=== PATIENT | male | born 1955 | race Caucasian/White ===

== ENCOUNTER → 2018-09-04 | Outpatient (CLI) | payer MEDICARE ==
--- NOTE | 2018-09-04 12:32 | REP ---
PARTIAL LUMBAR SPINE, THREE VIEWS: HISTORY: Osteoarthritis. There is no acute fracture or subluxation. The L3-4 through L5-S1 intervertebral discs are decreased in height consistent with disc degeneration. Osteophytes are present on L3-S1. IMPRESSION: Degenerative change as described above. Electronically Signed by Jaun Ashraf MD 09/04/2018 12:40 P
--- NOTE | 2018-09-04 12:58 | REP ---
LEFT SHOULDER, THREE VIEWS: HISTORY: Osteoarthritis. There is no acute fracture or dislocation. There is marked narrowing of the acromioclavicular joint space with associated osteophyte formation. Calcification is present superior to the acromioclavicular joint space. This represents ligamentous or tendon calcification. IMPRESSION: Degenerative change as described above. Electronically Signed by Jaun Ashraf MD 09/04/2018 01:06 P
--- NOTE | 2018-09-04 13:00 | REP ---
AP STANDING AND BILATERAL KNEES ONE VIEW: HISTORY: Osteoarthritis. There is no acute fracture or dislocation. There is minimal narrowing of the knee joint spaces. IMPRESSION:Degenerative changes as described above. Electronically Signed by Jaun Ashraf MD 09/04/2018 01:06 P
--- NOTE | 2018-09-04 13:01 | REP ---
BILATERAL HAND, EIGHT VIEWS: HISTORY: Osteoarthritis. RIGHT HAND: There is no acute fracture or dislocation. The joint spaces are normal in appearance. Osteophytes are present at the distal interphalangeal joints of the second and third digits. IMPRESSION: Degenerative change as described above. LEFT HAND: There is no acute fracture or dislocation. The joint spaces are normal in appearance. Calcification is present lateral to the distal interphalangeal joint of the second digit. This represents ligamentous or tendon calcification. IMPRESSION: Degenerative change as described above. Electronically Signed by Jaun Ashraf MD 09/04/2018 01:07 P
== END ==
LOC: M SMT 10:52
PROVIDERS: ATTEND Internal Medicine Rheumatology
DX: M54.5 Low back pain (principal); M15.0 Primary generalized (osteo)arthritis

== ENCOUNTER 2020-10-03 13:59 | Inpatient (IN) | payer MEDICARE ==
[~2020-10-03] VITALS: Ht 182.9 cm; Wt 71.5 kg
[2020-10-03] VITALS (11 sets, daily range): BP systolic 105–139; BP diastolic 63–79
[2020-10-03] MEDS ORDERED: COMBIVENT RESPIMAT 100-20MCG INHALER 4GM INH ONE (14:50)
[2020-10-03 15:18] LABS: ABG BASE EXCESS 0.3 (-2.0-2.0); ABG HCO3 26.1 MEQ/L (22.0-26.0); ABG PARTIAL PRESSURE CO2 45.8 mmHg (35.0-45.0); ABG PARTIAL PRESSURE O2 78.3 mmHg (75.0-100.0); ABG STANDARD HCO3 24.7 MEQ/L (22.0-26.0); ABG TOTAL CO2 27.5 MEQ/L (23.0-31.0); ABG pH (ARTERIAL) 7.373 UNITS (7.350-7.450)
--- NOTE | 2020-10-03 15:23 | REP ---
INDICATION: DYSPNEA/COUGH COMPARISON: None. TECHNIQUE: Portable AP view of the chest FINDINGS: Large right pneumothorax. The lung santoro demonstrate diffuse advanced underlying fibrotic and emphysematous changes bilaterally. No focal consolidation. No effusion. Mild cardiomegaly cannot be excluded. IMPRESSION: Large right pneumothorax. ER immediately notified. Underlying emphysematous changes and fibrotic changes noted bilaterally. <Electronically signed by Krishna Hernandez > 10/03/20 [id number]
[2020-10-03] MEDS ORDERED: KCL 20MEQ IN D5/NS 1000ML 1,000 ML IV SCH (15:25)
[2020-10-03] MEDS ORDERED: LEVALBUTEROL 1.25 MG/0.5 ML CONCENTRATE NEB NEB PRN (15:25)
[2020-10-03] MEDS ORDERED: BISACODYL 10 MG SUPP PR PRN (15:25)
[2020-10-03] MEDS ORDERED: ACETAMINOPHEN TAB 650MG DOSE (2X325MG) PO PRN (15:25)
[2020-10-03] MEDS ORDERED: NORCO, ANEXSIA 5/325MG TABLET (HYDROcodone/ACETAMINOPHEN) PO PRN (15:25)
[2020-10-03] MEDS ORDERED: ONDANSETRON 4MG/2ML VIAL IV PRN (15:25)
[2020-10-03] MEDS ORDERED: MIDAZOLAM INJ 2MG/2ML VIAL (J2250 PER 1MG) As Ordered ONE (15:40)
[2020-10-03] MEDS ORDERED: flumazeniL 0.5 MG/5 ML VIAL As Ordered ONE (15:40)
[2020-10-03] MEDS ORDERED: LIDOCAINE 1% MDV 20ML VIAL As Ordered ONE (15:41)
[2020-10-03 15:48] LABS: BASO # 0.2 10^3/uL (0.0-0.2); BASO % 0.9 % (0.0-1.0); EOS % 0.1 % (0.0-3.0); HEMATOCRIT 57.4 % (42.0-52.0); LYMPH # 0.2 10^3/uL (1.5-5.0); LYMPH % 1.2 % (24.0-44.0); MEAN CORPUSCULAR HEMOGLOBIN 28.8 pg (27.0-33.0); MEAN CORPUSCULAR HGB CONC 31.4 g/dl (32.0-36.5); MEAN CORPUSCULAR VOLUME 91.8 fl (80.0-96.0); MONO # 0.5 10^3/uL (0.0-0.8); MONO % 2.9 % (2.0-8.0); NEUTROPHILS # 15.4 10^3/uL (1.5-8.5); NEUTROPHILS % 90.5 % (36.0-66.0); PLATELET COUNT, AUTOMATED 200 10^3/uL (150-450); RED BLOOD COUNT 6.25 10^6/uL (4.30-6.10)
[2020-10-03] MEDS ORDERED: LIDOCAINE 1% MDV 20ML VIAL SC ONE (16:00)
[2020-10-03] MEDS ORDERED: MIDAZOLAM INJ 2MG/2ML VIAL (J2250 PER 1MG) IV ONE (16:00)
[2020-10-03] MEDS ORDERED: ALBU83IN NEB (16:13)
[2020-10-03] MEDS ORDERED: TIOT18INH INH (16:13)
[2020-10-03] MEDS ORDERED: ACTO45TA12 PO (16:13)
[2020-10-03] MEDS ORDERED: PRED20TA PO (16:13)
[2020-10-03] MEDS ORDERED: HYDR200T3 PO (16:13)
[2020-10-03] MEDS ORDERED: ATOV750S PO (16:13)
[2020-10-03] MEDS ORDERED: BREO1INH3 INH (16:13)
[2020-10-03] MEDS ORDERED: GLYX1TAB PO (16:13)
[2020-10-03] MEDS ORDERED: DEXI60CA2 PO (16:13)
[2020-10-03] MEDS ORDERED: GLIM4TAB5 PO (16:13)
[2020-10-03] MEDS ORDERED: CITRTAB16 PO (16:13)
[2020-10-03 16:18] LABS: ALBUMIN 3.9 GM/DL (3.2-5.2); ALT/SGPT 94 U/L (12-78); BILIRUBIN,DIRECT 0.4 MG/DL (0.0-0.2); BILIRUBIN,TOTAL 1.1 MG/DL (0.2-1.0); BLOOD UREA NITROGEN 37 MG/DL (7-18); CALCIUM LEVEL 8.8 MG/DL (8.8-10.2); CARBON DIOXIDE LEVEL 32 MEQ/L (21-32); CHLORIDE LEVEL 104 MEQ/L (98-107); CK-MB VALUE MASS 11.8 NG/ML (<3.6); CPK CREATINE PHOSPHOKINASE 721 U/L (39-308); CREATININE FOR GFR 1.07 MG/DL (0.70-1.30); GLOMERULAR FILTRATION RATE > 60.0 (>49); GLUCOSE, FASTING 361 MG/DL (70-100); MB/CK RELATIVE INDEX 1.64 (< OR =4); NT-PRO BNP 2099 PG/ML (<125); POTASSIUM SERUM 5.2 MEQ/L (3.5-5.1); SODIUM LEVEL 140 MEQ/L (136-145); THYROID STIMULATING HORMONE 0.524 uIU/ML (0.358-3.740); TOTAL PROTEIN 6.6 GM/DL (6.4-8.2)
--- NOTE | 2020-10-03 16:47 | REP ---
INDICATION: after chest tube placement COMPARISON: 10/03/2020 at 3:16 p.m. TECHNIQUE: Portable AP view of the chest FINDINGS: Right-sided chest tube has been placed and there is been significant re-expansion to the right hemithorax with small residual right apical pneumothorax now identified. The bilateral lung santoro demonstrate diffuse chronic fibrosis/interstitial changes. No focal consolidation or effusion. IMPRESSION: Small residual right apical pneumothorax. Underlying diffuse chronic interstitial changes again noted. <Electronically signed by Krishna Hernandez > 10/03/20 [id number]
[2020-10-03] MEDS ORDERED: D5W/0.9% SODIUM CHLORIDE 1,000 ML IV SCH (17:10)
[2020-10-03] MEDS: KETOROLAC 30 MG/ML 1ML VIAL IV SCH (17:30)
[2020-10-03] MEDS ORDERED: DEXTROSE 50% 50 ML SYRINGE IV PRN (17:35)
[2020-10-03] MEDS ORDERED: GLUCAGON INJ 1MG VIAL SC PRN (17:35)
[2020-10-03] MEDS ORDERED: GLUCOSE 4GM CHEW TABLET PO PRN (17:35)
--- NOTE | 2020-10-03 18:07 | RO ---
OPERATIVE NOTE DATE OF OPERATION: 10/03/2020 PREOPERATIVE DIAGNOSIS: Acute right-sided pneumothorax. POSTOPERATIVE DIAGNOSIS: Acute right-sided pneumothorax. PROCEDURE: Insertion of anterior-superior chest tube. SURGEON: Dr. Shawn Reese DESCRIPTION OF PROCEDURE: Under satisfactory moderate sedation achieved with 2 mg of Versed, patient was prepped and draped in the usual sterile fashion. Incision was made over the 2nd rib and tunnel created in the chest without difficulty after infiltrating the skin, subcutaneous tissue, and pleura with Xylocaine. A #20 chest tube was placed and aimed toward the apex. It was secured to the chest wall with #2 Tevdek suture and connected to the Pleur-evac. Patient tolerated the procedure well. A chest x-ray is pending.
--- NOTE | 2020-10-03 18:30 | HPE ---
HISTORY AND PHYSICAL DATE OF ADMISSION: 10/03/2020 HISTORY OF PRESENT ILLNESS: Krishna Licea is a 65-year-old with pulmonary interstitial fibrosis who is followed [facility] by Dr. Cruz and Dr. Coon. He presented with a spontaneous pneumothorax of the right lung. I saw him soon after the chest tube was placed. He was having some pleuritic pain which limited his interest in providing a whole history and physical, with more of that to gather tomorrow. 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 He has chronic low back pain. He used to go to the pain clinic [facility] for [facility]. Type 2 diabetes. He is on chronic steroid therapy. He was diagnosed with rheumatoid arthritis back in the . He saw a medical massage therapist in [place]. He saw [facility] medical massage therapist, Dr. Bermudez when she was in [facility], most recently two years ago. She thought that the patient had osteoarthritis and not rheumatoid arthritis, as all serologic workup for rheumatoid arthritis was unremarkable, including anti-CCP and negative rheumatoid factor and negative inflammatory markers. Uric acid level was normal and radiographic studies just showed degenerative disease. Since then, it looks like he has been placed on some rheumatoid medications. We will investigate that further tomorrow. In particular, he carries the diagnosis of lupus, but I am not sure where the diagnosis was made and who is treating him with these agents. SOCIAL HISTORY: He is a nonsmoker, no alcohol. FAMILY HISTORY: Positive for diabetes. Father had rheumatoid arthritis and lung cancer. His sister has rheumatoid arthritis. ALLERGIES: None to any medications. REVIEW OF SYSTEMS: The review of systems was briefly obtained. No hemoptysis, rectal bleeding, urinary bleeding, fever, chills, shortness of breath, stable until abrupt worsening today. PHYSICAL EXAMINATION: VITAL SIGNS: He was seen in PCU and his chest tube had just been placed and he was having some pleuritic pain. Respiratory rate is around 30. Vital signs per flow sheet. GENERAL APPEARANCE: He looks chronically ill. Temporal wasting noted. Sarcopenia noted. NECK: Supple. No thyromegaly. LUNGS: Decreased breath sounds, fibrotic rales. Good air movement bilaterally. HEART: Regular rhythm, no murmur. ABDOMEN: Soft and nontender with no masses. EXTREMITIES: No clubbing, cyanosis, or edema. Decreased pulses, but deep is still palpable. IMPRESSION: 1. Spontaneous pneumothorax status post right chest tube by Dr. Reese. He and I have discussed the case. He will remain with a chest tube. 2. Diabetes with a sliding scale of insulin based upon monitoring his blood sugars until his oral intake is assured. 3. Mild hyperkalemia. I will change his IV fluids. Currently, he has IV fluids going with supplemental potassium. 4. ? lupus. We will investigate this further tomorrow. It does look like he is on chronic steroids which we will need to continue. He will be at risk of adrenal suppression, as his dose is actually 60 mg daily as it looks on his ER record. 5. Chronic pain of lumbosacral degenerative disk disease and degenerative arthritis. Early ambulation advised. Chronic pain could limit his recovery.
[2020-10-03] MEDS: LEVALBUTEROL 1.25 MG/0.5 ML CONCENTRATE NEB NEB SCH (19:15)
--- NOTE | 2020-10-03 20:13 | ECGEPIP ---
[facility] - ED Test Date: 2020-10-03 Pat Name: KIERA ALARCON Department: Room: - Gender: Male [employer]: YOLANDE : 1955 Requested By: SHAYNE Jerome Order Number: [id number] Reading MD: Manisha Braden Measurements Intervals [place] Rate: 80 P: 80 TN: 182 QRS: 20 QRSD: 100 T: -18 QT: 372 QTc: 429 Interpretive Statements Normal sinus rhythm Inferior infarct , age undetermined NSTTW abnormalities No prior Electronically Signed on 10-03-2020 20:14:11 EST by Manisha Braden
[2020-10-03] MEDS: HYDROXYCHLOROQUINE 200 MG TAB PO SCH (22:09)
[2020-10-03] MEDS: HEPARIN SOD (PORCINE) 5000UNITS/ML 1ML VIAL/SYRINGE SC SCH (22:10)
[2020-10-03] MEDS: DOCUSATE SODIUM 100MG CAPSULE PO SCH ×2 (22:10→22:16)
[2020-10-03] MEDS: HumaLOG INSULIN (NovoLOG) PER UNIT SC SCH (22:11)
[2020-10-04] VITALS: BP 153/68
[2020-10-04] MEDS: KETOROLAC 30 MG/ML 1ML VIAL IV SCH ×5 (00:50→23:51)
[2020-10-04] MEDS: LEVALBUTEROL 1.25 MG/0.5 ML CONCENTRATE NEB NEB SCH ×4 (02:00→21:04)
[2020-10-04 04:00] VITALS: BP 102/64
[2020-10-04 04:15] LABS: BASO # 0.1 10^3/uL (0.0-0.2); BASO % 0.8 % (0.0-1.0); EOS # 0.1 10^3/uL (0.0-0.5); EOS % 0.5 % (0.0-3.0); HEMOGLOBIN 16.5 g/dl (13.5-17.5); LYMPH # 0.7 10^3/uL (1.5-5.0); LYMPH % 3.7 % (24.0-44.0); MEAN CORPUSCULAR HEMOGLOBIN 28.6 pg (27.0-33.0); MEAN CORPUSCULAR VOLUME 95.5 fl (80.0-96.0); MONO # 1.3 10^3/uL (0.0-0.8); NEUTROPHILS # 15.8 10^3/uL (1.5-8.5); NEUTROPHILS % 85.1 % (36.0-66.0); PLATELET COUNT, AUTOMATED 162 10^3/uL (150-450); RED BLOOD COUNT 5.76 10^6/uL (4.30-6.10); WHITE BLOOD COUNT 18.5 10^3/uL (4.0-10.0)
[2020-10-04 04:36] LABS: BLOOD UREA NITROGEN 37 MG/DL (7-18); CALCIUM LEVEL 8.2 MG/DL (8.8-10.2); CARBON DIOXIDE LEVEL 34 MEQ/L (21-32); CHLORIDE LEVEL 109 MEQ/L (98-107); CREATININE FOR GFR 0.87 MG/DL (0.70-1.30); GLOMERULAR FILTRATION RATE > 60.0 (>49); GLUCOSE, FASTING 65 MG/DL (70-100); MAGNESIUM LEVEL 2.8 MG/DL (1.8-2.4); POTASSIUM SERUM 4.6 MEQ/L (3.5-5.1); SODIUM LEVEL 145 MEQ/L (136-145)
[2020-10-04 06:17] LABS: ABG BASE EXCESS 0.8 (-2.0-2.0); ABG HCO3 29.6 MEQ/L (22.0-26.0); ABG O2 SATURATION 99.4 % (95.0-99.0); ABG STANDARD HCO3 25.2 MEQ/L (22.0-26.0); ABG TOTAL CO2 31.5 MEQ/L (23.0-31.0); ABG pH (ARTERIAL) 7.282 UNITS (7.350-7.450)
[2020-10-04 06:23] LABS: ABG PARTIAL PRESSURE CO2 64.1 mmHg (35.0-45.0)
[2020-10-04] MEDS: HumaLOG INSULIN (NovoLOG) PER UNIT SC SCH ×4 (07:30→20:58)
[2020-10-04] MEDS: ATOVAQUONE SUSP 750MG/5ML 210 ML BTL PO SCH (07:36)
[2020-10-04] MEDS: predniSONE 20 MG TAB PO SCH (07:36)
[2020-10-04] MEDS: PANTOPRAZOLE 40MG TAB (PROTONIX) PO SCH (07:37)
[2020-10-04] MEDS: DOCUSATE SODIUM 100MG CAPSULE PO SCH (07:37)
[2020-10-04] MEDS: HYDROXYCHLOROQUINE 200 MG TAB PO SCH ×2 (07:37→20:52)
[2020-10-04] MEDS: MOM 30ML SUSPENSION UDC PO SCH (07:37)
[2020-10-04] MEDS: HEPARIN SOD (PORCINE) 5000UNITS/ML 1ML VIAL/SYRINGE SC SCH ×2 (07:37→20:53)
[2020-10-04 08:00] VITALS: BP 111/57
--- NOTE | 2020-10-04 08:25 | REP ---
INDICATION: after chest tube placement COMPARISON: 10/03/2020 TECHNIQUE: PA and lateral. FINDINGS: Right apical chest tube in stable position with small residual right apical pneumothorax unchanged. Diffuse bilateral chronic fibrosis and interstitial disease remains stable. No new acute consolidation or effusion. Mediastinum and cardiac silhouette within normal limits. IMPRESSION: No significant change from prior examination. Small residual right apical pneumothorax. <Electronically signed by Krishna Hernandez > 10/04/20 0850
--- NOTE | 2020-10-04 08:34 | IPN ---
PROGRESS NOTE DATE: 10/04/2020 SUBJECTIVE: Krishna is feeling fairly well today, less short of breath. No chest pain. No fever. He is hard of hearing, it is difficult to history from him. OBJECTIVE: VITAL SIGNS: Afebrile. Vital signs are stable. LUNGS: Good air movement bilaterally. HEART: Regular rate and rhythm. ABDOMEN: Soft, nontender. EXTREMITIES: No peripheral edema. LABORATORY DATA: Potassium 7.46, creatinine is normal, blood sugar this morning was 65, he was given some juice and it came up. White count 18.5, hemoglobin 16.5, platelets 162,000. IMPRESSION: 1. Spontaneous pneumothorax right lung, status post chest tube by Dr. Reese who is managing this. 2. Diabetes, sliding scale insulin coverage, hypoglycemia this morning, was treated without significant intervention. 3. ? lupus, continue his current regimen including his fairly high dose steroids.
--- NOTE | 2020-10-04 08:38 | REP ---
INDICATION: IPF, pneumothorax COMPARISON: None TECHNIQUE: Axial noncontrast images from the thoracic inlet to the upper abdomen with coronal and sagittal reformations. This CT examination was performed using the following dose reduction techniques: Automated exposure control, adjustment of mA and/or kv according to the patient's size, and use of iterative reconstruction technique. FINDINGS: Right-sided chest tube via anterior approach extends to the apex and a small residual pneumothorax is identified. Diffuse bilateral advanced pulmonary fibrosis with bronchiectasis noted along with 6.3 cm chronic pneumatocele at the medial right base. Linear opacity along the apical aspect of the right major fissure which may represent chronic thickening, trapped fluid or element of atelectasis. Small patchy scattered bilateral opacities noted. No effusion. Mediastinum demonstrates scattered reactive adenopathy. Atherosclerotic changes to the thoracic aorta and coronary arteries noted without aortic aneurysm. Cardiomegaly noted without pericardial effusion. Surrounding musculoskeletal structures are intact. IMPRESSION: 1. Small residual right pneumothorax. 2. Advanced diffuse pulmonary fibrosis and chronic changes. 3. Subtle small scattered opacities may reflect acute areas of infiltrate versus chronic change. <Electronically signed by Krishna Hernandez > 10/04/20 0879
--- NOTE | 2020-10-04 11:22 | IPN ---
PROGRESS NOTE DATE: 10/04/2020 SUBJECTIVE: Mr. Licea is breathing a lot better today. He still has an increased respiratory rate, but he can now speak in full sentences. OBJECTIVE: VITAL SIGNS: Show a T-max of 97.9 with a heart rate that ranges between 66 and 79 in sinus rhythm. Respiratory rate of 18 to 19 without the use of accessory muscles who is 96% to 97% saturated on 4 liters nasal cannula and whose blood pressure is ranging between 153/68 to 102/64. When I examined him this morning, his respiratory rate is more in the mid to high 20s. INTAKE AND OUTPUT: Over the past 24 hours has been recorded as 710 in and 400 out for a positivity of 300 mL. His chest tube output is not recorded. His weight today is 66.1 kg compared to 63.1 kg yesterday. I do not see an air leak in his chest tube. I will speak to the nursing staff regarding the absence of chest tube output recording. RESPIRATORY: He has equal breath sounds on either side. At the very end of inspiration, he has velcro crackles. Scattered among the velcro crackles are coarse rhonchi, which do not clear with coughing. Percussion note is full to the diaphragm. There is no subcutaneous emphysema on the chest wall. CARDIAC: Without murmurs, clicks, gallops, or rubs. I cannot feel his PMI. S1 and S2 are normal. ABDOMEN: Soft and nontender. Bowel sounds are positive. There is no hepatomegaly. No CVA tenderness. EXTREMITIES: Show no pretibial edema. No calf tenderness. No differential swelling of the upper extremities. SKIN: Warm, dry, and perfused without cyanosis or mottling, including that of the nail beds and knees. NECK: Supple. There is no jugular venous distention. No subcutaneous emphysema. Trachea is midline. MOUTH: Shows the mucous membranes to be pink and moist. Lips and commisures are without lesions and no thrush. EYES: Show his pupils equal and reactive. Extraocular motions are intact. Sclerae nonicteric. NEUROLOGIC: Shows II through XII intact. Normal gross motor, gross sensation intact. Gait is not tested. PSYCHIATRIC: Shows him to be awake, alert, and oriented x3 with appropriate mood and affect and conversational. LABORATORY DATA: His white count today is 18.5 slightly up from 17.0 yesterday. Hemoglobin and hematocrit are 16.5 and 55.8 slightly improved from 18 and 57.4. This represents hypoxic polycythemia. Platelet count is 162,000 and stable, and differential shows 85% neutrophils, 3% lymphocytes, and 7% monocytes. There are no immature forms and no toxic granulations. His electrolytes show a marginally high total CO2 of 34 with a BUN and creatinine of 37 and 0.87. Glucose is 65 with a calcium of 8.2. Blood gases this morning show a pH of 7.28, pCO2 of 64 with a pO2 of 214 on 4 liters nasal cannula. Base excess is 0.8. IMAGING DATA: His chest x-ray today shows small apical air space on the right side. Chest tube is in good position at the apex. There looks to be a large bulla on the chest x-ray inferiorly. This is seen inferiorly and medially. He has fibrotic changes with a reticular pattern with thickened septa. I did order a CT of his chest today. The CT of the chest shows advanced pulmonary fibrosis with honeycombing throughout. It has progressed from being peripheral honeycombing to parenchymal honeycombing traction bronchiectasis. There is a small air space anteriorly. There is mediastinal lymphadenopathy, although the chest CT is not contrasted. He has lots of patch infiltrates and small patchy areas of consolidation throughout. The large bulla as seen on the chest x-ray is seen also n the CT scan at the medial costophrenic angle. Numerous cystic changes throughout consistent with the honeycombing. IMPRESSION: 1. Spontaneous pneumothorax right side. 2. Advanced interstitial lung disease. 3. Contributing chronic obstructive pulmonary disease (COPD). 4. Hypoxic polycythemia. 5. Gastroesophageal reflux disease (GERD). 6. Diabetes. PLAN AND DISCUSSION: I will keep his chest tube on suction today as he still has a small pneumothorax and residual air space. His chest CT radiographically confirms his pulmonary fibrosis. I have a sinking feeling that the pneumothorax may very well reoccur from the numerous cystic spaces that are replacing the lung. Right now he does not have an air leak. I will keep his chest tube on suction in order to try and get the lung completely expanded to the chest wall.
[2020-10-04 12:00] VITALS: BP 96/58
[2020-10-04 16:00] VITALS: BP 110/60
[2020-10-04 19:59] VITALS: BP 137/67
[2020-10-05] VITALS: BP 101/57
[2020-10-05] MEDS: LEVALBUTEROL 1.25 MG/0.5 ML CONCENTRATE NEB NEB SCH ×4 (01:24→19:33)
[2020-10-05 04:00] VITALS: BP 106/58
[2020-10-05 05:51] LABS: BASO # 0.1 10^3/uL (0.0-0.2); BASO % 0.9 % (0.0-1.0); EOS # 0.1 10^3/uL (0.0-0.5); EOS % 0.3 % (0.0-3.0); HEMATOCRIT 54.9 % (42.0-52.0); HEMOGLOBIN 16.3 g/dl (13.5-17.5); LYMPH # 0.5 10^3/uL (1.5-5.0); LYMPH % 3.3 % (24.0-44.0); MEAN CORPUSCULAR HEMOGLOBIN 28.7 pg (27.0-33.0); MEAN CORPUSCULAR HGB CONC 29.7 g/dl (32.0-36.5); MEAN CORPUSCULAR VOLUME 96.7 fl (80.0-96.0); MONO # 1.1 10^3/uL (0.0-0.8); MONO % 7.1 % (2.0-8.0); NEUTROPHILS # 13.4 10^3/uL (1.5-8.5); NEUTROPHILS % 84.4 % (36.0-66.0); PLATELET COUNT, AUTOMATED 143 10^3/uL (150-450); RED BLOOD COUNT 5.68 10^6/uL (4.30-6.10); WHITE BLOOD COUNT 15.8 10^3/uL (4.0-10.0)
[2020-10-05 06:18] LABS: BLOOD UREA NITROGEN 42 MG/DL (7-18); CALCIUM LEVEL 8.5 MG/DL (8.8-10.2); CARBON DIOXIDE LEVEL 33 MEQ/L (21-32); CHLORIDE LEVEL 109 MEQ/L (98-107); CREATININE FOR GFR 0.77 MG/DL (0.70-1.30); GLOMERULAR FILTRATION RATE > 60.0 (>49); GLUCOSE, FASTING 104 MG/DL (70-100); MAGNESIUM LEVEL 2.7 MG/DL (1.8-2.4); POTASSIUM SERUM 4.6 MEQ/L (3.5-5.1); SODIUM LEVEL 144 MEQ/L (136-145)
[2020-10-05] MEDS: KETOROLAC 30 MG/ML 1ML VIAL IV SCH ×3 (06:27→17:02)
[2020-10-05] MEDS: HumaLOG INSULIN (NovoLOG) PER UNIT SC SCH ×4 (07:30→20:24)
[2020-10-05 08:00] VITALS: BP 100/56
[2020-10-05] MEDS: HEPARIN SOD (PORCINE) 5000UNITS/ML 1ML VIAL/SYRINGE SC SCH ×2 (08:17→20:19)
[2020-10-05] MEDS: HYDROXYCHLOROQUINE 200 MG TAB PO SCH ×2 (08:18→20:19)
[2020-10-05] MEDS: ATOVAQUONE SUSP 750MG/5ML 210 ML BTL PO SCH (08:18)
[2020-10-05] MEDS: predniSONE 20 MG TAB PO SCH (08:18)
[2020-10-05] MEDS: PANTOPRAZOLE 40MG TAB (PROTONIX) PO SCH (08:18)
--- NOTE | 2020-10-05 08:29 | REP ---
INDICATION: after chest tube placement COMPARISON: 10/04/2020 TECHNIQUE: PA and lateral. FINDINGS: Right apical chest tube is again identified and a very small residual right apical pneumothorax is appreciated. Right-sided subcutaneous emphysema and possible new right basilar opacity cannot be excluded. Diffuse underlying chronic bilateral fibrosis unchanged. IMPRESSION: Very small residual right apical pneumothorax. Cannot exclude subtle forming right basilar opacity. <Electronically signed by Krishna Hernandez > 10/05/20 [id number]
[2020-10-05] MEDS: MOM 30ML SUSPENSION UDC PO SCH (08:41)
[2020-10-05] MEDS: DOCUSATE SODIUM 100MG CAPSULE PO SCH ×2 (08:41→20:28)
--- NOTE | 2020-10-05 11:10 | IPN ---
PROGRESS NOTE DATE: 10/05/2020 SUBJECTIVE: Krishna was seen in the PCU. He has a chest tube in, he feels well as far as his chest tube goes. He has spent some time talking to nursing staff and then with me about planning some end of life care. He has a MOLST form which is a DNR. He apparently was told by Dr. Cruz about a year ago that he had a year to a year and a half to live and says "I have already hit the year." Apparently, he is not able to be strong enough anymore to ascend stairs to get in and out of his apartment, he is looking for placement upon discharge. He is not really appropriate for the [facility]osp[facility] residence yet, but he is not able to live at home either. OBJECTIVE: VITAL SIGNS: Stable. LUNGS: Air movement bilaterally, fibrotic rales bilaterally. HEART: Regular rhythm. ABDOMEN: Soft, nontender. EXTREMITIES: No peripheral edema. LABORATORY DATA: White count 14.8, hemoglobin 16.3, platelets 143,000, sodium 144, potassium 4.6, BUN 42, creatinine 0.7, glucose 104. I have reviewed his MOLST form which is a DNR and DNI. IMPRESSION: 1. Spontaneous pneumothorax right side status post chest tube placement. He has advanced interstitial lung disease that is becoming progressively worse. His life expectancy is limited. I appreciate Dr. Reese's input. Patient has a DNR status which was reaffirmed today. 2. Diabetes, on sliding scale insulin, has not been hypoglycemic in the last 24 hours. 3. Lupus, we confirmed he has lupus, followed by Dr. Johnson, a mortgage servicing specialist in [place]. I told Krishna that I will call his mortgage servicing specialist tomorrow to make him aware of the admission. 4. Disposition: Patient will need discharge to an alternative living arrangement upon discharge. He will not be able to go home.
[2020-10-05 12:00] VITALS: BP 105/56
[2020-10-05 15:52] VITALS: BP 110/62
--- NOTE | 2020-10-05 16:22 | IPN ---
PROGRESS NOTE DATE: 10/05/2020 SUBJECTIVE: Mr. Licea is a little bit more short of breath today. He went down to x-ray and he was very short of breath upon his return. Certainly he is not as short of breath as he was when he had his pneumothorax, but still his shortness of breath is a manifestation of his advanced pulmonary fibrosis as seen on his CT yesterday. OBJECTIVE: VITAL SIGNS: Show a T-max of 97.9 with a heart rate that ranges between 67 and 90 in sinus rhythm. Respiratory rate of 17 to 18 without the use of accessory muscles who is 90% to 100% saturated on 3 liters nasal cannula and whose blood pressure is ranging between 100/56 to 106/58. INTAKE AND OUTPUT: Over the past 24 hours has been recorded as 3330 in and 1518 out for a positivity of 1812 mL. He has put out 37 mL in the chest tube. His weight today is 62.5 kg compared to 66.1 kg yesterday. RESPIRATORY: He has velcro crackles throughout late inspiration. I also hear very coarse rhonchi, particularly on the right side. Percussion notes are full to the diaphragm. CARDIAC: Without murmurs, clicks, gallops, or rubs. I cannot feel his PMI. S1 and S2 are normal. ABDOMEN: Soft and nontender. Bowel sounds are positive. There is no hepatomegaly. No CVA tenderness. EXTREMITIES: Show no pretibial edema. No calf tenderness. No differential swelling of the upper extremities. SKIN: Warm, dry, and perfused without cyanosis or mottling, including that of the nail beds and knees. NECK: Supple. There is no jugular venous distention. No subcutaneous emphysema. Trachea is midline. MOUTH: Shows the mucous membranes to be pink and moist. Lips and commisures are without lesions and no thrush. EYES: Show his pupils equal and reactive. Extraocular movements are intact. Sclerae nonicteric. NEUROLOGIC: Shows II through XII intact. Normal gross motor, gross sensation intact. Gait is not tested. PSYCHIATRIC: Shows him to be awake, alert, and oriented x3 with appropriate mood and affect and conversational. LABORATORY DATA: His white count today is 15.6 with a hemoglobin and hematocrit of 16.3 and 54.9, unchanged from yesterday, with a platelet count of 143,000. Differential shows 84% neutrophils, 3% lymphocytes, and 7% monocytes. There are no immature forms and no toxic granulations. His electrolytes show a marginally elevated total CO2 of 33 with a BUN and creatinine of 42 and 77. Glucose is 104 with a calcium of 8.5 and magnesium of 2.7. IMAGING DATA: His chest x-ray today shows an apical air space in the right upper hemithorax. Chest tube is in good place at the apex of the hemithorax. He has patchy reticular infiltrates throughout consistent with his pulmonary fibrosis, worse on the right than the left. Costophrenic angles are sharp. I do not see overt infiltrates. IMPRESSION: 1. Spontaneous pneumothorax right side. 2. Advanced interstitial lung disease clinically idiopathic pulmonary fibrosis. 3. Contributing underlying chronic obstructive pulmonary disease (COPD). 4. Hypoxic polycythemia. 5. Gastroesophageal reflux disease. 6. Diabetes. PLAN AND DISCUSSION: I will discontinue his suction today. I am concerned that this may be the first of recurrent pneumothoraces because of his advanced pulmonary fibrosis and cystic disease. If his chest x-ray is stable tomorrow and there is no air leak, I will remove his chest tubes. Nursing staff tells me that he has difficulty in his present living situation, as he has his bedroom upstairs and he literally "crawls" up the stairs to get there. He is going to need alternate living arrangements. Dr. Cruz did have a nidhi discussion with him about his prognosis and end-of-life care. She had him sign a MOLST form. If he is not going to consider a lung transplant or antifibrosis therapy, Hospice may be a good arrangement for him, as his life expectancy is rather short.
[2020-10-06] VITALS: BP 105/59
[2020-10-06] MEDS: KETOROLAC 30 MG/ML 1ML VIAL IV SCH ×4 (00:43→17:20)
[2020-10-06] MEDS: LEVALBUTEROL 1.25 MG/0.5 ML CONCENTRATE NEB NEB SCH ×4 (02:03→19:18)
[2020-10-06 04:00] VITALS: BP 96/61
[2020-10-06 05:46] LABS: BASO # 0.1 10^3/uL (0.0-0.2); BASO % 0.6 % (0.0-1.0); EOS # 0.2 10^3/uL (0.0-0.5); EOS % 0.9 % (0.0-3.0); HEMATOCRIT 54.4 % (42.0-52.0); HEMOGLOBIN 16.2 g/dl (13.5-17.5); LYMPH # 0.8 10^3/uL (1.5-5.0); LYMPH % 4.9 % (24.0-44.0); MEAN CORPUSCULAR HGB CONC 29.8 g/dl (32.0-36.5); MEAN CORPUSCULAR VOLUME 97.5 fl (80.0-96.0); MONO % 6.4 % (2.0-8.0); NEUTROPHILS # 13.3 10^3/uL (1.5-8.5); NEUTROPHILS % 84.1 % (36.0-66.0); PLATELET COUNT, AUTOMATED 130 10^3/uL (150-450); RED BLOOD COUNT 5.58 10^6/uL (4.30-6.10); WHITE BLOOD COUNT 15.9 10^3/uL (4.0-10.0)
[2020-10-06 05:56] LABS: BLOOD UREA NITROGEN 38 MG/DL (7-18); CALCIUM LEVEL 8.2 MG/DL (8.8-10.2); CARBON DIOXIDE LEVEL 33 MEQ/L (21-32); CHLORIDE LEVEL 109 MEQ/L (98-107); CREATININE FOR GFR 0.79 MG/DL (0.70-1.30); GLOMERULAR FILTRATION RATE > 60.0 (>49); GLUCOSE, FASTING 112 MG/DL (70-100); MAGNESIUM LEVEL 2.4 MG/DL (1.8-2.4); POTASSIUM SERUM 4.7 MEQ/L (3.5-5.1); SODIUM LEVEL 142 MEQ/L (136-145)
[2020-10-06 08:00] VITALS: BP 100/61
--- NOTE | 2020-10-06 08:34 | REP ---
INDICATION: after chest tube placement COMPARISON: 10/05/2020 TECHNIQUE: PA and lateral. FINDINGS: Right apical chest tube in stable position. Small residual right apical pneumothorax. Underlying chronic bilateral fibrosis and interstitial changes again noted. No new acute process identified mediastinum and cardiac silhouette stable. Skeletal structures stable. IMPRESSION: Small right apical pneumothorax again noted. No new acute process appreciated. <Electronically signed by Krishna Hernandez > 10/06/20 [id number]
--- NOTE | 2020-10-06 08:42 | CR ---
CONSULTATION DATE: 10/03/2020 Patient seen at the request of Dr. Hand of the emergency room and the hospitalist service, Dr. Polo, for increasing shortness of breath and pneumothorax by chest x-ray. HISTORY OF PRESENT ILLNESS: Patient is a 65-year-old white male with known idiopathic pulmonary fibrosis whose acute story starts about 2 weeks ago, when he started to get more and more short of breath. He presented to the pulmonary service's offices on September [address] Cruz, where he was hypoxic and 82% saturated on room air. He had been losing weight and was more short of breath with minimal exertion. A year ago, he evidently could walk 5 miles. The last 2 weeks his shortness of breath has gotten significantly worse and over the last 2 days even worse than the last 2 weeks. He can hardly move around in bed without getting short of breath, and upon taking history today he can barely speak in full sentences, thus making the history difficult to obtain. He denies fever, chills, or sweats. He has had a near 40-pound weight loss. He states he is eating well. He has a slight cough. No sputum production. Notably, he does not complain of chest pain or chest discomfort other than tightness when he is trying to take a deep breath. There is no dysphagia. MEDICAL HISTORY: 1. Idiopathic pulmonary fibrosis. 2. Systemic lupus erythematosus, recently diagnosed. 3. Cez-nivwvtr-xyowtvtbm diabetes. 4. Osteoarthritis. 5. Diabetic neuropathy. 6. Chronic back pain. SURGICAL HISTORY: None. HOME MEDICATIONS: - albuterol nebulizer four times a day as needed for shortness of breath - atovaquone 10 mg daily - Dexilant 60 mg daily - Glyxambi 25/5 daily - Breo Ellipta 200/25 one puff daily - glimepiride 8 mg daily - hydroxychloroquine 200 mg twice a day - Actos 45 mg daily - prednisone 60 mg daily - Spiriva 18 mcg one puff daily HABITS: Is a life-time nonsmoker, although he does state that he will have a bit of a cigar very occasionally for perhaps birthdays or holidays. No illicit drugs. He will have a few beers on the weekend. TRAVEL HISTORY: Not obtained. EXPOSURES: No exposures to tuberculosis. No birds or cats at home. Does have two dogs, a Lab and a Beagle. OCCUPATIONAL HISTORY: Worked for the [employer]. Does not think he has had any asbestos exposure. FAMILY HISTORY: No relevant to the acute situation. REVIEW OF SYSTEMS: CONSTITUTIONAL: See history of present illness (HPI). Without fever, chills, sweats, or night sweats. Does have significant weight loss. This has happened over the course of the past year. EYES: Without diplopia, without prior jaundice, without amaurosis fugax. NOSE: Without epistaxis. MOUTH: Edentulous. RESPIRATORY: See HPI. CARDIAC: Without palpitations, without tachycardias, without prior myocardial infarctions. Denies peripheral edema or intermittent claudication. GASTROINTESTINAL: Without nausea, vomiting, diarrhea, consistent, melena, or hematochezia, abdominal pain, or hematemesis. GENITOURINARY: Without dysuria, hematuria, or history of renal stones. ENDOCRINE: With diabetes. Without thyroid disease. NEUROLOGIC: Without paresthesias, paralyses, or prior seizures. PSYCHIATRIC: Without pathologic anxieties, depressions, or psychoses. PHYSICAL EXAMINATION: A cachectic, well-developed, under-nourished white male in acute distress with shortness of breath, unable to complete full sentences. He is using the accessory muscles or respiration in both his neck and his abdomen. Vital signs: Temperature is 97.0, heart rate is 79 in a sinus rhythm, respiratory rate of 30 with the use of accessory muscles, who is 99% saturated on 4 liters nasal cannula and whose blood pressure is 113/66. Eyes: Pupils equally round and reactive to light. Extraocular movements intact. Sclerae anicteric. Nose without deformity. Mouth shows his mucous membranes to be pink and moist. Lips and commissures without lesions. There is no thrush. He is edentulous. Neck is supple. There is no jugular venous distention. No subcutaneous emphysema. Trachea is midline. He has 2+ carotid upstrokes. No thyromegaly or lymphadenopathy. Lungs show markedly decreased breath sounds on the right side, and he is hyperresonant on the right side. Left side shows normal vesicular sounds. There are no wheezes, rhonchi, or rales. Percussion note is full to the diaphragm on the left. Cardiac exam is without murmurs, clicks, gallops, or rubs. I cannot feel his point of maximal impulse (PMI). S1 and S2 are normal. He is so cachectic that I cannot get my stethoscope to make full contact with the skin. Abdomen is soft, nontender. Bowel sounds are positive. There is no hepatomegaly, no costovertebral angle (CVA) tenderness. Extremities show no pretibial edema, no calf tenderness, no differential swelling of the upper extremities. Skin is warm, dry, and perfused without cyanosis or mottling, including that of the nailbeds and knees. Neurologic shows II-XII intact. Normal gross motor, gross sensation intact. Gait is not tested. Psychiatric shows him to be awake, alert, and oriented times three with appropriate mood and affect and conversational. His white count today is 7.0 with a hemoglobin and hematocrit of 18.0 and 57.4. Platelet count is 200 with a differential that shows 90% neutrophils, 1% lymphocytes, and 2% monocytes. There are no immature forms or toxic granulations. His electrolytes are normal with a marginally high potassium of 5.2. BUN and creatinine are 37 and 1.07 with a glucose of 361 and a calcium of 8.8. Total bilirubin is 1.1 with an AST and ALT of 50 and 94, respectively. Troponin is 0.10. Calcium is 8.8 with a corresponding albumin of 3.9. TSH is 0.52. His blood gases this afternoon show a pH of 7.37, pCO2 of 45, and pO2 of 78 on the above nasal cannula with a base excess of 0.3. His chest x-ray shows a near 75% pneumothorax. There is a shift to the left. There is underlying compression from the pneumothorax and compression of the pulmonary vessels. There is no lateral. This is a portable chest x-ray done in the emergency room (ER). IMPRESSION: 1. Acute pneumothorax. 2. End-stage pulmonary fibrosis. 3. Hypoxic respiratory failure. 4. Diabetes. 5. Systemic lupus erythematosus. 6. Osteoarthritis. 7. Chronic back and shoulder pain. PLAN AND DISCUSSION: I will place chest tube with conscious sedation. That should take care of the acute situation, although he is always going to be short of breath. From Dr. Cruz' office notes, I understand he is not interested in antifibrotic therapy, nor is he interested in lung transplant referral and evaluation. His latest pulmonary function tests done on 09/02/2020 show an FEV1 of 1.04, which is 28% of predicted with a diffusion capacity which was 69% of predicted.
[2020-10-06] MEDS: MOM 30ML SUSPENSION UDC PO SCH (09:00)
[2020-10-06] MEDS: predniSONE 20 MG TAB PO SCH (09:28)
[2020-10-06] MEDS: HEPARIN SOD (PORCINE) 5000UNITS/ML 1ML VIAL/SYRINGE SC SCH ×2 (09:28→20:56)
[2020-10-06] MEDS: PANTOPRAZOLE 40MG TAB (PROTONIX) PO SCH (09:28)
[2020-10-06] MEDS: DOCUSATE SODIUM 100MG CAPSULE PO SCH ×2 (09:28→20:56)
[2020-10-06] MEDS: HYDROXYCHLOROQUINE 200 MG TAB PO SCH ×2 (09:28→20:56)
[2020-10-06] MEDS: ATOVAQUONE SUSP 750MG/5ML 210 ML BTL PO SCH (09:29)
[2020-10-06] MEDS: HumaLOG INSULIN (NovoLOG) PER UNIT SC SCH ×4 (09:29→20:57)
--- NOTE | 2020-10-06 10:30 | IPN ---
PROGRESS NOTE DATE: 10/06/2020 SUBJECTIVE: Krishna is seen [facility], his chest tube is out today and he is feeling well. We are starting to think about disposition, he cannot go home, he has to climb stairs to get in and out of where he lives and he is no longer able to do that. He has chronic hypoxic and respiratory failure due to the pulmonary fibrosis. He uses home O2 at 2 liters. He has cachexia related to endstage lung disease. He has a BMI of 18.7 and has temporal wasting and sarcopenia. OBJECTIVE: VITAL SIGNS: Afebrile. O2 saturation is 96% on 3 liters, blood pressure is 100/61. GENERAL APPEARANCE: Chronically ill-appearing, bitemporal wasting, alert, conversant, hard of hearing. HEENT: Unremarkable. LUNGS: Fibrotic rales bilaterally. Chest tube has been removed just before exam. HEART: Regular rate and rhythm. ABDOMEN: Soft, nontender. No masses. EXTREMITIES: No peripheral edema. LABORATORY DATA: White count 15.9, hemoglobin 16.2, platelets are 130,000, sodium is 142, potassium is 4.7, BUN 38, creatinine is 0.7, glucose is 112. Blood sugars are around 100 to 200. IMPRESSION: 1. Spontaneous pneumothorax right lung, chest tube has been removed, Dr. Reese is managing this, follow-up chest x-ray is pending. He has a DNR status. 2. Diabetes. He had some hypoglycemia earlier in his hospitalization. He is on a fairly hefty dose of steroids for his lupus and lung disease. Insulin requirements have been between 6 and 12 units a day. I put him on some basal insulin with Detemir insulin 6 units at bedtime, continue sliding scale. If he becomes hypoglycemic I would just stop the basal insulin, the diabetes is not going to be a long-term problem for this gentleman's health whose life expectancy is severely limited by his endstage lung disease. 3. Lupus, he has lupus, his stroke program coordinator is in [place]. He is on high-dose steroids for this. 4. Disposition: He is not able to go home and [facility] has been working on placement. His life expectancy is probably more than six months so I do not think he is a Hospice candidate. His flat bed knitter is Dr. Cruz. She has a long relationship with him and in the few days that I have seen Mr. Licea might provide some more insight into prognosis
--- NOTE | 2020-10-06 11:48 | IPN ---
PROGRESS NOTE DATE: 10/06/2020 SUBJECTIVE: Mr. Licea is feeling a bit better today. He did walk down to chest x-ray today. He is not short of breath at rest. His pain is being well-controlled with oral analgesics. OBJECTIVE: VITAL SIGNS: Show a T-max of 98.0 with a heart rate that ranges between 85 and 80 in sinus rhythm. Respiratory rate of 14 to 20 without the use of accessory muscles who is 97% saturated on 3 liters nasal cannula and whose blood pressure is ranging between 96/61 to 105/59. INTAKE AND OUTPUT: Over the past 24 hours has been recorded as 2890 in and 1065 out for a positivity of 1800 mL. He is now according to the Is and Os nearly 3600 mL over 48 hours. He has put out 1000 mL in urine, 65 mL from the chest tube, and there is no air leak. RESPIRATORY: He has equal breath sounds on either side. He has velcro crackles at the end of inspiration on either side with the right greater than the left. Percussion notes are full to the diaphragm. CARDIAC: Without murmurs, clicks, gallops, or rubs. I cannot feel his PMI. S1 and S2 are normal. ABDOMEN: Soft and nontender. Bowel sounds are positive. There is no hepatomegaly. No CVA tenderness. EXTREMITIES: Show no pretibial edema. No calf tenderness. No differential swelling of the upper extremities. SKIN: Warm, dry, and perfused without cyanosis or mottling, including that of the nail beds and knees. NECK: Supple. There is no jugular venous distention. No subcutaneous emphysema. Trachea is midline. MOUTH: Shows the mucous membranes to be pink and moist. Lips and commisures are without lesions and no thrush. EYES: Show his pupils equal and reactive. Extraocular movements are intact. Sclerae nonicteric. NEUROLOGIC: Shows II through XII intact. Normal gross motor, gross sensation intact. Gait is not tested. PSYCHIATRIC: Shows him to be awake, alert, and oriented x3 with appropriate mood and affect and conversational. LABORATORY DATA: His white count today is 15.9, unchanged from yesterday, with hemoglobin and hematocrit of 16.2 and 54.4 also unchanged from yesterday. Platelet count is 130,000 and stable. Differential shows 84% neutrophils, 4% lymphocytes, and 6% monocytes. There are no immature forms and no toxic granulations. His electrolytes show a marginally high total CO2 of 30. BUN and creatinine are 38 and 0.79. Glucose is 112 with a calcium of 8.2 and a magnesium of 2.4. IMAGING DATA: His chest x-ray shows a small apical air space in the right upper hemithorax. There is some overlying subcutaneous emphysema in the upper hemithorax. This is unchanged from yesterday. He has reticular infiltrates consistent with his pulmonary fibrosis. There are no other infiltrates or consolidations. IMPRESSION: 1. Spontaneous right pneumothorax. 2. Advanced interstitial lung disease clinically idiopathic pulmonary fibrosis. 3. Underlying chronic obstructive pulmonary disease (COPD). 4. Hypoxic polycythemia. 5. Gastroesophageal reflux disease. 6. Diabetes. PLAN AND DISCUSSION: As he has no air leak today, I will remove his chest tube. I do have that sinking feeling that this will reoccur, considering the extent of his cystic disease. I will leave his fluid balance to the medical service. He seems none the worse for it. He certainly has not reflected that in his chest tube output. From my perspective, he can go home tomorrow; but there are social aspects that need to be addressed.
[2020-10-06 13:00] VITALS: BP 101/60
[2020-10-06 16:35] VITALS: BP 106/63
[2020-10-06 20:00] VITALS: BP 98/57
[2020-10-06] MEDS ORDERED: LEVEMIR (INSULIN DETEMIR) 1 UNITS/0.01ML SC SCH (21:00)
[2020-10-07] VITALS: BP 95/57
[2020-10-07] MEDS: KETOROLAC 30 MG/ML 1ML VIAL IV SCH ×4 (01:08→17:17)
[2020-10-07] MEDS: LEVALBUTEROL 1.25 MG/0.5 ML CONCENTRATE NEB NEB SCH ×4 (01:27→20:13)
[2020-10-07 04:00] VITALS: BP 92/54
[2020-10-07 05:07] LABS: BASO # 0.1 10^3/uL (0.0-0.2); BASO % 0.5 % (0.0-1.0); EOS # 0.1 10^3/uL (0.0-0.5); EOS % 0.5 % (0.0-3.0); HEMATOCRIT 51.9 % (42.0-52.0); HEMOGLOBIN 15.8 g/dl (13.5-17.5); LYMPH # 0.5 10^3/uL (1.5-5.0); LYMPH % 3.4 % (24.0-44.0); MEAN CORPUSCULAR HEMOGLOBIN 29.2 pg (27.0-33.0); MEAN CORPUSCULAR HGB CONC 30.4 g/dl (32.0-36.5); MEAN CORPUSCULAR VOLUME 95.8 fl (80.0-96.0); MONO # 0.9 10^3/uL (0.0-0.8); MONO % 5.9 % (2.0-8.0); NEUTROPHILS # 13.4 10^3/uL (1.5-8.5); NEUTROPHILS % 87.3 % (36.0-66.0); PLATELET COUNT, AUTOMATED 123 10^3/uL (150-450); RED BLOOD COUNT 5.42 10^6/uL (4.30-6.10); WHITE BLOOD COUNT 15.4 10^3/uL (4.0-10.0)
[2020-10-07 05:35] LABS: BLOOD UREA NITROGEN 38 MG/DL (7-18); CALCIUM LEVEL 8.2 MG/DL (8.8-10.2); CARBON DIOXIDE LEVEL 38 MEQ/L (21-32); CHLORIDE LEVEL 107 MEQ/L (98-107); CREATININE FOR GFR 0.77 MG/DL (0.70-1.30); GLOMERULAR FILTRATION RATE > 60.0 (>49); GLUCOSE, FASTING 124 MG/DL (70-100); MAGNESIUM LEVEL 2.3 MG/DL (1.8-2.4); POTASSIUM SERUM 4.5 MEQ/L (3.5-5.1); SODIUM LEVEL 142 MEQ/L (136-145)
[2020-10-07 08:00] VITALS: BP 97/54
--- NOTE | 2020-10-07 08:08 | REP ---
INDICATION: after chest tube placement COMPARISON: 10/06/2020 TECHNIQUE: PA and lateral. FINDINGS: Right-sided chest tube has been removed and a small to moderate right apical pneumothorax appears slightly increased from prior examination. Overlying subcutaneous emphysema is appreciated. The lung santoro demonstrate diffuse bilateral chronic fibrosis and interstitial changes similar to prior examinations. No obvious new acute process identified. Mediastinum and cardiac silhouette are stable. IMPRESSION: Right chest tube has been removed and the right apical pneumothorax along with right-sided subcutaneous emphysema is slightly increased from prior examination. <Electronically signed by Krishna Hernandez > 10/07/20 0800
[2020-10-07] MEDS: ATOVAQUONE SUSP 750MG/5ML 210 ML BTL PO SCH (08:24)
[2020-10-07] MEDS: HEPARIN SOD (PORCINE) 5000UNITS/ML 1ML VIAL/SYRINGE SC SCH ×2 (08:24→20:38)
[2020-10-07] MEDS: predniSONE 20 MG TAB PO SCH (08:24)
[2020-10-07] MEDS: DOCUSATE SODIUM 100MG CAPSULE PO SCH ×2 (08:25→20:38)
[2020-10-07] MEDS: PANTOPRAZOLE 40MG TAB (PROTONIX) PO SCH (08:25)
[2020-10-07] MEDS: HumaLOG INSULIN (NovoLOG) PER UNIT SC SCH ×4 (08:25→20:37)
[2020-10-07] MEDS: HYDROXYCHLOROQUINE 200 MG TAB PO SCH ×2 (08:25→20:38)
[2020-10-07] MEDS: MOM 30ML SUSPENSION UDC PO SCH (08:26)
--- NOTE | 2020-10-07 08:44 | IPN ---
PROGRESS NOTE DATE: 10/06/2020 SUBJECTIVE: I spoke with Dr. Sedrick Cruz today about Mr. Licea. She has been in communication with his rehab director who has been hoping to start Cyclophosphamide for treatment of his lupus. Dr. Cruz is willing to write for this. It is not a medication that I think I am credentialed to order but she has that credential so I will put a consultation in, she will discuss this with Mr. Licea. I did talk about advance directives a bit with Dr. Cruz who really has only seen the patient once previously. She did not feel the patient had a less than six month life expectancy either, referable to our discussion about possible Hospice.
[2020-10-07 12:00] VITALS: BP 105/65
--- NOTE | 2020-10-07 13:35 | IPN ---
PROGRESS NOTE DATE: 10/07/2020 SUBJECTIVE: Mr. Licea is followed in my office for interstitial lung disease with a differential of idiopathic pulmonary fibrosis versus nonspecific interstitial pneumonia (NSIP). The patient does have a history of lupus followed by Dr. Celestin. Based on outpatient evaluation, we have decided on a trial of Cytoxan with the patient. The question was whether or not that could be started in the hospital. Upon interviewing the patient, he feels very weak, is looking forward to starting physical therapy to gain strength and he states that he would not want to start therapy until this is at least initiated if not finished. He remains on 60 mg of Prednisone. He has had no fevers or chills or a productive cough but has had shortness of breath which is improved since the treatment of his pneumothorax. This morning there is still a persistent right apical pneumothorax despite removal of the chest tube. He has no evidence of decompensation so this is being carefully monitored. OBJECTIVE: Vital signs: Temperature is 96.9, pulse is 60, respiratory rate is 19, blood pressure is 97/54 with a mean arterial pressure of 68 with an oxygen saturation 97% on 2 to 3 liters. General: Awake, alert and oriented. Affect and mood are appropriate. Nutrition and hygiene are fair. He has some muscle wasting. HEENT: Sclerae are clear, nonicteric. Pupils are equal and reactive to light. Mucous membranes are moist without lesions. Tongue is midline. Neck is supple. No jugular deviation or mass. Lymph: No cervical, supraclavicular, or axillary adenopathy. Chest wall: There is a covered right anterior chest wall skin lesion from recent chest tube. No significant crepitus. Decreased breath sounds throughout both lung santoro with rales. No expiratory wheeze. No dullness to percussion. Abdomen: Obese, soft and nondistended. No hepatosplenomegaly. No masses or hernia. Extremities: No cyanosis or edema. Skin: Pale without rash. Some minimal desquamation of the skin. Laboratory evaluation shows a white blood cell count of 15.4 down from 17.0, hemoglobin of 15.8 with a platelet count of 123 with 87% neutrophilia. Sodium 142, potassium 4.5, chloride 107, bicarb 38 which is up from 33 yesterday. Fasting glucose of 124 with a calcium of 8.2. Arterial blood gas was last done on 10/04 showing a hypercarbic respiratory failure with pCO2 of 7.28, PO2 of 64 and a PaO2 of 214. Chest x-ray today shows a small apical right pneumothorax with removal of the chest tube. Chest CT from 10/04/2020 shows diffuse pleural base pulmonary fibrosis with bronchiectasis, some nonspecific patchy opacities without dense consolidation. No evidence of effusion. There is some cardiomegaly without pericardial effusion. Mild reactive adenopathy without significant lymph node enlargement and a pneumatocele at the right lung base and a right apical chest tube. ASSESSMENT AND PLAN: A 65-year-old male with interstitial lung disease. Differential including NSIP versus IPF. Because of his underlying history of lupus and suspicion of inflammatory component to his lung disease, Dr. Celestin has been in contact with me in regards to initiating Cytoxan. At this point in time the patient wishes to wait until after physical therapy. He states he is actually feeling somewhat better. I think it is reasonable to allow further healing, physical therapy before starting Cytoxan therapy. I will contact his outside reproduction machine loader to discuss this again. I will be happy to facilitate treatment in the near future. ONDINA
--- NOTE | 2020-10-07 13:40 | IPN ---
PROGRESS NOTE DATE: 10/07/2020 Mr. Licea is feeling fairly well at his baseline. He did ambulate today. He is still short of breath but comfortable at rest. His vital signs show a maximum temperature of 97.8 with a heart rate that ranges between 60-78 in a sinus rhythm, respiratory rate that is constant at 19, who is 92%-97% saturated on 2 liters nasal cannula and whose blood pressure is ranging between 97/54 to 92/54. PHYSICAL EXAMINATION: His left and right lung show inspiratory Velcro crackles. The right lung shows more crackles starting at early inspiration and throughout the entire inspiratory cycle. Left lung shows Velcro crackles starting at mid inspiration. Percussion notes are full to the diaphragm. Cardiac exam is without murmurs, clicks, gallops, or rubs. I cannot feel his point of maximal impulse (PMI). S1 and S2 are normal. Abdomen is soft and nontender. Bowel sounds are positive. There is no hepatomegaly. No costovertebral angle (CVA) tenderness. Extremities show no pretibial edema, no calf tenderness, no differential swelling of the upper extremities. Skin is warm, dry, and perfused without cyanosis or mottling, including that of the nailbeds and knees. Neck is supple. There is no jugular venous distention. No subcutaneous emphysema. Trachea is midline. Mouth shows the mucous membranes to be pink and moist. Lips and commissures without lesions. No thrush. Eyes show his pupils to be equal and reactive. Extraocular motion intact. Sclerae anicteric. Neurologic shows II-XII intact. Normal gross motor, gross sensation intact. Gait is not tested. Psychiatric shows him to be awake, alert, and oriented times three with appropriate mood and affect and conversational. His white count today is 15.4, unchanged from yesterday, with a hemoglobin and hematocrit of 15.8 and 51.9, platelet count 123 and stable, and differential shows 87% neutrophils, 3% lymphocytes, 5% monocytes. There are no immature forms or toxic granulations. His electrolytes are normal except for an elevated total CO2 of 38. BUN and creatinine are 38 and 0.77 with a glucose of 124, a calcium 8.2, and a magnesium 2.3. His chest x-ray today shows the lung slightly from the chest wall with subcutaneous emphysema at the base of the neck. I cannot palpate the subcutaneous emphysema. The chest wall separation looks as though it is a loculated separation, which measures 1.5 x 2 cm. Subcutaneous emphysema is new from yesterday. Costophrenic angles are sharp. He has the underlying fibrotic changes consistent with his idiopathic pulmonary fibrosis. IMPRESSION: 1. Spontaneous pneumothorax, right side. 2. Advanced interstitial lung disease, clinically idiopathic pulmonary fibrosis. 3. Underlying chronic obstructive pulmonary disease. 4. Hypoxic polycythemia. 5. Gastroesophageal reflux disease. 6. Diabetes. PLAN AND DISCUSSION: I was hoping that we could send him home or to another care facility; however, with the small airspace and most significantly the subcutaneous emphysema seen on chest x-ray, we will need to observe him a few more days with continuing chest x-ray. I noted before that I had a sinking feeling that his pneumothoraces would recur because of his advanced cystic disease.
[2020-10-07 16:00] VITALS: BP 106/56
--- NOTE | 2020-10-07 19:26 | IPNPDOC ---
Subjective Date Seen The patient was seen on 10/07/20. Subjective Chief Complaint/HPI Mr. Licea is a 65 year old male with pulmonary interstitial fibrosis here with spontaneous pneumothorax of the right lung. He denies any chest pain, but still has some dyspnea. Otherwise, spoke with Dr. Cruz. Will hold off on Cytoxan until he has recovered. Dr. Reese evaluated the patient today, and the patient may need a few more days inpatient with the patient. Objective Physical Examination General Exam: Positive: Cooperative, Other (Fatigued) Eye Exam: Positive: EOMI; Negative: Sclera icteric ENT Exam: Positive: Atraumatic Chest Exam: Positive: Diminished (on right lung) Heart Exam: Positive: Rate Normal, Regular Rhythm Abdomen Exam: Positive: Normal bowel sounds, Soft; Negative: Tenderness Extremity Exam: Negative: Edema Neuro Exam: Positive: Normal Speech Psych Exam: Positive: Mental status NL Assessment /Plan Assessment Mr. Licea is a 65 year old male with pulmonary interstitial fibrosis here with spontaneous pneumothorax of the right lung. Dr. Reese placed chest tube on 10/03/2020 and removed chest tube on 10/06/2020. Patient will need placement when medically clear. Patient will need a few more days before becoming medically clear. Plan/VTE VTE Prophylaxis Ordered?: Yes Plan 1. Spontaneous pneumothorax of right lung -Followed by Dr. Reese -Placed chest tube on 10/03/2020 and removed chest tube on 10/06/2020 -Per Dr. Reese, patient will need a few more days before becoming medically clear 2. Diabetes mellitus -Sliding scale insulin and basal insulin -POC glucose increasing, will increase basal insulin from 6units qHS to 8units qHS 3. Lupus -Patient was scheduled for Cytoxan on 10/09/2020 per patient's [facility] in [place], [place] -Dr. Cruz spoke with patient, patient request to defer Cytoxan until he has recovered -Continue with prednisone and Plaquenil 4. GERD -Continue pantoprazole 5. DVT ppx -Heparin subQ Disposition: Pending placement. Patient will need a few more days before becoming medically clear. VS, I&O, 24H, Fishbone Vital Signs/I&O Vital Signs Date Time Temp Pulse Resp B/P (MAP) Pulse Ox O2 Delivery O2 Flow Rate FiO2 10/07/20 16:00 97.4 100 20 106/56 (73) 94 Nasal Cannula 3.0 I&O- Last 24 Hours up to 6 AM 10/07/20 06:00 Intake Total 1640 ml Output Total 0 ml Balance 1640 ml Laboratory Data 24H LABS Laboratory Tests 2 10/06/20 20:39: Bedside Glucose (Misc Panel) 350H 10/07/20 04:49: Immature Granulocyte % (Auto) 2.4, Neutrophils (%) (Auto) 87.3H, Lymphocytes (%) (Auto) 3.4L, Monocytes (%) (Auto) 5.9, Eosinophils (%) (Auto) 0.5, Basophils (%) (Auto) 0.5, Neutrophils # (Auto) 13.4H, Lymphocytes # (Auto) 0.5L, Monocytes # (Auto) 0.9H, Eosinophils # (Auto) 0.1, Basophils # (Auto) 0.1, Nucleated Red Blood Cells % (auto) 0.0, Anion Gap , Glomerular Filtration Rate > 60.0, Calcium Level 8.2L, Magnesium Level 2.3 10/07/20 11:36: Bedside Glucose (Misc Panel) 200H 10/07/20 16:51: Bedside Glucose (Misc Panel) 431H CBC/BMP Laboratory Tests 10/07/20 04:49 Microbiology Microbiology 10/03/20 Respiratory Virus Panel (PCR) ([facility]) - Final, Complete MARY LOU FORMAN 9, 2021 19:26
[2020-10-07 20:00] VITALS: BP 107/66
[2020-10-07] MEDS: LEVEMIR (INSULIN DETEMIR) 1 UNITS/0.01ML SC SCH (20:37)
[2020-10-08] VITALS (27 sets, daily range): BP systolic 89–114; BP diastolic 54–68
[2020-10-08] MEDS: KETOROLAC 30 MG/ML 1ML VIAL IV SCH ×3 (00:59→12:53)
[2020-10-08] MEDS: LEVALBUTEROL 1.25 MG/0.5 ML CONCENTRATE NEB NEB SCH ×4 (01:24→19:58)
[2020-10-08 05:43] LABS: BASO # 0.1 10^3/uL (0.0-0.2); BASO % 0.6 % (0.0-1.0); EOS # 0.1 10^3/uL (0.0-0.5); EOS % 0.6 % (0.0-3.0); HEMATOCRIT 48.9 % (42.0-52.0); HEMOGLOBIN 14.8 g/dl (13.5-17.5); LYMPH # 0.8 10^3/uL (1.5-5.0); LYMPH % 6.7 % (24.0-44.0); MEAN CORPUSCULAR HGB CONC 30.3 g/dl (32.0-36.5); MEAN CORPUSCULAR VOLUME 95.7 fl (80.0-96.0); MONO # 0.7 10^3/uL (0.0-0.8); MONO % 5.9 % (2.0-8.0); NEUTROPHILS # 9.7 10^3/uL (1.5-8.5); NEUTROPHILS % 83.6 % (36.0-66.0); PLATELET COUNT, AUTOMATED 111 10^3/uL (150-450); RED BLOOD COUNT 5.11 10^6/uL (4.30-6.10); WHITE BLOOD COUNT 11.6 10^3/uL (4.0-10.0)
[2020-10-08 05:56] LABS: BLOOD UREA NITROGEN 35 MG/DL (7-18); CALCIUM LEVEL 7.8 MG/DL (8.8-10.2); CARBON DIOXIDE LEVEL 33 MEQ/L (21-32); CHLORIDE LEVEL 110 MEQ/L (98-107); CREATININE FOR GFR 0.59 MG/DL (0.70-1.30); GLOMERULAR FILTRATION RATE > 60.0 (>49); GLUCOSE, FASTING 172 MG/DL (70-100); MAGNESIUM LEVEL 2.1 MG/DL (1.8-2.4); POTASSIUM SERUM 4.6 MEQ/L (3.5-5.1); SODIUM LEVEL 144 MEQ/L (136-145)
--- NOTE | 2020-10-08 07:47 | REP ---
INDICATION: after chest tube placement. COMPARISON: Comparison chest x-ray October 07, 2020 and October 06, 2020. TECHNIQUE: Two views.. FINDINGS: The recurrent right-sided pneumothorax has increased in size considerably since yesterday's study. There is no shift of the mediastinum. Air-fluid level is present in the pleural angles on the right. There is extra thoracic soft tissue emphysema again noted on the right. Diffuse interstitial lung disease is again noted. Cardiomediastinal silhouette is unchanged. IMPRESSION: Increase in the size of the recurrent right-sided pneumothorax post chest tube removal, now moderate. There is a small amount of fluid in the pleural space on the right as well.. <Electronically signed by Devaughn Georges > 10/08/20 [id number]
[2020-10-08] MEDS: ATOVAQUONE SUSP 750MG/5ML 210 ML BTL PO SCH (09:04)
[2020-10-08] MEDS: PANTOPRAZOLE 40MG TAB (PROTONIX) PO SCH (09:04)
[2020-10-08] MEDS: DOCUSATE SODIUM 100MG CAPSULE PO SCH ×3 (09:04→20:55)
[2020-10-08] MEDS: predniSONE 20 MG TAB PO SCH (09:04)
[2020-10-08] MEDS: MOM 30ML SUSPENSION UDC PO SCH (09:04)
[2020-10-08] MEDS: HYDROXYCHLOROQUINE 200 MG TAB PO SCH ×2 (09:04→20:33)
[2020-10-08] MEDS: HumaLOG INSULIN (NovoLOG) PER UNIT SC SCH ×4 (09:06→20:56)
[2020-10-08] MEDS ORDERED: MIDAZOLAM INJ 2MG/2ML VIAL (J2250 PER 1MG) As Ordered ONE (11:30)
[2020-10-08] MEDS ORDERED: flumazeniL 0.5 MG/5 ML VIAL As Ordered ONE (11:30)
[2020-10-08] MEDS ORDERED: LIDOCAINE 1% MDV 20ML VIAL As Ordered ONE (11:31)
--- NOTE | 2020-10-08 12:19 | REP ---
INDICATION: post chest tube placement. COMPARISON: 10/08/2020, 7:33 a.m.. TECHNIQUE: SINGLE PORTABLE AP VIEW OF THE CHEST WAS PERFORMED. FINDINGS: The right chest tube has been placed. The right pneumothorax appears to have essentially resolved. Air is noted in the soft tissues of the right chest wall. There are diffuse reticulonodular densities again noted bilaterally. The heart mediastinum appear unchanged. IMPRESSION: Placement of right chest tube with resolution of right pneumothorax. <Electronically signed by Tavo Kumar > 10/08/20 [id number]
[2020-10-08] MEDS ORDERED: MIDAZOLAM INJ 2MG/2ML VIAL (J2250 PER 1MG) IV STA (12:39)
[2020-10-08] MEDS ORDERED: LIDOCAINE 1% MDV 20ML VIAL SC STA (12:39)
--- NOTE | 2020-10-08 12:41 | IPN ---
PROGRESS NOTE DATE: 10/08/2020 Mr. Licea is more short of breath today, although he did ambulate today. His chest x-ray, however, shows that his lung is now collapsed even more, about where it was on admission with a 50%-60% pneumothorax. There is increased subcutaneous emphysema at the base of the neck and the lateral chest wall. His vital signs show a maximum temperature of 97.6 with a heart rate that ranges between 82-91 in a sinus rhythm, respiratory rate of 17-18 without the use of accessory muscles, who is 96%-99% saturated on 3 liters nasal cannula and whose blood pressure is ranging between 99/65 to 106/65. His intake and output for the past 24 hours has been recorded as 2040 in and 850 out, for a positivity of 1190 mL. This now makes him 10 liters positive since 10/04/2020. His weight today is 67.7 kg compared to 66.7 kg, and 63.1 kg on admission. On physical examination he has markedly decreased breath sounds on the right side. I can hear fine inspiratory crackles on both sides, but are, of course, better on the left than the right. Percussion note is full to the diaphragm. Cardiac exam is without murmurs, clicks, gallops, or rubs. I cannot feel his point of maximal impulse (PMI). S1 and S2 are normal. Abdomen is soft and nontender. Bowel sounds are positive. There is no hepatomegaly. No costovertebral angle (CVA) tenderness. Extremities show no pretibial edema, no calf tenderness, no differential swelling of the upper extremities. Skin is warm, dry, and perfused without cyanosis or mottling, including that of the nailbeds and knees. Neck is supple. There is no jugular venous distention. There is subcutaneous emphysema at the base of the neck now. Trachea is midline. Mouth shows the mucous membranes to be pink and moist. Lips and commissures without lesions. No thrush. Eyes show his pupils to be equal and reactive. Extraocular motion intact. Sclerae anicteric. Neurologic shows II-XII intact. Normal gross motor, gross sensation intact. Gait is not tested. Psychiatric shows him to be awake, alert, and oriented times three with appropriate mood and affect and conversational. His white count today is down to 11.6 with a hemoglobin and hematocrit of 14.8 and 48.9, now normalized. Platelet count is 111 and stable. Differential shows 83% neutrophils, 6% lymphocytes, 5% monocytes. There are no immature forms or toxic granulations. His electrolytes show a marginally increased total CO2 of 33, down from 38 yesterday. BUN and creatinine are 35 and 0.59. Glucose is 172 with a calcium of 7.8. Magnesium is 2.1. His chest x-ray is as described above, showing a 56% pneumothorax on the right. IMPRESSION: 1. Spontaneous pneumothorax, right side, recurrent. 2. Advanced interstitial lung disease, clinically idiopathic pulmonary fibrosis. 3. Underlying chronic obstructive pulmonary disease. 4. Hypoxic polycythemia. 5. Gastroesophageal reflux disease. 6. Diabetes. PLAN AND DISCUSSION: Yesterday a chest x-ray showed the lungs with a minor separation from the chest wall, however, today now is a full-blown pneumothorax with subcutaneous emphysema. I am therefore compelled to yet place another chest tube. Patient understands the findings and is willing to proceed. As I have noted above, I have had the sinking feeling this is going to be a recurrent problem because of his advanced pulmonary fibrosis with cystic disease.
[2020-10-08] MEDS: HEPARIN SOD (PORCINE) 5000UNITS/ML 1ML VIAL/SYRINGE SC SCH ×2 (12:42→20:25)
--- NOTE | 2020-10-08 12:54 | RO ---
OPERATIVE NOTE DATE OF OPERATION: 10/08/2020 PREOPERATIVE DIAGNOSES: 1. Recurrent pneumothorax. 2. End-stage pulmonary fibrosis. POSTOPERATIVE DIAGNOSES: 1. Recurrent pneumothorax. 2. End-stage pulmonary fibrosis. PROCEDURE: Insertion of right anterior-superior chest tube. SURGEON: Dr. Shawn Reese DESCRIPTION OF PROCEDURE: Under satisfactory moderate sedation achieved with 2 mg of Versed, patient was prepped and draped in the usual sterile fashion. Incision was made over the 2nd rib and a tunnel created into the 1st intercostal space. A #20 chest tube was placed without difficulty, and the tube was secured to the chest wall with #2 Tevdek suture. It was connected to the Pleur-evac. Patient tolerated the procedure well, and a chest x-ray is pending.
--- NOTE | 2020-10-08 13:42 | IPNPDOC ---
Subjective Date Seen The patient was seen on 10/08/20. Subjective Chief Complaint/HPI Mr. Licea is a 65 year old male with pulmonary interstitial fibrosis here with spontaneous pneumothorax of the right lung. This morning, he was seen sitting up eating breakfast. There was decreased breath sounds on the right. Dr. Reese re-evaluated patient today. CXR this morning demonstrated enlargening pneumothorax. Chest tube was reinserted. Objective Physical Examination General Exam: Positive: Cooperative, Other (Fatigued) Eye Exam: Positive: EOMI; Negative: Sclera icteric ENT Exam: Positive: Atraumatic Chest Exam: Positive: Diminished (on right lung) Heart Exam: Positive: Rate Normal, Regular Rhythm Abdomen Exam: Positive: Normal bowel sounds, Soft; Negative: Tenderness Extremity Exam: Negative: Edema Neuro Exam: Positive: Normal Speech Psych Exam: Positive: Mental status NL Assessment /Plan Assessment Mr. Licea is a 65 year old male with pulmonary interstitial fibrosis here with spontaneous pneumothorax of the right lung. Dr. Reese placed chest tube on 10/03/2020 and removed chest tube on 10/06/2020. After removal, started to have signs of growing pneumothorax. Chest tube reinserted on 10/08/2020. Plan/VTE VTE Prophylaxis Ordered?: Yes Plan 1. Spontaneous pneumothorax of right lung -Followed by Dr. Reese -Placed chest tube on 10/03/2020 and removed chest tube on 10/06/2020 -CXR started to demonstrate signs of growing right pneumothorax. Chest tube reinserted on 10/08/2020 2. Diabetes mellitus -Sliding scale insulin and basal insulin -On levemir 8units qHS (increased from 6units qHS) 3. Lupus -Patient was scheduled for Cytoxan on 10/09/2020 per patient's Recruitment Officer office in [place], [place] -Dr. Cruz spoke with patient, patient request to defer Cytoxan until he has recovered -Continue with prednisone and Plaquenil 4. GERD -Continue pantoprazole 5. DVT ppx -Heparin subQ Disposition: Pending clinical improvement. Chest tube reinserted. When patient is medically clear, patient will need placement. VS, I&O, 24H, Fishbone Vital Signs/I&O Vital Signs Date Time Temp Pulse Resp B/P (MAP) Pulse Ox O2 Delivery O2 Flow Rate FiO2 10/08/20 08:00 97.0 83 17 100/60 (73) 96 Nasal Cannula 3.0 I&O- Last 24 Hours up to 6 AM 10/08/20 06:00 Intake Total 2240 ml Output Total 1400 ml Balance 840 ml Laboratory Data 24H LABS Laboratory Tests 2 10/07/20 16:51: Bedside Glucose (Misc Panel) 431H 10/07/20 20:19: Bedside Glucose (Misc Panel) 408H 10/08/20 05:09: Immature Granulocyte % (Auto) 2.6, Neutrophils (%) (Auto) 83.6H, Lymphocytes (%) (Auto) 6.7L, Monocytes (%) (Auto) 5.9, Eosinophils (%) (Auto) 0.6, Basophils (%) (Auto) 0.6, Neutrophils # (Auto) 9.7H, Lymphocytes # (Auto) 0.8L, Monocytes # (Auto) 0.7, Eosinophils # (Auto) 0.1, Basophils # (Auto) 0.1, Nucleated Red Blood Cells % (auto) 0.0, Anion Gap 1L, Glomerular Filtration Rate > 60.0, Calcium Level 7.8L, Magnesium Level 2.1 CBC/BMP Laboratory Tests 10/08/20 05:09 Microbiology Microbiology 10/03/20 Respiratory Virus Panel (PCR) ([facility]) - Final, Complete MARY LOU FORMAN 10, 2021 13:42
[2020-10-08] MEDS ORDERED: HumaLOG INSULIN (NovoLOG) PER UNIT SC ONE (20:15)
[2020-10-08] MEDS: LEVEMIR (INSULIN DETEMIR) 1 UNITS/0.01ML SC SCH (20:25)
[2020-10-08] MEDS ORDERED: LIDOCAINE 4% CREAM 5GM (LMX4) TOP PRN (21:50)
[2020-10-09] VITALS: BP 98/58
[2020-10-09] MEDS: LEVALBUTEROL 1.25 MG/0.5 ML CONCENTRATE NEB NEB SCH ×5 (01:01→23:17)
[2020-10-09 04:00] VITALS: BP 107/61
[2020-10-09 06:21] LABS: BASO # 0.1 10^3/uL (0.0-0.2); BASO % 0.6 % (0.0-1.0); EOS # 0.1 10^3/uL (0.0-0.5); EOS % 0.7 % (0.0-3.0); HEMATOCRIT 48.2 % (42.0-52.0); HEMOGLOBIN 14.9 g/dl (13.5-17.5); MEAN CORPUSCULAR HEMOGLOBIN 29.4 pg (27.0-33.0); MEAN CORPUSCULAR HGB CONC 30.9 g/dl (32.0-36.5); MEAN CORPUSCULAR VOLUME 95.3 fl (80.0-96.0); MONO # 0.6 10^3/uL (0.0-0.8); MONO % 5.3 % (2.0-8.0); NEUTROPHILS # 10.2 10^3/uL (1.5-8.5); NEUTROPHILS % 83.2 % (36.0-66.0); PLATELET COUNT, AUTOMATED 101 10^3/uL (150-450); RED BLOOD COUNT 5.06 10^6/uL (4.30-6.10); WHITE BLOOD COUNT 12.2 10^3/uL (4.0-10.0)
[2020-10-09 06:41] LABS: BLOOD UREA NITROGEN 28 MG/DL (7-18); CARBON DIOXIDE LEVEL 34 MEQ/L (21-32); CHLORIDE LEVEL 107 MEQ/L (98-107); CREATININE FOR GFR 0.52 MG/DL (0.70-1.30); GLOMERULAR FILTRATION RATE > 60.0 (>49); GLUCOSE, FASTING 81 MG/DL (70-100); MAGNESIUM LEVEL 2.1 MG/DL (1.8-2.4); POTASSIUM SERUM 4.4 MEQ/L (3.5-5.1); SODIUM LEVEL 143 MEQ/L (136-145)
[2020-10-09 07:50] VITALS: BP 113/73
[2020-10-09] MEDS: ATOVAQUONE SUSP 750MG/5ML 210 ML BTL PO SCH (08:02)
[2020-10-09] MEDS: predniSONE 20 MG TAB PO SCH (08:04)
[2020-10-09] MEDS: HumaLOG INSULIN (NovoLOG) PER UNIT SC SCH ×4 (08:04→21:05)
[2020-10-09] MEDS: HYDROXYCHLOROQUINE 200 MG TAB PO SCH ×2 (08:04→21:13)
[2020-10-09] MEDS: DOCUSATE SODIUM 100MG CAPSULE PO SCH ×2 (08:04→21:00)
[2020-10-09] MEDS: PANTOPRAZOLE 40MG TAB (PROTONIX) PO SCH (08:04)
[2020-10-09] MEDS: MOM 30ML SUSPENSION UDC PO SCH (08:05)
--- NOTE | 2020-10-09 08:17 | REP ---
INDICATION: after chest tube placement COMPARISON: 10/08/2020 TECHNIQUE: PA and lateral. FINDINGS: Right-sided pleuroparenchymal changes including right apical pneumothorax are unchanged in appearance. No obvious residual pneumothorax identified on current examination. Overlying subcutaneous emphysema appears slightly decreased. No new acute process appreciated. Diffuse chronic interstitial changes consistent with fibrosis again noted. Mediastinum and cardiac silhouette stable. IMPRESSION: 1. Mildly decreased subcutaneous emphysema. 2. Otherwise stable examination. 3. No new acute process identified. <Electronically signed by Krishna Hernandez > 10/09/20 0889
[2020-10-09] MEDS: HEPARIN SOD (PORCINE) 5000UNITS/ML 1ML VIAL/SYRINGE SC SCH ×2 (08:41→21:04)
[2020-10-09 11:37] VITALS: BP 104/63
[2020-10-09] MEDS: PERCOCET 5MG/325MG TAB PO PRN ×2 (12:09→18:05)
[2020-10-09 16:00] VITALS: BP 104/61
--- NOTE | 2020-10-09 18:25 | IPNPDOC ---
Subjective Date Seen The patient was seen on 10/09/20. Subjective Chief Complaint/HPI Mr. Licea is a 65 year old male with pulmonary interstitial fibrosis here with spontaneous pneumothorax of the right lung. He was seen this morning lying in bed with chest tubes in place. His breathing is about the same. Denies any chest pain. Objective Physical Examination General Exam: Positive: Cooperative, Other (Fatigued) Eye Exam: Positive: EOMI; Negative: Sclera icteric ENT Exam: Positive: Atraumatic Chest Exam: Positive: Diminished (on right lung) Heart Exam: Positive: Rate Normal, Regular Rhythm Abdomen Exam: Positive: Normal bowel sounds, Soft; Negative: Tenderness Extremity Exam: Negative: Edema Neuro Exam: Positive: Normal Speech Psych Exam: Positive: Mental status NL Assessment /Plan Assessment Mr. Licea is a 65 year old male with pulmonary interstitial fibrosis here with spontaneous pneumothorax of the right lung. Dr. eRese placed chest tube on 10/03/2020 and removed chest tube on 10/06/2020. After removal, started to have signs of growing pneumothorax. Chest tube reinserted on 10/08/2020. Plan/VTE VTE Prophylaxis Ordered?: Yes Plan 1. Spontaneous pneumothorax of right lung -Followed by Dr. Reese -Placed chest tube on 10/03/2020 and removed chest tube on 10/06/2020 -CXR started to demonstrate signs of growing right pneumothorax. Chest tube reinserted on 10/08/2020 2. Diabetes mellitus -Sliding scale insulin and basal insulin -On levemir 8units qHS (increased from 6units qHS) 3. Lupus -Patient was scheduled for Cytoxan on 10/09/2020 per patient's Product Safety Consultant office in [place], [place] -Dr. Cruz spoke with patient, patient request to defer Cytoxan until he has recovered -Continue with prednisone and Plaquenil Of note, due to patient's chronic and high-dose steroids, he is not a candidate for the COVID vaccination at this time 4. GERD -Continue pantoprazole 5. DVT ppx -Heparin subQ Disposition: Pending clinical improvement. Chest tube reinserted. When patient is medically clear, patient will need placement. VS, I&O, 24H, Fishbone Vital Signs/I&O Vital Signs Date Time Temp Pulse Resp B/P (MAP) Pulse Ox O2 Delivery O2 Flow Rate FiO2 10/09/20 18:05 17 10/09/20 16:00 2.0 10/09/20 16:00 97.5 86 104/61 (75) 98 Nasal Cannula I&O- Last 24 Hours up to 6 AM 10/09/20 06:00 Intake Total 750 ml Output Total 1310 ml Balance -560 ml Laboratory Data 24H LABS Laboratory Tests 2 10/08/20 19:43: Bedside Glucose (Misc Panel) 567*H 10/08/20 21:28: Bedside Glucose (Misc Panel) 240H 10/08/20 23:32: Bedside Glucose (Misc Panel) 118H 10/09/20 03:05: Bedside Glucose (Misc Panel) 64L 10/09/20 05:34: Bedside Glucose (Misc Panel) 212H 10/09/20 05:43: Immature Granulocyte % (Auto) 2.2, Neutrophils (%) (Auto) 83.2H, Lymphocytes (%) (Auto) 8.0L, Monocytes (%) (Auto) 5.3, Eosinophils (%) (Auto) 0.7, Basophils (%) (Auto) 0.6, Neutrophils # (Auto) 10.2H, Lymphocytes # (Auto) 1.0L, Monocytes # (Auto) 0.6, Eosinophils # (Auto) 0.1, Basophils # (Auto) 0.1, Nucleated Red Blood Cells % (auto) 0.0, Anion Gap 2L, Glomerular Filtration Rate > 60.0, Calcium Level 8.0L, Magnesium Level 2.1 10/09/20 06:53: Bedside Glucose (Misc Panel) 126H 10/09/20 11:56: Bedside Glucose (Misc Panel) 142H 10/09/20 17:50: Bedside Glucose (Misc Panel) 299H CBC/BMP Laboratory Tests 10/09/20 05:43 Microbiology Microbiology 10/03/20 Respiratory Virus Panel (PCR) ([facility]) - Final, Complete MARY LOU FORMAN 11, 2021 18:25
[2020-10-09 20:00] VITALS: BP 103/59
[2020-10-09] MEDS: LEVEMIR (INSULIN DETEMIR) 1 UNITS/0.01ML SC SCH (21:05)
[2020-10-10] VITALS: BP 124/82
[2020-10-10 04:00] VITALS: BP 125/65
[2020-10-10 05:39] LABS: HEMATOCRIT 49.7 % (42.0-52.0); HEMOGLOBIN 15.1 g/dl (13.5-17.5); MEAN CORPUSCULAR HEMOGLOBIN 29.2 pg (27.0-33.0); MEAN CORPUSCULAR HGB CONC 30.4 g/dl (32.0-36.5); MEAN CORPUSCULAR VOLUME 95.9 fl (80.0-96.0); PLATELET COUNT, AUTOMATED 104 10^3/uL (150-450); RED BLOOD COUNT 5.18 10^6/uL (4.30-6.10); WHITE BLOOD COUNT 12.3 10^3/uL (4.0-10.0)
[2020-10-10 05:47] LABS: BLOOD UREA NITROGEN 27 MG/DL (7-18); CALCIUM LEVEL 8.4 MG/DL (8.8-10.2); CARBON DIOXIDE LEVEL 36 MEQ/L (21-32); CHLORIDE LEVEL 104 MEQ/L (98-107); CREATININE FOR GFR 0.67 MG/DL (0.70-1.30); GLOMERULAR FILTRATION RATE > 60.0 (>49); GLUCOSE, FASTING 225 MG/DL (70-100); POTASSIUM SERUM 4.6 MEQ/L (3.5-5.1); SODIUM LEVEL 141 MEQ/L (136-145)
[2020-10-10] MEDS: LEVALBUTEROL 1.25 MG/0.5 ML CONCENTRATE NEB NEB SCH ×3 (06:59→19:13)
[2020-10-10 07:08] VITALS: BP 128/77
--- NOTE | 2020-10-10 08:11 | IPN ---
PROGRESS NOTE DATE: 10/09/2020 Mr. Licea had his chest tube replaced yesterday. He complains of coughing. His pain is being well controlled. He is understandably frustrated. His vital signs show a maximum temperature of 98.3 with a heart rate that ranges between 79-93 in a sinus rhythm, respiratory rate 18-20 without the use of accessory muscles, who is 94%-96% saturated on 2 liters nasal cannula, and whose blood pressure is ranging between 98/58 to 113/73. His intake and output for the past 24 hours has been recorded as 350 in and 1380 out, for a negative of 1030 mL. His chest tube put out 280 mL yesterday and 30 mL in the last 15 hours. He weighs 67.6 kg today compared to 67.7 kg yesterday. PHYSICAL EXAMINATION: He has bilateral Velcro crackles at both bases. Breath sounds are equal on either side. He also has coarse rhonchi throughout, which do not clear with coughing. Percussion notes are full to the diaphragm. Cardiac exam is without murmurs, clicks, gallops, or rubs. I cannot feel his point of maximal impulse (PMI). S1 and S2 are normal. Abdomen is soft and nontender. Bowel sounds are positive. There is no hepatomegaly. No costovertebral angle (CVA) tenderness. Extremities show no pretibial edema, no calf tenderness, no differential swelling of the upper extremities. Skin is warm, dry, and perfused without cyanosis or mottling, including that of the nailbeds and knees. Neck is supple. There is no jugular venous distention. No subcutaneous emphysema. Trachea is midline. Mouth shows the mucous membranes to be pink and moist. Lips and commissures without lesions. No thrush. Eyes show him pupils to be equal and reactive. Extraocular motion intact. Sclerae anicteric. Neurologic shows II-XII intact. Normal gross motor, gross sensation intact. Gait is not tested. Psychiatric shows him to be awake, alert, and oriented times three with appropriate mood and affect and conversational. His white count today is 12.2 with a hemoglobin and hematocrit of 14.9 and 48.2, respectively, with a platelet count of 101. His chemistries show nearly normal electrolytes with a total CO2 of 34 and a BUN and creatinine of 28 and 0.52. Glucose is 81 with a calcium of 8.0 and magnesium of 2.1. I do not see where he was given a diuretic yesterday, and this may be just a spontaneous diuresis. His chest x-ray today shows his lung fully expanded to the chest wall. There may be a slight apical airspace in the right upper hemithorax. He has the reticular infiltrative pattern consistent with his pulmonary fibrosis. IMPRESSION: 1. Spontaneous pneumothorax, right side, recurrent. 2. Advanced interstitial lung disease with clinically idiopathic pulmonary fibrosis. 3. Underlying chronic obstructive pulmonary disease. 4. Hypoxic polycythemia. 5. Gastroesophageal reflux disease. 6. Diabetes. PLAN AND DISCUSSION: I will keep him on suction today, as he still has an air leak. Really between a rock and a hard place with regard to how to treat this if this is chronic condition. This the same natural history as end-stage cystic fibrosis with honey combing and cystic lung disease with honey-combing areas that are now leaking. If we went to the operating room, I would not know where to place the vijay in order to close the air leak. I may resort to a blood patch if this does not stop in the next number of days. As I noted before, I think this is going to be a recurrent problem. ONDINA
[2020-10-10] MEDS: DOCUSATE SODIUM 100MG CAPSULE PO SCH ×2 (09:00→21:00)
[2020-10-10] MEDS: MOM 30ML SUSPENSION UDC PO SCH (09:00)
--- NOTE | 2020-10-10 09:37 | REP ---
INDICATION: after chest tube placement COMPARISON: 10/09/2020 TECHNIQUE: PA and lateral. FINDINGS: Right apical chest tube in stable position. No definite residual pneumothorax identified. Small amount of subcutaneous emphysema decreased from prior examination. The bilateral lung santoro demonstrate stable pleuroparenchymal changes. No obvious new acute process appreciated. Mediastinum and cardiac silhouette stable. IMPRESSION: 1. No obvious residual right pneumothorax. 2. No new process appreciated. Stable chronic changes. <Electronically signed by Krishna Hernandez > 10/10/20 0922
[2020-10-10] MEDS: ATOVAQUONE SUSP 750MG/5ML 210 ML BTL PO SCH (10:10)
[2020-10-10] MEDS: predniSONE 20 MG TAB PO SCH (10:11)
[2020-10-10] MEDS: PERCOCET 5MG/325MG TAB PO PRN ×3 (10:12→22:59)
[2020-10-10] MEDS: HYDROXYCHLOROQUINE 200 MG TAB PO SCH ×2 (10:13→21:33)
[2020-10-10] MEDS: HumaLOG INSULIN (NovoLOG) PER UNIT SC SCH ×4 (10:15→21:33)
[2020-10-10] MEDS: PANTOPRAZOLE 40MG TAB (PROTONIX) PO SCH (10:16)
[2020-10-10 12:00] VITALS: BP 107/69
--- NOTE | 2020-10-10 13:23 | IPNPDOC ---
Subjective Date Seen The patient was seen on 10/10/20. Subjective Chief Complaint/HPI Mr. Licea is a 65 year old male with pulmonary interstitial fibrosis here with spontaneous pneumothorax of the right lung. He was seen this morning, sitting up and eating breakfast. He feels about the same. This morning, chest tube was still in place. Objective Physical Examination General Exam: Positive: Cooperative, Other (Fatigued) Eye Exam: Positive: EOMI; Negative: Sclera icteric ENT Exam: Positive: Atraumatic Chest Exam: Positive: Clear to auscultation Heart Exam: Positive: Rate Normal, Regular Rhythm Abdomen Exam: Positive: Normal bowel sounds, Soft; Negative: Tenderness Extremity Exam: Negative: Edema Neuro Exam: Positive: Normal Speech Psych Exam: Positive: Mental status NL Assessment /Plan Assessment Mr. Licea is a 65 year old male with pulmonary interstitial fibrosis here with spontaneous pneumothorax of the right lung. Dr. Reese placed chest tube on 10/03/2020 and removed chest tube on 10/06/2020. After removal, started to have signs of growing pneumothorax. Chest tube reinserted on 10/08/2020. Plan/VTE VTE Prophylaxis Ordered?: Yes Plan 1. Spontaneous pneumothorax of right lung -Followed by Dr. Reese -Placed chest tube on 10/03/2020 and removed chest tube on 10/06/2020 -CXR started to demonstrate signs of growing right pneumothorax. Chest tube reinserted on 10/08/2020 2. Diabetes mellitus -Sliding scale insulin and basal insulin -On levemir 8units qHS (increased from 6units qHS) 3. Lupus -Patient was scheduled for Cytoxan on 10/09/2020 per patient's Bulker office in [place], [place] -Dr. Cruz spoke with patient, patient request to defer Cytoxan until he has recovered -Continue with prednisone and Plaquenil Of note, due to patient's chronic and high-dose steroids, he is not a candidate for the COVID vaccination at this time 4. GERD -Continue pantoprazole 5. DVT ppx -Heparin subQ Disposition: Pending clinical improvement. Chest tube reinserted. When patient is medically clear, patient will need placement. VS, I&O, 24H, Fishbone Vital Signs/I&O Vital Signs Date Time Temp Pulse Resp B/P (MAP) Pulse Ox O2 Delivery O2 Flow Rate FiO2 10/10/20 12:00 97.9 97 18 107/69 (82) 96 Nasal Cannula 2.0 I&O- Last 24 Hours up to 6 AM 10/10/20 06:00 Intake Total 1901 ml Output Total 1440 ml Balance 461 ml Laboratory Data 24H LABS Laboratory Tests 2 10/09/20 17:50: Bedside Glucose (Misc Panel) 299H 10/09/20 20:13: Bedside Glucose (Misc Panel) 396H 10/10/20 05:13: Nucleated Red Blood Cells % (auto) 0.0, Anion Gap 1L, Glomerular Filtration Rate > 60.0, Calcium Level 8.4L, Magnesium Level 2.0 10/10/20 12:50: Bedside Glucose (Misc Panel) 162H CBC/BMP Laboratory Tests 10/10/20 05:13 Microbiology Microbiology 10/03/20 Respiratory Virus Panel (PCR) ([facility]) - Final, Complete MARY LOU FORMAN 12, 2021 13:23
[2020-10-10] MEDS: HEPARIN SOD (PORCINE) 5000UNITS/ML 1ML VIAL/SYRINGE SC SCH ×2 (14:36→21:34)
[2020-10-10 15:26] VITALS: BP 113/64
[2020-10-10 20:00] VITALS: BP 108/65
[2020-10-10] MEDS: LEVEMIR (INSULIN DETEMIR) 1 UNITS/0.01ML SC SCH (21:34)
[2020-10-11] VITALS: BP 121/79
[2020-10-11] MEDS: LEVALBUTEROL 1.25 MG/0.5 ML CONCENTRATE NEB NEB SCH ×4 (01:05→19:22)
[2020-10-11 04:00] VITALS: BP 100/60
[2020-10-11 06:05] LABS: HEMATOCRIT 47.8 % (42.0-52.0); HEMOGLOBIN 14.7 g/dl (13.5-17.5); MEAN CORPUSCULAR HEMOGLOBIN 29.5 pg (27.0-33.0); MEAN CORPUSCULAR HGB CONC 30.8 g/dl (32.0-36.5); MEAN CORPUSCULAR VOLUME 95.8 fl (80.0-96.0); PLATELET COUNT, AUTOMATED 104 10^3/uL (150-450); RED BLOOD COUNT 4.99 10^6/uL (4.30-6.10)
[2020-10-11 06:22] LABS: BLOOD UREA NITROGEN 28 MG/DL (7-18); CALCIUM LEVEL 7.6 MG/DL (8.8-10.2); CARBON DIOXIDE LEVEL 36 MEQ/L (21-32); CHLORIDE LEVEL 106 MEQ/L (98-107); CREATININE FOR GFR 0.53 MG/DL (0.70-1.30); GLOMERULAR FILTRATION RATE > 60.0 (>49); GLUCOSE, FASTING 136 MG/DL (70-100); POTASSIUM SERUM 4.1 MEQ/L (3.5-5.1); SODIUM LEVEL 140 MEQ/L (136-145)
[2020-10-11 08:00] VITALS: BP 100/67
--- NOTE | 2020-10-11 08:33 | REP ---
INDICATION: after chest tube placement COMPARISON: None. TECHNIQUE: PA and lateral. FINDINGS: Right apical chest tube again identified in stable position. Lucent area in the right apex is similar to prior examination and may represent pleural reflection and small residual pneumothorax versus chronic change. Bilateral lung santoro demonstrate diffuse chronic fibrosis and interstitial changes which remain relatively stable. No new acute process identified. Mediastinum and cardiac silhouette are stable. Small amount of subcutaneous emphysema along the right upper lateral chest wall again noted. Skeletal structures intact. IMPRESSION: 1. Possible small residual right apical pneumothorax versus chronic change. 2. No new acute pleuroparenchymal process appreciated. <Electronically signed by Krishna Hernandez > 10/11/20 [id number]
[2020-10-11] MEDS: DOCUSATE SODIUM 100MG CAPSULE PO SCH ×2 (09:00→20:55)
[2020-10-11] MEDS: MOM 30ML SUSPENSION UDC PO SCH (09:00)
[2020-10-11] MEDS: HumaLOG INSULIN (NovoLOG) PER UNIT SC SCH ×4 (09:06→20:55)
[2020-10-11] MEDS: PANTOPRAZOLE 40MG TAB (PROTONIX) PO SCH (09:07)
[2020-10-11] MEDS: ATOVAQUONE SUSP 750MG/5ML 210 ML BTL PO SCH (09:07)
[2020-10-11] MEDS: predniSONE 20 MG TAB PO SCH (09:07)
[2020-10-11] MEDS: HYDROXYCHLOROQUINE 200 MG TAB PO SCH ×2 (09:07→20:54)
[2020-10-11] MEDS: HEPARIN SOD (PORCINE) 5000UNITS/ML 1ML VIAL/SYRINGE SC SCH ×2 (09:08→20:54)
[2020-10-11 12:00] VITALS: BP 115/67
--- NOTE | 2020-10-11 12:47 | IPNPDOC ---
Subjective Date Seen The patient was seen on 10/11/20. Subjective Chief Complaint/HPI Mr. Licea is a 65 year old male with pulmonary interstitial fibrosis here with spontaneous pneumothorax of the right lung. He was seen in the morning when he was sitting up and finishing breakfast. He feels about the same and chest tube was present Objective Physical Examination General Exam: Positive: Cooperative, Other (Fatigued) Eye Exam: Positive: EOMI; Negative: Sclera icteric ENT Exam: Positive: Atraumatic Chest Exam: Positive: Clear to auscultation Heart Exam: Positive: Rate Normal, Regular Rhythm Abdomen Exam: Positive: Normal bowel sounds, Soft; Negative: Tenderness Extremity Exam: Negative: Edema Neuro Exam: Positive: Normal Speech Psych Exam: Positive: Mental status NL Assessment /Plan Assessment Mr. Licea is a 65 year old male with pulmonary interstitial fibrosis here with spontaneous pneumothorax of the right lung. Dr. Reese placed chest tube on 10/03/2020 and removed chest tube on 10/06/2020. After removal, started to have signs of growing pneumothorax. Chest tube reinserted on 10/08/2020. Plan/VTE VTE Prophylaxis Ordered?: Yes Plan 1. Spontaneous pneumothorax of right lung -Followed by Dr. Reese -Placed chest tube on 10/03/2020 and removed chest tube on 10/06/2020 -CXR started to demonstrate signs of growing right pneumothorax. Chest tube reinserted on 10/08/2020 2. Diabetes mellitus -Sliding scale insulin and basal insulin -On levemir 8units qHS (increased from 6units qHS) 3. Lupus -Patient was scheduled for Cytoxan on 10/09/2020 per patient's Transportation Program Director office in [place], [place] -Dr. Cruz spoke with patient, patient request to defer Cytoxan until he has recovered -Continue with prednisone and Plaquenil Of note, due to patient's chronic and high-dose steroids, he is not a candidate for the COVID vaccination at this time 4. GERD -Continue pantoprazole 5. DVT ppx -Heparin subQ Disposition: Pending clinical improvement. When patient is medically clear, patient will need placement. VS, I&O, 24H, Fishbone Vital Signs/I&O Vital Signs Date Time Temp Pulse Resp B/P (MAP) Pulse Ox O2 Delivery O2 Flow Rate FiO2 10/11/20 12:00 97.3 74 16 115/67 (83) 99 Nasal Cannula 2.0 I&O- Last 24 Hours up to 6 AM 10/11/20 06:00 Intake Total 1400 ml Output Total 1220 ml Balance 180 ml Laboratory Data 24H LABS Laboratory Tests 2 10/10/20 12:50: Bedside Glucose (Misc Panel) 162H 10/10/20 16:41: Bedside Glucose (Misc Panel) 340H 10/10/20 21:10: Bedside Glucose (Misc Panel) 308H 10/11/20 05:36: Nucleated Red Blood Cells % (auto) 0.0, Anion Gap , Glomerular Filtration Rate > 60.0, Calcium Level 7.6L 10/11/20 11:36: Bedside Glucose (Misc Panel) 203H CBC/BMP Laboratory Tests 10/11/20 05:36 Microbiology Microbiology 10/03/20 Respiratory Virus Panel (PCR) ([facility]) - Final, Complete MARY LOU FORMAN 13, 2021 12:47
[2020-10-11 16:00] VITALS: BP 107/66
[2020-10-11 20:00] VITALS: BP 104/66
[2020-10-11] MEDS: PERCOCET 5MG/325MG TAB PO PRN (20:54)
[2020-10-11] MEDS: LEVEMIR (INSULIN DETEMIR) 1 UNITS/0.01ML SC SCH (20:55)
[2020-10-12] VITALS: BP 99/64
[2020-10-12] MEDS: LEVALBUTEROL 1.25 MG/0.5 ML CONCENTRATE NEB NEB SCH ×4 (00:30→20:18)
[2020-10-12 04:00] VITALS: BP 98/61
[2020-10-12 06:09] LABS: HEMATOCRIT 47.8 % (42.0-52.0); HEMOGLOBIN 14.6 g/dl (13.5-17.5); MEAN CORPUSCULAR HEMOGLOBIN 29.1 pg (27.0-33.0); MEAN CORPUSCULAR HGB CONC 30.5 g/dl (32.0-36.5); MEAN CORPUSCULAR VOLUME 95.2 fl (80.0-96.0); PLATELET COUNT, AUTOMATED 102 10^3/uL (150-450); RED BLOOD COUNT 5.02 10^6/uL (4.30-6.10); WHITE BLOOD COUNT 10.8 10^3/uL (4.0-10.0)
[2020-10-12 06:35] LABS: BLOOD UREA NITROGEN 24 MG/DL (7-18); CALCIUM LEVEL 7.8 MG/DL (8.8-10.2); CARBON DIOXIDE LEVEL 36 MEQ/L (21-32); CHLORIDE LEVEL 103 MEQ/L (98-107); CREATININE FOR GFR 0.41 MG/DL (0.70-1.30); GLOMERULAR FILTRATION RATE > 60.0 (>49); GLUCOSE, FASTING 113 MG/DL (70-100); SODIUM LEVEL 141 MEQ/L (136-145)
[2020-10-12] MEDS: HYDROXYCHLOROQUINE 200 MG TAB PO SCH ×2 (07:59→20:20)
[2020-10-12] MEDS: PANTOPRAZOLE 40MG TAB (PROTONIX) PO SCH (07:59)
[2020-10-12] MEDS: ATOVAQUONE SUSP 750MG/5ML 210 ML BTL PO SCH (07:59)
[2020-10-12] MEDS: DOCUSATE SODIUM 100MG CAPSULE PO SCH ×2 (07:59→20:20)
[2020-10-12] MEDS: predniSONE 20 MG TAB PO SCH (07:59)
[2020-10-12 08:00] VITALS: BP 101/69
[2020-10-12] MEDS: HEPARIN SOD (PORCINE) 5000UNITS/ML 1ML VIAL/SYRINGE SC SCH ×2 (08:00→20:20)
[2020-10-12] MEDS: HumaLOG INSULIN (NovoLOG) PER UNIT SC SCH ×4 (08:00→20:21)
[2020-10-12] MEDS: MOM 30ML SUSPENSION UDC PO SCH (08:00)
--- NOTE | 2020-10-12 09:09 | REP ---
INDICATION: after chest tube placement COMPARISON: 10/11/2020 TECHNIQUE: PA and lateral. FINDINGS: Right-sided chest tube, subcutaneous emphysema, and small chronic right apical pneumothorax along with diffuse bilateral chronic fibrosis and interstitial changes again noted and stable. No obvious new acute process appreciated. Mediastinum and cardiac silhouette stable. Skeletal structures grossly intact. IMPRESSION: No significant change from prior examination. <Electronically signed by Krishna Hernandez > 10/12/20 [id number]
--- NOTE | 2020-10-12 09:30 | REP ---
INDICATION: repeat without wires in the way! COMPARISON: 10/12/2020 at 8:28 a.m., 10/11/2020 at 7:44 a.m. TECHNIQUE: PA and lateral. FINDINGS: Right apical chest tube, stable chronic right apical pneumothorax, subcutaneous emphysema, and diffuse bilateral parenchymal changes remain essentially stable. No obvious new acute process appreciated. Mediastinum and cardiac silhouette stable. Skeletal structures intact. IMPRESSION: No significant change from prior examinations. <Electronically signed by Krishna Hernandez > 10/12/20 0959
[2020-10-12] MEDS: PERCOCET 5MG/325MG TAB PO PRN (09:33)
--- NOTE | 2020-10-12 11:35 | IPNPDOC ---
Subjective Date Seen The patient was seen on 10/12/20. Subjective Chief Complaint/HPI Mr. Licea is a 65 year old male with pulmonary interstitial fibrosis here with spontaneous pneumothorax of the right lung. He was seen early in the morning. He had just finished breakfast and was going down for CXR. Feels about the same. Denies chest pain or worsening dyspnea. Chest tube present in the morning. Objective Physical Examination General Exam: Positive: Cooperative, Other (Fatigued) Eye Exam: Positive: EOMI; Negative: Sclera icteric ENT Exam: Positive: Atraumatic Chest Exam: Positive: Clear to auscultation Heart Exam: Positive: Rate Normal, Regular Rhythm Abdomen Exam: Positive: Normal bowel sounds, Soft; Negative: Tenderness Extremity Exam: Negative: Edema Neuro Exam: Positive: Normal Speech Psych Exam: Positive: Mental status NL Assessment /Plan Assessment Mr. Licea is a 65 year old male with pulmonary interstitial fibrosis here with spontaneous pneumothorax of the right lung. Dr. Reese placed chest tube on 10/03/2020 and removed chest tube on 10/06/2020. After removal, started to have signs of growing pneumothorax. Chest tube reinserted on 10/08/2020. Plan/VTE VTE Prophylaxis Ordered?: Yes Plan 1. Spontaneous pneumothorax of right lung -Followed by Dr. Reese -Placed chest tube on 10/03/2020 and removed chest tube on 10/06/2020 -CXR started to demonstrate signs of growing right pneumothorax. Chest tube reinserted on 10/08/2020 2. Diabetes mellitus -Sliding scale insulin and basal insulin -On levemir 8units qHS (increased from 6units qHS) 3. Lupus -Patient was scheduled for Cytoxan on 10/09/2020 per patient's Head Of Integrated [employer] office in [place], [place] -Dr. Cruz spoke with patient, patient request to defer Cytoxan until he has recovered -Continue with prednisone and Plaquenil Of note, due to patient's chronic and high-dose steroids, he is not a candidate for the COVID vaccination at this time 4. GERD -Continue pantoprazole 5. DVT ppx -Heparin subQ Disposition: Pending clinical improvement. When patient is medically clear, patient will need placement. VS, I&O, 24H, Fishbone Vital Signs/I&O Vital Signs Date Time Temp Pulse Resp B/P (MAP) Pulse Ox O2 Delivery O2 Flow Rate FiO2 10/12/20 10:19 17 10/12/20 09:33 95 Nasal Cannula 2.0 10/12/20 08:00 97.5 82 101/69 (80) I&O- Last 24 Hours up to 6 AM 10/12/20 06:00 Intake Total 480 ml Output Total 2290 ml Balance -1810 ml Laboratory Data 24H LABS Laboratory Tests 2 10/11/20 11:36: Bedside Glucose (Misc Panel) 203H 10/11/20 17:38: Bedside Glucose (Misc Panel) 245H 10/11/20 20:16: Bedside Glucose (Misc Panel) 315H 10/12/20 05:31: Nucleated Red Blood Cells % (auto) 0.0, Anion Gap 2L, Glomerular Filtration Rate > 60.0, Calcium Level 7.8L CBC/BMP Laboratory Tests 10/12/20 05:31 Microbiology Microbiology 10/03/20 Respiratory Virus Panel (PCR) ([facility]) - Final, Complete MARY LOU FORMAN 14, 2021 11:35
[2020-10-12 12:00] VITALS: BP 112/74
--- NOTE | 2020-10-12 14:19 | IPN ---
PROGRESS NOTE DATE: 10/10/2020 SUBJECTIVE: Mr. Licea is sitting up comfortably. He is still short of breath with minimal activity. His chest tube shows a one bubble air leak. He is still on suction. OBJECTIVE: VITAL SIGNS: Show a T-max of 97.9 with a heart rate that ranges between 73 and 97 in sinus rhythm. Respiratory rate of 16 to 20 without the use of accessory muscles who is 93% to 97% saturated on 2 liters nasal cannula and whose blood pressure is ranging between 107/69 to 128/77. INTAKE AND OUTPUT: Over the past 24 hours has been recorded as 2501 in and 1615 out for a positivity of 880 mL. He has put 215 mL out the chest tube. He has the above one bubble air leak with forceful coughing. Weight today is 67.4 kg compared to 67.6 kg yesterday. RESPIRATORY: He has bilateral fine crackles from mid to end-expiration. Percussion notes are full to the diaphragm. CARDIAC: Without murmurs, clicks, gallops, or rubs. I cannot feel his PMI. S1 and S2 are normal. ABDOMEN: Soft and nontender. Bowel sounds are positive. There is no hepatomegaly. No CVA tenderness. EXTREMITIES: Show no pretibial edema. No calf tenderness. No differential swelling of the upper extremities. SKIN: Warm, dry, and perfused without cyanosis or mottling, including that of the nail beds and knees. NECK: Supple. There is no jugular venous distention. No subcutaneous emphysema. Trachea is midline. MOUTH: Shows the mucous membranes to be pink and moist. Lips and commisures are without lesions and no thrush. EYES: Show his pupils equal and reactive. Extraocular movements are intact. Sclerae nonicteric. NEUROLOGIC: Shows II through XII intact. Normal gross motor, gross sensation intact. Gait is not tested. PSYCHIATRIC: Shows to be awake, alert, and oriented x3 with appropriate mood and affect and conversational. LABORATORY DATA: His white count today is 12.3 unchanged from yesterday with hemoglobin and hematocrit of 15.1 and 49.7 respectively with a platelet count of 104,000 and stable. There is no differential. His electrolytes show a total CO2 elevated at 36. BUN and creatinine are 27 and 0.67. Glucose is 225 with a calcium of 8.4 and a magnesium of 2.0. IMAGING DATA: His chest x-ray today shows dissipating subcutaneous emphysema in the right upper chest. He still has what looks to be an air space in the upper lateral chest. I suspect that this is secondary to low compliance of his lungs secondary to his pulmonary fibrosis. Costophrenic angles are sharp. Cardiac silhouette looks increased. Chest tube is in good place. IMPRESSION: 1. Spontaneous pneumothorax right side recurrent. 2. Advanced interstitial lung disease with clinically looking like idiopathic pulmonary fibrosis. 3. Underlying chronic obstructive pulmonary disease. 4. Hypoxic polycythemia. 5. Gastroesophageal reflux disease. 6. Diabetes. PLAN AND DISCUSSION: I will again keep his chest tube on suction today. I would like for him to go without an air leak on suction for at least two days prior to decreasing the suction. As I have noted before, I have the sinking feeling that this is going to be recurrent again and again.
[2020-10-12 16:00] VITALS: BP 107/61
--- NOTE | 2020-10-12 17:01 | IPN ---
PROGRESS NOTE DATE: 10/11/2020 SUBJECTIVE: Mr. Licea still has a small air leak with forceful coughing and the lung is further away from the chest wall than it was yesterday. I have, therefore, increased the suction. OBJECTIVE: VITAL SIGNS: Show a T-max of 97.4 with a heart rate that ranges between 73 and 83 in sinus rhythm. Respiratory rate of 16 to 20 without the use of accessory muscles who is 97% to 98% saturated on 2 liters nasal cannula and whose blood pressure is ranging between 121/79 to 100/60. INTAKE AND OUTPUT: Over the past 24 hours has been recorded as 1400 in and 1525 out for a negativity of 125 mL. He has put 25 mL out the chest tube and he has a small air leak with forceful coughing. Weight today is 69.8 kg compared to 67.4 kg yesterday. RESPIRATORY: He does have equal breath sounds on either side with fine velcro-type crackles in mid to end-expiration. Percussion notes are full to the diaphragm. There is no subcutaneous emphysema. ABDOMEN: Soft and nontender. Bowel sounds are positive. There is no hepatomegaly. No CVA tenderness. EXTREMITIES: Show no pretibial edema. No calf tenderness. No differential swelling of the upper extremities. SKIN: Warm, dry, and perfused without cyanosis or mottling, including that of the nail beds and knees. NECK: Supple. There is no jugular venous distention. No subcutaneous emphysema. Trachea is midline. MOUTH: Shows the mucous membranes to be pink and moist. Lips and commisures are without lesions and no thrush. EYES: Show his pupils equal and reactive. Extraocular movements are intact. Sclerae nonicteric. NEUROLOGIC: Shows II through XII intact. Normal gross motor, gross sensation intact. Gait is not tested. PSYCHIATRIC: Shows him to be awake, alert, and oriented x3 with appropriate mood and affect and conversational. LABORATORY DATA: His white count today is 12.0 with a hemoglobin and hematocrit of 14.7 and 47.8 respectively with a platelet count of 104,000. Chemistries today show essentially normal electrolytes except for an elevated total CO2 of 36. His BUN and creatinine are 28 and 0.53 with a glucose of 136 and a calcium of 7.6. IMAGING DATA: His chest x-ray today shows more of an apical air space with the lung further away from the chest wall than it was yesterday. The chest tube is in excellent position at the apex. Costophrenic angles are sharp and he has the reticular infiltrates consistent with his pulmonary fibrosis. IMPRESSION: 1. Spontaneous pneumothorax right side recurrent. 2. Advanced interstitial lung disease with clinically idiopathic pulmonary fibrosis. 3. Underlying chronic obstructive pulmonary disease. 4. Hypoxic polycythemia. 5. Gastroesophageal reflux disease. 6. Diabetes. PLAN AND DISCUSSION: I will increase the chest tube suction to 40 today. My goal is to get the lung to expand completely to the chest wall in order to control his air leak. We may be coming to blood patch time, although I would like to hold off on that a little bit longer.
[2020-10-12 20:00] VITALS: BP 106/61
[2020-10-12] MEDS: LEVEMIR (INSULIN DETEMIR) 1 UNITS/0.01ML SC SCH (20:21)
[2020-10-13] VITALS: BP 106/64
[2020-10-13] MEDS: LEVALBUTEROL 1.25 MG/0.5 ML CONCENTRATE NEB NEB SCH ×4 (01:07→20:08)
[2020-10-13 04:00] VITALS: BP 106/71
[2020-10-13 06:11] LABS: HEMATOCRIT 47.8 % (42.0-52.0); HEMOGLOBIN 14.5 g/dl (13.5-17.5); MEAN CORPUSCULAR HGB CONC 30.3 g/dl (32.0-36.5); MEAN CORPUSCULAR VOLUME 95.6 fl (80.0-96.0); PLATELET COUNT, AUTOMATED 100 10^3/uL (150-450); WHITE BLOOD COUNT 10.1 10^3/uL (4.0-10.0)
[2020-10-13 06:28] LABS: BLOOD UREA NITROGEN 17 MG/DL (7-18); CALCIUM LEVEL 8.1 MG/DL (8.8-10.2); CARBON DIOXIDE LEVEL 39 MEQ/L (21-32); CHLORIDE LEVEL 101 MEQ/L (98-107); CREATININE FOR GFR 0.54 MG/DL (0.70-1.30); GLOMERULAR FILTRATION RATE > 60.0 (>49); GLUCOSE, FASTING 111 MG/DL (70-100); SODIUM LEVEL 139 MEQ/L (136-145)
[2020-10-13 08:00] VITALS: BP 112/61
[2020-10-13] MEDS ORDERED: SLF 3 ML SYR IV PRN (08:00)
[2020-10-13] MEDS: PANTOPRAZOLE 40MG TAB (PROTONIX) PO SCH (08:14)
[2020-10-13] MEDS: HYDROXYCHLOROQUINE 200 MG TAB PO SCH ×2 (08:14→20:26)
[2020-10-13] MEDS: predniSONE 20 MG TAB PO SCH (08:14)
[2020-10-13] MEDS: ATOVAQUONE SUSP 750MG/5ML 210 ML BTL PO SCH (08:14)
[2020-10-13] MEDS: DOCUSATE SODIUM 100MG CAPSULE PO SCH ×2 (08:15→19:51)
[2020-10-13] MEDS: MOM 30ML SUSPENSION UDC PO SCH (08:16)
[2020-10-13] MEDS: HumaLOG INSULIN (NovoLOG) PER UNIT SC SCH ×4 (08:16→20:27)
--- NOTE | 2020-10-13 08:24 | REP ---
INDICATION: after chest tube placement COMPARISON: 10/12/2020 TECHNIQUE: PA and lateral. FINDINGS: Right apical chest tube in stable position. Small right apical pneumothorax again noted but decreased from prior exam. Diffuse bilateral chronic pulmonary parenchymal findings remains stable. No new acute process identified. Mediastinum and cardiac silhouette stable. Small amount of residual subcutaneous emphysema along the right lateral chest wall again noted. IMPRESSION: Right apical pneumothorax minimally decreased in size. No new acute process appreciated. <Electronically signed by Krishna Hernandez > 10/13/20 0806
[2020-10-13] MEDS: HEPARIN SOD (PORCINE) 5000UNITS/ML 1ML VIAL/SYRINGE SC SCH ×2 (09:00→19:47)
--- NOTE | 2020-10-13 10:41 | IPN ---
PROGRESS NOTE DATE: 10/13/2020 SUBJECTIVE: I turned Mr. Licea suction down to 20 cm yesterday. He now has an air leak once again. His chest x-ray is unchanged, but nonetheless he is still having air leak. OBJECTIVE: VITAL SIGNS: Show a T-max of 99.2 with a heart rate that ranges between 68 and 77 in sinus rhythm. Respiratory rate that is constant 18 who is 98% to 100% saturated on 2 liters nasal cannula and whose blood pressure is ranging between 106/71 to 112/74. INTAKE AND OUTPUT: Over the past 24 hours has been recorded as 1800 in and 550 out for a positivity of 1250 mL. He has put out 100 mL out the chest tube. His weight today is 70 kg compared to 69 kg yesterday. RESPIRATORY: His lungs show equal breath sounds on either side. I hear the slightest of velcro crackles at the very end of inspiration on either side at the bases. Percussion notes are full to the diaphragm. I feel no subcutaneous emphysema. CARDIAC: Without murmurs, clicks, gallops, or rubs. I cannot feel his PMI. S1 and S2 are normal. ABDOMEN: Soft and nontender. Bowel sounds are positive. There is no hepatomegaly. No CVA tenderness. EXTREMITIES: Show no pretibial edema. No calf tenderness. No differential swelling of the upper extremities. SKIN: Warm, dry, and perfused without cyanosis or mottling, including that of the nail beds and knees. NECK: Supple. There is no jugular venous distention. No subcutaneous emphysema. Trachea is midline. MOUTH: Shows the mucous membranes to be pink and moist. Lips and commisures are without lesions and no thrush. EYES: Show his pupils equal and reactive. Extraocular movements are intact. Sclerae nonicteric. NEUROLOGIC: Shows II through XII intact. Normal gross motor, gross sensation intact. Gait is also intact. PSYCHIATRIC: Shows him to be awake, alert, and oriented x3 with appropriate mood and affect and conversational. LABORATORY DATA: His white count today is 10.1 with a hemoglobin and hematocrit of 14.5 and 47.8 respectively. Platelet count is 100,000. There is no differential. Electrolytes are normal today with an elevated total CO2 of 39, however. BUN and creatinine is 17 and 0.54 with a glucose of 111 and a calcium of 8.1. IMAGING DATA: His chest x-ray is unchanged from yesterday. He still has an apical lateral air space. It measures 1 cm. IMPRESSION: 1. Spontaneous pneumothorax right side recurrent. 2. Advanced interstitial lung disease clinically idiopathic pulmonary fibrosis. 3. Underlying chronic obstructive pulmonary disease. 4. Hypoxic polycythemia. 5. Gastroesophageal reflux disease. 6. Diabetes. 7. Alveolopleural fistula. PLAN AND DISCUSSION: I will attempt a blood patch either later today or tomorrow. I will place a central line and then instill blood into the apex of the chest via the chest tube. I will then discontinue his suction and see if we can clot the leak off.
[2020-10-13 12:00] VITALS: BP 101/59
[2020-10-13] MEDS ORDERED: LIDOCAINE 1% MDV 20ML VIAL As Ordered ONE (14:16)
--- NOTE | 2020-10-13 15:23 | REP ---
INDICATION: after central line. 3:09 p.m. film. COMPARISON: Comparison portable chest x-ray October 13, 2020 7:43 a.m. film. TECHNIQUE: Semi-erect portable AP radiograph.. FINDINGS: A right apical chest tube is again seen in place. A right subclavian catheter terminates in the expected location of the right atrium. There is a small right apical pneumothorax again noted unchanged from the earlier film. Diffuse interstitial lung disease is noted. Heart is not enlarged. There is a large air cyst projecting at the right cardio phrenic angle. Unchanged from prior radiographs. IMPRESSION: Right central line tip in the expected location of the right atrium. Small right-sided pneumothorax with right chest tube in place unchanged from this morning's radiograph. Diffuse interstitial lung disease again noted unchanged.. <Electronically signed by Devaughn Georges > 10/13/20 2194
[2020-10-13 16:00] VITALS: BP 91/50
--- NOTE | 2020-10-13 16:47 | IPNPDOC ---
Subjective Date Seen The patient was seen on 10/13/20. Subjective Chief Complaint/HPI Mr. Licea is a 65 year old male with pulmonary interstitial fibrosis here with spontaneous pneumothorax of the right lung. He was seen in the morning. Chest tubes still present in the morning. He feels about the same. Denies any chest pain or worsening dyspnea. Objective Physical Examination General Exam: Positive: Cooperative, Other (Fatigued) Eye Exam: Positive: EOMI; Negative: Sclera icteric ENT Exam: Positive: Atraumatic Chest Exam: Positive: Clear to auscultation Heart Exam: Positive: Rate Normal, Regular Rhythm Abdomen Exam: Positive: Normal bowel sounds, Soft; Negative: Tenderness Extremity Exam: Negative: Edema Neuro Exam: Positive: Normal Speech Psych Exam: Positive: Mental status NL Assessment /Plan Assessment Mr. Licea is a 65 year old male with pulmonary interstitial fibrosis here with spontaneous pneumothorax of the right lung. Dr. Reese placed chest tube on 10/03/2020 and removed chest tube on 10/06/2020. After removal, started to have signs of growing pneumothorax. Chest tube reinserted on 10/08/2020. Dr. Reese planning for blood patch to clot the air leak either later today or tomorrow. Plan/VTE VTE Prophylaxis Ordered?: Yes Plan 1. Spontaneous pneumothorax of right lung -Followed by Dr. Reese -Placed chest tube on 10/03/2020 and removed chest tube on 10/06/2020 -CXR started to demonstrate signs of growing right pneumothorax. Chest tube reinserted on 10/08/2020 2. Diabetes mellitus -Sliding scale insulin and basal insulin -On levemir 8units qHS (increased from 6units qHS) 3. Lupus -Patient was scheduled for Cytoxan on 10/09/2020 per patient's [employer] office in [place], [place] -Dr. Cruz spoke with patient, patient request to defer Cytoxan until he has recovered -Continue with prednisone and Plaquenil Of note, due to patient's chronic and high-dose steroids, he is not a candidate for the COVID vaccination at this time 4. GERD -Continue pantoprazole 5. DVT ppx -Heparin subQ Disposition: Pending clinical improvement. When patient is medically clear, patient will need placement. Dr. Reese planning to place blood patch to clot the air leak either later today or tomorrow. VS, I&O, 24H, [place] Vital Signs/I&O Vital Signs Date Time Temp Pulse Resp B/P (MAP) Pulse Ox O2 Delivery O2 Flow Rate FiO2 10/13/20 16:00 98.2 93 18 91/50 (64) 94 Nasal Cannula 2.0 I&O- Last 24 Hours up to 6 AM 10/13/20 06:00 Intake Total 1800 ml Output Total 950 ml Balance 850 ml Laboratory Data 24H LABS Laboratory Tests 2 10/12/20 16:50: Bedside Glucose (Misc Panel) 305H 10/12/20 19:13: Bedside Glucose (Misc Panel) 317H 10/13/20 05:43: Nucleated Red Blood Cells % (auto) 0.0, Anion Gap , Glomerular Filtration Rate > 60.0, Calcium Level 8.1L 10/13/20 11:28: Bedside Glucose (Misc Panel) 248H CBC/BMP Laboratory Tests 10/13/20 05:43 Microbiology Microbiology 10/03/20 Respiratory Virus Panel (PCR) ([facility]) - Final, Complete MARY LOU FORMAN 15, 2021 16:47
[2020-10-13] MEDS: SLF 3 ML SYR IV SCH ×2 (17:48→20:27)
[2020-10-13 20:00] VITALS: BP 130/66
[2020-10-13] MEDS: LEVEMIR (INSULIN DETEMIR) 1 UNITS/0.01ML SC SCH (20:27)
[2020-10-14] VITALS: BP 101/55
[2020-10-14] MEDS: LEVALBUTEROL 1.25 MG/0.5 ML CONCENTRATE NEB NEB SCH ×4 (01:18→19:34)
[2020-10-14 04:00] VITALS: BP 102/59
[2020-10-14] MEDS: SLF 3 ML SYR IV SCH ×3 (04:51→20:43)
[2020-10-14 05:59] LABS: HEMATOCRIT 46.2 % (42.0-52.0); HEMOGLOBIN 14.3 g/dl (13.5-17.5); MEAN CORPUSCULAR HEMOGLOBIN 29.4 pg (27.0-33.0); MEAN CORPUSCULAR VOLUME 95.1 fl (80.0-96.0); PLATELET COUNT, AUTOMATED 113 10^3/uL (150-450); RED BLOOD COUNT 4.86 10^6/uL (4.30-6.10); WHITE BLOOD COUNT 11.4 10^3/uL (4.0-10.0)
[2020-10-14 06:22] LABS: BLOOD UREA NITROGEN 18 MG/DL (7-18); CALCIUM LEVEL 7.9 MG/DL (8.8-10.2); CARBON DIOXIDE LEVEL 37 MEQ/L (21-32); CHLORIDE LEVEL 100 MEQ/L (98-107); CREATININE FOR GFR 0.52 MG/DL (0.70-1.30); GLOMERULAR FILTRATION RATE > 60.0 (>49); GLUCOSE, FASTING 97 MG/DL (70-100); POTASSIUM SERUM 4.2 MEQ/L (3.5-5.1); SODIUM LEVEL 137 MEQ/L (136-145)
[2020-10-14] MEDS: HumaLOG INSULIN (NovoLOG) PER UNIT SC SCH ×4 (07:16→20:40)
[2020-10-14 07:21] VITALS: BP 100/60
--- NOTE | 2020-10-14 07:34 | IPNPDOC ---
Date Seen The patient was seen on 10/14/20. Progress Note HOSPITALIST PROGRESS NOTE DICTATED If needed urgently,pls call hypertype to stat transcribe Dr. Velarde's progress note job #[id number]. VS, I&O, 24H, Fishbone Vital Signs/I&O Vital Signs Date Time Temp Pulse Resp B/P (MAP) Pulse Ox O2 Delivery O2 Flow Rate FiO2 10/14/20 07:21 97.4 62 18 100/60 (73) 97 Nasal Cannula 2.0 I&O- Last 24 Hours up to 6 AM 10/14/20 06:00 Intake Total 3206 ml Output Total 1995 ml Balance 1211 ml Laboratory Data 24H LABS Laboratory Tests 2 10/13/20 11:28: Bedside Glucose (Misc Panel) 248H 10/13/20 17:09: Bedside Glucose (Misc Panel) 315H 10/13/20 20:03: Bedside Glucose (Misc Panel) 366H 10/14/20 05:26: Nucleated Red Blood Cells % (auto) 0.0, Anion Gap 0L, Glomerular Filtration Rate > 60.0, Calcium Level 7.9L CBC/BMP Laboratory Tests 10/14/20 05:26 DARNELL VELARDE MD Oct 14, 2020 07:34
--- NOTE | 2020-10-14 08:32 | IPN ---
PROGRESS NOTE DATE: 10/14/2020 SUBJECTIVE: The patient is seen and examined at the bedside, chart has been reviewed. No overnight issues per nursing. Patient remains with a chest tube, currently on a water seal. He complains of pleuritic chest pain rated at 5/10. No nausea, vomiting, fever, chills or cough. Patient is ambulating well with some discomfort from bed to the bathroom. No dyspnea. OBJECTIVE: VITAL SIGNS: Temperature is 97.4, pulse is 62, sinus rhythm, respiratory rate is 18, blood pressure is 100/60, 97% on 2 liters nasal cannula. GENERAL: The patient is awake, alert and oriented x3, answering questions appropriately. No use of accessory or respiratory muscles. No conversational dyspnea. NECK: No JVD. No thyromegaly. No cervical lymphadenopathy. LUNGS: Chest tube in place. Lungs are equal bilaterally. Air entry is equal. Bibasilar crackles. HEART: S1 and S2, sinus rhythm. ABDOMEN: Soft, nontender and nondistended. EXTREMITIES: No cyanosis, clubbing or any pitting edema. SKIN: Right triple lumen catheter noted right chest tube. LABORATORY DATA: White count 11.4, hemoglobin 14, hematocrit 46, platelet count 113,000. Sodium 137, potassium 4.2, chloride 100, bicarbonate 37, BUN 18, creatinine 0.52, glucose of 97, respiratory panel negative for Coronavirus. Imaging studies: Chest x-ray on 10/13/2020: Right central line tip in the expected location in the right atrium. Chest x-ray: Small right sided pneumothorax with right chest tube in place unchanged from this morning's radiograph, diffuse interstitial lung disease again noted, that is unchanged. ASSESSMENT AND PLAN: This is a 65-year-old male who has a history of idiopathic pulmonary fibrosis, systemic lupus erythematous recently diagnosed, non-insulin diabetes, osteoarthritis, diabetic neuropathy and chronic back pain, nonsmoker, admitted on 10/03/2020 with complaints of shortness of breath, pleuritic chest pain and found to have a spontaneous pneumothorax on the right lung. Current issues are as follows: 1. Spontaneous pneumothorax on the right lung status post chest tube placement on 10/03 to 10/06. Repeat chest x-ray shows recurrent right pneumothorax. Chest tube reinserted by Dr. Shawn Reese on 10/08/2020 status post blood patch. 2. Systemic lupus erythematosus, patient was due for Cytoxan on 10/09/2020. Per Dr. Cruz, Cytoxan to be postponed until prednisone is clinically stable, currently on prednisone and Plaquenil, outpatient follow-up with cold molding press operator for facial exam while on Plaquenil. Patient has chronic immunosuppressive therapy, is not a candidate for COVID vaccination at this time. 3. Gastroesophageal reflux disease on Protonix. 4. Type 2 diabetes on sliding scale Levemir insulin and fingersticks, consistent carbohydrate diet. 5. Advanced interstitial lung disease, clinically idiopathic pulmonary fibrosis, outpatient follow-up with Dr. Cruz, complicating care currently being treated for SLE with prednisone and Plaquenil. Outpatient follow-up for Cytoxan by his gear tooth grinding machine operator. 6. Underlying COPD in a nonsmoker. Follows with Dr. Cruz as an outpatient licensing worker. 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 Shawn Reese. 8. 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 Outpatient follow-up with licensing worker. 9. DVT prophylaxis with compression stockings. MTDD
--- NOTE | 2020-10-14 08:46 | REP ---
INDICATION: pneumothorax. COMPARISON: Comparison chest radiograph October 13, 2020. TECHNIQUE: Two views.. FINDINGS: A right-sided chest tube is again seen in place with its tip at the apex. Right subclavian catheter terminates in the expected location of the right atrium. Monitoring electrodes are again noted. There is a small right apical pneumothorax slightly increased in size from yesterday's radiograph. Extra thoracic soft tissue emphysema persists in the axillary soft tissues on the right. Diffuse interstitial lung disease is again noted. No new infiltrate. Relatively low lung volumes. IMPRESSION: Small right apical pneumothorax persists with chest tube in place. Diffuse interstitial lung disease unchanged.. <Electronically signed by Devaughn Georges > 10/14/20 [id number]
[2020-10-14] MEDS: HYDROXYCHLOROQUINE 200 MG TAB PO SCH ×2 (08:54→20:31)
[2020-10-14] MEDS: PANTOPRAZOLE 40MG TAB (PROTONIX) PO SCH (08:54)
[2020-10-14] MEDS: predniSONE 20 MG TAB PO SCH (08:54)
[2020-10-14] MEDS: DOCUSATE SODIUM 100MG CAPSULE PO SCH ×3 (08:55→20:43)
[2020-10-14] MEDS: MOM 30ML SUSPENSION UDC PO SCH (08:55)
[2020-10-14] MEDS: PERCOCET 5MG/325MG TAB PO PRN ×2 (08:55→22:20)
[2020-10-14] MEDS: ATOVAQUONE SUSP 750MG/5ML 210 ML BTL PO SCH (08:55)
[2020-10-14] MEDS: HEPARIN SOD (PORCINE) 5000UNITS/ML 1ML VIAL/SYRINGE SC SCH ×2 (08:55→20:32)
--- NOTE | 2020-10-14 09:50 | RO ---
OPERATIVE NOTE DATE OF OPERATION: 10/13/2020 PREOPERATIVE DIAGNOSIS: Alveolar pleural fistula, recurrent and continuing. POSTOPERATIVE DIAGNOSIS: Alveolar pleural fistula, recurrent and continuing. PROCEDURE: Intrathoracic blood patch. SURGEON: Shawn Reese MD LOG RAFT WORKER: ANESTHESIA: DESCRIPTION OF PROCEDURE: 120 mL of blood was withdrawn from a previously placed central line. The chest tube was disconnected and prepped and draped in the usual sterile fashion. The entire 120 mL of blood was then instilled in the chest tube. It was clamped and the patient was rolled from side to side to distribute the blood. The patient tolerated the procedure well. Chest tubes will be unclamped in four hours.
--- NOTE | 2020-10-14 09:50 | RO ---
OPERATIVE NOTE DATE OF OPERATION: 10/13/2020 PREOPERATIVE DIAGNOSIS: Need for vascular access. POSTOPERATIVE DIAGNOSIS: Need for vascular access. PROCEDURE: Insertion of right subclavian central line. SURGEON: Shawn Reese MD BOARDING [employer] CATTERY OPERATOR: ANESTHESIA: DESCRIPTION OF PROCEDURE: The patient's right infraclavicular fossa was prepped and draped in the usual sterile fashion. The overlying skin was infiltrated with 1% Lidocaine and the vein was found on the second pass. The wire was placed without difficulty. The tract was dilated and a triple lumen catheter was placed. The catheter was secured to the chest wall with 2-0 silk sutures. Ports were aspirated and flushed without difficulty. The patient tolerated the procedure well. Chest x-ray is pending.
[2020-10-14 11:07] VITALS: BP 93/59
--- NOTE | 2020-10-14 14:47 | IPN ---
PROGRESS NOTE DATE: 10/14/2020 Mr. Licea is now one day status post a blood patch. There is no air leak today, and he is breathing well. His vital signs show a maximum temperature of 98.9 with a heart rate that ranges between 62-72 in a sinus rhythm, respiratory rate of 16-18 without the use of accessory muscles, who is 97%-99% saturated on 2 liters nasal cannula, and whose blood pressure is ranging between 102/59 to 93/59. His intake and output for the past 24 hours has been recorded as 3206 in and 1775 out, for a positivity of 1400 mL. Chest tube has put out only 20 mL in the last 10 hours. Weight today is 70.1 kg. PHYSICAL EXAMINATION: He has equal breath sounds on either side with Velcro crackles at the end of inspiration. Percussion note is full to the diaphragm. Cardiac exam is without murmurs, clicks, gallops, or rubs. I cannot feel his point of maximal impulse (PMI). S1 and S2 are normal. Abdomen is soft and nontender. Bowel sounds are positive. There is no hepatomegaly. No costovertebral angle (CVA) tenderness. Extremities show no pretibial edema, no calf tenderness, no differential swelling of the upper extremities. Skin is warm, dry, and perfused without cyanosis or mottling, including that of the nailbeds and knees. Neck is supple. There is no jugular venous distention. No subcutaneous emphysema. Trachea is midline. Mouth shows the mucous membranes to be pink and moist. Lips and commissures without lesions. No thrush. Eyes show his pupils to be equal and reactive. Extraocular motion intact. Sclerae anicteric. Neurologic shows II-XII intact. Normal gross motor, gross sensation intact. Gait is not tested. Psychiatric shows him to be awake, alert, and oriented times three with appropriate mood and affect and conversational. His white count is 11.4 with a hemoglobin and hematocrit of 14.3 and 46.2, respectively. Platelet count is 113 and stable. Chemistries show normal electrolytes except for an elevated total CO2 of 37, consistent with his pulmonary fibrosis. BUN and creatinine are 18 and 0.52 with a glucose of 97 and a calcium of 7.9. His chest x-ray today shows the lung more from the chest wall than it was yesterday; however, there is no increase in the subcutaneous emphysema. Chest tube is in good place. Costophrenic angles are sharp, and he has the reticular infiltrative pattern of his pulmonary fibrosis. IMPRESSION: 1. Spontaneous pneumothorax, right side, recurrent. 2. Advanced interstitial lung disease clinically. 3. Idiopathic pulmonary fibrosis. 4. Underlying chronic obstructive pulmonary disease (COPD). 5. Hypoxic polycythemia. 6. Gastroesophageal reflux disease. 7. Diabetes. 8. Alveolar pleural fistula. PLAN AND DISCUSSION: I will continue his chest tubes to water seal. We will follow his chest x-ray. Hopefully the blood patch will form a matrix to heal his alveolar pleural fistula.
[2020-10-14 15:40] VITALS: BP 110/56
[2020-10-14 20:00] VITALS: BP 114/59
[2020-10-14] MEDS: LEVEMIR (INSULIN DETEMIR) 1 UNITS/0.01ML SC SCH (20:40)
[2020-10-15] VITALS (7 sets, daily range): BP systolic 90–160; BP diastolic 54–72
[2020-10-15] MEDS: LEVALBUTEROL 1.25 MG/0.5 ML CONCENTRATE NEB NEB SCH ×4 (02:28→20:21)
[2020-10-15] MEDS: SLF 3 ML SYR IV SCH ×3 (06:03→21:15)
[2020-10-15] MEDS: SODIUM CHLORIDE 0.9% INJ 10 ML SYR IV PRN (06:22)
[2020-10-15 06:46] LABS: HEMATOCRIT 45.9 % (42.0-52.0); HEMOGLOBIN 14.2 g/dl (13.5-17.5); MEAN CORPUSCULAR HEMOGLOBIN 29.5 pg (27.0-33.0); MEAN CORPUSCULAR HGB CONC 30.9 g/dl (32.0-36.5); MEAN CORPUSCULAR VOLUME 95.2 fl (80.0-96.0); PLATELET COUNT, AUTOMATED 106 10^3/uL (150-450); RED BLOOD COUNT 4.82 10^6/uL (4.30-6.10); WHITE BLOOD COUNT 10.9 10^3/uL (4.0-10.0)
[2020-10-15 07:07] LABS: BLOOD UREA NITROGEN 19 MG/DL (7-18); CALCIUM LEVEL 8.1 MG/DL (8.8-10.2); CARBON DIOXIDE LEVEL 40 MEQ/L (21-32); CHLORIDE LEVEL 100 MEQ/L (98-107); CREATININE FOR GFR 0.37 MG/DL (0.70-1.30); GLOMERULAR FILTRATION RATE > 60.0 (>49); GLUCOSE, FASTING 123 MG/DL (70-100); POTASSIUM SERUM 4.2 MEQ/L (3.5-5.1); SODIUM LEVEL 140 MEQ/L (136-145)
--- NOTE | 2020-10-15 07:55 | REP ---
INDICATION: pneumothorax. COMPARISON: 10/14/2020. TECHNIQUE: Upright PA and lateral chest. FINDINGS: The right pneumothorax has significantly increased in size and now appears to be approximately 50% of the volume of the left hemithorax. I suspect there is a right pleural effusion. This appears to be an interval change. There is a right thoracotomy tube with the tip in the apex of the right hemithorax, unchanged. There is subcutaneous emphysema along the right lateral chest wall that appears to have increased in not extends into the right side of the neck. Right lung is clear. Cardiac size is normal. The right subclavian central venous catheter is unchanged with the tip terminating in the right atrium. IMPRESSION: The right pneumothorax has significantly increased and now appears to involve at least 50% of the right hemithorax. There is a right pleural effusion as an interval change. The right thoracotomy tube is unchanged. The subcutaneous emphysema along the right lateral chest wall has increased. <Electronically signed by Tavo Alex > 10/15/20 0752
[2020-10-15] MEDS: PERCOCET 5MG/325MG TAB PO PRN ×2 (07:58→12:17)
[2020-10-15] MEDS: MOM 30ML SUSPENSION UDC PO SCH ×2 (08:29→08:38)
[2020-10-15] MEDS: predniSONE 20 MG TAB PO SCH (08:29)
[2020-10-15] MEDS: DOCUSATE SODIUM 100MG CAPSULE PO SCH ×4 (08:29→21:08)
[2020-10-15] MEDS: PANTOPRAZOLE 40MG TAB (PROTONIX) PO SCH (08:29)
[2020-10-15] MEDS: HEPARIN SOD (PORCINE) 5000UNITS/ML 1ML VIAL/SYRINGE SC SCH ×2 (08:30→21:11)
[2020-10-15] MEDS: HumaLOG INSULIN (NovoLOG) PER UNIT SC SCH ×4 (08:31→21:10)
[2020-10-15] MEDS: ATOVAQUONE SUSP 750MG/5ML 210 ML BTL PO SCH (09:05)
[2020-10-15] MEDS: HYDROXYCHLOROQUINE 200 MG TAB PO SCH ×2 (09:06→21:08)
--- NOTE | 2020-10-15 09:15 | IPNPDOC ---
Date Seen The patient was seen on 10/15/20. Progress Note Hospitalist progress note dictated. If urgently needed, pls call hypertype to stat transcribe progress note dictated by Dr. Velarde VS, I&O, 24H, Fishbone Vital Signs/I&O Vital Signs Date Time Temp Pulse Resp B/P (MAP) Pulse Ox O2 Delivery O2 Flow Rate FiO2 10/15/20 08:28 18 Nasal Cannula 2.0 10/15/20 08:00 97.8 105/65 98 10/15/20 08:00 82 98 I&O- Last 24 Hours up to 6 AM 10/15/20 05:59 Intake Total 1875 ml Output Total 1715 ml Balance 160 ml Laboratory Data 24H LABS Laboratory Tests 2 10/14/20 10:24: 10/14/20 11:45: Bedside Glucose (Misc Panel) 212H 10/14/20 16:30: Bedside Glucose (Misc Panel) 313H 10/14/20 20:30: Bedside Glucose (Misc Panel) 343H 10/15/20 06:26: Nucleated Red Blood Cells % (auto) 0.0, Anion Gap 0L, Glomerular Filtration Rate > 60.0, Calcium Level 8.1L 10/15/20 08:15: Bedside Glucose (Misc Panel) 111 CBC/BMP Laboratory Tests 10/15/20 06:26 DARNELL VELARDE MD Oct 15, 2020 09:15
--- NOTE | 2020-10-15 11:02 | IPN ---
"PROGRESS NOTE DATE: 10/12/2020 SUBJECTIVE: Mr. Licea is feeling fairly well today. His chest tube has been on 40 cm of suction and there is no air leak. His chest x-ray does not show the lung having moved from where it was yesterday. His vital signs show a T-max of 97.8 with a heart rate that ranges between 76 and 82 in a sinus rhythm, respiratory rate of 16-18 without the use of accessory muscles. He is 95-98% saturated on 2 liters nasal cannula. He has blood pressures ranging between 101/69 to 98/61. OBJECTIVE: His lungs are remarkably clear. I do not hear any Velcro crackles today. Breath sounds are equal on either side. Percussion notes are full through the diaphragm. Cardiac exam is without murmurs, clicks, gallops, or rubs. I cannot feel his PMI. S1, S2 are normal. Abdomen is soft, nontender. Bowel sounds are positive. There is no hepatomegaly. No CVA tenderness. Extremities show no pretibial edema, no calf tenderness, no differential swelling of the upper extremities. Skin is warm and dry and perfused without cyanosis or mottling including that of nailbeds and knees. His chest x-ray today had to be repeated as there were numerous bars over the right cupula. Repeat chest x-ray shows his lung from the chest wall by 1 cm which is unchanged from yesterday. Subcutaneous emphysema is dissipating. Chest tube is in excellent position at the cupula. ASSESSMENT: 1. Spontaneous pneumothorax right side, recurrent.| 2. Advanced interstitial lung disease clinically idiopathic pulmonary fibrosis. 3. Underlying chronic obstructive pulmonary disease. 4. Hypoxic polycythemia. 5. Gastroesophageal reflux disease. 6. Diabetes. 7. Alveolar pleural fistula, hopefully resolved. PLAN/DISCUSSION: I will decrease his chest tube suction to 20 a day and again monitor his chest x-rays. If the lung stays at its present position away from the chest wall by only 1 cm I will be satisfied as his lung is very noncompliant secondary to his pulmonary fibrosis. It may never re-expand again. 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 [facility]"
--- NOTE | 2020-10-15 12:06 | IPN ---
PROGRESS NOTE DATE: 10/15/2020 Mr. Licea states he is doing well. He is breathing well. It is surprising that his lung is now completely down again on chest x-ray. His vital signs show a maximum temperature of 98.5 with a heart rate that ranges between 74-77 in a sinus rhythm, respiratory rate that is constant at 18, who is 97% saturated on 2 liters nasal cannula, and whose blood pressure is ranging between 109/69 to 106/55. His intake and output for the past 24 hours has been recorded as 1875 in and 1735 out, for a positivity of 140 mL. He has put out 60 mL from the chest tube. He weighs 71.1 kg today compared to 70.1 kg yesterday. PHYSICAL EXAMINATION: He has markedly decreased breath sounds on the right side with a hyperresonant percussion note on the right side. Left side shows late inspiratory Velcro crackles. Percussion is full to the diaphragm on the left. Cardiac exam is without murmurs, clicks, gallops, or rubs. I cannot feel his point of maximal impulse (PMI). S1 and S2 are normal. Abdomen is soft and nontender. Bowel sounds are positive. There is no hepatomegaly. No costovertebral angle (CVA) tenderness. Extremities show no pretibial edema, no calf tenderness, no differential swelling of the upper extremities. Skin is warm, dry, and perfused without cyanosis or mottling, including that of the nailbeds and knees. Neck is supple. There is no jugular venous distention. No subcutaneous emphysema. Trachea is midline. Mouth shows the mucous membranes to be pink and moist. Lips and commissures without lesions. No thrush. Eyes show his pupils to be equal and reactive. Extraocular motion intact. Sclerae anicteric. Neurologic shows II-XII intact. Normal gross motor, gross sensation intact. Gait is not tested. Psychiatric shows him to be awake, alert, and oriented times three with appropriate mood and affect and conversational. His white count today is 10.9 with hemoglobin and hematocrit 14.2 and 45.9, respectively, with a platelet count of 106. There is no differential. His chemistries show normal electrolytes except for an elevated total CO2 of 40. BUN and creatinine are 19 and 0.37 with a calcium of 8.1 and a glucose of 123. His chest x-ray, as noted above, shows his lungs now again collapsed with a 70% pneumothorax. Chest tube is still in good place. There is an air/fluid level. There is increased subcutaneous emphysema along the lateral chest wall now. IMPRESSION: 1. Spontaneous pneumothorax, right side, recurrent. 2. Advanced interstitial lung disease, clinically idiopathic pulmonary fibrosis. 3. Underlying chronic obstructive pulmonary disease. 4. Hypoxic polycythemia. 5. Gastroesophageal reflux disease. 6. Diabetes. 7. Alveolar pleural fistula, continuing. PLAN AND DISCUSSION: I again will place a chest tube back on -40 of suction. When I did do that this morning, I did not see a gush of air, and I have a sinking feeling that the chest tube itself is blocked from the blood patch. I will get a chest x-ray at 12 o'clock this afternoon to see if the lung is coming back up on suction. ONDINA
--- NOTE | 2020-10-15 12:23 | REP ---
INDICATION: pneuothx. COMPARISON: PA AND LATERAL CHEST PERFORMED EARLIER TODAY. TECHNIQUE: Upright PA and lateral chest. FINDINGS: THERE HAS BEEN SIGNIFICANT REDUCTION OF THE LARGE RIGHT PNEUMOTHORAX ON THE COMPARISON STUDY. ON THE CURRENT STUDY THERE IS A SMALL SLIVER OF PNEUMOTHORAX IN THE RIGHT APEX. THE RIGHT THORACOTOMY TUBE IS UNCHANGED. THE SUBCUTANEOUS EMPHYSEMA ALONG THE RIGHT LATERAL CHEST WALL AND BASE OF THE NECK ON THE RIGHT IS UNCHANGED. THERE IS DIFFUSE BILATERAL INTERSTITIAL COARSENING. THIS COULD BE CHRONIC, ACUTE OR COMBINATION. THERE ARE NO PLEURAL EFFUSIONS. CARDIAC SIZE IS UPPER NORMAL. THERE IS A RIGHT SUBCLAVIAN CENTRAL VENOUS CATHETER WITH THE TIP IN THE RIGHT ATRIUM, UNCHANGED. IMPRESSION: SIGNIFICANT REDUCTION IN SIZE OF THE RIGHT PNEUMOTHORAX. THERE IS ONLY A SMALL SLIVER OF PNEUMOTHORAX IN THE RIGHT APEX. <Electronically signed by Tavo Alex > 10/15/20 [id number]
--- NOTE | 2020-10-15 14:12 | IPN ---
PROGRESS NOTE DATE: 10/15/2020 SUBJECTIVE: Patient was seen and examined at the bedside. Chart has been reviewed. He denies any fever, chills, cough. Complains of pain at the chest tube site rated at 4/10. No shortness of breath. Patient denies any cough. OBJECTIVE: Vital signs: Temperature 97.8, pulse 82 sinus rhythm, respiratory rate 18, blood pressure 105/65, 98% on 2 liters nasal cannula. General: Awake, alert, oriented times 3, answering questions appropriately, no cyanosis, tracheal deviation, use of respiratory accessory muscles, stridor or carotid bruits. Lungs: Clear to auscultation. Right sided chest tube is noted. Subcutaneous emphysema along the right lateral chest wall. Heart: S1 and S2, sinus rhythm. Abdomen: Soft, nontender, nondistended. Extremities: No pitting edema. LABORATORY DATA: White count 10.9, hemoglobin 14, hematocrit 45, platelet count 106; admission platelet count was 200. Heparin induced antibody is still pending. Sodium 140, potassium 4.2, chloride 100, bicarbonate 40, BUN 19, creatinine 0.37, glucose 123. IMAGING STUDIES: 10/15/2020 chest x-ray: Right pneumothorax has increased and now appears to involve at least 50% of the right hemithorax, right pleural effusion has an interval change, right thoracostomy tube is unchanged, subcutaneous emphysema along the right lateral chest wall has increased. ASSESSMENT: This is a 65-year-old male with history of idiopathic pulmonary fibrosis, systemic lupus erythematous recently diagnosed, non-insulin diabetes, osteoarthritis, diabetic neuropathy and chronic back pain, nonsmoker, admitted on 10/03/2020 with complaints of pleuritic chest pain, shortness of breath, found to have a spontaneous pneumothorax on the right lung. 1. Spontaneous pneumothorax on the right status post chest tube on 10/03/2020 to 10/06/2020. Repeat chest x-ray shows recurrent right pneumothorax. Chest tube reinserted by Dr. Shawn Reese thoracic surgery on 10/08/2020, status post blood patch, still with chest tube, showing persistent increased right pneumothorax: Defer to thoracic surgery for further management. 2. Systemic lupus erythematosus: Was planned to have Cytoxan on 10/09/2020, but postponed since the patient is clinically sick with a spontaneous pneumothorax. Currently still no prednisone and Plaquenil. Outpatient follow up with garbage person for eye exam while on Plaquenil. 3. Reflux: On chronic Protonix. 4. Type-2 diabetes: On Levemir insulin, fingersticks, consistent carbohydrate diet with insulin coverage as needed. Currently controlled. 5. Advanced interstitial lung disease and idiopathic pulmonary fibrosis: Managed by training program developer Dr. Cruz as outpatient, currently on prednisone and Plaquenil for lupus. 6. Underlying COPD: Follows with training program developer. 7. Alveolar pleural fistula status post chest tube: Reinserted due to recurrent pneumothorax, managed by thoracic surgeon Dr. Reese. 8. Secondary polycythemia secondary to chronic hypoxia from COPD, idiopathic pulmonary fibrosis: Outpatient follow up with his training program developer. 9. Thrombocytopenia: Admission platelet count was 200 current platelet count is 110, currently on Lovenox, awaiting heparin induced antibody assay to rule out HIT. 10. Disposition: Patient is clinically ill still requiring a chest tube awaiting pneumothorax to resolve, managed by thoracic surgeon Dr. Shawn Reese. ONDINA
[2020-10-15] MEDS: LEVEMIR (INSULIN DETEMIR) 1 UNITS/0.01ML SC SCH (21:09)
[2020-10-16] VITALS: BP 102/63
[2020-10-16] MEDS: LEVALBUTEROL 1.25 MG/0.5 ML CONCENTRATE NEB NEB SCH ×4 (02:00→19:34)
[2020-10-16 04:00] VITALS: BP 104/71
[2020-10-16] MEDS: SLF 3 ML SYR IV SCH ×3 (05:31→22:09)
[2020-10-16 05:36] LABS: HEMATOCRIT 43.8 % (42.0-52.0); HEMOGLOBIN 13.6 g/dl (13.5-17.5); MEAN CORPUSCULAR HGB CONC 31.1 g/dl (32.0-36.5); MEAN CORPUSCULAR VOLUME 96.7 fl (80.0-96.0); PLATELET COUNT, AUTOMATED 106 10^3/uL (150-450); RED BLOOD COUNT 4.53 10^6/uL (4.30-6.10); WHITE BLOOD COUNT 10.5 10^3/uL (4.0-10.0)
[2020-10-16 06:08] LABS: BLOOD UREA NITROGEN 21 MG/DL (7-18); CALCIUM LEVEL 7.7 MG/DL (8.8-10.2); CARBON DIOXIDE LEVEL 42 MEQ/L (21-32); CHLORIDE LEVEL 101 MEQ/L (98-107); CREATININE FOR GFR 0.36 MG/DL (0.70-1.30); GLOMERULAR FILTRATION RATE > 60.0 (>49); GLUCOSE, FASTING 121 MG/DL (70-100); POTASSIUM SERUM 4.3 MEQ/L (3.5-5.1); SODIUM LEVEL 141 MEQ/L (136-145)
--- NOTE | 2020-10-16 07:48 | REP ---
INDICATION: pneumothorax. COMPARISON: 10/15/2020 TECHNIQUE: There are two views. FINDINGS: . There is a small right apical pneumothorax, unchanged. The right thoracotomy tube is unchanged. The subcutaneous emphysema along the right lateral chest wall has decreased. Diffuse interstitial coarsening is again noted, unchanged. There is a large bulla in the medial basilar segment of the right lower lobe, unchanged. The right subclavian central venous catheter remains in satisfactory position, unchanged. IMPRESSION: The subcutaneous emphysema along the right lateral chest wall has decreased. Otherwise, no significant interval change. <Electronically signed by Tavo Alex > 10/16/20 [id number]
--- NOTE | 2020-10-16 07:55 | IPNPDOC ---
Date Seen The patient was seen on 10/16/20. Progress Note Hospitalist progress note dictated. If note is needed urgently, pls call hypertype or medical records to STAT transcribe Dr. Velarde's progress note job# [id number]. VS, I&O, 24H, Fishbone Vital Signs/I&O Vital Signs Date Time Temp Pulse Resp B/P (MAP) Pulse Ox O2 Delivery O2 Flow Rate FiO2 10/16/20 04:15 2.0 10/16/20 04:00 97.8 70 18 104/71 (82) 99 Nasal Cannula 10/15/20 08:00 98 I&O- Last 24 Hours up to 6 AM 10/16/20 06:00 Intake Total 2002 ml Output Total 1100 ml Balance 902 ml Laboratory Data 24H LABS Laboratory Tests 2 10/15/20 08:15: Bedside Glucose (Misc Panel) 111 10/15/20 11:22: Bedside Glucose (Misc Panel) 209H 10/15/20 16:13: Bedside Glucose (Misc Panel) 307H 10/15/20 20:58: Bedside Glucose (Misc Panel) 354H 10/16/20 05:20: Anion Gap , Glomerular Filtration Rate > 60.0, Calcium Level 7.7L 10/16/20 05:24: Nucleated Red Blood Cells % (auto) 0.0 CBC/BMP Laboratory Tests 10/16/20 05:20 10/16/20 05:24 DARNELL VELARDE MD Oct 16, 2020 07:55
[2020-10-16 08:00] VITALS: BP 118/60
[2020-10-16] MEDS: DOCUSATE SODIUM 100MG CAPSULE PO SCH ×2 (08:25→21:00)
[2020-10-16] MEDS: MOM 30ML SUSPENSION UDC PO SCH (08:25)
[2020-10-16] MEDS: HYDROXYCHLOROQUINE 200 MG TAB PO SCH ×2 (08:26→21:35)
[2020-10-16] MEDS: predniSONE 20 MG TAB PO SCH (08:26)
[2020-10-16] MEDS: PANTOPRAZOLE 40MG TAB (PROTONIX) PO SCH (08:26)
[2020-10-16] MEDS: ATOVAQUONE SUSP 750MG/5ML 210 ML BTL PO SCH (08:27)
[2020-10-16] MEDS: HumaLOG INSULIN (NovoLOG) PER UNIT SC SCH ×4 (08:27→21:32)
[2020-10-16] MEDS: HEPARIN SOD (PORCINE) 5000UNITS/ML 1ML VIAL/SYRINGE SC SCH ×2 (08:27→21:32)
[2020-10-16] MEDS: LEVEMIR (INSULIN DETEMIR) 1 UNITS/0.01ML SC SCH ×2 (08:27→21:31)
[2020-10-16 12:00] VITALS: BP 101/66
--- NOTE | 2020-10-16 12:32 | IPN ---
PROGRESS NOTE DATE: 10/03/2020 SUBJECTIVE: Patient seen and examined at the bedside. Chart has been reviewed. Yesterday the patient had increasing pneumothorax thought to be secondary to plugging of the chest tube with a blood patch. Repeat chest x-ray, however, after readjustment was much improved with resolution of the right-sided pneumothorax managed by Dr. Reese. This morning he denies any chest pain, pressure, or tightness, lightheadedness, dizziness, shortness of breath, fever, chills, or cough. Pain is controlled. He does not want additional pain medications. Review of 24-hour sugars have been uncontrolled, 209-354. The patient has been kept on a consistent carbohydrate diet. Levemir insulin has been increased from 8 units once daily at bedtime to twice a day dosing of 6 units twice a day with holding parameters for glucose less than 180. OBJECTIVE: Vital signs: Temperature 97.8, pulse 70, respiratory rate 18, blood pressure 104/71, 99% on 2 liters nasal cannula. Generally the patient has no acute respiratory distress, able to speak in full sentences without any difficulty. No nasal flaring, no tracheal deviation, right-sided chest tube in place. Lungs are clear bilaterally. Heart: S1, S2, sinus rhythm. Abdomen is soft, nontender, nondistended. Extremities: No pitting edema. LABORATORY DATA: White count 10, hemoglobin 13, hematocrit 43, platelet count 106. Previous platelet count 106. Admission platelet count was 200. HIT panel still pending. Sodium 141, potassium 4.6, chloride 101, bicarb 42, BUN 21, creatinine 0.37, glucose of 121. Imaging studies: Chest x-ray 10/15/2020: Reduction in size of right pneumothorax, only a small sliver of pneumothorax in the right apex. ASSESSMENT AND PLAN: This is a 65-year-old DO NOT RESUSCITATE/DO NOT INTUBATE patient with idiopathic pulmonary fibrosis, systemic lupus erythematosus recently diagnosed with insulin dependent diabetes, osteoarthritis, diabetic neuropathy, chronic back pain, nonsmoker admitted on 10/03 with shortness of breath, pleuritic chest pain, found to have a spontaneous pneumothorax of the right lung. IMPRESSION: 1. Spontaneous pneumothorax right status post chest tube 10/03 to 10/06 with repeat recurrent right pneumothorax. Chest tube reinserted on 10/08, status post blood patch on 10/15. The patient had increasing pneumothorax most likely due to the blood patch plugging the chest tube. This was readjusted and repeat chest x-ray shows significant improvement with only a small sliver of apical right pneumothorax. 2. Type-2 diabetes, uncontrolled. Glucose level of 300. The patient's Levemir Insulin has been adjusted to twice a day dosing at 6 units with holding parameters for glucose less than 180. 3. Systemic lupus erythematosus and idiopathic pulmonary fibrosis managed by fire supervisor and hardware installer as outpatient. The patient was planned to have Cytoxan on 10/09 but postponed due to the patient's clinical decompensation. The patient is still taking Prednisone and Plaquenil. Outpatient followup with finishing range operator yearly while he is on Plaquenil. 4. Reflux on PPI. 5. Underlying COPD. Pulmonary followup with Dr. Cruz as outpatient. 6. Alveolar pleural fistula status post chest tube reinserted again and readjusted on 10/15 managed by thoracic surgeon. 7. Secondary polycythemia due to chronic hypoxia from idiopathic pulmonary fibrosis. 8. Thrombocytopenia with admission platelet count of 200. Current platelet count of 106. Awaiting Heparin-induced antibody assay to rule out Heparin-induced thrombocytopenia. 9. Disposition: Awaiting removal of his chest tube and clinical improvement. [facility]
[2020-10-16 16:00] VITALS: BP 106/61
[2020-10-16] MEDS: SODIUM CHLORIDE 0.9% INJ 10 ML SYR IV PRN (16:12)
--- NOTE | 2020-10-16 16:29 | IPN ---
PROGRESS NOTE DATE: 10/16/2020 SUBJECTIVE: Mr. Licea lungs have now re-expanded to the chest wall. He has no air leak once again on 40 cm of suction. OBJECTIVE: VITAL SIGNS: Show a T-max of 98.1 with a heart rate that ranges between 65 and 81 in sinus rhythm. Respiratory rate of 16 to 18 without the use of accessory muscles who is 975 to 99% saturated on 2 liters nasal cannula and whose blood pressure is ranging between 118/60 to 101/66. INTAKE AND OUTPUT: Over the past 24 hours has been recorded as 2002 in and 1070 out for a positivity 930 mL. He has put 70 mL out the chest tube and there is no air leak once again even with forceful coughing. Weight today is 69 kg compared to 71.1 kg yesterday. RESPIRATORY: He has equal breath sounds on either side. He also has again the late inspiratory velcro rales on either side. Percussion notes are full to the diaphragm. CARDIAC: Without murmurs, clicks, gallops, or rubs. I cannot feel his PMI. S1 and S2 are normal. ABDOMEN: Soft and nontender. Bowel sounds are positive. There is no hepatomegaly. No CVA tenderness. EXTREMITIES: Show no pretibial edema. No calf tenderness. No differential swelling of the upper extremities. SKIN: Warm, dry, and perfused without cyanosis or mottling, including that of the nail beds and knees. NECK: Supple. There is no jugular venous distention. No subcutaneous emphysema. Trachea is midline. MOUTH: Shows the mucous membranes to be pink and moist. Lips and commisures are without lesions and no thrush. EYES: Show his pupils equal and reactive. Extraocular muscles are intact. Sclerae nonicteric. NEUROLOGIC: Shows II through XII intact. Normal gross motor, gross sensation intact. Gait is not tested. PSYCHIATRIC: Shows him to be awake, alert, and oriented x3 with appropriate mood and affect and conversational. LABORATORY DATA: His white count today is 10.5 with hemoglobin and hematocrit of 13.6 and 43.8 respectively. Platelet count is 106,000 and stable. His chemistries today show normal electrolytes with a total of CO2, however, of 42. BUN and creatinine are 21 and 0.38, base excess 7.7. IMAGING DATA: His chest x-ray today shows again his lungs fully expand to the chest wall. There is increased subcutaneous emphysema on the right lateral chest wall. There is increased subcutaneous emphysema on the right lateral chest wall. There may be a small apical air space more laterally, however. IMPRESSION: 1. Spontaneous pneumothorax right side, recurrent. 2. Advanced interstitial lung disease, clinically idiopathic pulmonary fibrosis. 3. Underlying chronic obstructive pulmonary disease. 4. Hypoxic polycythemia. 5. Gastroesophageal reflux disease. 6. Diabetes. 7. Alveolopleural fistula, intermittent. PLAN AND DISCUSSION: It is rather frustrating that the alveolopleural fistula is intermittent and yet, drops the lungs significantly when the chest tube is clamped or even placed on water seal. We are again at the same juncture we were a few days ago with his lungs fully expand to the chest wall with the intermittent leak. I will give him another round of decreasing chest tube suction and clamping. I may consider a talc pleurodesis, although it is going to be very difficult secondary to his pulmonary fibrosis and inability to probably tolerate one lung anesthesia. My other option would be a talc slurry, although those notoriously do not coat the chest wall uniformly. I am not sure if I will ever seal an air leak, however, at operation as he has hundreds of subpleural cystic spaces.
[2020-10-16 20:00] VITALS: BP 106/63
[2020-10-16] MEDS: PERCOCET 5MG/325MG TAB PO PRN (22:09)
[2020-10-17] VITALS (9 sets, daily range): BP systolic 86–103; BP diastolic 54–67
[2020-10-17] MEDS: LEVALBUTEROL 1.25 MG/0.5 ML CONCENTRATE NEB NEB SCH ×4 (01:36→19:42)
[2020-10-17] MEDS: SODIUM CHLORIDE 0.9% INJ 10 ML SYR IV PRN ×2 (05:27→10:30)
[2020-10-17] MEDS: SLF 3 ML SYR IV SCH ×3 (05:30→22:00)
[2020-10-17 05:42] LABS: HEMATOCRIT 44.6 % (42.0-52.0); HEMOGLOBIN 13.4 g/dl (13.5-17.5); MEAN CORPUSCULAR HEMOGLOBIN 29.1 pg (27.0-33.0); MEAN CORPUSCULAR VOLUME 96.7 fl (80.0-96.0); PLATELET COUNT, AUTOMATED 118 10^3/uL (150-450); RED BLOOD COUNT 4.61 10^6/uL (4.30-6.10)
[2020-10-17 06:32] LABS: BLOOD UREA NITROGEN 17 MG/DL (7-18); CALCIUM LEVEL 7.9 MG/DL (8.8-10.2); CARBON DIOXIDE LEVEL 40 MEQ/L (21-32); CHLORIDE LEVEL 101 MEQ/L (98-107); CREATININE FOR GFR 0.31 MG/DL (0.70-1.30); GLOMERULAR FILTRATION RATE > 60.0 (>49); GLUCOSE, FASTING 56 MG/DL (70-100); POTASSIUM SERUM 4.1 MEQ/L (3.5-5.1); SODIUM LEVEL 142 MEQ/L (136-145)
[2020-10-17] MEDS: HumaLOG INSULIN (NovoLOG) PER UNIT SC SCH ×4 (07:30→22:00)
--- NOTE | 2020-10-17 08:33 | REP ---
INDICATION: pneumothorax. COMPARISON: Comparison chest x-ray October 16, 2020. TECHNIQUE: Two views.. FINDINGS: A right apical chest tube remains in place. There is a tiny sliver of apical pneumothorax unchanged. Right subclavian central venous line is seen with its tip in the expected location of the right atrium. There is a air density projecting over the right heart border in the right cardiophrenic angle unchanged consistent with a large bolus. This is visible on CT study from October 04, 2020. Diffuse interstitial lung disease is noted right lung greater than left. The pleural angles are sharp. IMPRESSION: Findings essentially unchanged from the previous day's radiograph.. <Electronically signed by Devaughn Georges > 10/17/20 [id number]
[2020-10-17] MEDS: MOM 30ML SUSPENSION UDC PO SCH (09:00)
[2020-10-17] MEDS: DOCUSATE SODIUM 100MG CAPSULE PO SCH ×2 (09:00→21:00)
[2020-10-17] MEDS: LEVEMIR (INSULIN DETEMIR) 1 UNITS/0.01ML SC SCH ×2 (09:00→21:59)
--- NOTE | 2020-10-17 09:10 | IPNPDOC ---
Date Seen The patient was seen on 10/17/20. Progress Note Hospitalist progress note dictated job #[id number]. If urgently needed, pls call hypertype for STAT supervisor record press. VS, I&O, 24H, Fishbone Vital Signs/I&O Vital Signs Date Time Temp Pulse Resp B/P (MAP) Pulse Ox O2 Delivery O2 Flow Rate FiO2 10/17/20 04:05 2.0 10/17/20 04:00 97.6 61 18 96/59 (71) 99 Nasal Cannula 10/15/20 08:00 98 I&O- Last 24 Hours up to 6 AM 10/17/20 06:00 Intake Total 1520 ml Output Total 1850 ml Balance -330 ml Laboratory Data 24H LABS Laboratory Tests 2 10/16/20 11:46: Bedside Glucose (Misc Panel) 193H 10/16/20 15:46: Bedside Glucose (Misc Panel) 264H 10/16/20 21:17: Bedside Glucose (Misc Panel) 293H 10/17/20 05:22: Nucleated Red Blood Cells % (auto) 0.0, Anion Gap 1L, Glomerular Filtration Rate > 60.0, Calcium Level 7.9L CBC/BMP Laboratory Tests 10/17/20 05:22 DARNELL LOERA MD Oct 17, 2020 09:09
[2020-10-17] MEDS: PANTOPRAZOLE 40MG TAB (PROTONIX) PO SCH (09:46)
[2020-10-17] MEDS: predniSONE 20 MG TAB PO SCH (09:46)
[2020-10-17] MEDS: HYDROXYCHLOROQUINE 200 MG TAB PO SCH ×2 (09:46→21:58)
[2020-10-17] MEDS: ATOVAQUONE SUSP 750MG/5ML 210 ML BTL PO SCH (09:46)
[2020-10-17] MEDS: HEPARIN SOD (PORCINE) 5000UNITS/ML 1ML VIAL/SYRINGE SC SCH ×2 (09:46→22:00)
[2020-10-17] MEDS ORDERED: NS 500 ML IV ONE (12:45)
--- NOTE | 2020-10-17 13:13 | RO ---
OPERATIVE NOTE DATE OF OPERATION: 10/17/2020 PREOPERATIVE DIAGNOSIS: Alveolar bronchopleural fistula. POSTOPERATIVE DIAGNOSIS: Alveolar bronchopleural fistula. PROCEDURE: Intrathoracic blood patch. SURGEON: Dr. Reese DESCRIPTION OF PROCEDURE: Patient already had a central line placed. Chest tube was disconnected from the Pleur-evac and sterilely prepped and draped. There was 120 mL of blood withdrawn from the central line and instilled into the chest. Chest tube was again clamped, and the patient was turned from side to side and then placed in deep Trendelenburg for 15 minutes. Chest tube will be unclamped in 4 hours and placed under water seal once again. Patient tolerated the procedure well.
--- NOTE | 2020-10-17 14:21 | IPN ---
PROGRESS NOTE DATE: 10/17/2020 Mr. Licea is again sitting comfortably. He is on -28 of suction, and he has a one-bubble air leak with forceful coughing, which is intermittent. His vital signs show a maximum temperature of 98.0 with a heart rate that ranges between 61-74 in a sinus rhythm, respiratory rate of 19 without the use of accessory muscles, who is 97%-99% saturated on 2 liters nasal cannula. His blood pressure is ranging between 101/67 to 96/59. His intake and output over the last 24 hours has been recorded as 1520 in and 1880 out, for a negativity of 360 mL. He has put 55 mL out of the chest tube, and there is the one-bubble air leak with forceful coughing, which is intermittent. Weight today is 67.1 kg compared to 69 kg yesterday. PHYSICAL EXAMINATION: He has equal breath sounds on either side. There is the fine crackles at the end of inspiration. Percussion note is full to the diaphragm. Cardiac exam is without murmurs, clicks, gallops, or rubs. I cannot feel his point of maximal impulse (PMI). S1 and S2 are normal. Abdomen is soft and nontender. Bowel sounds are positive. There is no hepatomegaly. No costovertebral angle (CVA) tenderness. Extremities show no pretibial edema, no calf tenderness, no differential swelling of the upper extremities. Skin is warm, dry, and perfused without cyanosis or mottling, including that of the nailbeds and knees. Neck is supple. There is no jugular venous distention. No subcutaneous emphysema. Trachea is midline. Mouth shows the mucous membranes to be pink and moist. Lips and commissures without lesions. No thrush. Eyes show his pupils to be equal and reactive. Extraocular motion intact. Sclerae anicteric. Neurologic shows II-XII intact. Normal gross motor, gross sensation intact. Gait is not tested. Psychiatric shows him to be awake, alert, and oriented times three with appropriate mood and affect and conversational. His white count is 9.0 with a hemoglobin and hematocrit of 13.4 and 44.6 and a platelet count of 118 and stable. Chemistries show normal electrolytes, however, with an elevated total CO2 of 40. BUN and creatinine are 17 and 0.31 with a glucose of 56 and a calcium of 7.9. His chest x-ray today shows again slight separation from the chest wall at the lateral apex. This is slightly worse than yesterday when he was on 40 cm of suction. He is now on 20 cm of suction. Subcutaneous emphysema looks to be again starting to dissipate. Costophrenic angles are sharp. There are no infiltrates other than the reticular fibrotic changes in both lungs with the right greater than the left. IMPRESSION: 1. Spontaneous pneumothorax, right side, recurrent. 2. Advanced interstitial lung disease, clinically idiopathic pulmonary fibrosis. 3. Underlying chronic obstructive pulmonary disease (COPD). 4. Hypoxic polycythemia. 5. Gastroesophageal reflux disease. 6. Diabetes. 7. Alveolar pleural fistula, intermittent but continuing. PLAN AND DISCUSSION: I will again try a blood patch today. I am running out of relatively noninvasive options. Hopefully the second blood patch will work. I will place him in deep Trendelenburg for 15 minutes in order to coat the apex of the lung with the instilled blood. Because his air leak is intermittent, it is going to be impossible to even consider isolating the bronchopulmonary segment and occluding it.
[2020-10-17] MEDS: MIDODRINE 5 MG TAB PO SCH ×2 (14:40→18:30)
[2020-10-17] MEDS: PERCOCET 5MG/325MG TAB PO PRN (21:59)
[2020-10-18] VITALS: BP 95/59
[2020-10-18] MEDS: LEVALBUTEROL 1.25 MG/0.5 ML CONCENTRATE NEB NEB SCH ×4 (02:15→20:51)
[2020-10-18 04:00] VITALS: BP 102/61
[2020-10-18] MEDS: SLF 3 ML SYR IV SCH ×3 (06:44→22:02)
--- NOTE | 2020-10-18 07:55 | REP ---
INDICATION: pneumothorax. COMPARISON: 10/17/2020 TECHNIQUE: Upright PA and lateral chest. FINDINGS: The right thoracotomy tube is unchanged. The right pneumothorax has increased in size and now measures 2.3 cm. The subcutaneous emphysema along the right lateral chest wall is unchanged. There is a large bulla superimposed over the right heart margin, unchanged. The right subclavian central venous catheter is unchanged with the tip in the right atrium. Right lung is clear. Cardiac size normal. IMPRESSION: The right apical pneumothorax is increased as described. <Electronically signed by Tavo Alex > 10/18/20 [id number]
[2020-10-18 08:00] VITALS: BP 102/56
[2020-10-18] MEDS: MOM 30ML SUSPENSION UDC PO SCH (08:11)
[2020-10-18] MEDS: ATOVAQUONE SUSP 750MG/5ML 210 ML BTL PO SCH (08:30)
[2020-10-18] MEDS: HEPARIN SOD (PORCINE) 5000UNITS/ML 1ML VIAL/SYRINGE SC SCH ×2 (08:32→20:25)
[2020-10-18] MEDS: HumaLOG INSULIN (NovoLOG) PER UNIT SC SCH ×4 (08:32→20:26)
[2020-10-18] MEDS: DOCUSATE SODIUM 100MG CAPSULE PO SCH ×2 (08:33→20:24)
[2020-10-18] MEDS: HYDROXYCHLOROQUINE 200 MG TAB PO SCH ×2 (08:33→20:27)
[2020-10-18] MEDS: PANTOPRAZOLE 40MG TAB (PROTONIX) PO SCH (08:33)
[2020-10-18] MEDS: predniSONE 20 MG TAB PO SCH (08:33)
[2020-10-18] MEDS: LEVEMIR (INSULIN DETEMIR) 1 UNITS/0.01ML SC SCH ×2 (08:34→20:25)
[2020-10-18] MEDS: SODIUM CHLORIDE 0.9% INJ 10 ML SYR IV PRN (08:35)
--- NOTE | 2020-10-18 08:45 | IPNPDOC ---
Date Seen The patient was seen on 10/18/20. Progress Note Hospitalist progress note dictated job #[id number]. If urgently needed, pls call hypertype AT [phone] for STAT conditioner tumbler operator. VS, I&O, 24H, Fishbone Vital Signs/I&O Vital Signs Date Time Temp Pulse Resp B/P (MAP) Pulse Ox O2 Delivery O2 Flow Rate FiO2 10/18/20 08:00 97.4 86 18 102/56 (71) 99 Nasal Cannula 2.0 10/15/20 08:00 98 I&O- Last 24 Hours up to 6 AM 10/18/20 06:00 Intake Total 1458 ml Output Total 1730 ml Balance -272 ml Laboratory Data 24H LABS Laboratory Tests 2 10/17/20 12:42: Bedside Glucose (Misc Panel) 222H 10/17/20 17:19: Bedside Glucose (Misc Panel) 305H 10/17/20 21:45: Bedside Glucose (Misc Panel) 286H DARNELL LOERA MD Oct 18, 2020 08:42
[2020-10-18 09:09] LABS: HEMATOCRIT 45.2 % (42.0-52.0); HEMOGLOBIN 13.7 g/dl (13.5-17.5); MEAN CORPUSCULAR HEMOGLOBIN 29.2 pg (27.0-33.0); MEAN CORPUSCULAR HGB CONC 30.3 g/dl (32.0-36.5); MEAN CORPUSCULAR VOLUME 96.4 fl (80.0-96.0); PLATELET COUNT, AUTOMATED 133 10^3/uL (150-450); RED BLOOD COUNT 4.69 10^6/uL (4.30-6.10); WHITE BLOOD COUNT 9.3 10^3/uL (4.0-10.0)
[2020-10-18] MEDS: MIDODRINE 5 MG TAB PO SCH ×3 (09:13→16:38)
[2020-10-18 09:29] LABS: BLOOD UREA NITROGEN 20 MG/DL (7-18); CALCIUM LEVEL 8.2 MG/DL (8.8-10.2); CARBON DIOXIDE LEVEL 35 MEQ/L (21-32); CHLORIDE LEVEL 102 MEQ/L (98-107); CREATININE FOR GFR 0.49 MG/DL (0.70-1.30); GLOMERULAR FILTRATION RATE > 60.0 (>49); GLUCOSE, FASTING 178 MG/DL (70-100); POTASSIUM SERUM 4.2 MEQ/L (3.5-5.1); SODIUM LEVEL 139 MEQ/L (136-145)
[2020-10-18 12:00] VITALS: BP 107/64
--- NOTE | 2020-10-18 12:47 | IPN ---
PROGRESS NOTE DATE: 10/18/2020 Mr. Licea underwent yet another blood patch yesterday. The chest tube has been on suction, and the lung is now again from the chest wall. He is not symptomatically any worse. His vital signs show a maximum temperature of 97.6 with a heart rate that ranges between 62-86 in a sinus rhythm, respiratory rate of 17-19 without the use of accessory muscles, who is 97%-99% saturated on 2 liters nasal cannula, and whose blood pressure is ranging between 102/61 to 95/59. His intake and output for the past 24 hours has been recorded as 1458 in and 1475 out, for near equality. He has put 30 mL out of the chest tube, and there is a one-bubble air leak, which is inconstant, on coughing PHYSICAL EXAMINATION: His lungs show equal breath sounds on either side with Velcro crackles at the bases during late inspiration. Percussion notes are full to the diaphragm. There is no subcutaneous emphysema. Cardiac exam is without murmurs, clicks, gallops, or rubs. I cannot feel his point of maximal impulse (PMI). S1 and S2 are normal. Abdomen is soft and nontender. Bowel sounds are positive. There is no hepatomegaly. No costovertebral angle (CVA) tenderness. Extremities show no pretibial edema, no calf tenderness, no differential swelling of the upper extremities. Skin is warm, dry, and perfused without cyanosis or mottling, including that of the nailbeds and knees. Neck is supple. There is no jugular venous distention. No subcutaneous emphysema. Trachea is midline. Mouth shows the mucous membranes to be pink and moist. Lips and commissures without lesions. No thrush. Eyes show his pupils to be equal and reactive. Extraocular motion intact. Sclerae anicteric. Neurologic shows II-XII intact. Normal gross motor, gross sensation intact. Gait is not tested. Psychiatric shows him to be awake, alert, and oriented times three with appropriate mood and affect and conversational. His white count today is 9.3 with a hemoglobin and hematocrit of 13.7 and 45.2, respectively, with a platelet count of 133. There is no differential. His electrolytes are normal except for an elevated total CO2 of 35, which is an improvement over the last few days, where it was above 40. BUN and creatinine are 20 and 0.49 with a glucose of 178 and a calcium 8.2. His chest x-ray shows the lung again away from the chest wall with a pneumothorax. There is subcutaneous emphysema on the lateral chest wall, which looks to be increased from yesterday's x-ray. IMPRESSION: 1. Spontaneous pneumothorax, right side, recurrent. 2. Alveolar pleural fistula, intermittent but continuing. 3. Advanced interstitial lung disease, clinically idiopathic pulmonary fibrosis. 4. Underlying chronic obstructive pulmonary disease (COPD). 5. Hypoxic polycythemia. 6. Gastroesophageal reflux disease. 7. Diabetes. PLAN AND DISCUSSION: I am being forced to go to the operating room, although I have tried to avoid this. I will therefore taken him to the operating room early next week and take a talc pleurodesis. I am concerned that he is not going to tolerate one-lung anesthesia very well. Nonetheless, in some way or another I will do a pleurodesis on him. I highly doubt I am going to be able to find the air leak, although I certainly will try and look with the thoracoscope. He understands the risks, including mortality, bleeding, infection, and postoperative pneumonia. He understands and is willing to proceed.
--- NOTE | 2020-10-18 14:18 | IPN ---
PROGRESS NOTE DATE: 10/18/2020 SUBJECTIVE: Patient is seen and examined at the bedside. Chart has been reviewed. Patient denies any lightheadedness, dizziness, chest pain, pressure, tightness, shortness of breath, near syncopal episode despite low blood pressure of 95 systolic. Patient was given intravenous (IV) fluid bolus of 500 mL yesterday as well as started on midodrine 500 mg at 8:00, 12:00 and 4:00 p.m. He continues to have chest tube managed by thoracic surgeon, has had a negative balance. Glucose level is slightly better controlled, 222-286, with fasting glucose this morning which is still pending. Repeat chest x-ray 10/18/2020 shows right apical pneumothorax has increased. Right lung is otherwise clear. Patient had another intrathoracic blood pouch yesterday. OBJECTIVE: GENERAL: No respiratory distress. Speaks in full sentences. No jugular venous distention (JVD). No thyromegaly. No cervical lymphadenopathy. No subcutaneous edema. LUNGS: Diminished right-sided chest tube noted. No subcutaneous emphysema. HEART: S1, S2. Sinus. ABDOMEN: Soft, nondistended, nontender. EXTREMITIES: No pitting edema. LABORATORY DATA: White count 9, hemoglobin 13, hematocrit 44, platelet count 118. Previous platelet count 106. Sodium 142, potassium 4, chloride 102, bicarbonate 40, BUN 70, creatinine 0.31, glucose 56. Today's labs are still pending. ASSESSMENT AND PLAN: This is a 65-year-old male with the following issues. 1. Spontaneous pneumothorax on the right with chest tube 10/03/2020 to 10/06/2020. Reinserted on 10/08/2020 due to recurrent pneumothorax status post blood pouch 10/15/2020 and 10/17/2020. Still with increasing right apical pneumothorax on repeat x-ray on 10/18/2020. Managed by thoracic surgeon, Dr. Shawn Reese. Continue with progressive care unit (PCU), telemetry monitoring. Further management per thoracic surgery. 2. Diabetes. On Levemir insulin twice a day. Awaiting blood work this morning. Consistent carbohydrate diet with fingersticks in the morning and at bedtime with coverage. 3. Systemic lupus erythematosis (SLE)/idiopathic pulmonary fibrosis (IPF). Managed by service operator and business continuity planning director. Cytoxan postponed due to current pneumothorax. On chronic Plaquenil and prednisone. 4. Reflux. On proton pump inhibitor (PPI). 5. Chronic obstructive pulmonary disease (COPD). Follows with Dr. Cruz as outpatient. 6. Alveolar pleural fistula. Currently with chest tube. Improved. Now with a recurrent pneumothorax. Still with chest tube managed by thoracic surgery. 7. Secondary polycythemia due to chronic hypoxia due to IPF, SLE, COPD. 8. Thrombocytopenia. Heparin-induced thrombocytopenia (HIT) negative. Platelet count is slowly increasing. DISPOSITION: Still requiring chest tube placement. Await clinical improvement over the next 2-3 days. MTDD
[2020-10-18 16:00] VITALS: BP 99/58
[2020-10-18 20:00] VITALS: BP 102/61
[2020-10-19] VITALS: BP 99/65
[2020-10-19] MEDS: LEVALBUTEROL 1.25 MG/0.5 ML CONCENTRATE NEB NEB SCH ×4 (01:17→20:58)
[2020-10-19 04:00] VITALS: BP 106/61
[2020-10-19 04:48] LABS: HEMATOCRIT 40.9 % (42.0-52.0); HEMOGLOBIN 12.5 g/dl (13.5-17.5); MEAN CORPUSCULAR HEMOGLOBIN 29.9 pg (27.0-33.0); MEAN CORPUSCULAR HGB CONC 30.6 g/dl (32.0-36.5); MEAN CORPUSCULAR VOLUME 97.8 fl (80.0-96.0); PLATELET COUNT, AUTOMATED 125 10^3/uL (150-450); RED BLOOD COUNT 4.18 10^6/uL (4.30-6.10); WHITE BLOOD COUNT 9.3 10^3/uL (4.0-10.0)
[2020-10-19 05:13] LABS: BLOOD UREA NITROGEN 23 MG/DL (7-18); CALCIUM LEVEL 7.5 MG/DL (8.8-10.2); CARBON DIOXIDE LEVEL 38 MEQ/L (21-32); CHLORIDE LEVEL 106 MEQ/L (98-107); CREATININE FOR GFR 0.53 MG/DL (0.70-1.30); GLOMERULAR FILTRATION RATE > 60.0 (>49); GLUCOSE, FASTING 151 MG/DL (70-100); POTASSIUM SERUM 3.9 MEQ/L (3.5-5.1); SODIUM LEVEL 145 MEQ/L (136-145)
[2020-10-19] MEDS: SLF 3 ML SYR IV SCH ×3 (06:02→21:58)
[2020-10-19 08:00] VITALS: BP 109/61
--- NOTE | 2020-10-19 08:06 | REP ---
INDICATION: pneumothorax. COMPARISON: 10/18/2020 TECHNIQUE: Upright PA and lateral chest. FINDINGS: The right thoracotomy tube is unchanged. The right apical pneumothorax has resolved. The subcutaneous emphysema along the right lateral chest wall is unchanged. The right subclavian central venous catheter is unchanged. The tip is again in the right atrium as previously. The large bulla superimposed over the right cardiac margin is unchanged. There is diffuse interstitial coarsening throughout the right lung, unchanged. The left lung is clear. IMPRESSION: The right apical pneumothorax has resolved. There is no other interval change. <Electronically signed by Tavo Alex > 10/19/20 [id number]
--- NOTE | 2020-10-19 08:42 | IPNPDOC ---
Date Seen The patient was seen on 10/19/20. Progress Note Hospitalist progress note dictated job #[id number]. Pls have community case manager call [employer]type at [phone] for stat contract officer. VS, I&O, 24H, Fishbone Vital Signs/I&O Vital Signs Date Time Temp Pulse Resp B/P (MAP) Pulse Ox O2 Delivery O2 Flow Rate FiO2 10/19/20 04:00 98.6 77 17 106/61 (76) 99 Nasal Cannula 2.0 10/15/20 08:00 98 I&O- Last 24 Hours up to 6 AM 10/19/20 05:59 Intake Total 1756 ml Output Total 2240 ml Balance -484 ml Laboratory Data 24H LABS Laboratory Tests 2 10/18/20 08:54: Nucleated Red Blood Cells % (auto) 0.0, Anion Gap 2L, Glomerular Filtration Rate > 60.0, Calcium Level 8.2L 10/18/20 12:17: Bedside Glucose (Misc Panel) 262H 10/18/20 16:40: Bedside Glucose (Misc Panel) 342H 10/18/20 17:47: Bedside Glucose (Misc Panel) 382H 10/18/20 19:46: Bedside Glucose (Misc Panel) 304H 10/19/20 04:31: Nucleated Red Blood Cells % (auto) 0.0, Anion Gap 1L, Glomerular Filtration Rate > 60.0, Calcium Level 7.5L CBC/BMP Laboratory Tests 10/18/20 08:54 10/19/20 04:31 DARNELL LOERA MD Oct 19, 2020 08:42
[2020-10-19] MEDS: MOM 30ML SUSPENSION UDC PO SCH (08:55)
[2020-10-19] MEDS: DOCUSATE SODIUM 100MG CAPSULE PO SCH ×2 (08:55→21:00)
[2020-10-19] MEDS: LEVEMIR (INSULIN DETEMIR) 1 UNITS/0.01ML SC SCH ×2 (08:55→21:57)
[2020-10-19] MEDS: HumaLOG INSULIN (NovoLOG) PER UNIT SC SCH ×4 (08:57→21:57)
[2020-10-19] MEDS: MIDODRINE 5 MG TAB PO SCH ×3 (08:57→17:01)
[2020-10-19] MEDS: ATOVAQUONE SUSP 750MG/5ML 210 ML BTL PO SCH (08:57)
[2020-10-19] MEDS: HYDROXYCHLOROQUINE 200 MG TAB PO SCH ×2 (08:57→21:56)
[2020-10-19] MEDS: predniSONE 20 MG TAB PO SCH (08:58)
[2020-10-19] MEDS: PANTOPRAZOLE 40MG TAB (PROTONIX) PO SCH (08:58)
[2020-10-19] MEDS: HEPARIN SOD (PORCINE) 5000UNITS/ML 1ML VIAL/SYRINGE SC SCH ×2 (08:58→21:57)
[2020-10-19 12:00] VITALS: BP 111/64
--- NOTE | 2020-10-19 13:25 | IPN ---
PROGRESS NOTE DATE: 10/19/2020 Mr. Licea is sitting on the bed comfortably without shortness of breath. I have once again gone over the plan and operation with him for tomorrow, where we will be doing a talc pleurodesis and maybe a wedge resection if I can find from where his air leak is emanating. His vital signs today show a maximum temperature of 98.6 with a heart rate that ranges between 72-78 in a sinus rhythm, respiratory rate of 17-18 without the use of accessory muscles, who is 98%-99% saturated on 2 liters nasal cannula and whose blood pressure is ranging between 109/61 to 99/65. His intake and output for the past 24 hours has been recorded as 1396 in and 2089, for a negativity of 694 mL. He has put out 90 mL from the chest tube. I do not see an air leak, although the nursing staff saw one earlier today. He weighs 71 kg today compared to 67.6 kg yesterday. PHYSICAL EXAMINATION: His lungs show equal breath sounds on either side. He has fine crackles at each base during late inspiration. He has bronchophony on both sides, which I have heard before but not noted, no doubt secondary to his bronchiectasis and fibrosis. Percussion notes are full to the diaphragm. Cardiac exam is without murmurs, clicks, gallops, or rubs. I cannot feel his point of maximal impulse (PMI). S1 and S2 are normal. Abdomen is soft and nontender. Bowel sounds are positive. There is no hepatomegaly. No costovertebral angle (CVA) tenderness. Extremities show no pretibial edema, no calf tenderness, no differential swelling of the upper extremities. Skin is warm, dry, and perfused without cyanosis or mottling, including that of the nailbeds and knees. Neck is supple. There is no jugular venous distention. No subcutaneous emphysema. Trachea is midline. Mouth shows the mucous membranes to be pink and moist. Lips and commissures without lesions. No thrush. Eyes show his pupils to be equal and reactive. Extraocular motion intact. Sclerae anicteric. Neurologic shows II-XII intact. Normal gross motor, gross sensation intact. Gait is not tested. Psychiatric shows him to be awake, alert, and oriented times three with appropriate mood and affect and conversational. His white count is 9.3 with a hemoglobin and hematocrit of 12.4 and 40.9, respectively. Platelet count is 125. Electrolytes are normal except for an elevated total CO2 of 38. BUN and creatinine are 23 and 0.53 with a glucose of 151 and a calcium 7.5. His chest x-ray shows the lung fully expanded to the chest wall on 40 cm of suction. Chest tube is in good place at the apex. Subcutaneous emphysema is again dissipating. Costophrenic angles are sharp, and he has the reticular fibrotic pattern consistent with his pulmonary fibrosis. IMPRESSION: 1. Spontaneous pneumothorax, right side, recurrent. 2. Alveolar pleural fistula, intermittent but continuing. 3. Advanced interstitial lung disease, clinically idiopathic pulmonary fibrosis. 4. Chronic obstructive pulmonary disease (COPD). 5. Hypoxic polycythemia 6. Gastroesophageal reflux disease. 7. Diabetes. I have again gone over that I will attempt doing a talc pleurodesis with fluoroscopic control. My backup strategy is if he does not tolerate one-lung anesthesia at all, we will do a slurry, again hopefully under fluoroscopic control with insufflation. I have my doubts I am going to be able to find this intermittent leak, and what I am hoping is that once the lung is adherent to the chest wall that the air leak will resolve, as it looks to be so small, and the lung will stay up with the adhesions counteracting the high compliance of the lungs to withdraw from the chest wall. I under no illusion that this is guaranteed to work, as it usually does.
--- NOTE | 2020-10-19 14:42 | IPN ---
PROGRESS NOTE DATE: 10/19/2020 SUBJECTIVE: The patient continues to have the chest tube, managed by thoracic surgery. No other issues overnight. Pain is controlled, afebrile. No fevers, chills, shortness of breath, chest pain, pressure, tightness, lightheadedness or palpitations. OBJECTIVE: PHYSICAL EXAM: Vitals: Temperature 98.6, pulse 77, respiratory rate 17, blood pressure 106/61, 99% on two liters nasal cannula. General: Awake, alert and oriented x3, answering questions appropriately. No use of respiratory accessory muscles, conversational dyspnea, pallor, icterus or jaundice. Neck: No JVD or thyromegaly. HEENT: Moist mucous membranes. Lungs: Chest tube noted in the right, clear to auscultation on the left with fine crackles on the right. Heart: S1, S2, sinus rhythm, no murmurs, rubs or gallops. Abdomen: Soft, nontender, nondistended, positive bowel sounds. Extremities: No cyanosis, clubbing or pitting edema. LABORATORY DATA: White count 9.3, hemoglobin 12, hematocrit 40, platelet count 125. Previous platelet count was 133. Sodium 145, potassium 3.9, chloride 106, bicarb 38, BUN 23, creatinine 0.5, glucose of 151. Chest x-ray 10/19/2020: Right apical pneumothorax has resolved, no other interval change. 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 CURRENT ISSUES: 1. Spontaneous pneumothorax with right-sided chest, recurrent pneumothorax and blood patch x2. 2. Systemic lupus erythematosis/idiopathic pulmonary fibrosis. 3. Diabetes, type 2. 4. Gastroesophageal reflux disease. 5. COPD. 6. Alveolar pleural fistula. 7. Secondary polycythemia due to chronic hypoxia from IPF, SLE and COPD. 8. Thrombocytopenia with negative heparin-induced thrombocytopenia panel. PLAN: The patient is managed by thoracic surgeon, Dr. Shawn Reese for chest tube. Once the chest tube has been removed, we will need to monitor for 12 to 24 hours to make sure the spontaneous pneumothorax does not return. He is otherwise medically stable. ONDINA
[2020-10-19 16:00] VITALS: BP 101/62
[2020-10-19 20:00] VITALS: BP 107/65
[2020-10-20] VITALS (11 sets, daily range): BP systolic 74–126; BP diastolic 38–79
[2020-10-20] MEDS: LEVALBUTEROL 1.25 MG/0.5 ML CONCENTRATE NEB NEB SCH ×4 (01:31→19:34)
[2020-10-20] MEDS: SLF 3 ML SYR IV SCH ×3 (05:54→20:40)
[2020-10-20 05:55] LABS: HEMOGLOBIN 12.7 g/dl (13.5-17.5); MEAN CORPUSCULAR HEMOGLOBIN 29.1 pg (27.0-33.0); MEAN CORPUSCULAR HGB CONC 30.2 g/dl (32.0-36.5); MEAN CORPUSCULAR VOLUME 96.3 fl (80.0-96.0); PLATELET COUNT, AUTOMATED 137 10^3/uL (150-450); RED BLOOD COUNT 4.36 10^6/uL (4.30-6.10); WHITE BLOOD COUNT 8.6 10^3/uL (4.0-10.0)
[2020-10-20] MEDS ORDERED: ceFAZolin SOD 2 GM in IV 1 EA IV ONE (06:00)
[2020-10-20] MEDS ORDERED: MUPIROCIN 2% OINT 22 GM TUBE TOP ONE (06:00)
[2020-10-20 06:18] LABS: BLOOD UREA NITROGEN 18 MG/DL (7-18); CALCIUM LEVEL 7.9 MG/DL (8.8-10.2); CARBON DIOXIDE LEVEL 35 MEQ/L (21-32); CHLORIDE LEVEL 102 MEQ/L (98-107); CREATININE FOR GFR 0.41 MG/DL (0.70-1.30); GLOMERULAR FILTRATION RATE > 60.0 (>49); GLUCOSE, FASTING 96 MG/DL (70-100); SODIUM LEVEL 141 MEQ/L (136-145)
[2020-10-20] MEDS: HumaLOG INSULIN (NovoLOG) PER UNIT SC SCH ×4 (07:26→20:38)
[2020-10-20] MEDS: HEPARIN SOD (PORCINE) 5000UNITS/ML 1ML VIAL/SYRINGE SC SCH ×3 (08:18→20:27)
[2020-10-20] MEDS: DOCUSATE SODIUM 100MG CAPSULE PO SCH ×2 (08:18→20:27)
--- NOTE | 2020-10-20 08:18 | REP ---
INDICATION: pneumothorax. COMPARISON: 10/19/2020 TECHNIQUE: Upright PA and lateral chest. FINDINGS: There is a small right apical pneumothorax that has recurred. The right thoracotomy tube is unchanged. The subcutaneous emphysema along the right lateral chest wall is unchanged. The right subclavian central venous catheter is unchanged. Diffuse interstitial coarsening of the right lung is unchanged. Left lung remains clear. IMPRESSION: There is a small recurrent right apical pneumothorax. No other interval change. <Electronically signed by Tavo Alex > 10/20/20 0814
[2020-10-20] MEDS: LEVEMIR (INSULIN DETEMIR) 1 UNITS/0.01ML SC SCH ×2 (08:19→20:39)
[2020-10-20] MEDS: MOM 30ML SUSPENSION UDC PO SCH (08:19)
--- NOTE | 2020-10-20 08:50 | IPNPDOC ---
Date Seen The patient was seen on 10/20/20. Hospitalist progress note was dictated. . Please have community education specialist call hyper-type at [phone] for stat construction and maintenance inspector if needed urgently. Progress Note SUBJECTIVE: Patient is a -year-old [RACE] [GENDER] with OBJECTIVE PHYSICAL EXAMINATION: VITAL SIGNS: Please see below. GENERAL: HEENT: CARDIOVASCULAR: . RESPIRATORY: . ABDOMINAL: EXTREMITIES: NEUROLOGICAL: PSYCHOLOGICAL: LABORATORY DATA, IMAGING STUDIES, MICROBIOLOGY: Please see below. Echocardiogram: . DVT prophylaxis ordered?: ASSESSMENT AND PLAN: This is a -year-old [RACE] [GENDER] with . PROBLEMS: 1. : . 2. : . 3. : . DISPOSITION: . VS, I&O, 24H, Fishbone Vital Signs/I&O Vital Signs Date Time Temp Pulse Resp B/P (MAP) Pulse Ox O2 Delivery O2 Flow Rate FiO2 10/20/20 08:16 2.0 10/20/20 04:00 98.0 80 18 116/67 (83) 100 Nasal Cannula 10/15/20 08:00 98 I&O- Last 24 Hours up to 6 AM 10/20/20 06:00 Intake Total 2403 ml Output Total 1913 ml Balance 490 ml Laboratory Data 24H LABS Laboratory Tests 2 10/19/20 12:18: Bedside Glucose (Misc Panel) 273H 10/19/20 17:03: Bedside Glucose (Misc Panel) 340H 10/19/20 19:46: Bedside Glucose (Misc Panel) 311H 10/20/20 05:33: Nucleated Red Blood Cells % (auto) 0.0, Anion Gap 4L, Glomerular Filtration Rate > 60.0, Calcium Level 7.9L CBC/BMP Laboratory Tests 10/20/20 05:33 DARNELL LOERA MD Oct 20, 2020 08:50
[2020-10-20] MEDS: PANTOPRAZOLE 40MG TAB (PROTONIX) PO SCH (09:18)
[2020-10-20] MEDS: MIDODRINE 5 MG TAB PO SCH ×3 (09:18→17:54)
[2020-10-20] MEDS: predniSONE 20 MG TAB PO SCH (09:18)
[2020-10-20] MEDS: ATOVAQUONE SUSP 750MG/5ML 210 ML BTL PO SCH (09:19)
[2020-10-20] MEDS: HYDROXYCHLOROQUINE 200 MG TAB PO SCH ×2 (09:19→20:27)
--- NOTE | 2020-10-20 09:44 | IPN ---
PROGRESS NOTE DATE: 10/20/2020 SUBJECTIVE: The patient was seen and examined at the bedside, chart has been reviewed. He has no new complaints. He denies chest pain, pressure tightness, lightheadedness, shortness of breath, fever, chills or cough. Chest tube remains in place. Plans for talc pleurodesis today, status post two blood patches with persistent pneumothorax. No air leak noted on the chest tube. OBJECTIVE: VITAL SIGNS: Temperature 98, pulse 80, respiratory rate 18, blood pressure is 116/67, 100% 2 liters nasal cannula. GENERAL: Patient is awake, alert and oriented x3, able to speak in full sentences without conversational dyspnea. LUNGS: No use of respiratory accessory muscles. The patient has no subcutaneous emphysema on the right anterior chest. Chest tube is in place. There are diminished breath sounds at bilateral bases, right greater than left. Left is clear. HEART: S1 and S2, sinus rhythm. No murmurs, rubs or gallops. ABDOMEN: Soft, nontender and nondistended. Positive bowel sounds. EXTREMITIES: No cyanosis, clubbing or pitting edema. LABORATORY DATA: Fingersticks: 273, 340, 311. White count 8.6, hemoglobin 12, hematocrit 42, platelet count 137,000. Sodium 141, potassium 4, chloride 102, bicarbonate 35, BUN 18, creatinine is 0.4, glucose of 96. 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 The patient continues to have persistent right sided spontaneous pneumothorax with plans for talc pleurodesis today. 1. Spontaneous pneumothorax on the right with recurrence, status post blood patch on 10/15 and 10/17, talc pleurodesis on 10/20. 2. History of idiopathic pulmonary fibrosis, SLE on chronic prednisone and Plaquenil. 3. Type 2 diabetes, uncontrolled. 4. Reflux. 5. COPD. 6. Alveolar pleural fistula. 7. Secondary polycythemia due to chronic hypoxia with IBS. 8. COPD. 9. Thrombocytopenia, improving with negative Heparin induced thrombocytopenia panel. PLAN: Patient remains with recurrent pneumothorax, talc pleurodesis planned by Thoracic Surgery today. Chest tube managed per Thoracic Surgery. Patient's Levemir should be increased to 12 units sub q. b.i.d. for better glycemic control. Resume all other home medications. MTDD
[2020-10-20] MEDS ORDERED: SUGAMMADEX SODIUM 500 MG/5 ML VIAL (BRIDION) As Ordered ONE (10:06)
[2020-10-20] MEDS ORDERED: ROCURONIUM BROMIDE 50 MG/5 ML VIAL As Ordered ONE (10:06)
[2020-10-20] MEDS ORDERED: fentaNYL 250 MCG/5 ML INJECTION (J3010) As Ordered ONE (10:06)
[2020-10-20] MEDS ORDERED: MIDAZOLAM INJ 2MG/2ML VIAL (J2250 PER 1MG) As Ordered ONE (10:06)
[2020-10-20] MEDS ORDERED: ONDANSETRON 4MG/2ML VIAL As Ordered ONE (10:06)
[2020-10-20] MEDS ORDERED: METOCLOPRAMIDE INJ 10MG/2ML VIAL (J2765 PER 1) As Ordered ONE (10:06)
[2020-10-20] MEDS ORDERED: dexameTHASONE 4 MG/ML 1ML VIAL (J1100 PER 1MG) As Ordered ONE (10:06)
[2020-10-20] MEDS ORDERED: propofoL 200 MG/20 ML VIAL As Ordered ONE (10:06)
[2020-10-20] MEDS ORDERED: LIDOCAINE 2% 100MG/5ML SDV (FOR ANES.) As Ordered ONE (10:06)
[2020-10-20] MEDS ORDERED: BUPIVACAINE HCL 0.5% 10ML VIAL As Ordered ONE ×2 (10:12→13:49)
[2020-10-20] MEDS ORDERED: BUPIVACAINE LIPOSOME/PF 1.3% 20ML VIAL (13.3MG/ML)(EXPAREL)(C9290 PER1MG) As Ordered ONE (10:13)
[2020-10-20] MEDS ORDERED: TALCAIR POWDER BLOWER (CAN ONLY BE USED WITH 3GM TALC VIAL) XX ONE ×2 (10:13→15:10)
[2020-10-20] MEDS ORDERED: STERILE TALC POWDER 3GM VIAL As Ordered ONE ×2 (10:13→15:10)
[2020-10-20] MEDS ORDERED: CETACAINE SPRAY 5GM As Ordered ONE (10:13)
[2020-10-20] MEDS ORDERED: DESFLURANE 240 ML INHALANT As Ordered ONE (10:35)
[2020-10-20] MEDS ORDERED: fentaNYL 100 MCG/2 ML INJECTION (J3010) IV ONE (12:25)
[2020-10-20] MEDS ORDERED: MIDAZOLAM INJ 2MG/2ML VIAL (J2250 PER 1MG) IV ONE (12:25)
[2020-10-20] MEDS ORDERED: ceFAZolin 2 GM/D5W 50 ML IV BAG (J0690 PER 500MG) As Ordered ONE (12:34)
[2020-10-20] MEDS ORDERED: MUPIROCIN 2% OINT 22 GM TUBE As Ordered ONE (12:34)
[2020-10-20] MEDS ORDERED: BUPIVACAINE HCL 0.25% 30ML VIAL As Ordered ONE (12:36)
[2020-10-20] MEDS ORDERED: ETOMIDATE INJ 20MG/10ML VIAL As Ordered ONE (13:09)
[2020-10-20] MEDS ORDERED: PHENYLephrine 500MCG 5ML (100MCG/ML) SYRINGE As Ordered ONE ×3 (13:16→14:17)
[2020-10-20] MEDS ORDERED: ACETAMINOPHEN 1000MG 100ML IV BTL (OFIRMEV) (J0131 PER 10MG) As Ordered ONE (13:18)
[2020-10-20] MEDS ORDERED: BUPIVACAINE HCL 0.5% 10ML VIAL ONE (13:49)
[2020-10-20] MEDS ORDERED: ePHEDrine SULFATE 25 MG/5 ML(5MG/ML) SYRINGE As Ordered ONE ×2 (13:50→14:17)
[2020-10-20] MEDS ORDERED: NALOXONE INJ 0.4MG/1ML VIAL (J2310 PER 1MG) IV PRN (14:40)
[2020-10-20] MEDS ORDERED: EPIDURAL/PCA KEYS XX PRN (14:40)
[2020-10-20] MEDS ORDERED: METOCLOPRAMIDE INJ 10MG/2ML VIAL (J2765 PER 1) IV PRN (14:40)
[2020-10-20] MEDS ORDERED: ONDANSETRON 4MG/2ML VIAL IV PRN ×3 (14:40→17:30)
[2020-10-20] MEDS ORDERED: WALLBOXKEY XX PRN (14:40)
[2020-10-20] MEDS ORDERED: diphenhydrAMINE 50MG/ML VIAL (J1200) IV PRN (14:40)
[2020-10-20] MEDS ORDERED: ACETAMINOPHEN TAB 650MG DOSE (2X325MG) PO PRN (16:00)
[2020-10-20] MEDS ORDERED: BISACODYL 10 MG SUPP PR PRN (16:00)
[2020-10-20] MEDS: KCL 20MEQ IN D5/NS 1000ML 1,000 ML IV SCH (16:12)
[2020-10-20] MEDS: FENTANYL/BUPIVACAINE/NACL BAG 250 ML EPIDURAL SCH (16:14)
[2020-10-20 16:17] LABS: ABG HCO3 31.5 MEQ/L (22.0-26.0); ABG O2 SATURATION 99.1 % (95.0-99.0); ABG PARTIAL PRESSURE O2 130.1 mmHg (75.0-100.0); ABG STANDARD HCO3 27.2 MEQ/L (22.0-26.0); ABG TOTAL CO2 33.4 MEQ/L (23.0-31.0); ABG pH (ARTERIAL) 7.308 UNITS (7.350-7.450)
[2020-10-20 16:18] LABS: ABG PARTIAL PRESSURE CO2 64.2 mmHg (35.0-45.0)
[2020-10-20 16:36] LABS: BASO # 0.1 10^3/uL (0.0-0.2); BASO % 0.9 % (0.0-1.0); EOS # 0.2 10^3/uL (0.0-0.5); EOS % 1.3 % (0.0-3.0); HEMATOCRIT 49.4 % (42.0-52.0); LYMPH # 0.4 10^3/uL (1.5-5.0); LYMPH % 3.1 % (24.0-44.0); MEAN CORPUSCULAR HEMOGLOBIN 29.5 pg (27.0-33.0); MEAN CORPUSCULAR HGB CONC 30.8 g/dl (32.0-36.5); MEAN CORPUSCULAR VOLUME 95.7 fl (80.0-96.0); MONO # 0.2 10^3/uL (0.0-0.8); MONO % 1.4 % (2.0-8.0); NEUTROPHILS # 10.3 10^3/uL (1.5-8.5); PLATELET COUNT, AUTOMATED 157 10^3/uL (150-450); RED BLOOD COUNT 5.16 10^6/uL (4.30-6.10); WHITE BLOOD COUNT 11.5 10^3/uL (4.0-10.0)
[2020-10-20 16:45] LABS: BLOOD UREA NITROGEN 22 MG/DL (7-18); CALCIUM LEVEL 8.3 MG/DL (8.8-10.2); CARBON DIOXIDE LEVEL 34 MEQ/L (21-32); CHLORIDE LEVEL 98 MEQ/L (98-107); CREATININE FOR GFR 0.55 MG/DL (0.70-1.30); GLOMERULAR FILTRATION RATE > 60.0 (>49); GLUCOSE, FASTING 225 MG/DL (70-100); POTASSIUM SERUM 4.7 MEQ/L (3.5-5.1); SODIUM LEVEL 135 MEQ/L (136-145)
[2020-10-20 16:48] LABS: HEMOGLOBIN 15.2 g/dl (13.5-17.5)
--- NOTE | 2020-10-20 17:11 | REP ---
INDICATION: pneumothorax. COMPARISON: 10/20/2020, 7:56 a.m.. TECHNIQUE: SINGLE PORTABLE AP VIEW OF THE CHEST WAS PERFORMED. FINDINGS: Very small right apical pneumothorax is again noted. There are now 2 right chest tubes overlying the right hemithorax. There is a right central venous catheter with the tip in the right atrium. Heart, lungs and mediastinum appear unchanged. IMPRESSION: Two right chest tubes. Very small right apical pneumothorax. Diffuse bilateral parenchymal opacities appear unchanged. <Electronically signed by Tavo Kumar > 10/20/20 [id number]
[2020-10-20] MEDS ORDERED: fentaNYL 100 MCG/2 ML INJECTION (J3010) IV PRN (17:30)
[2020-10-20] MEDS ORDERED: HYDROMORPHONE HCL 0.5 MG/ 0.5 ML SYRINGE (J1170 PER 1) IV PRN (17:30)
[2020-10-20] MEDS ORDERED: oxyCODONE 5MG TAB PO PRN (17:30)
[2020-10-20] MEDS: KETOROLAC 30 MG/ML 1ML VIAL IV SCH ×2 (17:53→23:25)
[2020-10-20] MEDS: ceFAZolin SOD 1 GM in D5W MINI-BAG PLUS 50 ML IV SCH (20:27)
[2020-10-20] MEDS ORDERED: HEPARIN SOD (PORCINE) 5000UNITS/ML 1ML VIAL/SYRINGE SC SCH (21:00)
[2020-10-20] MEDS: PHENYLEPHRINE HCL INJ 50 MG in D5W 495 ML IV SCH ×2 (21:28→23:24)
[2020-10-21] VITALS (39 sets, daily range): BP systolic 83–130; BP diastolic 41–59
[2020-10-21] MEDS: LEVALBUTEROL 1.25 MG/0.5 ML CONCENTRATE NEB NEB SCH ×4 (01:38→19:38)
[2020-10-21 04:14] LABS: BASO # 0.1 10^3/uL (0.0-0.2); BASO % 0.7 % (0.0-1.0); EOS # 0.1 10^3/uL (0.0-0.5); EOS % 0.7 % (0.0-3.0); HEMATOCRIT 48.8 % (42.0-52.0); HEMOGLOBIN 14.6 g/dl (13.5-17.5); LYMPH % 6.8 % (24.0-44.0); MEAN CORPUSCULAR HGB CONC 29.9 g/dl (32.0-36.5); MEAN CORPUSCULAR VOLUME 96.8 fl (80.0-96.0); MONO # 1.1 10^3/uL (0.0-0.8); MONO % 7.1 % (2.0-8.0); NEUTROPHILS # 12.5 10^3/uL (1.5-8.5); NEUTROPHILS % 82.2 % (36.0-66.0); PLATELET COUNT, AUTOMATED 216 10^3/uL (150-450); RED BLOOD COUNT 5.04 10^6/uL (4.30-6.10); WHITE BLOOD COUNT 15.2 10^3/uL (4.0-10.0)
[2020-10-21] MEDS: KETOROLAC 30 MG/ML 1ML VIAL IV SCH ×4 (04:31→23:33)
[2020-10-21] MEDS: KCL 20MEQ IN D5/NS 1000ML 1,000 ML IV SCH ×2 (04:31→17:59)
[2020-10-21] MEDS: ceFAZolin SOD 1 GM in D5W MINI-BAG PLUS 50 ML IV SCH ×3 (04:31→21:54)
[2020-10-21 04:47] LABS: BLOOD UREA NITROGEN 21 MG/DL (7-18); CALCIUM LEVEL 8.2 MG/DL (8.8-10.2); CARBON DIOXIDE LEVEL 37 MEQ/L (21-32); CHLORIDE LEVEL 100 MEQ/L (98-107); CREATININE FOR GFR 0.52 MG/DL (0.70-1.30); GLOMERULAR FILTRATION RATE > 60.0 (>49); GLUCOSE, FASTING 171 MG/DL (70-100); POTASSIUM SERUM 4.7 MEQ/L (3.5-5.1); SODIUM LEVEL 138 MEQ/L (136-145)
[2020-10-21] MEDS: SLF 3 ML SYR IV SCH ×3 (05:32→22:15)
[2020-10-21 05:56] LABS: ABG BASE EXCESS 4.4 (-2.0-2.0); ABG HCO3 31.7 MEQ/L (22.0-26.0); ABG O2 SATURATION 98.2 % (95.0-99.0); ABG PARTIAL PRESSURE CO2 58.6 mmHg (35.0-45.0); ABG PARTIAL PRESSURE O2 97.3 mmHg (75.0-100.0); ABG STANDARD HCO3 28.4 MEQ/L (22.0-26.0); ABG TOTAL CO2 33.5 MEQ/L (23.0-31.0); ABG pH (ARTERIAL) 7.351 UNITS (7.350-7.450)
[2020-10-21] MEDS: HumaLOG INSULIN (NovoLOG) PER UNIT SC SCH ×4 (07:30→22:11)
--- NOTE | 2020-10-21 08:05 | REP ---
INDICATION: pneumothorax. COMPARISON: Portable chest 10/20/2020 TECHNIQUE: Upright PA and lateral chest. FINDINGS: The 2 right thoracotomy tubes are unchanged. The small right apical pneumothorax is unchanged. The subcutaneous emphysema along the right lateral chest wall has decreased. Questionable nondisplaced fracture of the tip of the right scapula versus superimposition artifact. Right subclavian central venous catheter again seen with the tip in the right atrium in satisfactory position, unchanged. Epidural catheter, unchanged. Diffuse bilateral interstitial coarsening, unchanged. IMPRESSION: The subcutaneous emphysema along the right lateral chest wall has decreased. Question fracture tip of the right scapular versus superimposition artifact. No other interval change. <Electronically signed by Tavo Alex > 10/21/20 0802
[2020-10-21] MEDS: LEVEMIR (INSULIN DETEMIR) 1 UNITS/0.01ML SC SCH ×2 (09:00→22:02)
[2020-10-21] MEDS ORDERED: SODIUM CHLORIDE 0.9% 1000ML IV ONE (09:00)
[2020-10-21] MEDS ORDERED: PANTOPRAZOLE 40MG TAB (PROTONIX) PO SCH (09:00)
[2020-10-21] MEDS: MOM 30ML SUSPENSION UDC PO SCH (09:00)
[2020-10-21] MEDS: DOCUSATE SODIUM 100MG CAPSULE PO SCH ×2 (09:00→21:52)
[2020-10-21] MEDS: HYDROXYCHLOROQUINE 200 MG TAB PO SCH ×2 (09:03→21:55)
[2020-10-21] MEDS: MIDODRINE 5 MG TAB PO SCH ×3 (09:03→17:08)
[2020-10-21] MEDS: ATOVAQUONE SUSP 750MG/5ML 210 ML BTL PO SCH (09:04)
[2020-10-21] MEDS: PANTOPRAZOLE 40MG VIAL (C9113 PER 1) IV SCH (09:04)
[2020-10-21] MEDS: HEPARIN SOD (PORCINE) 5000UNITS/ML 1ML VIAL/SYRINGE SC SCH ×2 (09:04→21:54)
[2020-10-21] MEDS: predniSONE 20 MG TAB PO SCH (09:04)
--- NOTE | 2020-10-21 12:33 | IPN ---
PROGRESS NOTE DATE: 10/21/2020 Dictated by Keo Garcia DO in conjunction with Shawn Reese M.D. SUBJECTIVE: No acute events overnight. The patient is postop day #1 for talc pleurodesis in the setting of recurrent pneumothorax. He has not had any increased pain requirements overnight. He continues to be on Boris-Synephrine, but his pain has been well-controlled and his epidural was turned down overnight to accommodate his lower blood pressures. He currently denies any fever, chills, chest pain, or shortness of breath. He does have a nonproductive cough. He denies any abdominal pain, nausea, vomiting, or change in bowel patterns. He admits to passing gas. He admits to having an appetite. Denies any lower extremity swelling or edema. OBJECTIVE: VITAL SIGNS: T-max overnight of 98 degrees Fahrenheit, pulse of 71, respiratory rate of 16, blood pressure 108/52 measured through an arterial line, satting 98% on 2 liters nasal cannula. INTAKE AND OUTPUT: In the last 24 hours, he has had 1500 mL of urine output, 155 mL of chest tube output from his two right-sided chest tubes, two voids, and one bowel movement. Chest tube with positive air leak. GENERAL: The patient is a thin appearing male who appears his stated age, sitting upright in bed, in no acute distress being able to complete sentences. HEENT: Head is normocephalic, atraumatic. EOMI. No scleral icterus. Trachea is midline. Mucous membranes are somewhat dry appearing. CARDIOVASCULAR: Regular rate and rhythm. Normal S1, S2. No murmurs, gallops, or rubs. RESPIRATORY: He does exhibit what I believe is bronchophony probably from his chest tube in the right lower lobe. No adventitious breath sounds in the left lower lobe or left upper lobe. Some scattered rhonchi throughout the right upper and lower lobe. ABDOMEN: Soft, nontender, and nondistended. Bowel sounds present. No CVA tenderness. EXTREMITIES: No edema or swelling. SKIN: Warm, dry, and perfuse. NEUROLOGIC: Cranial nerves 2 through 12 are grossly intact. Gross sensation is intact. Gait was not tested. PSYCHIATRIC: He is awake, alert, and oriented x3. LABORATORY DATA: White blood cell count of 15.2, hemoglobin 14.6, hematocrit 48.8, platelet count of 216,000. ABG from this morning showing pH of 7.35, pCO2 of 58.6, PaO2 of 97.3. Sodium 138, potassium 4.7, chloride 100, bicarb 37, BUN 21, creatinine 0.52, glucose 171, calcium 8.2. Lung pathology is pending. IMAGING DATA: Chest x-ray showing decreased subcutaneous emphysema compared to yesterday. Chest tube is in good position in the apical portion of the right lung. His right subclavian vein is seen in appropriate position. Otherwise, unremarkable chest x-ray. ASSESSMENT AND PLAN: Mr. Licea is a 65-year-old male with history of recurrent pneumothorax who is status post talc pleurodesis on 10/20/2020. 1. Recurrent pneumothorax status post talc pleurodesis. He is postoperative day #1. I would anticipate that he becomes febrile in the next 24-48 simply from the procedure itself. He continues to have output from his chest tubes. They are in good position currently; however, because of the air leak, we will increase the suction to 40 mmHg to allow for more adequate drainage to allow for the air to leave the chest cavity more adequately. He is currently on D5 normal saline and we will increase the rate of that, as I believe that he is a little bit volume down and will come off of the Boris-Synephrine once he gets a little bit of volume back, since he has had good output. He has a central venous pressure (CVP) of 6. Outside of that, his pain has been well-controlled. He is able to be on a regular diet this morning, he is interested in eating, and so he should. Okay to turn off the Boris-Synephrine once his systolic blood pressure (SBP) is greater than 100. Attending note: agree with above. Has very coarse rhonchi right side with velco crackles on left in late inspiration. Need to keep lung applied to chest wall for the duration of his chest tube placement. Because of his underlying pulmonary fibrosis, his lung compliance is very low and the tendency to pull away from the chest wall. I will therefore increase his suction to 40 cm Hg. On the whole, I am quite gratified by his progress and survival after surgery. -- BENSON Reese MD [facility]
--- NOTE | 2020-10-21 13:26 | IPNPDOC ---
Date Seen The patient was seen on 10/21/20. Progress Note SUBJECTIVE: POD 1 talc pleurodesis. 500 cc bolus today for low CVP 6, improved slightly BP. Instructions now to keep MAP >65 mmHg. Remains on phenylephrine. Pain is controlled currently but will see how he does with epidural decreased to 4, as pain medications in combination of possible hypovolemia could be contributing to hypotension currently. Patient denies incr chest pain, shortness of breath, n/v/d. OBJECTIVE: PHYSICAL EXAM: VITAL SIGNS: Please see below GENERAL:In NAD, resting in bed LUNGS: Diminished breath sounds b/l bases, crackles mild b/l. CVS: S1 and S2, sinus rhythm. No murmurs, rubs or gallops. GI: Soft, nontender and nondistended. Positive bowel sounds. CHEST: Right side chest tubes, left subclavian EXTREMITIES: No cyanosis, clubbing or pitting edema. Left ext PICC line, left radial line : chowdhury catheter NEURO: CN 2-12 intact, no focal deficits. LABORATORY DATA: Please see below MICROBIOLOGY: Please see below IMAGING: CXR 10/21/20: The subcutaneous emphysema along the right lateral chest wall has decreased. Question fracture tip of the right scapular versus superimposition artifact. No other interval change. 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 Admitted for persistent right sided spontaneous pneumothorax , POD 1 talc pleurodesis 10/20/20. PLAN: 1. Spontaneous pneumothorax on the right with recurrence, status post blood patch on 10/15 and 10/17, POD 1 talc pleurodesis on 10/20. 2. Hypotension likely multifactorial to pain medication/epidural with Fentanyl/bupivacaine, poss hypovolemia 3. Type 2 diabetes 4. History of idiopathic pulmonary fibrosis, SLE on chronic prednisone and Plaquenil. 5. COPD. 6. Alveolar pleural fistula. 7. Secondary polycythemia due to chronic hypoxia with IBS. 8. Thrombocytopenia, improving with negative Heparin induced thrombocytopenia panel. 9. GERD DVT px: Heparin SC PLAN: CT surgery consulted and following closely. Decreasing epidural to see if tolerates, adding IS to see if can wean down pressor support. Given one 500 cc bolus NSS; however, can give more if MAP not maintained >65 mmHg and pressor support going up. CVP minimally increased with this fluid, remains on continuous fluids at 75 cc/hr. Chest tube managed per Thoracic Surgery. TOTAL ICU TIME SPENT CARING FOR PATIENT (nonprocedural) : 55 mins VS[facility]O Vital Signs Date Time Temp Pulse Resp B/P (MAP) Pulse Ox O2 Delivery O2 Flow Rate FiO2 10/21/20 13:00 74 18 126/59 (77) 99 Nasal Cannula 2.0 10/21/20 08:00 97.6 10/15/20 08:00 98 I&O- Last 24 Hours up to 6 AM 10/21/20 06:00 Intake Total 1926 ml Output Total 1535 ml Balance 391 ml Laboratory Data 24H LABS Laboratory Tests 2 10/20/20 15:58: Blood Gas Bicarbonate Standard 27.2H, Arterial Blood pH 7.308L, Arterial Blood Partial Pressure CO2 64.2*H, Arterial Blood Partial Pressure O2 130.1H, Arterial Blood Total CO2 33.4H, Arterial Blood HCO3 31.5H, Arterial Blood Base Excess 3.0H, Arterial Blood Oxygen Saturation 99.1H 10/20/20 16:05: Immature Granulocyte % (Auto) 4.3H, Neutrophils (%) (Auto) 89.0H, Lymphocytes (%) (Auto) 3.1L, Monocytes (%) (Auto) 1.4L, Eosinophils (%) (Auto) 1.3, Basophils (%) (Auto) 0.9, Neutrophils # (Auto) 10.3H, Lymphocytes # (Auto) 0.4L, Monocytes # (Auto) 0.2, Eosinophils # (Auto) 0.2, Basophils # (Auto) 0.1, Nucleated Red Blood Cells % (auto) 0.0, Anion Gap 3L, Glomerular Filtration Rate > 60.0, Calcium Level 8.3L 10/20/20 17:48: Bedside Glucose (Misc Panel) 223H 10/20/20 20:37: Bedside Glucose (Misc Panel) 207H 10/21/20 04:00: Immature Granulocyte % (Auto) 2.5, Neutrophils (%) (Auto) 82.2H, Lymphocytes (%) (Auto) 6.8L, Monocytes (%) (Auto) 7.1, Eosinophils (%) (Auto) 0.7, Basophils (%) (Auto) 0.7, Neutrophils # (Auto) 12.5H, Lymphocytes # (Auto) 1.0L, Monocytes # (Auto) 1.1H, Eosinophils # (Auto) 0.1, Basophils # (Auto) 0.1, Nucleated Red Blood Cells % (auto) 0.0, Anion Gap 1L, Glomerular Filtration Rate > 60.0, Calcium Level 8.2L 10/21/20 05:50: Blood Gas Bicarbonate Standard 28.4H, Arterial Blood pH 7.351, Arterial Blood Partial Pressure CO2 58.6H, Arterial Blood Partial Pressure O2 97.3, Arterial Blood Total CO2 33.5H, Arterial Blood HCO3 31.7H, Arterial Blood Base Excess 4.4H, Arterial Blood Oxygen Saturation 98.2 10/21/20 12:35: Bedside Glucose (Misc Panel) 158H CBC/BMP Laboratory Tests 10/20/20 16:05 10/21/20 04:00 Current Medications Current Medications Medications (Trade) Dose Ordered Sig/Ismael Route PRN Reason Start Time Stop Time Status Last Admin Dose Admin Acetaminophen (Tylenol Tab) 650 mg Q6HP PRN PO T > 101.5 or TAY 10/20/20 16:00 Acetaminophen (Tylenol Tab) 650 mg Q6HP PRN PO T > 101.5 or TAY 10/03/20 15:25 Cancel Acetaminophen/ Hydrocodone Bitart ([place], Anexsia 5/325) 1 tab Q3H PRN PO MILD PAIN (PS 1-4) 10/20/20 16:00 Hold Acetaminophen/ Hydrocodone Bitart ([place], Anexsia 5/325) 1 tab Q3H PRN PO MILD PAIN (PS 1-4) 10/03/20 15:25 10/20/20 15:58 DC 10/13/20 20:26 Atovaquone (Mepron 750mg/ 5ml Suspension) 1,500 mg DAILY PO 10/04/20 09:00 10/21/20 09:04 Bisacodyl (Dulcolax Suppository) 10 mg Q4HP PRN [place] CONSTIPATION 10/20/20 16:00 Bisacodyl (Dulcolax Suppository) 10 mg Q4HP PRN [place] CONSTIPATION 10/03/20 15:25 Cancel Cefazolin Sodium 1 gm/Dextrose 50 ml @ 100 mls/hr Q8H IV 10/20/20 21:00 10/22/20 13:29 10/21/20 12:54 Dextrose (Dextrose 50%) 25 ml ASDIRECTED PRN IV SEE LABEL COMMENTS 10/03/20 17:35 Cancel Dextrose/Sodium Chloride 1,000 ml @ 75 mls/hr [id number] IV 10/03/20 17:10 10/03/20 20:13 DC 10/03/20 17:32 Diphenhydramine HCl (Benadryl) 12.5 mg Q4HP PRN IV ITCHING 10/20/20 14:40 Cancel Docusate Sodium (Colace) 100 mg BID PO 10/20/20 21:00 Docusate Sodium (Colace) 100 mg BID PO 10/03/20 21:00 10/20/20 15:58 DC 10/18/20 08:33 Fentanyl Citrate (Sublimaze) 25 mcg Q5MP PRN IV PAIN LEVEL 5-10 10/20/20 17:30 10/20/20 18:30 DC Fentanyl/ Bupivacaine HCl 250 ml @ 5 mls/hr Q24H EPIDURAL 10/20/20 14:40 10/20/20 16:14 Glucagon (Glucagon) 1 mg ASDIRECTED PRN SC SEE LABEL COMMENTS 10/03/20 17:35 Cancel Glucose (Glucose) 16 GM ASDIRECTED PRN PO SEE LABEL COMMENTS 10/03/20 17:35 Cancel Heparin Sodium (Heparin Lock Flush 10units/ml) 10 units ASDIRECTED PRN IV SEE LABEL COMMENTS 10/15/20 05:10 10/20/20 15:58 DC 10/18/20 08:34 Heparin Sodium (Porcine) (Heparin) 5,000 units Q12H SC 10/20/20 21:00 10/21/20 07:45 DC Heparin Sodium (Porcine) (Heparin) 5,000 units Q12H SC 10/03/20 21:00 10/21/20 09:04 Home Med (Med Rec Complete!) ASDIRECTED XX 10/03/20 16:15 10/03/20 16:15 DC Hydromorphone HCl (Dilaudid) 0.2 mg Q5MP PRN IV PAIN LEVEL 4-7 10/20/20 17:30 10/20/20 18:30 DC Hydroxychloroquine Sulfate (Plaquenil) 200 mg BID PO 10/03/20 21:00 10/21/20 09:03 Insulin Detemir (Levemir Insulin) 6 units BID SC 10/16/20 09:00 10/20/20 08:46 DC 10/19/20 21:57 Insulin Detemir (Levemir Insulin) 6 units QHS SC 10/06/20 21:00 10/07/20 19:23 DC 10/06/20 20:57 Insulin Detemir (Levemir Insulin) 8 units QHS SC 10/07/20 21:00 10/16/20 07:46 DC 10/15/20 21:09 Insulin Detemir (Levemir Insulin) 12 units BID SC 10/20/20 21:00 10/20/20 20:39 Insulin Human Lispro (HumaLOG INSULIN) SEE PROTOCOL TABLE AC SC 10/04/20 07:30 10/21/20 12:54 Insulin Human Lispro (HumaLOG INSULIN) SEE PROTOCOL TABLE QHS SC 10/03/20 21:00 10/19/20 21:57 Ketorolac Tromethamine (ToRADol) 15 mg Q6H IV 10/03/20 18:00 10/08/20 17:59 DC 10/08/20 12:53 Ketorolac Tromethamine (ToRADol) 30 mg Q6H IV 10/20/20 17:00 10/25/20 16:59 10/21/20 12:56 Levalbuterol HCl (Xopenex Neb) 1.25 mg Q2HP PRN NEB WHEEZING 10/03/20 15:25 Levalbuterol HCl (Xopenex Neb) 1.25 mg RQ6H NEB 10/03/20 20:00 10/21/20 13:33 Lidocaine HCl (LIDOCAINE 1% MDV 20ml) 40 ml STAT STAT SC 10/08/20 12:39 10/08/20 12:41 DC 10/08/20 11:54 Lidocaine HCl (Lmx 4/Anecream) 1 dose Q8HP PRN TOP PAIN 10/08/20 21:50 10/08/20 23:45 Magnesium Hydroxide (Milk Of Magnesia) 30 ml DAILY PO 10/21/20 09:00 Magnesium Hydroxide (Milk Of Magnesia) 30 ml DAILY PO 10/04/20 09:00 10/20/20 15:58 DC 10/08/20 09:04 Metoclopramide HCl (REGLAN INJection) 10 mg Q6HP PRN IV NAUSEA 10/20/20 14:40 Cancel Midazolam HCl (Versed) 6 mg ASDIRECTED STAT IV 10/08/20 12:39 10/08/20 12:41 DC 10/08/20 11:50 Midodrine (Proamatine) 5 mg 08,12,16 PO 10/17/20 13:00 10/21/20 12:54 Miscellaneous (Unresolved Clarification Entry) SEE LABEL COMMENTS DAILY XX 10/09/20 09:00 10/09/20 14:46 DC Naloxone HCl (Narcan) 0.1 mg Q5MP PRN IV SEE LABEL COMMENTS 10/20/20 14:40 Cancel Non-Formulary Medication (Epidural/MEDIA RELATIONS SPECIALIST Atco) 1 each ASDIRECTED PRN XX SEE LABEL COMMENTS 10/20/20 14:40 Cancel Non-Formulary Medication (Atco) ASDIRECTED PRN XX SEE LABEL COMMENTS 10/20/20 14:40 Cancel Ondansetron HCl (ZOFRAN INJection) 4 mg Q4HP PRN IV NAUSEA 10/20/20 16:00 Ondansetron HCl (ZOFRAN INJection) 4 mg Q4HP PRN IV NAUSEA OR VOMITING 10/20/20 17:30 10/20/20 18:30 DC Ondansetron HCl (ZOFRAN INJection) 4 mg Q4HP PRN IV NAUSEA 10/03/20 15:25 Cancel Ondansetron HCl (ZOFRAN INJection) 4 mg Q6HP PRN IV REFRACTORY NAUSEA 10/20/20 14:40 Cancel Oxycodone HCl (Roxicodone, Oxyir) 5 mg ASDIRECTED PRN PO PAIN LEVEL 1-4 10/20/20 17:30 10/20/20 18:30 DC Oxycodone/ Acetaminophen (Percocet 5mg/ 325mg Tablet) 1 tab Q4H PRN PO MODERATE PAIN (PS 5-7) 10/20/20 16:00 Hold Oxycodone/ Acetaminophen (Percocet 5mg/ 325mg Tablet) 1 tab Q4H PRN PO MODERATE PAIN (PS 5-7) 10/03/20 15:25 10/20/20 15:58 DC 10/17/20 21:59 Oxycodone/ Acetaminophen (Percocet 5mg/ 325mg Tablet) 2 tab Q4H PRN PO SEVERE PAIN (PS 8-10) 10/20/20 16:00 Hold Oxycodone/ Acetaminophen (Percocet 5mg/ 325mg Tablet) 2 tab Q4H PRN PO SEVERE PAIN (PS 8-10) 10/03/20 15:25 10/20/20 15:58 DC 10/10/20 22:59 Pantoprazole Sodium (Protonix) 40 mg DAILY IV 10/21/20 09:00 10/21/20 09:04 Pantoprazole Sodium (Protonix) 40 mg DAILY PO 10/21/20 09:00 10/21/20 07:46 DC Pantoprazole Sodium (Protonix) 40 mg DAILY PO 10/04/20 09:00 10/20/20 15:58 DC 10/20/20 09:18 Phenylephrine HCl 50 mg/Dextrose 500 ml @ 15 mls/hr Q24H IV 10/20/20 21:05 10/20/20 23:24 Potassium Chloride/Dextrose/ Sod Cl 1,000 ml @ 75 mls/hr [id number] IV 10/20/20 15:58 10/21/20 04:31 Potassium Chloride/Dextrose/ Sod Cl 1,000 ml @ 75 mls/hr [id number] IV 10/03/20 15:25 10/03/20 17:11 DC Prednisone (Deltasone) 60 mg DAILY PO 10/04/20 09:00 10/21/20 09:04 Sodium Chloride (Saline Lock Flush) 2 ml ASDIRECTED PRN IV SEE LABEL COMMENTS 10/13/20 08:00 Sodium Chloride (Saline Lock Flush) 2 ml SLF IV 10/13/20 14:00 10/21/20 05:32 Sodium Chloride (Saline Lock Flush) 10 ml ASDIRECTED PRN IV SEE LABEL COMMENTS 10/15/20 05:10 10/20/20 15:58 DC 10/18/20 08:35 Allergies Coded Allergies: No Known Drug Allergies (Verified Allergy, Unknown, 10/03/20) Madison Rico MD Oct 21, 2020 13:26
[2020-10-21] MEDS: FENTANYL/BUPIVACAINE/NACL BAG 250 ML EPIDURAL SCH (17:05)
[2020-10-21] MEDS ORDERED: LIDOCAINE 1% MDV 20ML VIAL As Ordered ONE (17:15)
[2020-10-21] MEDS ORDERED: PHENYLEPHRINE HCL INJ 50 MG in D5W 495 ML IV SCH (18:21)
[2020-10-22] VITALS (28 sets, daily range): BP systolic 85–144; BP diastolic 41–74
[2020-10-22] MEDS: LEVALBUTEROL 1.25 MG/0.5 ML CONCENTRATE NEB NEB SCH ×4 (02:02→20:20)
[2020-10-22 04:18] LABS: BASO # 0.1 10^3/uL (0.0-0.2); BASO % 0.6 % (0.0-1.0); EOS % 0.3 % (0.0-3.0); HEMATOCRIT 46.6 % (42.0-52.0); HEMOGLOBIN 14.1 g/dl (13.5-17.5); LYMPH # 0.4 10^3/uL (1.5-5.0); LYMPH % 3.3 % (24.0-44.0); MEAN CORPUSCULAR HEMOGLOBIN 29.6 pg (27.0-33.0); MEAN CORPUSCULAR HGB CONC 30.3 g/dl (32.0-36.5); MEAN CORPUSCULAR VOLUME 97.7 fl (80.0-96.0); MONO # 0.7 10^3/uL (0.0-0.8); MONO % 6.1 % (2.0-8.0); NEUTROPHILS # 10.3 10^3/uL (1.5-8.5); NEUTROPHILS % 87.1 % (36.0-66.0); PLATELET COUNT, AUTOMATED 173 10^3/uL (150-450); RED BLOOD COUNT 4.77 10^6/uL (4.30-6.10); WHITE BLOOD COUNT 11.8 10^3/uL (4.0-10.0)
[2020-10-22 04:50] LABS: BLOOD UREA NITROGEN 19 MG/DL (7-18); CARBON DIOXIDE LEVEL 34 MEQ/L (21-32); CHLORIDE LEVEL 104 MEQ/L (98-107); CREATININE FOR GFR 0.53 MG/DL (0.70-1.30); GLOMERULAR FILTRATION RATE > 60.0 (>49); GLUCOSE, FASTING 260 MG/DL (70-100); POTASSIUM SERUM 5.2 MEQ/L (3.5-5.1); SODIUM LEVEL 139 MEQ/L (136-145)
[2020-10-22] MEDS: KETOROLAC 30 MG/ML 1ML VIAL IV SCH ×4 (05:05→22:05)
[2020-10-22] MEDS: ceFAZolin SOD 1 GM in D5W MINI-BAG PLUS 50 ML IV SCH ×2 (05:06→12:38)
[2020-10-22] MEDS: SLF 3 ML SYR IV SCH ×3 (05:07→22:09)
--- NOTE | 2020-10-22 05:57 | IPNPDOC ---
Date Seen The patient was seen on 10/22/20. Progress Note SUBJECTIVE: Phenylephrine weaned off but pressures dropped some, started on IVFs at 100 cc/hr and showing improvement. 120 cc out of chest tube overnight. Epidural decreased to 2 ml/hr, tolerating at decreased dose. Eating and drinking well, no acute events over night. Patient denies incr chest pain, shortness of breath, n/v/d. OBJECTIVE: PHYSICAL EXAM: VITAL SIGNS: Please see below GENERAL:In NAD, resting in bed LUNGS: Diminished breath sounds b/l bases, crackles mild b/l. CVS: S1 and S2, sinus rhythm. No murmurs, rubs or gallops. GI: Soft, nontender and nondistended. Positive bowel sounds. CHEST: Right side chest tubes, subclavian line EXTREMITIES: No cyanosis, clubbing or pitting edema. Left ext PICC line, left radial line : chowdhury catheter NEURO: CN 2-12 intact, no focal deficits. LABORATORY DATA: Please see below MICROBIOLOGY: Please see below IMAGING: CXR 10/22/20: Findings essentially unchanged. Two right chest tubes remain in place at the apex. CXR 10/21/20: The subcutaneous emphysema along the right lateral chest wall has decreased. Question fracture tip of the right scapular versus superimposition artifact. No other interval change. 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 Admitted for persistent right sided spontaneous pneumothorax , POD 2 talc pleurodesis 10/20/20. PLAN: 1. Spontaneous pneumothorax on the right with recurrence, status post blood patch on 10/15 and 10/17, POD 2 talc pleurodesis on 10/20. 2. Hypotension likely multifactorial to pain medication/epidural with Fentanyl/bupivacaine, poss hypovolemia 3. Type 2 diabetes 4. History of idiopathic pulmonary fibrosis, SLE on chronic prednisone and Plaquenil. 5. Mild hyperkalemia, acute 6. Alveolar pleural fistula. 7. Secondary polycythemia due to chronic hypoxia with IBS. 8. Thrombocytopenia, improving with negative Heparin induced thrombocytopenia panel. 9. GERD 10. COPD. DVT px: Heparin SC PLAN: Remains on 2 L NC, no increased SOB or chest pain. Currently on NS at 100 cc/hr due to CVP reading, will continue to decreasing epidural, off pressors currently. Monitoring I&O's closely, o/p from chest tube. Uncontrolled blood sugars from 215-377, adjusted and increased both AM and HS dosing of levemir. Th oracic surgery following closely TOTAL ICU TIME SPENT CARING FOR PATIENT (nonprocedural) : 40 mins VS, [facility] V[facility] Signs/I&O Vital Signs Date Time Temp Pulse Resp B/P (MAP) Pulse Ox O2 Delivery O2 Flow Rate FiO2 10/22/20 00:15 84 120/51 98 10/22/20 00:00 97.6 20 Nasal Cannula 10/22/20 00:00 2.0 I&O- Last 24 Hours up to 6 AM 10/22/20 06:00 Intake Total 2922.5 ml Output Total 1140 ml Balance 1782.5 ml Laboratory Data 24H LABS Laboratory Tests 2 10/21/20 05:50: Blood Gas Bicarbonate Standard 28.4H, Arterial Blood pH 7.351, Arterial Blood Partial Pressure CO2 58.6H, Arterial Blood Partial Pressure O2 97.3, Arterial Blood Total CO2 33.5H, Arterial Blood HCO3 31.7H, Arterial Blood Base Excess 4.4H, Arterial Blood Oxygen Saturation 98.2 10/21/20 12:35: Bedside Glucose (Misc Panel) 158H 10/21/20 17:48: Bedside Glucose (Misc Panel) 214H 10/21/20 21:59: Bedside Glucose (Misc Panel) 377H 10/22/20 04:05: Immature Granulocyte % (Auto) 2.6, Neutrophils (%) (Auto) 87.1H, Lymphocytes (%) (Auto) 3.3L, Monocytes (%) (Auto) 6.1, Eosinophils (%) (Auto) 0.3, Basophils (%) (Auto) 0.6, Neutrophils # (Auto) 10.3H, Lymphocytes # (Auto) 0.4L, Monocytes # (Auto) 0.7, Eosinophils # (Auto) 0.0, Basophils # (Auto) 0.1, Nucleated Red Blood Cells % (auto) 0.0, Anion Gap 1L, Glomerular Filtration Rate > 60.0, Calcium Level 8.0L CBC/BMP Laboratory Tests 10/22/20 04:05 Current Medications Current Medications Medications (Trade) Dose Ordered Sig/Ismael Route PRN Reason Start Time Stop Time Status Last Admin Dose Admin Acetaminophen (Tylenol Tab) 650 mg Q6HP PRN PO T > 101.5 or TAY 10/20/20 16:00 Acetaminophen (Tylenol Tab) 650 mg Q6HP PRN PO T > 101.5 or TAY 10/03/20 15:25 Cancel Acetaminophen/ Hydrocodone Bitart ([place], Anexsia 5/325) 1 tab Q3H PRN PO MILD PAIN (PS 1-4) 10/20/20 16:00 Hold Acetaminophen/ Hydrocodone Bitart ([place], Anexsia 5/325) 1 tab Q3H PRN PO MILD PAIN (PS 1-4) 10/03/20 15:25 10/20/20 15:58 DC 10/13/20 20:26 Atovaquone (Mepron 750mg/ 5ml Suspension) 1,500 mg DAILY PO 10/04/20 09:00 10/22/20 09:11 Bisacodyl (Dulcolax Suppository) 10 mg Q4HP PRN [place] CONSTIPATION 10/20/20 16:00 Bisacodyl (Dulcolax Suppository) 10 mg Q4HP PRN [place] CONSTIPATION 10/03/20 15:25 Cancel Cefazolin Sodium 1 gm/Dextrose 50 ml @ 100 mls/hr Q8H IV 10/20/20 21:00 10/22/20 13:29 10/22/20 12:38 Dextrose (Dextrose 50%) 25 ml ASDIRECTED PRN IV SEE LABEL COMMENTS 10/03/20 17:35 Cancel Dextrose/Sodium Chloride 1,000 ml @ 75 mls/hr [id number] IV 10/03/20 17:10 10/03/20 20:13 DC 10/03/20 17:32 Diphenhydramine HCl (Benadryl) 12.5 mg Q4HP PRN IV ITCHING 10/20/20 14:40 Cancel Docusate Sodium (Colace) 100 mg BID PO 10/20/20 21:00 10/21/20 21:52 Docusate Sodium (Colace) 100 mg BID PO 10/03/20 21:00 10/20/20 15:58 DC 10/18/20 08:33 Fentanyl Citrate (Sublimaze) 25 mcg Q5MP PRN IV PAIN LEVEL 5-10 10/20/20 17:30 10/20/20 18:30 DC Fentanyl/ Bupivacaine HCl 250 ml @ 4 mls/hr Q24H EPIDURAL 10/20/20 14:40 10/21/20 17:05 Glucagon (Glucagon) 1 mg ASDIRECTED PRN SC SEE LABEL COMMENTS 10/03/20 17:35 Cancel Glucose (Glucose) 16 GM ASDIRECTED PRN PO SEE LABEL COMMENTS 10/03/20 17:35 Cancel Heparin Sodium (Heparin Lock Flush 10units/ml) 10 units ASDIRECTED PRN IV SEE LABEL COMMENTS 10/15/20 05:10 10/20/20 15:58 DC 10/18/20 08:34 Heparin Sodium (Porcine) (Heparin) 5,000 units Q12H SC 10/20/20 21:00 10/21/20 07:45 DC Heparin Sodium (Porcine) (Heparin) 5,000 units Q12H SC 10/03/20 21:00 10/22/20 09:11 Home Med (Med Rec Complete!) ASDIRECTED XX 10/03/20 16:15 10/03/20 16:15 DC Hydromorphone HCl (Dilaudid) 0.2 mg Q5MP PRN IV PAIN LEVEL 4-7 10/20/20 17:30 10/20/20 18:30 DC Hydroxychloroquine Sulfate (Plaquenil) 200 mg BID PO 10/03/20 21:00 10/22/20 09:11 Insulin Detemir (Levemir Insulin) 6 units BID SC 10/16/20 09:00 10/20/20 08:46 DC 10/19/20 21:57 Insulin Detemir (Levemir Insulin) 6 units QHS SC 10/06/20 21:00 10/07/20 19:23 DC 10/06/20 20:57 Insulin Detemir (Levemir Insulin) 8 units QHS SC 10/07/20 21:00 10/16/20 07:46 DC 10/15/20 21:09 Insulin Detemir (Levemir Insulin) 12 units BID SC 10/20/20 21:00 10/22/20 05:36 DC 10/21/20 22:02 Insulin Detemir (Levemir Insulin) 15 units QHS SC 10/22/20 21:00 Insulin Detemir (Levemir Insulin) 18 units QAM SC 10/22/20 09:00 10/22/20 09:09 Insulin Human Lispro (HumaLOG INSULIN) SEE PROTOCOL TABLE AC SC 10/04/20 07:30 10/22/20 12:34 Insulin Human Lispro (HumaLOG INSULIN) SEE PROTOCOL TABLE QHS SC 10/03/20 21:00 10/21/20 22:11 Ketorolac Tromethamine (ToRADol) 15 mg Q6H IV 10/03/20 18:00 10/08/20 17:59 DC 10/08/20 12:53 Ketorolac Tromethamine (ToRADol) 30 mg Q6H IV 10/20/20 17:00 10/25/20 16:59 10/22/20 12:34 Levalbuterol HCl (Xopenex Neb) 1.25 mg Q2HP PRN NEB WHEEZING 10/03/20 15:25 Levalbuterol HCl (Xopenex Neb) 1.25 mg RQ6H NEB 10/03/20 20:00 10/22/20 08:03 Lidocaine HCl (LIDOCAINE 1% MDV 20ml) 40 ml STAT STAT SC 10/08/20 12:39 10/08/20 12:41 DC 10/08/20 11:54 Lidocaine HCl (Lmx 4/Anecream) 1 dose Q8HP PRN TOP PAIN 10/08/20 21:50 10/08/20 23:45 Magnesium Hydroxide (Milk Of Magnesia) 30 ml DAILY PO 10/21/20 09:00 Magnesium Hydroxide (Milk Of Magnesia) 30 ml DAILY PO 10/04/20 09:00 10/20/20 15:58 DC 10/08/20 09:04 Metoclopramide HCl (REGLAN INJection) 10 mg Q6HP PRN IV NAUSEA 10/20/20 14:40 Cancel Midazolam HCl (Versed) 6 mg ASDIRECTED STAT IV 10/08/20 12:39 10/08/20 12:41 DC 10/08/20 11:50 Midodrine (Proamatine) 5 mg 08,12,16 PO 10/17/20 13:00 10/22/20 12:34 Miscellaneous (Unresolved Clarification Entry) SEE LABEL COMMENTS DAILY XX 10/09/20 09:00 10/09/20 14:46 DC Naloxone HCl (Narcan) 0.1 mg Q5MP PRN IV SEE LABEL COMMENTS 10/20/20 14:40 Cancel Non-Formulary Medication (Epidural/LISW [place]) 1 each ASDIRECTED PRN XX SEE LABEL COMMENTS 10/20/20 14:40 Cancel Non-Formulary Medication ([place]) ASDIRECTED PRN XX SEE LABEL COMMENTS 10/20/20 14:40 Cancel Ondansetron HCl (ZOFRAN INJection) 4 mg Q4HP PRN IV NAUSEA 10/20/20 16:00 Ondansetron HCl (ZOFRAN INJection) 4 mg Q4HP PRN IV NAUSEA OR VOMITING 10/20/20 17:30 10/20/20 18:30 DC Ondansetron HCl (ZOFRAN INJection) 4 mg Q4HP PRN IV NAUSEA 10/03/20 15:25 Cancel Ondansetron HCl (ZOFRAN INJection) 4 mg Q6HP PRN IV REFRACTORY NAUSEA 10/20/20 14:40 Cancel Oxycodone HCl (Roxicodone, Oxyir) 5 mg ASDIRECTED PRN PO PAIN LEVEL 1-4 10/20/20 17:30 10/20/20 18:30 DC Oxycodone/ Acetaminophen (Percocet 5mg/ 325mg Tablet) 1 tab Q4H PRN PO MODERATE PAIN (PS 5-7) 10/20/20 16:00 Hold Oxycodone/ Acetaminophen (Percocet 5mg/ 325mg Tablet) 1 tab Q4H PRN PO MODERATE PAIN (PS 5-7) 10/03/20 15:25 10/20/20 15:58 DC 10/17/20 21:59 Oxycodone/ Acetaminophen (Percocet 5mg/ 325mg Tablet) 2 tab Q4H PRN PO SEVERE PAIN (PS 8-10) 10/20/20 16:00 Hold Oxycodone/ Acetaminophen (Percocet 5mg/ 325mg Tablet) 2 tab Q4H PRN PO SEVERE PAIN (PS 8-10) 10/03/20 15:25 10/20/20 15:58 DC 10/10/20 22:59 Pantoprazole Sodium (Protonix) 40 mg DAILY IV 10/21/20 09:00 10/22/20 09:10 Pantoprazole Sodium (Protonix) 40 mg DAILY PO 10/21/20 09:00 10/21/20 07:46 DC Pantoprazole Sodium (Protonix) 40 mg DAILY PO 10/04/20 09:00 10/20/20 15:58 DC 10/20/20 09:18 Phenylephrine HCl 50 mg/Dextrose 500 ml @ 7.2 mls/hr Q24H IV 10/20/20 21:05 Hold 10/20/20 23:24 Phenylephrine HCl 50 mg/Dextrose 500 ml @ 15 mls/hr Q24H IV 10/21/20 18:21 UNV Potassium Chloride/Dextrose/ Sod Cl 1,000 ml @ 75 mls/hr [id number] IV 10/20/20 15:58 10/22/20 09:26 DC 10/21/20 17:59 Potassium Chloride/Dextrose/ Sod Cl 1,000 ml @ 75 mls/hr [id number] IV 10/03/20 15:25 10/03/20 17:11 DC Prednisone (Deltasone) 60 mg DAILY PO 10/04/20 09:00 10/22/20 09:10 Sodium Chloride 1,000 ml @ 100 mls/hr Q10H IV 10/22/20 12:25 10/22/20 12:35 Sodium Chloride (Saline Lock Flush) 2 ml ASDIRECTED PRN IV SEE LABEL COMMENTS 10/13/20 08:00 Sodium Chloride (Saline Lock Flush) 2 ml SLF IV 10/13/20 14:00 10/22/20 05:07 Sodium Chloride (Saline Lock Flush) 10 ml ASDIRECTED PRN IV SEE LABEL COMMENTS 10/15/20 05:10 10/20/20 15:58 DC 10/18/20 08:35 Allergies Coded Allergies: No Known Drug Allergies (Verified Allergy, Unknown, 10/03/20) Madison Rico MD Oct 22, 2020 05:57
--- NOTE | 2020-10-22 08:09 | REP ---
INDICATION: pneumothorax. COMPARISON: Comparison chest x-ray October 20, 2020. TECHNIQUE: Two views.. FINDINGS: There are 2 right apical pleural drainage catheters again noted. A tiny sliver of apical pleural air is seen decreased from the prior radiograph. Right subclavian central venous line terminates in the expected location of the right atrium. Diffuse interstitial lung disease persists unchanged. Relatively low level of inspiration. Monitoring electrodes are noted. There appears to be an epidural catheter. There is less extrathoracic air in the soft tissues adjacent to the right chest wall today. IMPRESSION: Findings essentially unchanged. Two right chest tubes remain in place at the apex.. <Electronically signed by Devaughn Georges > 10/22/20 2310
[2020-10-22] MEDS: DOCUSATE SODIUM 100MG CAPSULE PO SCH ×2 (09:00→20:39)
[2020-10-22] MEDS: MOM 30ML SUSPENSION UDC PO SCH (09:00)
[2020-10-22] MEDS: LEVEMIR (INSULIN DETEMIR) 1 UNITS/0.01ML SC SCH (09:09)
[2020-10-22] MEDS: predniSONE 20 MG TAB PO SCH (09:10)
[2020-10-22] MEDS: HumaLOG INSULIN (NovoLOG) PER UNIT SC SCH ×4 (09:10→20:41)
[2020-10-22] MEDS: PANTOPRAZOLE 40MG VIAL (C9113 PER 1) IV SCH (09:10)
[2020-10-22] MEDS: HEPARIN SOD (PORCINE) 5000UNITS/ML 1ML VIAL/SYRINGE SC SCH ×2 (09:11→20:40)
[2020-10-22] MEDS: ATOVAQUONE SUSP 750MG/5ML 210 ML BTL PO SCH (09:11)
[2020-10-22] MEDS: HYDROXYCHLOROQUINE 200 MG TAB PO SCH ×2 (09:11→20:39)
[2020-10-22] MEDS: MIDODRINE 5 MG TAB PO SCH ×3 (09:15→17:20)
--- NOTE | 2020-10-22 11:57 | IPN ---
THORACIC SURGERY PROGRESS NOTE DATE: 10/22/2020 SUBJECTIVE: Mr. Licea was seen this morning at bedside in the intensive care unit (ICU). He continues to do well and is currently off of the Boris-Synephrine. His blood pressure is adequate and his intravenous (IV) fluids have similarly been discontinued. He is eating well, passing gas and is tolerating his chest tubes adequately as well. He has no acute complaints at this time and denies any chest pain, difficulty breathing, abdominal pain, nausea, vomiting, constipation, diarrhea. Nursing staff notes no acute events overnight. OBJECTIVE: VITAL SIGNS: Maximum temperature (T-max) 98.8 overnight, pulse 79, respiratory rate of 22, blood pressure 144/66, saturating 99% on 2 liters nasal cannula. INTAKE AND OUTPUT: In the last 24 hours, he has had 3317 mL of intake with 2000 of those coming from IV fluids, with 1410 mL output, 1075 for urine and 335 for his chest tube drainage. GENERAL: Patient is a thin-appearing male who appears stated age, sitting upright in bed in no acute distress, speaking in complete sentences. HEENT: Head is normocephalic, atraumatic. Extraocular movements intact. No scleral icterus. Trachea is midline on exam. Mucous membranes are moist. CARDIOVASCULAR: Regular rate and rhythm. Normal S1, S2. No murmurs, gallops or rubs. RESPIRATORY: He has Velcro-like crackles on the left side of the lung, specifically the left lower lobe, with bronchophony and sounds from the chest tube in the right lower lobe. No adventitious breath sounds in either left or right upper lobe. No wheezes or rhonchi. There is dullness to percussion on the right compared to the left. ABDOMEN: Soft, nontender, nondistended. Bowel sounds present. No costovertebral angle (CVA) tenderness. EXTREMITIES: Show no edema or swelling. SKIN: Warm, dry and perfusing well. PSYCHIATRIC: He is awake, alert and oriented times three. NEUROLOGIC: Cranial nerves II-XII are grossly intact. Sensation is intact. LABORATORY DATA: White blood cell count 11.8, hemoglobin 14.1, hematocrit 46.6, platelet count 173. Sodium 139, potassium 5.2, chloride 104, bicarbonate 34, BUN 19, creatinine 0.53, glucose 260. Lung pathology is still pending. IMAGING: Chest x-ray: The subcutaneous emphysema is essentially gone in right upper aspects just outside of the right upper lobe. The lung wall is now attached. His subclavian line remains in good position. His right lung volume is decreased compared to the left side with an opacity overlying the right lower lobe. ASSESSMENT AND PLAN: Mr. Licea is a 65-year-old male with a history of recurrent pneumothoraces who is status post tap pleurodesis on 10/20/2020, seen on postoperative day #2. 1. Recurrent pneumothorax status post TALC pleurodesis. He is postoperative day #2. He has been afebrile overnight. He still may become febrile, which would be expected given the procedure that he has had done. He continues to have adequate output from his chest tubes. It seems like his lungs are adhering well to the chest wall. We will continue him at -40 mmHg suction until Tuesday, at which point we will turn the chest tube off of suction and set it to -20 mmHg and then on Tuesday, may transition him to -10 mmHg. His D5 normal saline has been discontinued as his blood pressure has been stable. His Boris-Synephrine has been discontinued as well. We will keep the epidural in, in case he requires more pain control. Other than that, we will continue to see how he improves moving forward. Attending note: agree with above. -- BENSON Reese [facility]
[2020-10-22] MEDS ORDERED: NS 1,000 ML IV SCH (12:25)
[2020-10-22] MEDS: FENTANYL/BUPIVACAINE/NACL BAG 250 ML EPIDURAL SCH (17:23)
[2020-10-22] MEDS ORDERED: LEVEMIR (INSULIN DETEMIR) 1 UNITS/0.01ML SC SCH (21:00)
[2020-10-23] VITALS (10 sets, daily range): BP systolic 93–160; BP diastolic 57–98
[2020-10-23] MEDS: LEVALBUTEROL 1.25 MG/0.5 ML CONCENTRATE NEB NEB SCH ×4 (01:59→20:19)
[2020-10-23 03:39] LABS: BASO # 0.1 10^3/uL (0.0-0.2); BASO % 0.6 % (0.0-1.0); EOS % 0.2 % (0.0-3.0); HEMOGLOBIN 12.9 g/dl (13.5-17.5); LYMPH # 0.3 10^3/uL (1.5-5.0); LYMPH % 3.3 % (24.0-44.0); MEAN CORPUSCULAR HEMOGLOBIN 29.7 pg (27.0-33.0); MEAN CORPUSCULAR HGB CONC 30.7 g/dl (32.0-36.5); MEAN CORPUSCULAR VOLUME 96.8 fl (80.0-96.0); MONO # 0.6 10^3/uL (0.0-0.8); NEUTROPHILS # 8.7 10^3/uL (1.5-8.5); NEUTROPHILS % 85.9 % (36.0-66.0); PLATELET COUNT, AUTOMATED 163 10^3/uL (150-450); RED BLOOD COUNT 4.34 10^6/uL (4.30-6.10); WHITE BLOOD COUNT 10.1 10^3/uL (4.0-10.0)
[2020-10-23 04:03] LABS: BLOOD UREA NITROGEN 20 MG/DL (7-18); CALCIUM LEVEL 7.8 MG/DL (8.8-10.2); CARBON DIOXIDE LEVEL 34 MEQ/L (21-32); CHLORIDE LEVEL 106 MEQ/L (98-107); CREATININE FOR GFR 0.49 MG/DL (0.70-1.30); GLOMERULAR FILTRATION RATE > 60.0 (>49); GLUCOSE, FASTING 217 MG/DL (70-100); POTASSIUM SERUM 4.5 MEQ/L (3.5-5.1); SODIUM LEVEL 142 MEQ/L (136-145)
[2020-10-23] MEDS: KETOROLAC 30 MG/ML 1ML VIAL IV SCH ×4 (05:21→22:32)
[2020-10-23] MEDS: SLF 3 ML SYR IV SCH ×3 (05:22→22:34)
[2020-10-23] MEDS: HumaLOG INSULIN (NovoLOG) PER UNIT SC SCH ×4 (07:30→21:00)
[2020-10-23] MEDS: MIDODRINE 5 MG TAB PO SCH ×3 (08:00→17:49)
--- NOTE | 2020-10-23 08:29 | REP ---
INDICATION: pneumothorax. COMPARISON: 10/22/2020. TECHNIQUE: Upright PA and lateral chest. FINDINGS: The 2 right thoracotomy tubes are unchanged. There is a tiny right apical pneumothorax. Diffuse bilateral interstitial coarsening is again identified, unchanged. The right subclavian central venous catheter is unchanged. The epidural catheter is unchanged. Cardiac size is normal. Small volume of subcutaneous emphysema along the right lateral chest wall. IMPRESSION: There is no significant interval change. <Electronically signed by Tavo Alex > 10/23/20 [id number]
[2020-10-23] MEDS: MOM 30ML SUSPENSION UDC PO SCH (09:00)
[2020-10-23] MEDS: LEVEMIR (INSULIN DETEMIR) 1 UNITS/0.01ML SC SCH ×2 (09:00→22:33)
[2020-10-23] MEDS: DOCUSATE SODIUM 100MG CAPSULE PO SCH ×2 (09:00→21:00)
[2020-10-23] MEDS: PANTOPRAZOLE 40MG VIAL (C9113 PER 1) IV SCH (10:03)
[2020-10-23] MEDS: HEPARIN SOD (PORCINE) 5000UNITS/ML 1ML VIAL/SYRINGE SC SCH ×2 (10:04→22:33)
[2020-10-23] MEDS: ATOVAQUONE SUSP 750MG/5ML 210 ML BTL PO SCH (10:04)
[2020-10-23] MEDS: HYDROXYCHLOROQUINE 200 MG TAB PO SCH ×2 (10:05→22:32)
[2020-10-23] MEDS: predniSONE 20 MG TAB PO SCH (10:05)
--- NOTE | 2020-10-23 10:57 | IPNPDOC ---
Date Seen The patient was seen on 10/23/20. Progress Note SUBJECTIVE: BP remained stable off pressors, pain controlled. Stopping epidural and d/cing chowdhury catheter today. Overall improving, denies incr chest pain, shortness of breath, n/v/d. OBJECTIVE: PHYSICAL EXAM: VITAL SIGNS: Please see below GENERAL: In NAD, resting in bed LUNGS: Diminished breath sounds b/l bases, crackles mild b/l. CVS: S1 and S2, sinus rhythm. No murmurs, rubs or gallops. GI: Soft, nontender and nondistended. Positive bowel sounds. CHEST: Right subclavian line BACK: epidural in place upper back, right lower back chest tubes EXTREMITIES: No cyanosis, clubbing or pitting edema. Left ext PICC line, left radial line : chowdhury catheter NEURO: CN 2-12 intact, no focal deficits. LABORATORY DATA: Please see below MICROBIOLOGY: Please see below IMAGING: CXR 10/23/20: There is no significant interval change. CXR 10/22/20: Findings essentially unchanged. Two right chest tubes remain in place at the apex. CXR 10/21/20: The subcutaneous emphysema along the right lateral chest wall has decreased. Question fracture tip of the right scapular versus superimposition artifact. No other interval change. 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 Admitted for persistent right sided spontaneous pneumothorax , POD 3 talc pleurodesis 10/20/20. PLAN: 1. Spontaneous pneumothorax on the right with recurrence, status post blood patch on 10/15 and 10/17, POD 3 talc pleurodesis on 10/20. 2. Hypotension likely multifactorial to pain medication/epidural with Fentanyl/bupivacaine, poss hypovolemia- resolved. 3. Type 2 diabetes 4. History of idiopathic pulmonary fibrosis, SLE on chronic prednisone and Plaquenil. 5. Mild hyperkalemia, acute- resolved 6. Alveolar pleural fistula. 7. Secondary polycythemia due to chronic hypoxia with IBS. 8. Thrombocytopenia, improving with negative Heparin induced thrombocytopenia panel. 9. GERD 10. COPD. DVT px: Heparin SC PLAN: Saturating well on 2 L NC, no increased SOB or chest pain. BS 70's this AM, decreased levemir HS. Decreased o/p from chest tube overnight. Downgrading today to PCU. Thoracic surgery following closely VS, I&O, 24H, Fishbone Vital Signs/I&O Vital Signs Date Time Temp Pulse Resp B/P (MAP) Pulse Ox O2 Delivery O2 Flow Rate FiO2 10/23/20 06:48 73 134/71 (94) 98 10/23/20 04:01 97.4 20 10/23/20 04:00 2.0 10/23/20 00:01 Nasal Cannula I&O- Last 24 Hours up to 6 AM 10/23/20 05:59 Intake Total 1820 ml Output Total 1536 ml Balance 284 ml Laboratory Data 24H LABS Laboratory Tests 2 10/22/20 12:13: Bedside Glucose (Misc Panel) 198H 10/22/20 14:49: Bedside Glucose (Misc Panel) 173H 10/22/20 17:02: Bedside Glucose (Misc Panel) 223H 10/22/20 20:33: Bedside Glucose (Misc Panel) 303H 10/23/20 03:10: Immature Granulocyte % (Auto) 4.0H, Neutrophils (%) (Auto) 85.9H, Lymphocytes (%) (Auto) 3.3L, Monocytes (%) (Auto) 6.0, Eosinophils (%) (Auto) 0.2, Basophils (%) (Auto) 0.6, Neutrophils # (Auto) 8.7H, Lymphocytes # (Auto) 0.3L, Monocytes # (Auto) 0.6, Eosinophils # (Auto) 0.0, Basophils # (Auto) 0.1, Nucleated Red Blood Cells % (auto) 0.0, Anion Gap 2L, Glomerular Filtration Rate > 60.0, Calcium Level 7.8L 10/23/20 09:23: Bedside Glucose (Misc Panel) 74L CBC/BMP Laboratory Tests 10/23/20 03:10 Current Medications Current Medications Medications (Trade) Dose Ordered Sig/Ismael Route PRN Reason Start Time Stop Time Status Last Admin Dose Admin Acetaminophen (Tylenol Tab) 650 mg Q6HP PRN PO T > 101.5 or TAY 10/20/20 16:00 Acetaminophen (Tylenol Tab) 650 mg Q6HP PRN PO T > 101.5 or TAY 10/03/20 15:25 Cancel Acetaminophen/ Hydrocodone Bitart ([place], Anexsia 5/325) 1 tab Q3H PRN PO MILD PAIN (PS 1-4) 10/20/20 16:00 Hold Acetaminophen/ Hydrocodone Bitart ([place], Anexsia 5/325) 1 tab Q3H PRN PO MILD PAIN (PS 1-4) 10/03/20 15:25 10/20/20 15:58 DC 10/13/20 20:26 Atovaquone (Mepron 750mg/ 5ml Suspension) 1,500 mg DAILY PO 10/04/20 09:00 10/23/20 10:04 Bisacodyl (Dulcolax Suppository) 10 mg Q4HP PRN [place] CONSTIPATION 10/20/20 16:00 Bisacodyl (Dulcolax Suppository) 10 mg Q4HP PRN [place] CONSTIPATION 10/03/20 15:25 Cancel Cefazolin Sodium 1 gm/Dextrose 50 ml @ 100 mls/hr Q8H IV 10/20/20 21:00 10/22/20 13:29 DC 10/22/20 12:38 Dextrose (Dextrose 50%) 25 ml ASDIRECTED PRN IV SEE LABEL COMMENTS 10/03/20 17:35 Cancel Dextrose/Sodium Chloride 1,000 ml @ 75 mls/hr [id number] IV 10/03/20 17:10 10/03/20 20:13 DC 10/03/20 17:32 Diphenhydramine HCl (Benadryl) 12.5 mg Q4HP PRN IV ITCHING 10/20/20 14:40 Cancel Docusate Sodium (Colace) 100 mg BID PO 10/20/20 21:00 10/22/20 20:39 Docusate Sodium (Colace) 100 mg BID PO 10/03/20 21:00 10/20/20 15:58 DC 10/18/20 08:33 Fentanyl Citrate (Sublimaze) 25 mcg Q5MP PRN IV PAIN LEVEL 5-10 10/20/20 17:30 10/20/20 18:30 DC Fentanyl/ Bupivacaine HCl 250 ml @ 4 mls/hr Q24H EPIDURAL 10/20/20 14:40 Hold 10/22/20 17:23 Glucagon (Glucagon) 1 mg ASDIRECTED PRN SC SEE LABEL COMMENTS 10/03/20 17:35 Cancel Glucose (Glucose) 16 GM ASDIRECTED PRN PO SEE LABEL COMMENTS 10/03/20 17:35 Cancel Heparin Sodium (Heparin Lock Flush 10units/ml) 10 units ASDIRECTED PRN IV SEE LABEL COMMENTS 10/15/20 05:10 10/20/20 15:58 DC 10/18/20 08:34 Heparin Sodium (Porcine) (Heparin) 5,000 units Q12H SC 10/20/20 21:00 10/21/20 07:45 DC Heparin Sodium (Porcine) (Heparin) 5,000 units Q12H SC 10/03/20 21:00 10/23/20 10:04 Home Med (Med Rec Complete!) ASDIRECTED XX 10/03/20 16:15 10/03/20 16:15 DC Hydromorphone HCl (Dilaudid) 0.2 mg Q5MP PRN IV PAIN LEVEL 4-7 10/20/20 17:30 10/20/20 18:30 DC Hydroxychloroquine Sulfate (Plaquenil) 200 mg BID PO 10/03/20 21:00 10/23/20 10:05 Insulin Detemir (Levemir Insulin) 6 units BID SC 10/16/20 09:00 10/20/20 08:46 DC 10/19/20 21:57 Insulin Detemir (Levemir Insulin) 6 units QHS SC 10/06/20 21:00 10/07/20 19:23 DC 10/06/20 20:57 Insulin Detemir (Levemir Insulin) 8 units QHS SC 10/07/20 21:00 10/16/20 07:46 DC 10/15/20 21:09 Insulin Detemir (Levemir Insulin) 12 units BID SC 10/20/20 21:00 10/22/20 05:36 DC 10/21/20 22:02 Insulin Detemir (Levemir Insulin) 15 units QHS SC 10/22/20 21:00 10/22/20 20:42 Insulin Detemir (Levemir Insulin) 18 units QAM SC 10/22/20 09:00 10/22/20 09:09 Insulin Human Lispro (HumaLOG INSULIN) SEE PROTOCOL TABLE AC SC 10/04/20 07:30 10/22/20 17:20 Insulin Human Lispro (HumaLOG INSULIN) SEE PROTOCOL TABLE QHS SC 10/03/20 21:00 10/22/20 20:41 Ketorolac Tromethamine (ToRADol) 15 mg Q6H IV 10/03/20 18:00 10/08/20 17:59 DC 10/08/20 12:53 Ketorolac Tromethamine (ToRADol) 30 mg Q6H IV 10/20/20 17:00 10/25/20 16:59 10/23/20 05:21 Levalbuterol HCl (Xopenex Neb) 1.25 mg Q2HP PRN NEB WHEEZING 10/03/20 15:25 Levalbuterol HCl (Xopenex Neb) 1.25 mg RQ6H NEB 10/03/20 20:00 10/23/20 07:36 Lidocaine HCl (LIDOCAINE 1% MDV 20ml) 40 ml STAT STAT SC 10/08/20 12:39 10/08/20 12:41 DC 10/08/20 11:54 Lidocaine HCl (Lmx 4/Anecream) 1 dose Q8HP PRN TOP PAIN 10/08/20 21:50 10/08/20 23:45 Magnesium Hydroxide (Milk Of Magnesia) 30 ml DAILY PO 10/21/20 09:00 Magnesium Hydroxide (Milk Of Magnesia) 30 ml DAILY PO 10/04/20 09:00 10/20/20 15:58 DC 10/08/20 09:04 Metoclopramide HCl (REGLAN INJection) 10 mg Q6HP PRN IV NAUSEA 10/20/20 14:40 Cancel Midazolam HCl (Versed) 6 mg ASDIRECTED STAT IV 10/08/20 12:39 10/08/20 12:41 DC 10/08/20 11:50 Midodrine (Proamatine) 5 mg 08,12,16 PO 10/17/20 13:00 10/22/20 17:20 Miscellaneous (Unresolved Clarification Entry) SEE LABEL COMMENTS DAILY XX 10/09/20 09:00 10/09/20 14:46 DC Naloxone HCl (Narcan) 0.1 mg Q5MP PRN IV SEE LABEL COMMENTS 10/20/20 14:40 Cancel Non-Formulary Medication (Epidural/REMOTE SENSING TECHNOLOGIST Radium) 1 each ASDIRECTED PRN XX SEE LABEL COMMENTS 10/20/20 14:40 Cancel Non-Formulary Medication (Radium) ASDIRECTED PRN XX SEE LABEL COMMENTS 10/20/20 14:40 Cancel Ondansetron HCl (ZOFRAN INJection) 4 mg Q4HP PRN IV NAUSEA 10/20/20 16:00 Ondansetron HCl (ZOFRAN INJection) 4 mg Q4HP PRN IV NAUSEA OR VOMITING 10/20/20 17:30 10/20/20 18:30 DC Ondansetron HCl (ZOFRAN INJection) 4 mg Q4HP PRN IV NAUSEA 10/03/20 15:25 Cancel Ondansetron HCl (ZOFRAN INJection) 4 mg Q6HP PRN IV REFRACTORY NAUSEA 10/20/20 14:40 Cancel Oxycodone HCl (Roxicodone, Oxyir) 5 mg ASDIRECTED PRN PO PAIN LEVEL 1-4 10/20/20 17:30 10/20/20 18:30 DC Oxycodone/ Acetaminophen (Percocet 5mg/ 325mg Tablet) 1 tab Q4H PRN PO MODERATE PAIN (PS 5-7) 10/20/20 16:00 Hold Oxycodone/ Acetaminophen (Percocet 5mg/ 325mg Tablet) 1 tab Q4H PRN PO MODERATE PAIN (PS 5-7) 10/03/20 15:25 10/20/20 15:58 DC 10/17/20 21:59 Oxycodone/ Acetaminophen (Percocet 5mg/ 325mg Tablet) 2 tab Q4H PRN PO SEVERE PAIN (PS 8-10) 10/20/20 16:00 Hold Oxycodone/ Acetaminophen (Percocet 5mg/ 325mg Tablet) 2 tab Q4H PRN PO SEVERE PAIN (PS 8-10) 10/03/20 15:25 10/20/20 15:58 DC 10/10/20 22:59 Pantoprazole Sodium (Protonix) 40 mg DAILY IV 10/21/20 09:00 10/23/20 10:03 Pantoprazole Sodium (Protonix) 40 mg DAILY PO 10/21/20 09:00 10/21/20 07:46 DC Pantoprazole Sodium (Protonix) 40 mg DAILY PO 10/04/20 09:00 10/20/20 15:58 DC 10/20/20 09:18 Phenylephrine HCl 50 mg/Dextrose 500 ml @ 7.2 mls/hr Q24H IV 10/20/20 21:05 10/22/20 17:39 DC 10/20/20 23:24 Phenylephrine HCl 50 mg/Dextrose 500 ml @ 15 mls/hr Q24H IV 10/21/20 18:21 UNV Potassium Chloride/Dextrose/ Sod Cl 1,000 ml @ 75 mls/hr [id number] IV 10/20/20 15:58 10/22/20 09:26 DC 10/21/20 17:59 Potassium Chloride/Dextrose/ Sod Cl 1,000 ml @ 75 mls/hr [id number] IV 10/03/20 15:25 10/03/20 17:11 DC Prednisone (Deltasone) 60 mg DAILY PO 10/04/20 09:00 10/23/20 10:05 Sodium Chloride 1,000 ml @ 100 mls/hr Q10H IV 10/22/20 12:25 10/22/20 17:37 DC 10/22/20 12:35 Sodium Chloride (Saline Lock Flush) 2 ml ASDIRECTED PRN IV SEE LABEL COMMENTS 10/13/20 08:00 Sodium Chloride (Saline Lock Flush) 2 ml SLF IV 10/13/20 14:00 10/23/20 05:22 Sodium Chloride (Saline Lock Flush) 10 ml ASDIRECTED PRN IV SEE LABEL COMMENTS 10/15/20 05:10 10/20/20 15:58 DC 10/18/20 08:35 Allergies Coded Allergies: No Known Drug Allergies (Verified Allergy, Unknown, 10/03/20) Madison Rico MD Oct 23, 2020 10:57
[2020-10-24] VITALS: BP 125/81
[2020-10-24] MEDS: LEVALBUTEROL 1.25 MG/0.5 ML CONCENTRATE NEB NEB SCH ×4 (01:47→20:29)
[2020-10-24 04:00] VITALS: BP 116/61
[2020-10-24] MEDS: KETOROLAC 30 MG/ML 1ML VIAL IV SCH ×4 (05:42→23:07)
[2020-10-24] MEDS: SLF 3 ML SYR IV SCH ×3 (05:43→22:54)
[2020-10-24 06:04] LABS: BASO # 0.1 10^3/uL (0.0-0.2); BASO % 0.8 % (0.0-1.0); EOS # 0.1 10^3/uL (0.0-0.5); EOS % 1.6 % (0.0-3.0); HEMATOCRIT 40.8 % (42.0-52.0); HEMOGLOBIN 12.6 g/dl (13.5-17.5); LYMPH # 1.2 10^3/uL (1.5-5.0); LYMPH % 13.8 % (24.0-44.0); MEAN CORPUSCULAR HEMOGLOBIN 29.4 pg (27.0-33.0); MEAN CORPUSCULAR HGB CONC 30.9 g/dl (32.0-36.5); MEAN CORPUSCULAR VOLUME 95.1 fl (80.0-96.0); MONO # 0.6 10^3/uL (0.0-0.8); MONO % 6.3 % (2.0-8.0); NEUTROPHILS # 6.5 10^3/uL (1.5-8.5); NEUTROPHILS % 73.5 % (36.0-66.0); PLATELET COUNT, AUTOMATED 170 10^3/uL (150-450); RED BLOOD COUNT 4.29 10^6/uL (4.30-6.10); WHITE BLOOD COUNT 8.9 10^3/uL (4.0-10.0)
[2020-10-24 06:31] LABS: BLOOD UREA NITROGEN 22 MG/DL (7-18); CALCIUM LEVEL 7.8 MG/DL (8.8-10.2); CARBON DIOXIDE LEVEL 39 MEQ/L (21-32); CHLORIDE LEVEL 103 MEQ/L (98-107); CREATININE FOR GFR 0.43 MG/DL (0.70-1.30); GLOMERULAR FILTRATION RATE > 60.0 (>49); GLUCOSE, FASTING 66 MG/DL (70-100); POTASSIUM SERUM 3.7 MEQ/L (3.5-5.1); SODIUM LEVEL 143 MEQ/L (136-145)
[2020-10-24] MEDS: HumaLOG INSULIN (NovoLOG) PER UNIT SC SCH ×4 (07:30→20:53)
[2020-10-24 08:00] VITALS: BP 112/78
--- NOTE | 2020-10-24 08:30 | IPN ---
PROGRESS NOTE DATE: 10/23/2020 SUBJECTIVE: The patient is seen and examined in the ICU. He was having some episodes of hypotension yesterday, so I turned down his epidural from 4 to 2 and gave him some IV fluids. However, the hypotension seemed to persist so I turned off the epidural entirely and his blood pressure seemed to rapidly improve after that. He is not in any pain so I think it is appropriate to continue to leave it off entirely. Otherwise, he endorses no complaints other than wanting to get out of the hospital as soon as possible. He denies any fever, chills, chest pain, difficulty breathing, abdominal pain, nausea, vomiting, constipation, or diarrhea. OBJECTIVE: VITAL SIGNS: Afebrile overnight, temperature 97.4, pulse 73 and regular, respiratory rate of 20, blood pressure 134/71, satting 98% on 2 liters nasal cannula. INTAKE AND OUTPUT: In the last 24 hours, he has had 2150 mL of intake with 1395 mL of output specifically 1155 mL of urine with 240 mL of chest tube drainage. No air leak. GENERAL: The patient is a thin-appearing male who appears stated age sitting up right in bed, in no acute distress, and able to complete sentences. HEENT: Head is normocephalic, atraumatic. EOMI. No scleral icterus. Trachea is midline. Mucous membranes are moist. CARDIOVASCULAR: Regular rate and rhythm. Normal S1 and S2. No murmurs, gallops, or rubs. Continues to have velcro-like crackles on the left side of the lung and mild bronchophony from the chest tube in the right side of the lung. No adventitious breath sounds appreciated. Otherwise, no wheezes or rhonchi. There is no dullness to percussion appreciated on the exam today. ABDOMEN: Soft, nontender, and nondistended. Bowel sounds present. No CVA tenderness. EXTREMITIES: No edema or swelling. SKIN: Warm and dry. NEUROLOGIC: Cranial nerves 2 through 12 are intact. Sensation is intact. PSYCHIATRIC: He is awake, alert, and oriented x3 with appropriate mood and affect. LABORATORY DATA: White blood cell count of 10.1, hemoglobin 12.9, hematocrit 42.0, platelet count of 163,000. Sodium 142, potassium 4.5, chloride 106, bicarb 34, BUN 20, creatinine 0.49, glucose 217, calcium 7.8. Lung pathology returned and is consistent with prominently fibrous pleural bed with evidence of recent hemorrhage from the right lower lobe wedge resection, as well as interstitial fibrosis and calcification, consistent with clinical history of chronic lung disease and no evidence for malignancy. IMAGING DATA: Chest x-ray The right upper lobe is minimally detached from the chest wall. No signs of subcutaneous emphysema. Chest tubes continue to be in good position. Trachea is minimally deviated to the right side, but less so from the day prior. Part of this, may be due to positioning. Sharp costophrenic angles on the left. Costophrenic angles on the right are seen. There is some haziness throughout the lung santoro. No other signs of acute infiltrate or acute processes have developed. ASSESSMENT AND PLAN: Mr. Licea is a 65-year-old male with a history of recurrent pneumothoraces status post talc pleurodesis on 10/20/2020, seen postoperatively day #3. 1. Recurrent pneumothorax status post talc pleurodesis. On postoperative day #3, he continues to progress well with adequate urine output. He continues to have adequate output from his chest tubes, and his lungs are generally adhering well to the chest wall. We will keep him at -40 suction until tomorrow and then turn his suction to -20. Then on Tuesday, november transition him to -10. We will discontinue his epidural and his Strong catheter as his blood pressure has been stable. I also informed nursing staff if his blood pressure remains good throughout the day with an systolic blood pressure (SBP) greater than 110 and not requiring any midodrine, he should be discontinued from that as well as it was started during his inpatient admission, and we do not want to carry forward any unnecessary medications. Dictated by Keo Garcia, in conjunction with attending Kristy Jackson
[2020-10-24] MEDS: LEVEMIR (INSULIN DETEMIR) 1 UNITS/0.01ML SC SCH ×2 (09:00→20:52)
[2020-10-24] MEDS: DOCUSATE SODIUM 100MG CAPSULE PO SCH ×2 (09:00→20:53)
[2020-10-24] MEDS: MOM 30ML SUSPENSION UDC PO SCH (09:00)
[2020-10-24] MEDS: PANTOPRAZOLE 40MG VIAL (C9113 PER 1) IV SCH (09:54)
[2020-10-24] MEDS: MIDODRINE 5 MG TAB PO SCH ×3 (09:55→16:59)
[2020-10-24] MEDS: HYDROXYCHLOROQUINE 200 MG TAB PO SCH ×2 (09:55→20:53)
[2020-10-24] MEDS: HEPARIN SOD (PORCINE) 5000UNITS/ML 1ML VIAL/SYRINGE SC SCH ×2 (09:55→20:54)
[2020-10-24] MEDS: ATOVAQUONE SUSP 750MG/5ML 210 ML BTL PO SCH (09:56)
[2020-10-24] MEDS: predniSONE 20 MG TAB PO SCH (09:56)
--- NOTE | 2020-10-24 11:59 | IPN ---
PROGRESS NOTE DATE: 10/24/2020 SUBJECTIVE: No acute events overnight. The patient states he is doing well and he is pain free despite being totally off the epidural. His blood pressure also was intact overnight and he was not hypotensive. He continues to deny any fever, chills, chest pain, shortness of breath, abdominal pain, nausea, vomiting, or change in bowel habits. OBJECTIVE: VITAL SIGNS: Temperature 97.6, afebrile overnight, pulse 69 and regular, respiratory rate of 19, blood pressure 112/78, satting 96% on 2 liters nasal cannula. INTAKE AND OUTPUT: He has had 770 mL of intake in the last 24 hours with 1146 mL of output, 920 for urine and 225 mL by chest tube. GENERAL: Thin appearing male who appears stated age sitting upright at bedside on PCU in no acute distress. Speaking in complete sentences. HEENT: Head is normocephalic, atraumatic. EOMI. No scleral icterus. Trachea is midline. Mucous membranes are moist. CARDIOVASCULAR: Regular rate and rhythm. Normal S1, S2. No murmurs, gallops, or rubs. RESPIRATORY: Velcro-like crackles on the left side of the lung and right side of the lung with mild bronchophony from the chest tube on the right side of the lung. No adventitious breath sounds appreciated. No wheezes or rhonchi. No dullness to percussion bilaterally. ABDOMEN: Soft, nontender, and nondistended. Bowel sounds present. No CVA tenderness. EXTREMITIES: No edema or swelling. SKIN: Warm and dry. PSYCHIATRIC: Awake, alert, and oriented x3 with appropriate mood and affect. NEUROLOGIC: Cranial nerves 2 through 12 are intact. Sensation is intact. LABORATORY DATA: White blood cell count of 8.9, hemoglobin 12.6, hematocrit 40.8, platelet count of 170,000. BMP shows sodium 143, potassium 3.7, Chloride 107, bicarb 39, BUN 22, creatinine 0.43, glucose 66, calcium 7.8. IMAGING DATA: His chest x-ray continues to only show minimal displacement of the right upper lobe of the lung from the chest wall, but not signs of subcutaneous emphysema, no signs of acute infiltrates, and bilaterally sharp costophrenic angles. ASSESSMENT AND PLAN: Mr. Licea is a 65-year-old male with a history of recurrent pneumothoraces status post talc pleurodesis on 10/20/2020, seen postoperatively day #4. 1. Recurrent pneumothorax status post talc pleurodesis. He continues to progress quite well on postoperative day #4 with adequate chest tube drainage. We will be changing his suction to -20 today. On Tuesday, we may put him to water seal with hopes to possibly take out the chest tube on Tuesday. Depending on how he progresses with physical therapy, he may be ready for discharge on Tuesday morning. Dictated by Keo Garcia DO in conjunction with Kristy Jackson
[2020-10-24 12:00] VITALS: BP 106/64
--- NOTE | 2020-10-24 12:33 | REP ---
INDICATION: pneumothorax. COMPARISON: Comparison chest x-ray October 23, 2020. TECHNIQUE: Two views.. FINDINGS: Two right-sided chest tubes remain in place at the apex of the right lung. AP barely visible tiny sliver of pleural air is seen adjacent to this laterally. There is a Gpdbsg-P-Shoh catheter again noted in place via the right subclavian vein in position of the right atrium. Diffuse interstitial lung disease persists essentially unchanged. Heart remains mildly enlarged unchanged. IMPRESSION: Two right chest tubes remain in place. Diffuse interstitial lung disease persists essentially unchanged.. <Electronically signed by Devaughn Georges > 10/24/20 [id number]
--- NOTE | 2020-10-24 14:38 | IPNPDOC ---
Date Seen The patient was seen on 10/24/20. Progress Note SUBJECTIVE: BP , pain controlled. No air leak suspected. CT surgery changing his suction to -20. Denies incr chest pain, shortness of breath, n/v/d. OBJECTIVE: PHYSICAL EXAM: VITAL SIGNS: Please see below GENERAL: In NAD, resting in bed LUNGS: Improved breath sounds b/l, crackles mild b/l bases. CVS: S1 and S2, sinus rhythm. No murmurs, rubs or gallops. GI: Soft, nontender and nondistended. Positive bowel sounds. CHEST: Right subclavian line EXTREMITIES: No cyanosis, clubbing or pitting edema. : chowdhury catheter NEURO: CN 2-12 intact, no focal deficits. LABORATORY DATA: Please see below MICROBIOLOGY: Please see below IMAGING: F/u CXR today CXR 10/23/20: There is no significant interval change. CXR 10/22/20: Findings essentially unchanged. Two right chest tubes remain in place at the apex. CXR 10/21/20: The subcutaneous emphysema along the right lateral chest wall has decreased. Question fracture tip of the right scapular versus superimposition artifact. No other interval change. ASSESSMENT AND PLAN: This is a 65-year-old male with a history of COPD, idi opathic pulmonary fibrosis, SLE managed by his manager intranet, tab cutter as an outpatient with Cytoxan planned for the future and chronic Plaquenil and prednisone, presented to the ER with shortness of breath, found to have spontaneous pneumothorax, status post chest tube on 10/03 to 10/06 with recurrent pneumothorax, reinserted on 10/08, status post blood patch 10/15 and 10/17/2020. Admitted for persistent right sided spontaneous pneumothorax , POD 3 talc pleurodesis 10/20/20. PLAN: 1. Spontaneous pneumothorax on the right with recurrence, status post blood patch on 10/15 and 10/17, POD 3 talc pleurodesis on 10/20. 2. COPD 3. Type 2 diabetes 4. History of idiopathic pulmonary fibrosis, SLE on chronic prednisone and Plaquenil. 5. GERD 6. Alveolar pleural fistula. 7. Secondary polycythemia due to chronic hypoxia with IBS. 8. Thrombocytopenia, improving with negative Heparin induced thrombocytopenia panel. DVT px: Heparin SC PLAN: Saturating well on 2 L NC, no increased SOB or chest pain. BS stable, decreased levemir HS. Decreased o/p from chest tube overnight. Hoping to switch to water seal this weekend for chest tube if continues to improve. Will need to work on stairs with PT before discharge. Likely discharge after weekend/early next week. Thoracic surgery following closely VS, I&O, 24H, Fishbone Vital Signs/I&O Vital Signs Date Time Temp Pulse Resp B/P (MAP) Pulse Ox O2 Delivery O2 Flow Rate FiO2 10/24/20 12:00 97.6 85 19 106/64 (78) 97 Nasal Cannula 2.0 I&O- Last 24 Hours up to 6 AM 10/24/20 06:00 Intake Total 770 ml Output Total 1405 ml Balance -635 ml Laboratory Data 24H LABS Laboratory Tests 2 10/23/20 17:44: Bedside Glucose (Misc Panel) 390H 10/23/20 22:23: Bedside Glucose (Misc Panel) 202H 10/24/20 05:48: Immature Granulocyte % (Auto) 4.0H, Neutrophils (%) (Auto) 73.5H, Lymphocytes (%) (Auto) 13.8L, Monocytes (%) (Auto) 6.3, Eosinophils (%) (Auto) 1.6, Basophils (%) (Auto) 0.8, Neutrophils # (Auto) 6.5, Lymphocytes # (Auto) 1.2L, Monocytes # (Auto) 0.6, Eosinophils # (Auto) 0.1, Basophils # (Auto) 0.1, Nucleated Red Blood Cells % (auto) 0.0, Anion Gap 1L, Glomerular Filtration Rate > 60.0, Calcium Level 7.8L 10/24/20 12:24: Bedside Glucose (Misc Panel) 113 CBC/BMP Laboratory Tests 10/24/20 05:48 Current Medications Current Medications Medications (Trade) Dose Ordered Sig/Ismael Route PRN Reason Start Time Stop Time Status Last Admin Dose Admin Acetaminophen (Tylenol Tab) 650 mg Q6HP PRN PO T > 101.5 or TAY 10/20/20 16:00 Acetaminophen (Tylenol Tab) 650 mg Q6HP PRN PO T > 101.5 or TAY 10/03/20 15:25 Cancel Acetaminophen/ Hydrocodone Bitart (Martinez, Anexsia 5/325) 1 tab Q3H PRN PO MILD PAIN (PS 1-4) 10/20/20 16:00 Hold Acetaminophen/ Hydrocodone Bitart (Martinez, Anexsia 5/325) 1 tab Q3H PRN PO MILD PAIN (PS 1-4) 10/03/20 15:25 10/20/20 15:58 DC 10/13/20 20:26 Atovaquone (Mepron 750mg/ 5ml Suspension) 1,500 mg DAILY PO 10/04/20 09:00 10/24/20 09:56 Bisacodyl (Dulcolax Suppository) 10 mg Q4HP PRN ND CONSTIPATION 10/20/20 16:00 Bisacodyl (Dulcolax Suppository) 10 mg Q4HP PRN ND CONSTIPATION 10/03/20 15:25 Cancel Cefazolin Sodium 1 gm/Dextrose 50 ml @ 100 mls/hr Q8H IV 10/20/20 21:00 10/22/20 13:29 DC 10/22/20 12:38 Dextrose (Dextrose 50%) 25 ml ASDIRECTED PRN IV SEE LABEL COMMENTS 10/03/20 17:35 Cancel Dextrose/Sodium Chloride 1,000 ml @ 75 mls/hr [id number] IV 10/03/20 17:10 10/03/20 20:13 DC 10/03/20 17:32 Diphenhydramine HCl (Benadryl) 12.5 mg Q4HP PRN IV ITCHING 10/20/20 14:40 Cancel Docusate Sodium (Colace) 100 mg BID PO 10/20/20 21:00 10/22/20 20:39 Docusate Sodium (Colace) 100 mg BID PO 10/03/20 21:00 10/20/20 15:58 DC 10/18/20 08:33 Fentanyl Citrate (Sublimaze) 25 mcg Q5MP PRN IV PAIN LEVEL 5-10 10/20/20 17:30 10/20/20 18:30 DC Fentanyl/ Bupivacaine HCl 250 ml @ 4 mls/hr Q24H EPIDURAL 10/20/20 14:40 10/23/20 15:56 DC 10/22/20 17:23 Glucagon (Glucagon) 1 mg ASDIRECTED PRN SC SEE LABEL COMMENTS 10/03/20 17:35 Cancel Glucose (Glucose) 16 GM ASDIRECTED PRN PO SEE LABEL COMMENTS 10/03/20 17:35 Cancel Heparin Sodium (Heparin Lock Flush 10units/ml) 10 units ASDIRECTED PRN IV SEE LABEL COMMENTS 10/15/20 05:10 10/20/20 15:58 DC 10/18/20 08:34 Heparin Sodium (Porcine) (Heparin) 5,000 units Q12H SC 10/20/20 21:00 10/21/20 07:45 DC Heparin Sodium (Porcine) (Heparin) 5,000 units Q12H SC 10/03/20 21:00 10/24/20 09:55 Home Med (Med Rec Complete!) ASDIRECTED XX 10/03/20 16:15 10/03/20 16:15 DC Hydromorphone HCl (Dilaudid) 0.2 mg Q5MP PRN IV PAIN LEVEL 4-7 10/20/20 17:30 10/20/20 18:30 DC Hydroxychloroquine Sulfate (Plaquenil) 200 mg BID PO 10/03/20 21:00 10/24/20 09:55 Insulin Detemir (Levemir Insulin) 6 units BID SC 10/16/20 09:00 10/20/20 08:46 DC 10/19/20 21:57 Insulin Detemir (Levemir Insulin) 6 units QHS SC 10/06/20 21:00 10/07/20 19:23 DC 10/06/20 20:57 Insulin Detemir (Levemir Insulin) 8 units QHS SC 10/23/20 21:00 10/23/20 22:33 Insulin Detemir (Levemir Insulin) 8 units QHS SC 10/07/20 21:00 10/16/20 07:46 DC 10/15/20 21:09 Insulin Detemir (Levemir Insulin) 12 units BID SC 10/20/20 21:00 10/22/20 05:36 DC 10/21/20 22:02 Insulin Detemir (Levemir Insulin) 15 units QHS SC 10/22/20 21:00 10/23/20 10:46 DC 10/22/20 20:42 Insulin Detemir (Levemir Insulin) 18 units QAM SC 10/22/20 09:00 10/22/20 09:09 Insulin Human Lispro (HumaLOG INSULIN) SEE PROTOCOL TABLE AC SC 10/04/20 07:30 10/24/20 13:42 Insulin Human Lispro (HumaLOG INSULIN) SEE PROTOCOL TABLE QHS SC 10/03/20 21:00 10/22/20 20:41 Ketorolac Tromethamine (ToRADol) 15 mg Q6H IV 10/03/20 18:00 10/08/20 17:59 DC 10/08/20 12:53 Ketorolac Tromethamine (ToRADol) 30 mg Q6H IV 10/20/20 17:00 10/25/20 16:59 10/24/20 12:04 Levalbuterol HCl (Xopenex Neb) 1.25 mg Q2HP PRN NEB WHEEZING 10/03/20 15:25 Levalbuterol HCl (Xopenex Neb) 1.25 mg RQ6H NEB 10/03/20 20:00 10/24/20 13:50 Lidocaine HCl (LIDOCAINE 1% MDV 20ml) 40 ml STAT STAT SC 10/08/20 12:39 10/08/20 12:41 DC 10/08/20 11:54 Lidocaine HCl (Lmx 4/Anecream) 1 dose Q8HP PRN TOP PAIN 10/08/20 21:50 10/08/20 23:45 Magnesium Hydroxide (Milk Of Magnesia) 30 ml DAILY PO 10/21/20 09:00 Magnesium Hydroxide (Milk Of Magnesia) 30 ml DAILY PO 10/04/20 09:00 10/20/20 15:58 DC 10/08/20 09:04 Metoclopramide HCl (REGLAN INJection) 10 mg Q6HP PRN IV NAUSEA 10/20/20 14:40 Cancel Midazolam HCl (Versed) 6 mg ASDIRECTED STAT IV 10/08/20 12:39 10/08/20 12:41 DC 10/08/20 11:50 Midodrine (Proamatine) 5 mg 08,12,16 PO 10/17/20 13:00 10/24/20 13:42 Miscellaneous (Unresolved Clarification Entry) SEE LABEL COMMENTS DAILY XX 10/09/20 09:00 10/09/20 14:46 DC Naloxone HCl (Narcan) 0.1 mg Q5MP PRN IV SEE LABEL COMMENTS 10/20/20 14:40 Cancel Non-Formulary Medication (Epidural/CIGARETTE TESTER [place]) 1 each ASDIRECTED PRN XX SEE LABEL COMMENTS 10/20/20 14:40 Cancel Non-Formulary Medication ([place]) ASDIRECTED PRN XX SEE LABEL COMMENTS 10/20/20 14:40 Cancel Ondansetron HCl (ZOFRAN INJection) 4 mg Q4HP PRN IV NAUSEA 10/20/20 16:00 Ondansetron HCl (ZOFRAN INJection) 4 mg Q4HP PRN IV NAUSEA OR VOMITING 10/20/20 17:30 10/20/20 18:30 DC Ondansetron HCl (ZOFRAN INJection) 4 mg Q4HP PRN IV NAUSEA 10/03/20 15:25 Cancel Ondansetron HCl (ZOFRAN INJection) 4 mg Q6HP PRN IV REFRACTORY NAUSEA 10/20/20 14:40 Cancel Oxycodone HCl (Roxicodone, Oxyir) 5 mg ASDIRECTED PRN PO PAIN LEVEL 1-4 10/20/20 17:30 10/20/20 18:30 DC Oxycodone/ Acetaminophen (Percocet 5mg/ 325mg Tablet) 1 tab Q4H PRN PO MODERATE PAIN (PS 5-7) 10/20/20 16:00 Hold Oxycodone/ Acetaminophen (Percocet 5mg/ 325mg Tablet) 1 tab Q4H PRN PO MODERATE PAIN (PS 5-7) 10/03/20 15:25 10/20/20 15:58 DC 10/17/20 21:59 Oxycodone/ Acetaminophen (Percocet 5mg/ 325mg Tablet) 2 tab Q4H PRN PO SEVERE PAIN (PS 8-10) 10/20/20 16:00 Hold Oxycodone/ Acetaminophen (Percocet 5mg/ 325mg Tablet) 2 tab Q4H PRN PO SEVERE PAIN (PS 8-10) 10/03/20 15:25 10/20/20 15:58 DC 10/10/20 22:59 Pantoprazole Sodium (Protonix) 40 mg DAILY IV 10/21/20 09:00 10/24/20 09:54 Pantoprazole Sodium (Protonix) 40 mg DAILY PO 10/21/20 09:00 10/21/20 07:46 DC Pantoprazole Sodium (Protonix) 40 mg DAILY PO 10/04/20 09:00 10/20/20 15:58 DC 10/20/20 09:18 Phenylephrine HCl 50 mg/Dextrose 500 ml @ 7.2 mls/hr Q24H IV 10/20/20 21:05 10/22/20 17:39 DC 10/20/20 23:24 Phenylephrine HCl 50 mg/Dextrose 500 ml @ 15 mls/hr Q24H IV 10/21/20 18:21 UNV Potassium Chloride/Dextrose/ Sod Cl 1,000 ml @ 75 mls/hr [id number] IV 10/20/20 15:58 10/22/20 09:26 DC 10/21/20 17:59 Potassium Chloride/Dextrose/ Sod Cl 1,000 ml @ 75 mls/hr [id number] IV 10/03/20 15:25 10/03/20 17:11 DC Prednisone (Deltasone) 60 mg DAILY PO 10/04/20 09:00 10/24/20 09:56 Sodium Chloride 1,000 ml @ 100 mls/hr Q10H IV 10/22/20 12:25 10/22/20 17:37 DC 10/22/20 12:35 Sodium Chloride (Saline Lock Flush) 2 ml ASDIRECTED PRN IV SEE LABEL COMMENTS 10/13/20 08:00 Sodium Chloride (Saline Lock Flush) 2 ml SLF IV 10/13/20 14:00 10/24/20 05:43 Sodium Chloride (Saline Lock Flush) 10 ml ASDIRECTED PRN IV SEE LABEL COMMENTS 10/15/20 05:10 10/20/20 15:58 DC 10/18/20 08:35 Allergies Coded Allergies: No Known Drug Allergies (Verified Allergy, Unknown, 10/03/20) Madison Rico MD Oct 24, 2020 14:38
[2020-10-24 16:00] VITALS: BP 112/56
[2020-10-24 20:00] VITALS: BP 109/74
[2020-10-25] VITALS: BP 138/70
[2020-10-25] MEDS: LEVALBUTEROL 1.25 MG/0.5 ML CONCENTRATE NEB NEB SCH ×4 (01:24→20:33)
[2020-10-25 04:00] VITALS: BP 117/75
[2020-10-25] MEDS: KETOROLAC 30 MG/ML 1ML VIAL IV SCH ×2 (05:10→11:33)
[2020-10-25] MEDS: SLF 3 ML SYR IV SCH ×3 (05:11→21:41)
[2020-10-25 05:32] LABS: HEMATOCRIT 35.3 % (42.0-52.0); MEAN CORPUSCULAR HEMOGLOBIN 29.6 pg (27.0-33.0); MEAN CORPUSCULAR HGB CONC 31.2 g/dl (32.0-36.5); MEAN CORPUSCULAR VOLUME 95.1 fl (80.0-96.0); PLATELET COUNT, AUTOMATED 144 10^3/uL (150-450); RED BLOOD COUNT 3.71 10^6/uL (4.30-6.10); WHITE BLOOD COUNT 7.6 10^3/uL (4.0-10.0)
[2020-10-25 05:45] LABS: ATYPICAL LYMPH 4 % (0-5); EOSINOPHILS 3 % (0-3); LYMPHOCYTES 26 % (16-44); MONOCYTES 3 % (0-5); NEUTROPHILS 64 % (28-66)
[2020-10-25 05:46] LABS: ANISOCYTOSIS 1+; PLATELET ESTIMATE NORMAL (NORMAL)
[2020-10-25 06:01] LABS: BLOOD UREA NITROGEN 22 MG/DL (7-18); CALCIUM LEVEL 7.6 MG/DL (8.8-10.2); CARBON DIOXIDE LEVEL 37 MEQ/L (21-32); CHLORIDE LEVEL 102 MEQ/L (98-107); CREATININE FOR GFR 0.35 MG/DL (0.70-1.30); GLOMERULAR FILTRATION RATE > 60.0 (>49); GLUCOSE, FASTING 76 MG/DL (70-100); POTASSIUM SERUM 3.6 MEQ/L (3.5-5.1); SODIUM LEVEL 142 MEQ/L (136-145)
[2020-10-25] MEDS: HumaLOG INSULIN (NovoLOG) PER UNIT SC SCH ×4 (07:30→21:39)
[2020-10-25 08:10] VITALS: BP 98/60
[2020-10-25] MEDS: LEVEMIR (INSULIN DETEMIR) 1 UNITS/0.01ML SC SCH ×2 (08:46→21:39)
--- NOTE | 2020-10-25 08:51 | REP ---
INDICATION: pneumothorax. COMPARISON: Comparison chest x-ray October 24, 2020. TECHNIQUE: Two views.. FINDINGS: Two right-sided chest tubes are noted in place. Right subclavian central venous catheter terminates in the right atrium region. There is a small collection of apical pleural air on the right adjacent to the chest tubes. Diffuse interstitial lung disease persists. No new area of consolidation is seen. Cardiomegaly persists unchanged. IMPRESSION: Diffuse interstitial lung disease again noted. Two right apical chest tubes. No significant change from the previous day's study.. <Electronically signed by Devaughn Georges > 10/25/20 [id number]
[2020-10-25] MEDS: MIDODRINE 5 MG TAB PO SCH ×3 (08:54→16:45)
[2020-10-25] MEDS: MOM 30ML SUSPENSION UDC PO SCH (08:54)
[2020-10-25] MEDS: predniSONE 20 MG TAB PO SCH (08:54)
[2020-10-25] MEDS: HEPARIN SOD (PORCINE) 5000UNITS/ML 1ML VIAL/SYRINGE SC SCH ×2 (08:54→21:39)
[2020-10-25] MEDS: DOCUSATE SODIUM 100MG CAPSULE PO SCH ×2 (08:54→21:36)
[2020-10-25] MEDS: PANTOPRAZOLE 40MG VIAL (C9113 PER 1) IV SCH (08:54)
[2020-10-25] MEDS: HYDROXYCHLOROQUINE 200 MG TAB PO SCH ×2 (08:54→21:36)
[2020-10-25] MEDS: ATOVAQUONE SUSP 750MG/5ML 210 ML BTL PO SCH (08:55)
[2020-10-25 12:00] VITALS: BP 109/71
--- NOTE | 2020-10-25 15:42 | REP ---
INDICATION: checking attachment of lung to chest wall in RUL. COMPARISON: Comparison chest x-ray is from 7:55 a.m. film on this date 10/25/2020. TECHNIQUE: PA and lateral views time stamp 3:25 p.m.... FINDINGS: Two right-sided chest tubes remain in place at the apex. There is a small right apical pneumothorax again seen unchanged. There may be a small quantity of pleural air at the right base as well lateral to the chest tube. A right-sided central venous catheter is terminating in the expected location of superior vena cava. Diffuse interstitial lung disease again noted. Cardiomediastinal silhouette is unchanged. Monitoring electrodes are again seen. IMPRESSION: Small right apical pneumothorax persists essentially unchanged from the earlier study. Two right chest tubes in place. The there may be a small quantity of air at the right base as well.. <Electronically signed by Devaughn Georges > 10/25/20 [id number]
--- NOTE | 2020-10-25 15:49 | IPN ---
THORACIC SURGERY PROGRESS NOTE DATE: 10/25/2020 SUBJECTIVE: No acute events overnight. Patient continues to deny any fever, chills, chest pain, shortness of breath, abdominal pain, nausea, vomiting, change in bowel habits. He continues to tolerate a regular diet. OBJECTIVE: VITAL SIGNS: Afebrile overnight. Temperature 97.4, pulse 66 and regular, respiratory rate 20, blood pressure 98/60, pulse oximetry 98% on 2 liters nasal cannula. INTAKE AND OUTPUT: In 1500 mL, out 1895 with 150 mL of chest tube drainage and no air leak, but with large amounts of fluid moving up and down with variations in respiration. PHYSICAL EXAMINATION: GENERAL: Patient is a thin-appearing male who appears stated age, sitting upright at bedside eating breakfast, in no acute distress, speaking in complete sentences. HEENT: Head is normocephalic, atraumatic. Extraocular movements intact. Scleral icterus clear. Mucous membranes moist. Trachea is midline. CARDIOVASCULAR: Regular rate and rhythm. Normal S1, S2. No murmurs, gallops or rubs. RESPIRATORY: Ongoing Velcro-like crackles on bilateral lung santoro. Reduced bronchophony, but still some on the right-sided chest tube. Otherwise, no adventitious breath sounds are appreciated. No wheezes or rhonchi. No dullness to percussion bilaterally. ABDOMEN: Soft, nontender, nondistended. No costovertebral angle (CVA) tenderness. EXTREMITIES: Exhibit no edema or swelling. SKIN: Warm, dry, perfusing well. NEUROLOGIC: Cranial nerves II-XII are grossly intact. Sensation is intact throughout. Gait is stable. PSYCHIATRIC: Awake, alert, oriented times three with appropriate mood and affect. LABORATORY DATA: White blood cell count 7.6, hemoglobin 11.0, hematocrit 35.3, platelet count 144. BMP showing sodium 142, potassium 3.6, chloride 102, bicarbonate 37, BUN 22, creatinine 0.35, glucose 76, calcium 7.6. IMAGING: Two-view chest x-ray showing no subcutaneous emphysema in the right upper lobe. It does seem as though there is minimal displacement of the lung from the chest wall in the right upper lobe as compared to prior images. Otherwise, no acute infiltrates. Heart border is regular size. Trachea is maybe slightly less deviated to the right than prior images. Costophrenic angles are sharp. ASSESSMENT AND PLAN: Patient is a 65-year-old male with history of recurrent pneumothoraces with history of TALC pleurodesis on 10/18/20 seen postoperatively day #5. Recurrent pneumothoraces status post TALC pleurodesis. He continues to have less and less output from his chest tube every day. There is still no ongoing air leak despite turning town the suction to -20. Today, we will disconnect suction entirely and repeat a chest x-ray at 3:00 p.m., as he does seem to have some detachment of the lung from the chest wall. This is probably complicated from his prednisone and hydroxychloroquine for his pulmonary fibrosis. In the event that the repeat chest x-ray continues to show ongoing detachment from the lung wall, we will reattach it to suction and wait a couple of more days. If it continues to progress, we may consider taking out the chest tube tomorrow morning. Patient continues to work well with physical therapy. Please continue to encourage this. GME ATTESTATION. OND[place]
[2020-10-25 16:00] VITALS: BP 110/67
[2020-10-25] MEDS ORDERED: SODIUM CHLORIDE 0.9% INJ 10 ML SYR IV PRN (16:30)
--- NOTE | 2020-10-25 17:28 | IPNPDOC ---
Date Seen The patient was seen on 10/25/20. Progress Note SUBJECTIVE: Disconnecting chest tube today, repeat CXR at 3 PM. Denies incr chest pain, shortness of breath, n/v/d. OBJECTIVE: PHYSICAL EXAM: VITAL SIGNS: Please see below GENERAL: In NAD, resting in bed LUNGS: Improved breath sounds b/l, crackles mild b/l bases. CVS: S1 and S2, sinus rhythm. No murmurs, rubs or gallops. GI: Soft, nontender and nondistended. Positive bowel sounds. CHEST: Right subclavian line EXTREMITIES: No cyanosis, clubbing or pitting edema. : chowdhury catheter NEURO: CN 2-12 intact, no focal deficits. LABORATORY DATA: Please see below MICROBIOLOGY: Please see below IMAGING: F/u CXR today CXR 10/23/20: There is no significant interval change. CXR 10/22/20: Findings essentially unchanged. Two right chest tubes remain in place at the apex. CXR 10/21/20: The subcutaneous emphysema along the right lateral chest wall has decreased. Question fracture tip of the right scapular versus superimposition artifact. No other interval change. 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 Admitted for persistent right sided spontaneous pneumothorax , POD 3 talc pleurodesis 10/20/20. PLAN: 1. Spontaneous pneumothorax on the right with recurrence, status post blood patch on 10/15 and 10/17, POD 3 talc pleurodesis on 10/20. 2. COPD 3. Type 2 diabetes 4. History of idiopathic pulmonary fibrosis, SLE on chronic prednisone and Plaquenil. 5. GERD 6. Alveolar pleural fistula. 7. Secondary polycythemia due to chronic hypoxia with IBS. 8. Thrombocytopenia, improving with negative Heparin induced thrombocytopenia panel. DVT px: Heparin SC PLAN: Saturating well on 2 L NC, will see how he does with disconnecting chest tube today. F/u CXR 3 PM. If does well goal is to take out chest tube 10/26/20. B S still elevated, increased levemir AM. Thoracic surgery following closely VS, I&O, 24H, [place] Vital Signs/I&O Vital Signs Date Time Temp Pulse Resp B/P (MAP) Pulse Ox O2 Delivery O2 Flow Rate FiO2 10/25/20 16:00 98.1 95 24 110/67 (81) 94 Nasal Cannula 2.0 I&O- Last 24 Hours up to 6 AM 10/25/20 06:00 Intake Total 1740 ml Output Total 1255 ml Balance 485 ml Laboratory Data 24H LABS Laboratory Tests 2 10/24/20 17:30: Bedside Glucose (Misc Panel) 331H 10/24/20 20:37: Bedside Glucose (Misc Panel) 341H 10/25/20 05:12: Immature Granulocyte % (Auto) , Neutrophils (%) (Auto) , Nucleated Red Blood C ells % (auto) 0.0, Neutrophils 64, Lymphocytes (Manual) 26, Monocytes (Manual) 3, Eosinophils (Manual) 3, Atypical Lymphocytes 4, Anisocytosis 1+, Platelet Estimate NORMAL, Anion Gap 3L, Glomerular Filtration Rate > 60.0, Calcium Level 7.6L 10/25/20 11:24: Bedside Glucose (Misc Panel) 134H 10/25/20 16:14: Bedside Glucose (Misc Panel) 401H CBC/BMP Laboratory Tests 10/25/20 05:12 Current Medications Current Medications Medications (Trade) Dose Ordered Sig/Ismael Route PRN Reason Start Time Stop Time Status Last Admin Dose Admin Acetaminophen (Tylenol Tab) 650 mg Q6HP PRN PO T > 101.5 or TAY 10/20/20 16:00 Acetaminophen (Tylenol Tab) 650 mg Q6HP PRN PO T > 101.5 or TAY 10/03/20 15:25 Cancel Acetaminophen/ Hydrocodone Bitart ([place], [place] 5/325) 1 tab Q3H PRN PO MILD PAIN (PS 1-4) 10/20/20 16:00 Hold Acetaminophen/ Hydrocodone Bitart ([place], [place] 5/325) 1 tab Q3H PRN PO MILD PAIN (PS 1-4) 10/03/20 15:25 10/20/20 15:58 DC 10/13/20 20:26 Atovaquone (Mepron 750mg/ 5ml Suspension) 1,500 mg DAILY PO 10/04/20 09:00 10/25/20 08:55 Bisacodyl (Dulcolax Suppository) 10 mg Q4HP PRN [place] CONSTIPATION 10/20/20 16:00 Bisacodyl (Dulcolax Suppository) 10 mg Q4HP PRN [place] CONSTIPATION 10/03/20 15:25 Cancel Cefazolin Sodium 1 gm/Dextrose 50 ml @ 100 mls/hr Q8H IV 10/20/20 21:00 10/22/20 13:29 DC 10/22/20 12:38 Dextrose (Dextrose 50%) 25 ml ASDIRECTED PRN IV SEE LABEL COMMENTS 10/03/20 17:35 Cancel Dextrose/Sodium Chloride 1,000 ml @ 75 mls/hr [id number] IV 10/03/20 17:10 10/03/20 20:13 DC 10/03/20 17:32 Diphenhydramine HCl (Benadryl) 12.5 mg Q4HP PRN IV ITCHING 10/20/20 14:40 Cancel Docusate Sodium (Colace) 100 mg BID PO 10/20/20 21:00 10/25/20 08:54 Docusate Sodium (Colace) 100 mg BID PO 10/03/20 21:00 10/20/20 15:58 DC 10/18/20 08:33 Fentanyl Citrate (Sublimaze) 25 mcg Q5MP PRN IV PAIN LEVEL 5-10 10/20/20 17:30 10/20/20 18:30 DC Fentanyl/ Bupivacaine HCl 250 ml @ 4 mls/hr Q24H EPIDURAL 10/20/20 14:40 10/23/20 15:56 DC 10/22/20 17:23 Glucagon (Glucagon) 1 mg ASDIRECTED PRN SC SEE LABEL COMMENTS 10/03/20 17:35 Cancel Glucose (Glucose) 16 GM ASDIRECTED PRN PO SEE LABEL COMMENTS 10/03/20 17:35 Cancel Heparin Sodium (Heparin Lock Flush 10units/ml) 10 units ASDIRECTED PRN IV SEE LABEL COMMENTS 10/15/20 05:10 10/20/20 15:58 DC 10/18/20 08:34 Heparin Sodium (Heparin Lock Flush 10units/ml) 10 units ASDIRECTED PRN IV SEE LABEL COMMENTS 10/25/20 16:30 Heparin Sodium (Heparin Lock Flush 10units/ml) 10 units HLF IV 10/25/20 22:00 Heparin Sodium (Porcine) (Heparin) 5,000 units Q12H SC 10/20/20 21:00 10/21/20 07:45 DC Heparin Sodium (Porcine) (Heparin) 5,000 units Q12H SC 10/03/20 21:00 10/25/20 08:54 Home Med (Med Rec Complete!) ASDIRECTED XX 10/03/20 16:15 10/03/20 16:15 DC Hydromorphone HCl (Dilaudid) 0.2 mg Q5MP PRN IV PAIN LEVEL 4-7 10/20/20 17:30 10/20/20 18:30 DC Hydroxychloroquine Sulfate (Plaquenil) 200 mg BID PO 10/03/20 21:00 10/25/20 08:54 Insulin Detemir (Levemir Insulin) 6 units BID SC 10/16/20 09:00 10/20/20 08:46 DC 10/19/20 21:57 Insulin Detemir (Levemir Insulin) 6 units QHS SC 10/06/20 21:00 10/07/20 19:23 DC 10/06/20 20:57 Insulin Detemir (Levemir Insulin) 8 units QHS SC 10/23/20 21:00 10/24/20 20:52 Insulin Detemir (Levemir Insulin) 8 units QHS SC 10/07/20 21:00 10/16/20 07:46 DC 10/15/20 21:09 Insulin Detemir (Levemir Insulin) 12 units BID SC 10/20/20 21:00 10/22/20 05:36 DC 10/21/20 22:02 Insulin Detemir (Levemir Insulin) 15 units QHS SC 10/22/20 21:00 10/23/20 10:46 DC 10/22/20 20:42 Insulin Detemir (Levemir Insulin) 18 units QAM SC 10/22/20 09:00 10/25/20 08:01 DC 10/22/20 09:09 Insulin Detemir (Levemir Insulin) 25 units QAM SC 10/25/20 09:00 Insulin Human Lispro (HumaLOG INSULIN) SEE PROTOCOL TABLE AC SC 10/04/20 07:30 10/25/20 16:45 Insulin Human Lispro (HumaLOG INSULIN) SEE PROTOCOL TABLE QHS SC 10/03/20 21:00 10/24/20 20:53 Ketorolac Tromethamine (ToRADol) 15 mg Q6H IV 10/03/20 18:00 10/08/20 17:59 DC 10/08/20 12:53 Ketorolac Tromethamine (ToRADol) 30 mg Q6H IV 10/20/20 17:00 10/25/20 16:59 DC 10/25/20 11:33 Levalbuterol HCl (Xopenex Neb) 1.25 mg Q2HP PRN NEB WHEEZING 10/03/20 15:25 Levalbuterol HCl (Xopenex Neb) 1.25 mg RQ6H NEB 10/03/20 20:00 10/25/20 14:31 Lidocaine HCl (LIDOCAINE 1% MDV 20ml) 40 ml STAT STAT SC 10/08/20 12:39 10/08/20 12:41 DC 10/08/20 11:54 Lidocaine HCl (Lmx 4/Anecream) 1 dose Q8HP PRN TOP PAIN 10/08/20 21:50 10/08/20 23:45 Magnesium Hydroxide (Milk Of Magnesia) 30 ml DAILY PO 10/21/20 09:00 Magnesium Hydroxide (Milk Of Magnesia) 30 ml DAILY PO 10/04/20 09:00 10/20/20 15:58 DC 10/08/20 09:04 Metoclopramide HCl (REGLAN INJection) 10 mg Q6HP PRN IV NAUSEA 10/20/20 14:40 Cancel Midazolam HCl (Versed) 6 mg ASDIRECTED STAT IV 10/08/20 12:39 10/08/20 12:41 DC 10/08/20 11:50 Midodrine (Proamatine) 5 mg 08,12,16 PO 10/17/20 13:00 10/25/20 16:45 Miscellaneous (Unresolved Clarification Entry) SEE LABEL COMMENTS DAILY XX 10/09/20 09:00 10/09/20 14:46 DC Naloxone HCl (Narcan) 0.1 mg Q5MP PRN IV SEE LABEL COMMENTS 10/20/20 14:40 Cancel Non-Formulary Medication (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 [place]) 1 each ASDIRECTED PRN XX SEE LABEL COMMENTS 10/20/20 14:40 Cancel Non-Formulary Medication ([place]) ASDIRECTED PRN XX SEE LABEL COMMENTS 10/20/20 14:40 Cancel Ondansetron HCl (ZOFRAN INJection) 4 mg Q4HP PRN IV NAUSEA 10/20/20 16:00 Ondansetron HCl (ZOFRAN INJection) 4 mg Q4HP PRN IV NAUSEA OR VOMITING 10/20/20 17:30 10/20/20 18:30 DC Ondansetron HCl (ZOFRAN INJection) 4 mg Q4HP PRN IV NAUSEA 10/03/20 15:25 Cancel Ondansetron HCl (ZOFRAN INJection) 4 mg Q6HP PRN IV REFRACTORY NAUSEA 10/20/20 14:40 Cancel Oxycodone HCl (Roxicodone, Oxyir) 5 mg ASDIRECTED PRN PO PAIN LEVEL 1-4 10/20/20 17:30 10/20/20 18:30 DC Oxycodone/ Acetaminophen (Percocet 5mg/ 325mg Tablet) 1 tab Q4H PRN PO MODERATE PAIN (PS 5-7) 10/20/20 16:00 Hold Oxycodone/ Acetaminophen (Percocet 5mg/ 325mg Tablet) 1 tab Q4H PRN PO MODERATE PAIN (PS 5-7) 10/03/20 15:25 10/20/20 15:58 DC 10/17/20 21:59 Oxycodone/ Acetaminophen (Percocet 5mg/ 325mg Tablet) 2 tab Q4H PRN PO SEVERE PAIN (PS 8-10) 10/20/20 16:00 Hold Oxycodone/ Acetaminophen (Percocet 5mg/ 325mg Tablet) 2 tab Q4H PRN PO SEVERE PAIN (PS 8-10) 10/03/20 15:25 10/20/20 15:58 DC 10/10/20 22:59 Pantoprazole Sodium (Protonix) 40 mg DAILY IV 10/21/20 09:00 10/25/20 08:54 Pantoprazole Sodium (Protonix) 40 mg DAILY PO 10/21/20 09:00 10/21/20 07:46 DC Pantoprazole Sodium (Protonix) 40 mg DAILY PO 10/04/20 09:00 10/20/20 15:58 DC 10/20/20 09:18 Phenylephrine HCl 50 mg/Dextrose 500 ml @ 7.2 mls/hr Q24H IV 10/20/20 21:05 10/22/20 17:39 DC 10/20/20 23:24 Phenylephrine HCl 50 mg/Dextrose 500 ml @ 15 mls/hr Q24H IV 10/21/20 18:21 UNV Potassium Chloride/Dextrose/ Sod Cl 1,000 ml @ 75 mls/hr [id number] IV 10/20/20 15:58 10/22/20 09:26 DC 10/21/20 17:59 Potassium Chloride/Dextrose/ Sod Cl 1,000 ml @ 75 mls/hr [id number] IV 10/03/20 15:25 10/03/20 17:11 DC Prednisone (Deltasone) 60 mg DAILY PO 10/04/20 09:00 10/25/20 08:54 Sodium Chloride 1,000 ml @ 100 mls/hr Q10H IV 10/22/20 12:25 10/22/20 17:37 DC 10/22/20 12:35 Sodium Chloride (Saline Lock Flush) 2 ml ASDIRECTED PRN IV SEE LABEL COMMENTS 10/13/20 08:00 Sodium Chloride (Saline Lock Flush) 2 ml SLF IV 10/13/20 14:00 10/25/20 14:43 Sodium Chloride (Saline Lock Flush) 10 ml ASDIRECTED PRN IV SEE LABEL COMMENTS 10/15/20 05:10 10/20/20 15:58 DC 10/18/20 08:35 Sodium Chloride (Saline Lock Flush) 10 ml ASDIRECTED PRN IV SEE LABEL COMMENTS 10/25/20 16:30 Sodium Chloride (Saline Lock Flush) 10 ml SLF IV 10/25/20 22:00 Allergies Coded Allergies: No Known Drug Allergies (Verified Allergy, Unknown, 10/03/20) Madison Rico MD Oct 25, 2020 17:28
[2020-10-25 20:00] VITALS: BP 119/76
[2020-10-25] MEDS: SODIUM CHLORIDE 0.9% INJ 10 ML SYR IV SCH (21:41)
[2020-10-26] VITALS: BP 113/79
[2020-10-26] MEDS: LEVALBUTEROL 1.25 MG/0.5 ML CONCENTRATE NEB NEB SCH ×4 (01:58→20:56)
[2020-10-26 04:00] VITALS: BP 123/73
[2020-10-26] MEDS: SLF 3 ML SYR IV SCH ×3 (05:44→22:00)
[2020-10-26] MEDS: SODIUM CHLORIDE 0.9% INJ 10 ML SYR IV SCH ×3 (05:45→22:54)
[2020-10-26 06:04] LABS: HEMATOCRIT 41.9 % (42.0-52.0); HEMOGLOBIN 12.9 g/dl (13.5-17.5); MEAN CORPUSCULAR HEMOGLOBIN 28.9 pg (27.0-33.0); MEAN CORPUSCULAR HGB CONC 30.8 g/dl (32.0-36.5); MEAN CORPUSCULAR VOLUME 93.7 fl (80.0-96.0); PLATELET COUNT, AUTOMATED 182 10^3/uL (150-450); RED BLOOD COUNT 4.47 10^6/uL (4.30-6.10); WHITE BLOOD COUNT 9.8 10^3/uL (4.0-10.0)
[2020-10-26 06:11] LABS: EOSINOPHILS 2 % (0-3); LYMPHOCYTES 11 % (16-44); MONOCYTES 5 % (0-5); NEUTROPHILS 75 % (28-66)
[2020-10-26 06:12] LABS: ATYPICAL LYMPH 7 % (0-5)
[2020-10-26 06:13] LABS: ANISOCYTOSIS 1+; PLATELET ESTIMATE NORMAL (NORMAL)
[2020-10-26 06:25] LABS: BLOOD UREA NITROGEN 18 MG/DL (7-18); CALCIUM LEVEL 7.9 MG/DL (8.8-10.2); CARBON DIOXIDE LEVEL 38 MEQ/L (21-32); CHLORIDE LEVEL 100 MEQ/L (98-107); CREATININE FOR GFR 0.38 MG/DL (0.70-1.30); GLOMERULAR FILTRATION RATE > 60.0 (>49); GLUCOSE, FASTING 91 MG/DL (70-100); POTASSIUM SERUM 3.8 MEQ/L (3.5-5.1); SODIUM LEVEL 139 MEQ/L (136-145)
[2020-10-26] MEDS: HumaLOG INSULIN (NovoLOG) PER UNIT SC SCH ×4 (07:30→20:01)
[2020-10-26 08:00] VITALS: BP 133/73
[2020-10-26] MEDS: MIDODRINE 5 MG TAB PO SCH ×3 (08:00→16:00)
--- NOTE | 2020-10-26 08:57 | REP ---
INDICATION: pneumothorax. COMPARISON: Comparison chest x-ray October 25, 2020. TECHNIQUE: Two views.. FINDINGS: Two right-sided chest tubes persist in the apex. Tiny sliver of apical pleural air. Right subclavian central venous catheter is is seen in place with its tip in the expected location of the right atrium. Diffuse interstitial lung disease is again noted. Heart is mildly enlarged. No new focal infiltrate is seen. IMPRESSION: Two right chest tubes remain in place. Lung santoro unchanged.. <Electronically signed by Devaughn Georges > 10/26/20 [id number]
[2020-10-26] MEDS: DOCUSATE SODIUM 100MG CAPSULE PO SCH ×2 (08:58→20:01)
[2020-10-26] MEDS: MOM 30ML SUSPENSION UDC PO SCH (08:58)
[2020-10-26] MEDS: LEVEMIR (INSULIN DETEMIR) 1 UNITS/0.01ML SC SCH ×2 (08:59→20:00)
[2020-10-26] MEDS: HEPARIN SOD (PORCINE) 5000UNITS/ML 1ML VIAL/SYRINGE SC SCH ×2 (09:13→20:01)
[2020-10-26] MEDS: predniSONE 20 MG TAB PO SCH (09:13)
[2020-10-26] MEDS: PANTOPRAZOLE 40MG VIAL (C9113 PER 1) IV SCH (09:14)
[2020-10-26] MEDS: HYDROXYCHLOROQUINE 200 MG TAB PO SCH ×2 (09:14→20:01)
[2020-10-26] MEDS: ATOVAQUONE SUSP 750MG/5ML 210 ML BTL PO SCH (09:14)
[2020-10-26 12:00] VITALS: BP 119/70
[2020-10-26] MEDS: PERCOCET 5MG/325MG TAB PO PRN (12:19)
--- NOTE | 2020-10-26 15:14 | IPNPDOC ---
Date Seen The patient was seen on 10/26/20. Progress Note SUBJECTIVE: Chest tube at -40 pressure, plan is to keep at current pressure today. Denies incr chest pain, shortness of breath, n/v/d. OBJECTIVE: PHYSICAL EXAM: VITAL SIGNS: Please see below GENERAL: In NAD, resting in bed LUNGS: Improved breath sounds b/l, crackles mild b/l bases. CVS: S1 and S2, sinus rhythm. No murmurs, rubs or gallops. GI: Soft, nontender and nondistended. Positive bowel sounds. CHEST: Right subclavian line EXTREMITIES: No cyanosis, clubbing or pitting edema. : chowdhury catheter NEURO: CN 2-12 intact, no focal deficits. LABORATORY DATA: Please see below MICROBIOLOGY: Please see below IMAGING: F/u CXR today CXR 10/23/20: There is no significant interval change. CXR 10/22/20: Findings essentially unchanged. Two right chest tubes remain in place at the apex. CXR 10/21/20: The subcutaneous emphysema along the right lateral chest wall has decreased. Question fracture tip of the right scapular versus superimposition artifact. No other interval change. 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 Admitted for persistent right sided spontaneous pneumothorax , POD 4 talc pleurodesis 10/20/20. PLAN: 1. Spontaneous pneumothorax on the right with recurrence, status post blood patch on 10/15 and 10/17, POD 4 talc pleurodesis on 10/20. 2. COPD 3. Type 2 diabetes 4. History of idiopathic pulmonary fibrosis, SLE on chronic prednisone and Plaquenil. 5. GERD 6. Alveolar pleural fistula. 7. Secondary polycythemia due to chronic hypoxia with IBS. 8. Thrombocytopenia, improving with negative Heparin induced thrombocytopenia panel. DVT px: Heparin SC PLAN: Attempted to leave chest tube to water seal; however, had to place back on -40 pressure unfortunately. Will continue with current treatment. Thoracic surgery following closely VS, I&O, 24H, [place] Vital Signs/I&O Vital Signs Date Time Temp Pulse Resp B/P (MAP) Pulse Ox O2 Delivery O2 Flow Rate FiO2 10/26/20 12:49 20 Nasal Cannula 10/26/20 12:00 2.0 10/26/20 12:00 97.4 74 119/70 (86) 96 I&O- Last 24 Hours up to 6 AM 10/26/20 06:00 Intake Total 870 ml Output Total 385 ml Balance 485 ml Laboratory Data 24H LABS Laboratory Tests 2 10/25/20 16:14: Bedside Glucose (Misc Panel) 401H 10/25/20 21:23: Bedside Glucose (Misc Panel) 298H 10/25/20 21:24: Bedside Glucose (Misc Panel) 297H 10/26/20 05:49: Immature Granulocyte % (Auto) , Neutrophils (%) (Auto) , Nucleated Red Blood Cells % (auto) 0.0, Neutrophils 75H, Lymphocytes (Manual) 11L, Monocytes (Manual) 5, Eosinophils (Manual) 2, Metamyelocytes , Myelocytes , Atypical Lymphocytes 7H, Anisocytosis 1+, Platelet Estimate NORMAL, Anion Gap 1L, Glomerular Filtration Rate > 60.0, Calcium Level 7.9L 10/26/20 11:57: Bedside Glucose (Misc Panel) 135H CBC/BMP Laboratory Tests 10/26/20 05:49 Current Medications Current Medications Medications (Trade) Dose Ordered Sig/Ismael Route PRN Reason Start Time Stop Time Status Last Admin Dose Admin Acetaminophen (Tylenol Tab) 650 mg Q6HP PRN PO T > 101.5 or TAY 10/20/20 16:00 Acetaminophen (Tylenol Tab) 650 mg Q6HP PRN PO T > 101.5 or TAY 10/03/20 15:25 Cancel Acetaminophen/ Hydrocodone Bitart ([place], Anexsia 5/325) 1 tab Q3H PRN PO MILD PAIN (PS 1-4) 10/20/20 16:00 Acetaminophen/ Hydrocodone Bitart ([place], [place]nexs[place] 5/325) 1 tab Q3H PRN PO MILD PAIN (PS 1-4) 10/03/20 15:25 10/20/20 15:58 DC 10/13/20 20:26 Atovaquone (Mepron 750mg/ 5ml Suspension) 1,500 mg DAILY PO 10/04/20 09:00 10/26/20 09:14 Bisacodyl (Dulcolax Suppository) 10 mg Q4HP PRN [place] CONSTIPATION 10/20/20 16:00 Bisacodyl (Dulcolax Suppository) 10 mg Q4HP PRN [place] CONSTIPATION 10/03/20 15:25 Cancel Cefazolin Sodium 1 gm/Dextrose 50 ml @ 100 mls/hr Q8H IV 10/20/20 21:00 10/22/20 13:29 DC 10/22/20 12:38 Dextrose (Dextrose 50%) 25 ml ASDIRECTED PRN IV SEE LABEL COMMENTS 10/03/20 17:35 Cancel Dextrose/Sodium Chloride 1,000 ml @ 75 mls/hr [id number] IV 10/03/20 17:10 10/03/20 20:13 DC 10/03/20 17:32 Diphenhydramine HCl (Benadryl) 12.5 mg Q4HP PRN IV ITCHING 10/20/20 14:40 Cancel Docusate Sodium (Colace) 100 mg BID PO 10/20/20 21:00 10/25/20 21:36 Docusate Sodium (Colace) 100 mg BID PO 10/03/20 21:00 10/20/20 15:58 DC 10/18/20 08:33 Fentanyl Citrate (Sublimaze) 25 mcg Q5MP PRN IV PAIN LEVEL 5-10 10/20/20 17:30 10/20/20 18:30 DC Fentanyl/ Bupivacaine HCl 250 ml @ 4 mls/hr Q24H EPIDURAL 10/20/20 14:40 10/23/20 15:56 DC 10/22/20 17:23 Glucagon (Glucagon) 1 mg ASDIRECTED PRN SC SEE LABEL COMMENTS 10/03/20 17:35 Cancel Glucose (Glucose) 16 GM ASDIRECTED PRN PO SEE LABEL COMMENTS 10/03/20 17:35 Cancel Heparin Sodium (Heparin Lock Flush 10units/ml) 10 units ASDIRECTED PRN IV SEE LABEL COMMENTS 10/15/20 05:10 10/20/20 15:58 DC 10/18/20 08:34 Heparin Sodium (Heparin Lock Flush 10units/ml) 10 units ASDIRECTED PRN IV SEE LABEL COMMENTS 10/25/20 16:30 Heparin Sodium (Heparin Lock Flush 10units/ml) 10 units HLF IV 10/25/20 22:00 10/26/20 14:09 Heparin Sodium (Porcine) (Heparin) 5,000 units Q12H SC 10/20/20 21:00 10/21/20 07:45 DC Heparin Sodium (Porcine) (Heparin) 5,000 units Q12H SC 10/03/20 21:00 10/26/20 09:13 Home Med (Med Rec Complete!) ASDIRECTED XX 10/03/20 16:15 10/03/20 16:15 DC Hydromorphone HCl (Dilaudid) 0.2 mg Q5MP PRN IV PAIN LEVEL 4-7 10/20/20 17:30 10/20/20 18:30 DC Hydroxychloroquine Sulfate (Plaquenil) 200 mg BID PO 10/03/20 21:00 10/26/20 09:14 Insulin Detemir (Levemir Insulin) 6 units BID SC 10/16/20 09:00 10/20/20 08:46 DC 10/19/20 21:57 Insulin Detemir (Levemir Insulin) 6 units QHS SC 10/06/20 21:00 10/07/20 19:23 DC 10/06/20 20:57 Insulin Detemir (Levemir Insulin) 8 units QHS SC 10/23/20 21:00 10/25/20 21:39 Insulin Detemir (Levemir Insulin) 8 units QHS SC 10/07/20 21:00 10/16/20 07:46 DC 10/15/20 21:09 Insulin Detemir (Levemir Insulin) 12 units BID SC 10/20/20 21:00 10/22/20 05:36 DC 10/21/20 22:02 Insulin Detemir (Levemir Insulin) 15 units QHS SC 10/22/20 21:00 10/23/20 10:46 DC 10/22/20 20:42 Insulin Detemir (Levemir Insulin) 18 units QAM SC 10/22/20 09:00 10/25/20 08:01 DC 10/22/20 09:09 Insulin Detemir (Levemir Insulin) 25 units QAM SC 10/25/20 09:00 Insulin Human Lispro (HumaLOG INSULIN) SEE PROTOCOL TABLE AC SC 10/04/20 07:30 10/26/20 12:19 Insulin Human Lispro (HumaLOG INSULIN) SEE PROTOCOL TABLE QHS SC 10/03/20 21:00 10/25/20 21:39 Ketorolac Tromethamine (ToRADol) 15 mg Q6H IV 10/03/20 18:00 10/08/20 17:59 DC 10/08/20 12:53 Ketorolac Tromethamine (ToRADol) 30 mg Q6H IV 10/20/20 17:00 10/25/20 16:59 DC 10/25/20 11:33 Levalbuterol HCl (Xopenex Neb) 1.25 mg Q2HP PRN NEB WHEEZING 10/03/20 15:25 Levalbuterol HCl (Xopenex Neb) 1.25 mg RQ6H NEB 10/03/20 20:00 10/26/20 15:05 Lidocaine HCl (LIDOCAINE 1% MDV 20ml) 40 ml STAT STAT SC 10/08/20 12:39 10/08/20 12:41 DC 10/08/20 11:54 Lidocaine HCl (Lmx 4/Anecream) 1 dose Q8HP PRN TOP PAIN 10/08/20 21:50 10/08/20 23:45 Magnesium Hydroxide (Milk Of Magnesia) 30 ml DAILY PO 10/21/20 09:00 Magnesium Hydroxide (Milk Of Magnesia) 30 ml DAILY PO 10/04/20 09:00 10/20/20 15:58 DC 10/08/20 09:04 Metoclopramide HCl (REGLAN INJection) 10 mg Q6HP PRN IV NAUSEA 10/20/20 14:40 Cancel Midazolam HCl (Versed) 6 mg ASDIRECTED STAT IV 10/08/20 12:39 10/08/20 12:41 DC 10/08/20 11:50 Midodrine (Proamatine) 5 mg 08,12,16 PO 10/17/20 13:00 10/25/20 16:45 Miscellaneous (Unresolved Clarification Entry) SEE LABEL COMMENTS DAILY XX 10/09/20 09:00 10/09/20 14:46 DC Naloxone HCl (Narcan) 0.1 mg Q5MP PRN IV SEE LABEL COMMENTS 10/20/20 14:40 Cancel Non-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 [place]) 1 each ASDIRECTED PRN XX SEE LABEL COMMENTS 10/20/20 14:40 Cancel Non-Formulary Medication ([place]) ASDIRECTED PRN XX SEE LABEL COMMENTS 10/20/20 14:40 Cancel Ondansetron HCl (ZOFRAN INJection) 4 mg Q4HP PRN IV NAUSEA 10/20/20 16:00 Ondansetron HCl (ZOFRAN INJection) 4 mg Q4HP PRN IV NAUSEA OR VOMITING 10/20/20 17:30 10/20/20 18:30 DC Ondansetron HCl (ZOFRAN INJection) 4 mg Q4HP PRN IV NAUSEA 10/03/20 15:25 Cancel Ondansetron HCl (ZOFRAN INJection) 4 mg Q6HP PRN IV REFRACTORY NAUSEA 10/20/20 14:40 Cancel Oxycodone HCl (Roxicodone, Oxyir) 5 mg ASDIRECTED PRN PO PAIN LEVEL 1-4 10/20/20 17:30 10/20/20 18:30 DC Oxycodone/ Acetaminophen (Percocet 5mg/ 325mg Tablet) 1 tab Q4H PRN PO MODERATE PAIN (PS 5-7) 10/20/20 16:00 10/26/20 12:19 Oxycodone/ Acetaminophen (Percocet 5mg/ 325mg Tablet) 1 tab Q4H PRN PO MODERATE PAIN (PS 5-7) 10/03/20 15:25 10/20/20 15:58 DC 10/17/20 21:59 Oxycodone/ Acetaminophen (Percocet 5mg/ 325mg Tablet) 2 tab Q4H PRN PO SEVERE PAIN (PS 8-10) 10/20/20 16:00 Oxycodone/ Acetaminophen (Percocet 5mg/ 325mg Tablet) 2 tab Q4H PRN PO SEVERE PAIN (PS 8-10) 10/03/20 15:25 10/20/20 15:58 DC 10/10/20 22:59 Pantoprazole Sodium (Protonix) 40 mg DAILY IV 10/21/20 09:00 10/26/20 09:14 Pantoprazole Sodium (Protonix) 40 mg DAILY PO 10/21/20 09:00 10/21/20 07:46 DC Pantoprazole Sodium (Protonix) 40 mg DAILY PO 10/04/20 09:00 10/20/20 15:58 DC 10/20/20 09:18 Phenylephrine HCl 50 mg/Dextrose 500 ml @ 7.2 mls/hr Q24H IV 10/20/20 21:05 10/22/20 17:39 DC 10/20/20 23:24 Phenylephrine HCl 50 mg/Dextrose 500 ml @ 15 mls/hr Q24H IV 10/21/20 18:21 UNV Potassium Chloride/Dextrose/ Sod Cl 1,000 ml @ 75 mls/hr [id number] IV 10/20/20 15:58 10/22/20 09:26 DC 10/21/20 17:59 Potassium Chloride/Dextrose/ Sod Cl 1,000 ml @ 75 mls/hr [id number] IV 10/03/20 15:25 10/03/20 17:11 DC Prednisone (Deltasone) 60 mg DAILY PO 10/04/20 09:00 10/26/20 09:13 Sodium Chloride 1,000 ml @ 100 mls/hr Q10H IV 10/22/20 12:25 10/22/20 17:37 DC 10/22/20 12:35 Sodium Chloride (Saline Lock Flush) 2 ml ASDIRECTED PRN IV SEE LABEL COMMENTS 10/13/20 08:00 Sodium Chloride (Saline Lock Flush) 2 ml SLF IV 10/13/20 14:00 10/26/20 05:44 Sodium Chloride (Saline Lock Flush) 10 ml ASDIRECTED PRN IV SEE LABEL COMMENTS 10/15/20 05:10 10/20/20 15:58 DC 10/18/20 08:35 Sodium Chloride (Saline Lock Flush) 10 ml ASDIRECTED PRN IV SEE LABEL COMMENTS 10/25/20 16:30 Sodium Chloride (Saline Lock Flush) 10 ml SLF IV 10/25/20 22:00 10/26/20 14:09 Allergies Coded Allergies: No Known Drug Allergies (Verified Allergy, Unknown, 10/03/20) Madison Rico MD Oct 26, 2020 15:14
[2020-10-26 20:00] VITALS: BP 141/71
[2020-10-26] MEDS: NORCO, ANEXSIA 5/325MG TABLET (HYDROcodone/ACETAMINOPHEN) PO PRN (21:20)
[2020-10-27] VITALS (9 sets, daily range): BP systolic 107–121; BP diastolic 63–86; O2SAT 91
[2020-10-27] MEDS: LEVALBUTEROL 1.25 MG/0.5 ML CONCENTRATE NEB NEB SCH ×4 (01:52→19:45)
[2020-10-27] MEDS: SLF 3 ML SYR IV SCH ×3 (03:15→22:11)
[2020-10-27] MEDS: SODIUM CHLORIDE 0.9% INJ 10 ML SYR IV SCH ×3 (05:18→22:11)
[2020-10-27 05:32] LABS: HEMATOCRIT 40.9 % (42.0-52.0); HEMOGLOBIN 12.9 g/dl (13.5-17.5); MEAN CORPUSCULAR HEMOGLOBIN 29.4 pg (27.0-33.0); MEAN CORPUSCULAR HGB CONC 31.5 g/dl (32.0-36.5); MEAN CORPUSCULAR VOLUME 93.2 fl (80.0-96.0); PLATELET COUNT, AUTOMATED 190 10^3/uL (150-450); RED BLOOD COUNT 4.39 10^6/uL (4.30-6.10); WHITE BLOOD COUNT 10.7 10^3/uL (4.0-10.0)
[2020-10-27 05:56] LABS: ALBUMIN 2.3 GM/DL (3.2-5.2); ALT/SGPT 36 U/L (12-78); BILIRUBIN,TOTAL 0.4 MG/DL (0.2-1.0); BLOOD UREA NITROGEN 20 MG/DL (7-18); CARBON DIOXIDE LEVEL 39 MEQ/L (21-32); CHLORIDE LEVEL 102 MEQ/L (98-107); CREATININE FOR GFR 0.45 MG/DL (0.70-1.30); GLOMERULAR FILTRATION RATE > 60.0 (>49); GLUCOSE, FASTING 67 MG/DL (70-100); POTASSIUM SERUM 3.9 MEQ/L (3.5-5.1); SODIUM LEVEL 141 MEQ/L (136-145); TOTAL PROTEIN 4.5 GM/DL (6.4-8.2)
--- NOTE | 2020-10-27 07:24 | IPN ---
PROGRESS NOTE DATE: 10/26/2020 SUBJECTIVE: This is now the 6th postoperative day for Mr. Licea. Yesterday, I noted on his chest x-ray that there was some slight separation from the chest wall in the upper hemithorax. I took him off suction, repeated a chest x-ray later in the day, and the chest wall separation was even more, but not very much. Nonetheless as it is very important for that lung to adhere to the chest wall and that he is on steroids to inhibit the inflammatory response, I therefore placed him back on 40 cm of suction. Today he is doing well. He is breathing well. The pain is being fairly well controlled at the chest tube insertion site. OBJECTIVE: VITAL SIGNS: Show a T-max of 98.2. He has never been febrile since the operation and I suspect that is secondary to the steroids. His heart rate ranges between 84 and 73 in sinus rhythm. Respiratory rate of constant 19 who is 96% to 98% saturated on 2 liters nasal cannula and whose blood pressure is ranging between 133/73 to 113/79. INTAKE AND OUTPUT: Over the past 24 hours has been recorded as 870 in and 398 out for a positivity of 472 mL. He weight 71.2 kg compared to 71.9 kg yesterday. RESPIRATORY: He has equal breath sounds on either side with fine inspiratory velcro crackles at the base on the left side and a pleural friction rub on the right side. CARDIAC: Without murmurs, clicks, gallops, or rubs. I cannot feel his PMI. S1 and S2 are normal. ABDOMEN: Soft and nontender. Bowel sounds are positive. There is no hepatomegaly. No CVA tenderness. EXTREMITIES: Show no pretibial edema. No calf tenderness. No differential swelling of the upper extremities. SKIN: Warm, dry, and perfused without cyanosis or mottling, including that of the nail beds and knees. NECK: Supple. There is no jugular venous distention. No subcutaneous emphysema. Trachea is midline. MOUTH: Shows the mucous membranes to be pink and moist. Lips and commisures are without lesions and no thrush. EYES: Show his pupils equal and reactive. Extraocular muscles are intact. Sclerae nonicteric. NEUROLOGIC: Shows II through XII intact. Normal gross motor, gross sensation intact. Gait is not tested. PSYCHIATRIC: Shows him to be awake, alert, and oriented x3 with appropriate mood and affect and conversational. LABORATORY DATA: His white count today is 9.8 with a hemoglobin and hematocrit of 9.2 and 41.9 and a platelet count of 182,000. Differential shows 75% neutrophils, 11% lymphocytes, 5% monocytes. There are no immature forms and no toxic granulations. His electrolytes are normal except for an elevated total CO2 of 38 reflective of his pulmonary fibrosis. BUN and creatinine are 18 and 0.38 with a calcium of 7.9 and a glucose of 91. IMAGING DATA: His chest x-ray today shows his lung fully expands to the chest wall on 40 cm of suction. He has the reticular pattern reflective of his underlying pulmonary fibrosis. There is volume loss of the right side. IMPRESSION: 1. Postoperative day #6 status post talc pleurodesis, wedge resection, and bullectomy. 2. Spontaneous pneumothorax right side recurrent. 3. Alveolopleural fistula now controlled. 4. Advanced interstitial lung disease clinically idiopathic pulmonary fibrosis. 5. Underlying chronic obstructive pulmonary disease (COPD). 6. Hypoxic polycythemia. 7. Gastroesophageal reflux disease. 8. Diabetes. PLAN AND DISCUSSION: I will continue him on 40 cm of suction. There is no air leak and I am quite gratified of that. I think that the weight of his fibrotic lung and severe low compliance is causing his lung to retract from the chest wall. The inflammatory response is being inhibited by his underlying steroids that he is on for his pulmonary fibrosis. It will take a little bit longer for the lung to therefore adhere and the inflammatory response to end in scar.
[2020-10-27] MEDS: HumaLOG INSULIN (NovoLOG) PER UNIT SC SCH ×4 (07:30→22:13)
[2020-10-27] MEDS: MIDODRINE 5 MG TAB PO SCH ×3 (07:48→16:33)
[2020-10-27] MEDS: LEVEMIR (INSULIN DETEMIR) 1 UNITS/0.01ML SC SCH ×2 (08:03→22:13)
[2020-10-27] MEDS: MOM 30ML SUSPENSION UDC PO SCH (08:04)
[2020-10-27] MEDS: DOCUSATE SODIUM 100MG CAPSULE PO SCH ×2 (08:04→21:00)
[2020-10-27] MEDS: ATOVAQUONE SUSP 750MG/5ML 210 ML BTL PO SCH (08:13)
[2020-10-27] MEDS: HYDROXYCHLOROQUINE 200 MG TAB PO SCH ×2 (08:13→22:10)
[2020-10-27] MEDS: predniSONE 20 MG TAB PO SCH (08:13)
[2020-10-27] MEDS: PANTOPRAZOLE 40MG VIAL (C9113 PER 1) IV SCH (08:13)
[2020-10-27] MEDS: HEPARIN SOD (PORCINE) 5000UNITS/ML 1ML VIAL/SYRINGE SC SCH ×2 (08:14→22:11)
--- NOTE | 2020-10-27 08:50 | REP ---
INDICATION: chest tube, PF COMPARISON: 10/26/2020 TECHNIQUE: PA and lateral. FINDINGS: Two right-sided chest tubes extend to the right apex in stable position. Small residual right apical pneumothorax again identified. Lung santoro demonstrate diffuse chronic COPD/interstitial changes and scattered fibrosis. Superimposed bilateral airspace disease similar to prior examination cannot be excluded. No obvious effusion. No obvious new acute process identified. Mediastinum and cardiac silhouette stable. IMPRESSION: 1. No significant change from prior examination. 2. Right-sided chest tubes and small residual right apical pneumothorax again noted. 3. Bilateral parenchymal changes similar to prior examination. <Electronically signed by Krishna Hernandez > 10/27/20 [id number]
--- NOTE | 2020-10-27 13:29 | IPNPDOC ---
Date Seen The patient was seen on 10/27/20. Progress Note SUBJECTIVE: Chest tube remains on 40 cm suction without air leak as concern. Per CT surgery, lung is not staying up and retracting from chest wall. He denies incr chest pain, shortness of breath, n/v/d. OBJECTIVE: PHYSICAL EXAM: VITAL SIGNS: Please see below GENERAL: In NAD, resting in bed LUNGS: Improved breath sounds b/l, crackles mild b/l bases. CVS: S1 and S2, sinus rhythm. No murmurs, rubs or gallops. GI: Soft, nontender and nondistended. Positive bowel sounds. CHEST: Right subclavian line BACK: chest tube EXTREMITIES: No cyanosis, clubbing or pitting edema. : chowdhury catheter NEURO: CN 2-12 intact, no focal deficits. LABORATORY DATA: Please see below MICROBIOLOGY: Please see below IMAGING: CXR today: Similar to prior exams CXR 10/23/20: There is no significant interval change. CXR 10/22/20: Findings essentially unchanged. Two right chest tubes remain in place at the apex. CXR 10/21/20: The subcutaneous emphysema along the right lateral chest wall has decreased. Question fracture tip of the right scapular versus superimposition artifact. No other interval change. ASSESSMENT AND PLAN: This is a 65-year-old male with a history of COPD, idiopathic pulmonary fibrosis, SLE managed by his guest relations representative, international trade manager as an outpatient with Cytoxan planned for the future and chronic Plaquenil and prednisone, presented to the ER with shortness of breath, found to have spontaneous pneumothorax, status post chest tube on 10/03 to 10/06 with recurrent pneumothorax, reinserted on 10/08, status post blood patch 10/15 and 10/17/2020. Admitted for persistent right sided spontaneous pneumothorax , POD 7 talc pleurodesis 10/20/20. PLAN: 1. Spontaneous pneumothorax on the right with recurrence, status post blood patch on 10/15 and 10/17, POD 7 talc pleurodesis on 10/20. 2. COPD 3. Type 2 diabetes 4. History of idiopathic pulmonary fibrosis, SLE on chronic prednisone and Plaquenil. 5. GERD 6. Alveolar pleural fistula. 7. Secondary polycythemia due to chronic hypoxia with IBS. 8. Thrombocytopenia, improving with negative Heparin induced thrombocytopenia panel. DVT px: Heparin SC PLAN: Continue with [address] surgery. Thoracic surgery following closely. Other chronic issues stable. Home when medically improved. VS, I&O, 24H, Fishbone Vital Signs/I&O Vital Signs Date Time Temp Pulse Resp B/P (MAP) Pulse Ox O2 Delivery O2 Flow Rate FiO2 10/27/20 12:23 120/83 (95) 10/27/20 12:00 98.3 71 19 100 Nasal Cannula 2.0 I&O- Last 24 Hours up to 6 AM 10/27/20 06:00 Intake Total 450 ml Output Total 316 ml Balance 134 ml Laboratory Data 24H LABS Laboratory Tests 2 10/26/20 16:15: Bedside Glucose (Misc Panel) 402H 10/26/20 19:45: Bedside Glucose (Misc Panel) 332H 10/27/20 05:25: Nucleated Red Blood Cells % (auto) 0.0, Anion Gap 0L, Glomerular Filtration Rate > 60.0, Calcium Level 8.0L, Total Bilirubin 0.4, Aspartate Amino Transf (AST/SGOT) 14, Alanine Aminotransferase (ALT/SGPT) 36, Alkaline Phosphatase 85, Total Protein 4.5L, Albumin 2.3L, Albumin/Globulin Ratio 1.0 10/27/20 07:44: Bedside Glucose (Misc Panel) 80 10/27/20 11:42: Bedside Glucose (Misc Panel) 145H CBC/BMP Laboratory Tests 10/27/20 05:25 Current Medications Current Medications Medications (Trade) Dose Ordered Sig/Ismael Route PRN Reason Start Time Stop Time Status Last Admin Dose Admin Acetaminophen (Tylenol Tab) 650 mg Q6HP PRN PO T > 101.5 or TAY 10/20/20 16:00 Acetaminophen (Tylenol Tab) 650 mg Q6HP PRN PO T > 101.5 or TAY 10/03/20 15:25 Cancel Acetaminophen/ Hydrocodone Bitart ([facility], [place] 5/325) 1 tab Q3H PRN PO MILD PAIN (PS 1-4) 10/20/20 16:00 10/26/20 21:20 Acetaminophen/ Hydrocodone Bitart ([facility], [place] 5/325) 1 tab Q3H PRN PO MILD PAIN (PS 1-4) 10/03/20 15:25 10/20/20 15:58 DC 10/13/20 20:26 Atovaquone (Mepron 750mg/ 5ml Suspension) 1,500 mg DAILY PO 10/04/20 09:00 10/27/20 08:13 Bisacodyl (Dulcolax Suppository) 10 mg Q4HP PRN [place] CONSTIPATION 10/20/20 16:00 Bisacodyl (Dulcolax Suppository) 10 mg Q4HP PRN [place] CONSTIPATION 10/03/20 15:25 Cancel Cefazolin Sodium 1 gm/Dextrose 50 ml @ 100 mls/hr Q8H IV 10/20/20 21:00 10/22/20 13:29 DC 10/22/20 12:38 Dextrose (Dextrose 50%) 25 ml ASDIRECTED PRN IV SEE LABEL COMMENTS 10/03/20 17:35 Cancel Dextrose/Sodium Chloride 1,000 ml @ 75 mls/hr [id number] IV 10/03/20 17:10 10/03/20 20:13 DC 10/03/20 17:32 Diphenhydramine HCl (Benadryl) 12.5 mg Q4HP PRN IV ITCHING 10/20/20 14:40 Cancel Docusate Sodium (Colace) 100 mg BID PO 10/20/20 21:00 10/25/20 21:36 Docusate Sodium (Colace) 100 mg BID PO 10/03/20 21:00 10/20/20 15:58 DC 10/18/20 08:33 Fentanyl Citrate (Sublimaze) 25 mcg Q5MP PRN IV PAIN LEVEL 5-10 10/20/20 17:30 10/20/20 18:30 DC Fentanyl/ Bupivacaine HCl 250 ml @ 4 mls/hr Q24H EPIDURAL 10/20/20 14:40 10/23/20 15:56 DC 10/22/20 17:23 Glucagon (Glucagon) 1 mg ASDIRECTED PRN SC SEE LABEL COMMENTS 10/03/20 17:35 Cancel Glucose (Glucose) 16 GM ASDIRECTED PRN PO SEE LABEL COMMENTS 10/03/20 17:35 Cancel Heparin Sodium (Heparin Lock Flush 10units/ml) 10 units ASDIRECTED PRN IV SEE LABEL COMMENTS 10/15/20 05:10 10/20/20 15:58 DC 10/18/20 08:34 Heparin Sodium (Heparin Lock Flush 10units/ml) 10 units ASDIRECTED PRN IV SEE LABEL COMMENTS 10/25/20 16:30 Heparin Sodium (Heparin Lock Flush 10units/ml) 10 units HLF IV 10/25/20 22:00 10/27/20 05:18 Heparin Sodium (Porcine) (Heparin) 5,000 units Q12H SC 10/20/20 21:00 10/21/20 07:45 DC Heparin Sodium (Porcine) (Heparin) 5,000 units Q12H SC 10/03/20 21:00 10/27/20 08:14 Home Med (Med Rec Complete!) ASDIRECTED XX 10/03/20 16:15 10/03/20 16:15 DC Hydromorphone HCl (Dilaudid) 0.2 mg Q5MP PRN IV PAIN LEVEL 4-7 10/20/20 17:30 10/20/20 18:30 DC Hydroxychloroquine Sulfate (Plaquenil) 200 mg BID PO 10/03/20 21:00 10/27/20 08:13 Insulin Detemir (Levemir Insulin) 6 units BID SC 10/16/20 09:00 10/20/20 08:46 DC 10/19/20 21:57 Insulin Detemir (Levemir Insulin) 6 units QHS SC 10/06/20 21:00 10/07/20 19:23 DC 10/06/20 20:57 Insulin Detemir (Levemir Insulin) 8 units QHS SC 10/23/20 21:00 10/26/20 20:00 Insulin Detemir (Levemir Insulin) 8 units QHS SC 10/07/20 21:00 10/16/20 07:46 DC 10/15/20 21:09 Insulin Detemir (Levemir Insulin) 12 units BID SC 10/20/20 21:00 10/22/20 05:36 DC 10/21/20 22:02 Insulin Detemir (Levemir Insulin) 15 units QHS SC 10/22/20 21:00 10/23/20 10:46 DC 10/22/20 20:42 Insulin Detemir (Levemir Insulin) 18 units QAM SC 10/22/20 09:00 10/25/20 08:01 DC 10/22/20 09:09 Insulin Detemir (Levemir Insulin) 25 units QAM SC 10/25/20 09:00 Insulin Human Lispro (HumaLOG INSULIN) SEE PROTOCOL TABLE AC SC 10/04/20 07:30 10/26/20 17:06 Insulin Human Lispro (HumaLOG INSULIN) SEE PROTOCOL TABLE QHS SC 10/03/20 21:00 10/26/20 20:01 Ketorolac Tromethamine (ToRADol) 15 mg Q6H IV 10/03/20 18:00 10/08/20 17:59 DC 10/08/20 12:53 Ketorolac Tromethamine (ToRADol) 30 mg Q6H IV 10/20/20 17:00 10/25/20 16:59 DC 10/25/20 11:33 Levalbuterol HCl (Xopenex Neb) 1.25 mg Q2HP PRN NEB WHEEZING 10/03/20 15:25 Levalbuterol HCl (Xopenex Neb) 1.25 mg RQ6H NEB 10/03/20 20:00 10/27/20 07:03 Lidocaine HCl (LIDOCAINE 1% MDV 20ml) 40 ml STAT STAT SC 10/08/20 12:39 10/08/20 12:41 DC 10/08/20 11:54 Lidocaine HCl (Lmx 4/Anecream) 1 dose Q8HP PRN TOP PAIN 10/08/20 21:50 10/08/20 23:45 Magnesium Hydroxide (Milk Of Magnesia) 30 ml DAILY PO 10/21/20 09:00 Magnesium Hydroxide (Milk Of Magnesia) 30 ml DAILY PO 10/04/20 09:00 10/20/20 15:58 DC 10/08/20 09:04 Metoclopramide HCl (REGLAN INJection) 10 mg Q6HP PRN IV NAUSEA 10/20/20 14:40 Cancel Midazolam HCl (Versed) 6 mg ASDIRECTED STAT IV 10/08/20 12:39 10/08/20 12:41 DC 10/08/20 11:50 Midodrine (Proamatine) 5 mg 08,12,16 PO 10/17/20 13:00 10/25/20 16:45 Miscellaneous (Unresolved Clarification Entry) SEE LABEL COMMENTS DAILY XX 10/09/20 09:00 10/09/20 14:46 DC Naloxone HCl (Narcan) 0.1 mg Q5MP PRN IV SEE LABEL COMMENTS 10/20/20 14:40 Cancel Non-Formulary Medication (Epidural/[employer] [employer] [place]) 1 each ASDIRECTED PRN XX SEE LABEL COMMENTS 10/20/20 14:40 Cancel Non-Formulary Medication ([place]) ASDIRECTED PRN XX SEE LABEL COMMENTS 10/20/20 14:40 Cancel Ondansetron HCl (ZOFRAN INJection) 4 mg Q4HP PRN IV NAUSEA 10/20/20 16:00 Ondansetron HCl (ZOFRAN INJection) 4 mg Q4HP PRN IV NAUSEA OR VOMITING 10/20/20 17:30 10/20/20 18:30 DC Ondansetron HCl (ZOFRAN INJection) 4 mg Q4HP PRN IV NAUSEA 10/03/20 15:25 Cancel Ondansetron HCl (ZOFRAN INJection) 4 mg Q6HP PRN IV REFRACTORY NAUSEA 10/20/20 14:40 Cancel Oxycodone HCl (Roxicodone, Oxyir) 5 mg ASDIRECTED PRN PO PAIN LEVEL 1-4 10/20/20 17:30 10/20/20 18:30 DC Oxycodone/ Acetaminophen (Percocet 5mg/ 325mg Tablet) 1 tab Q4H PRN PO MODERATE PAIN (PS 5-7) 10/20/20 16:00 10/26/20 12:19 Oxycodone/ Acetaminophen (Percocet 5mg/ 325mg Tablet) 1 tab Q4H PRN PO MODERATE PAIN (PS 5-7) 10/03/20 15:25 10/20/20 15:58 DC 10/17/20 21:59 Oxycodone/ Acetaminophen (Percocet 5mg/ 325mg Tablet) 2 tab Q4H PRN PO SEVERE PAIN (PS 8-10) 10/20/20 16:00 Oxycodone/ Acetaminophen (Percocet 5mg/ 325mg Tablet) 2 tab Q4H PRN PO SEVERE PAIN (PS 8-10) 10/03/20 15:25 10/20/20 15:58 DC 10/10/20 22:59 Pantoprazole Sodium (Protonix) 40 mg DAILY IV 10/21/20 09:00 10/27/20 08:13 Pantoprazole Sodium (Protonix) 40 mg DAILY PO 10/21/20 09:00 10/21/20 07:46 DC Pantoprazole Sodium (Protonix) 40 mg DAILY PO 10/04/20 09:00 10/20/20 15:58 DC 10/20/20 09:18 Phenylephrine HCl 50 mg/Dextrose 500 ml @ 7.2 mls/hr Q24H IV 10/20/20 21:05 10/22/20 17:39 DC 10/20/20 23:24 Phenylephrine HCl 50 mg/Dextrose 500 ml @ 15 mls/hr Q24H IV 10/21/20 18:21 UNV Potassium Chloride/Dextrose/ Sod Cl 1,000 ml @ 75 mls/hr [id number] IV 10/20/20 15:58 10/22/20 09:26 DC 10/21/20 17:59 Potassium Chloride/Dextrose/ Sod Cl 1,000 ml @ 75 mls/hr [id number] IV 10/03/20 15:25 10/03/20 17:11 DC Prednisone (Deltasone) 60 mg DAILY PO 10/04/20 09:00 10/27/20 08:13 Sodium Chloride 1,000 ml @ 100 mls/hr Q10H IV 10/22/20 12:25 10/22/20 17:37 DC 10/22/20 12:35 Sodium Chloride (Saline Lock Flush) 2 ml ASDIRECTED PRN IV SEE LABEL COMMENTS 10/13/20 08:00 Sodium Chloride (Saline Lock Flush) 2 ml SLF IV 10/13/20 14:00 10/26/20 05:44 Sodium Chloride (Saline Lock Flush) 10 ml ASDIRECTED PRN IV SEE LABEL COMMENTS 10/15/20 05:10 10/20/20 15:58 DC 10/18/20 08:35 Sodium Chloride (Saline Lock Flush) 10 ml ASDIRECTED PRN IV SEE LABEL COMMENTS 10/25/20 16:30 Sodium Chloride (Saline Lock Flush) 10 ml SLF IV 10/25/20 22:00 10/27/20 05:18 Allergies Coded Allergies: No Known Drug Allergies (Verified Allergy, Unknown, 10/03/20) Madison Rico MD Oct 27, 2020 13:29
[2020-10-27] MEDS: PERCOCET 5MG/325MG TAB PO PRN ×2 (15:28→22:10)
--- NOTE | 2020-10-27 20:57 | IPN ---
PROGRESS NOTE DATE: 10/27/2020 SUBJECTIVE: Patient is seen and examined at the bedside this morning. He continues to do well denying any fever, chills, chest pain, shortness of breath, abdominal pain, nausea, vomiting, constipation, or diarrhea. OBJECTIVE: Vital signs: Afebrile overnight, temperature of 97.3, pulse 77 and regular, respiratory rate of 19, blood pressure 114/77, saturating 98% on 2 liters nasal cannula. Intake and output: Intake of 810 mL in the last 24 hours, output of 311 with 111 mL of drainage from his chest tube with no air leak. PHYSICAL EXAMINATION: General: Patient is a thin appearing male who appears stated age, sitting upright at bedside in no acute distress. HEENT: Head is normocephalic, atraumatic. Extraocular movements intact. No scleral icterus. Mucous membranes are moist. Respiratory: Equal breath sounds bilaterally with the same crackles on bilateral lobes, particularly more so at the left side and a somewhat bronchophonous sound on the right side that may be from the chest tube itself. Cardiac: Regular rate and rhythm, normal S1 and S2, no murmurs, gallops, or rubs. Abdomen: Soft, nontender, nondistended, bowel sounds positive. No hepatosplenomegaly. No costovertebral (CVA) tenderness. Extremities: No pitting edema in the upper or lower extremities. Skin: Warm, dry, perfusing well. Neurologic: Cranial nerves II-XII are intact. Sensation is intact. Psychiatric: Awake, alert, oriented times three. Appropriate mood and affect. LABORATORY DATA: White blood cell count of 10.7, hemoglobin 12.9, hematocrit 40.9, platelet count of 190, sodium 141, potassium 3.9, chloride 102, bicarbonate 39, BUN 20, creatinine 0.45, glucose 67, calcium 8.0, total bilirubin 0.4, AST 14, ALT 36, alkaline phosphatase 85, total protein 4.5, albumin 2.3. IMAGING: Chest x-ray sharp costophrenic angles. Normal heart borders. No tracheal deviation. Ongoing very small air space between the chest wall and the right upper lobe's pleural lining. No subcutaneous emphysema. Very thin air space. ASSESSMENT AND PLAN: 1. Postoperative day #7 status post talc pleurodesis, wedge resection, and bullectomy. Will continue chest tube at -40 cm for another 3-4 more days to allow more time for the pleura to stick to the lining of the chest wall. Unfortunately, we are tied down by the fact that he requires steroids for his pulmonary fibrosis and this is likely dampening the inflammatory response so that he cannot have scar formation. Will continue to follow along and reassess in 3-4 more days by turning down suction. 2. Spontaneous pneumothorax, right-sided, recurrent. 3. Alveolar pleural fistula, now controlled. 4. Advanced interstitial lung disease, clinically idiopathic pulmonary fibrosis. 5. Underlying chronic obstructive pulmonary disease (COPD). 6. Hypoxic polycythemia. 7. Gastroesophageal reflux disease (GERD). 8. Diabetes. My faculty preceptor for this patient encounter was physically present during the encounter and was fully available. All aspects of the patient interview, examination, medical decision making process, and medical care plan development were reviewed and approved by the faculty preceptor. The faculty preceptor is aware and concurs with the plan as stated in the body of this note and will attest to such by his/her co-signature.
[2020-10-28] VITALS (7 sets, daily range): BP systolic 102–130; BP diastolic 57–91; O2SAT 91
[2020-10-28] MEDS: LEVALBUTEROL 1.25 MG/0.5 ML CONCENTRATE NEB NEB SCH ×4 (01:48→20:37)
[2020-10-28 05:50] LABS: HEMATOCRIT 43.9 % (42.0-52.0); HEMOGLOBIN 13.6 g/dl (13.5-17.5); MEAN CORPUSCULAR HEMOGLOBIN 29.2 pg (27.0-33.0); MEAN CORPUSCULAR VOLUME 94.2 fl (80.0-96.0); PLATELET COUNT, AUTOMATED 191 10^3/uL (150-450); RED BLOOD COUNT 4.66 10^6/uL (4.30-6.10); WHITE BLOOD COUNT 10.7 10^3/uL (4.0-10.0)
[2020-10-28] MEDS: SLF 3 ML SYR IV SCH ×3 (05:55→21:49)
[2020-10-28] MEDS: SODIUM CHLORIDE 0.9% INJ 10 ML SYR IV SCH ×3 (05:55→21:49)
[2020-10-28 06:31] LABS: ALBUMIN 2.5 GM/DL (3.2-5.2); ALT/SGPT 39 U/L (12-78); BILIRUBIN,TOTAL 0.4 MG/DL (0.2-1.0); BLOOD UREA NITROGEN 17 MG/DL (7-18); CALCIUM LEVEL 8.4 MG/DL (8.8-10.2); CARBON DIOXIDE LEVEL 40 MEQ/L (21-32); CHLORIDE LEVEL 97 MEQ/L (98-107); CREATININE FOR GFR 0.55 MG/DL (0.70-1.30); GLOMERULAR FILTRATION RATE > 60.0 (>49); GLUCOSE, FASTING 93 MG/DL (70-100); POTASSIUM SERUM 4.1 MEQ/L (3.5-5.1); SODIUM LEVEL 137 MEQ/L (136-145); TOTAL PROTEIN 5.3 GM/DL (6.4-8.2)
[2020-10-28] MEDS: HumaLOG INSULIN (NovoLOG) PER UNIT SC SCH ×4 (07:18→21:49)
[2020-10-28] MEDS: MIDODRINE 5 MG TAB PO SCH ×3 (08:00→16:00)
--- NOTE | 2020-10-28 08:03 | REP ---
INDICATION: pneumothorax. COMPARISON: Comparison chest x-ray 10/27/2020. TECHNIQUE: Two views.. FINDINGS: Two right-sided chest tubes remain in place near the apex. There is a small sliver of apical pleural air again noted essentially unchanged. A right subclavian central venous catheter remains in place unchanged. Diffuse interstitial lung disease persists essentially unchanged bilaterally. Heart is enlarged also unchanged. IMPRESSION: Stable pleuroparenchymal findings. Two right chest tubes remain in place.. <Electronically signed by Devaughn Georges > 10/28/20 [id number]
[2020-10-28] MEDS: LEVEMIR (INSULIN DETEMIR) 1 UNITS/0.01ML SC SCH ×2 (08:18→21:49)
[2020-10-28] MEDS: DOCUSATE SODIUM 100MG CAPSULE PO SCH ×2 (08:19→21:00)
[2020-10-28] MEDS: MOM 30ML SUSPENSION UDC PO SCH (08:19)
[2020-10-28] MEDS: PANTOPRAZOLE 40MG VIAL (C9113 PER 1) IV SCH (09:34)
[2020-10-28] MEDS: HEPARIN SOD (PORCINE) 5000UNITS/ML 1ML VIAL/SYRINGE SC SCH ×2 (09:34→21:48)
[2020-10-28] MEDS: predniSONE 20 MG TAB PO SCH (09:34)
[2020-10-28] MEDS: ATOVAQUONE SUSP 750MG/5ML 210 ML BTL PO SCH (09:34)
[2020-10-28] MEDS: HYDROXYCHLOROQUINE 200 MG TAB PO SCH ×2 (09:35→21:47)
--- NOTE | 2020-10-28 13:11 | IPN ---
PROGRESS NOTE DATE: 10/28/2020 SUBJECTIVE: The patient is seen and examined at bedside. He reports he is doing well. He denies any fever, chills, or chest pain. He does exhibit some difficulty with his breathing on exertion and is unable to do a circuit around the loop on the progressive care unit (PCU), but is able to ambulate adequately with the help of a walker in the room. He otherwise denies any abdominal pain, nausea, vomiting, constipation, or diarrhea. His pain is well-controlled. He reports he is able to still urinate. OBJECTIVE: VITAL SIGNS: Afebrile overnight. Temperature of 96.6, pulse 74, respiratory rate 18, blood pressure 130/91, saturating 93% on 2 liters nasal cannula. INTAKE AND OUTPUT: Intake total of 1320 mL, output of 136 in the last 24 hours with one void that was not documented. GENERAL APPEARANCE: The patient is a thin, but well-appearing male who appears stated age. Sitting upright in bed eating breakfast in no acute distress. HEENT: Head is normocephalic, atraumatic. EOMI. No scleral icterus. Mucous membranes are moist. NECK: No JVD or lymphadenopathy. Trachea is midline. CARDIOVASCULAR: Regular rate and rhythm. Normal S1, S2. No murmurs, gallops, or rubs. RESPIRATORY: Velcro-like crackles appreciated on the left and right side with bronchophonus sound on the right side likely from chest tube. Otherwise, no adventitious breath sounds appreciated. No wheezes or rhonchi. ABDOMEN: Soft, nontender, and nondistended. Bowel sounds are present. No hepatosplenomegaly. No CVA tenderness. EXTREMITIES: No pitting edema in bilateral upper or lower extremities. SKIN: Warm, dry, and perfusing well without rashes or lesions. NEUROLOGIC: Cranial nerves 2 through 12 are intact. Sensation is intact. Gait is stable. PSYCHIATRIC: Awake, alert, and oriented x3 with appropriate mood and affect. LABORATORY DATA: White blood cell count of 10.7, hemoglobin 13.6, hematocrit 43.9, platelet count 191,000. Sodium 137, potassium 4.1, chloride 97, bicarb 40, BUN 17, creatinine 0.55, glucose 93, calcium 8.4, total bilirubin 0.4, AST 17, ALT 39, alkaline phosphatase 81, total protein 5.3, albumin 2.5. IMAGING DATA: Chest x-ray with no marked change from the day prior. There continues to be a very small slice in the right upper lobe that does not adhere entirely to the chest wall, but it certainly does not look any larger. There is no subcutaneous emphysema. No evidence of acute infiltrate. Costophrenic angles are sharp. Heart borders are regular. Trachea is midline. ASSESSMENT: 1. Postop day #8 status post talc pleurodesis, wedge resection, and bullectomy. 2. Spontaneous pneumothorax right-sided, recurrent. 3. Alveolopleural fistula now controlled. 4. Advanced interstitial lung disease clinically idiopathic pulmonary fibrosis. 5. Underlying chronic obstructive pulmonary disease (COPD). 6. Hypoxic polycythemia. 7. Gastroesophageal reflux disease (GERD). 8. Diabetes. PLAN: We will continue with chest tube at -40 suction mmHg for another day, then we will set it to water seal the following day, and then hopefully we will be able to take it off. The patient is comfortable with this plan and it appears that at least the top and the lateral portions of the scarring is intact and the amount of air within the lung is minimal and not worsening at this time. Dictated by Keo Garcia DO in conjunction with Shawn Reese M.D.
--- NOTE | 2020-10-28 14:35 | IPNPDOC ---
Date Seen The patient was seen on 10/28/20. Progress Note SUBJECTIVE: Has chest tube with 40 cm suction without air leak. CXR today appears similar to prior. Remains on 2 L NC; however, he denies incr chest pain, shortness of breath, n/v/d. OBJECTIVE: PHYSICAL EXAM: VITAL SIGNS: Please see below GENERAL: In NAD, resting in bed LUNGS: Improved breath sounds b/l, crackles mild b/l bases. CVS: S1 and S2, sinus rhythm. No murmurs, rubs or gallops. GI: Soft, nontender and nondistended. Positive bowel sounds. CHEST: Right subclavian line BACK: chest tube right side EXTREMITIES: No cyanosis, clubbing or pitting edema. : chowdhury catheter NEURO: CN 2-12 intact, no focal deficits. LABORATORY DATA: Please see below MICROBIOLOGY: Please see below IMAGING: CXR today: Similar to prior exams CXR 10/23/20: There is no significant interval change. CXR 10/22/20: Findings essentially unchanged. Two right chest tubes remain in place at the apex. CXR 10/21/20: The subcutaneous emphysema along the right lateral chest wall has decreased. Question fracture tip of the right scapular versus superimposition artifact. No other interval change. 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 Admitted for persistent right sided spontaneous pneumothorax , POD 7 talc pleurodesis 10/20/20. PLAN: 1. Spontaneous pneumothorax on the right with recurrence, status post blood patch on 10/15 and 10/17, POD 7 talc pleurodesis on 10/20. 2. COPD 3. Type 2 diabetes 4. History of idiopathic pulmonary fibrosis, SLE on chronic prednisone and Plaquenil. 5. GERD 6. Alveolar pleural fistula. 7. Secondary polycythemia due to chronic hypoxia with IBS. 8. Thrombocytopenia, improving with negative Heparin induced thrombocytopenia panel. DVT px: Heparin SC PLAN: Continue with 40 cm suction another 24H then will try water seal again 10/29/20. Thoracic surgery following closely. Other chronic issues stable. Home when medically improved. VS, I&O, 24H, Fishbone Vital Signs/I&O Vital Signs Date Time Temp Pulse Resp B/P (MAP) Pulse Ox O2 Delivery O2 Flow Rate FiO2 10/28/20 12:00 2.0 10/28/20 12:00 98.4 87 19 104/59 (74) 98 Nasal Cannula I&O- Last 24 Hours up to 6 AM 10/28/20 06:00 Intake Total 1560 ml Output Total 439 ml Balance 1121 ml Laboratory Data 24H LABS Laboratory Tests 2 10/27/20 16:30: Bedside Glucose (Misc Panel) 280H 10/27/20 20:12: Bedside Glucose (Misc Panel) 339H 10/28/20 05:30: Nucleated Red Blood Cells % (auto) 0.0, Anion Gap 0L, Glomerular Filtration Rate > 60.0, Calcium Level 8.4L, Total Bilirubin 0.4, Aspartate Amino Transf (AST/SGOT) 17, Alanine Aminotransferase (ALT/SGPT) 39, Alkaline Phosphatase 81, Total Protein 5.3L, Albumin 2.5L, Albumin/Globulin Ratio 0.9 10/28/20 11:45: Bedside Glucose (Misc Panel) 150H CBC/BMP Laboratory Tests 10/28/20 05:30 Current Medications Current Medications Medications (Trade) Dose Ordered Sig/Ismael Route PRN Reason Start Time Stop Time Status Last Admin Dose Admin Acetaminophen (Tylenol Tab) 650 mg Q6HP PRN PO T > 101.5 or TAY 10/20/20 16:00 Acetaminophen (Tylenol Tab) 650 mg Q6HP PRN PO T > 101.5 or TAY 10/03/20 15:25 Cancel Acetaminophen/ Hydrocodone Bitart ([place], Anexsia 5/325) 1 tab Q3H PRN PO MILD PAIN (PS 1-4) 10/20/20 16:00 10/26/20 21:20 Acetaminophen/ Hydrocodone Bitart ([place], Anexsia 5/325) 1 tab Q3H PRN PO MILD PAIN (PS 1-4) 10/03/20 15:25 10/20/20 15:58 DC 10/13/20 20:26 Atovaquone (Mepron 750mg/ 5ml Suspension) 1,500 mg DAILY PO 10/04/20 09:00 10/28/20 09:34 Bisacodyl (Dulcolax Suppository) 10 mg Q4HP PRN [place] CONSTIPATION 10/20/20 16:00 Bisacodyl (Dulcolax Suppository) 10 mg Q4HP PRN [place] CONSTIPATION 10/03/20 15:25 Cancel Cefazolin Sodium 1 gm/Dextrose 50 ml @ 100 mls/hr Q8H IV 10/20/20 21:00 10/22/20 13:29 DC 10/22/20 12:38 Dextrose (Dextrose 50%) 25 ml ASDIRECTED PRN IV SEE LABEL COMMENTS 10/03/20 17:35 Cancel Dextrose/Sodium Chloride 1,000 ml @ 75 mls/hr [id number] IV 10/03/20 17:10 10/03/20 20:13 DC 10/03/20 17:32 Diphenhydramine HCl (Benadryl) 12.5 mg Q4HP PRN IV ITCHING 10/20/20 14:40 Cancel Docusate Sodium (Colace) 100 mg BID PO 10/20/20 21:00 10/25/20 21:36 Docusate Sodium (Colace) 100 mg BID PO 10/03/20 21:00 10/20/20 15:58 DC 10/18/20 08:33 Fentanyl Citrate (Sublimaze) 25 mcg Q5MP PRN IV PAIN LEVEL 5-10 10/20/20 17:30 10/20/20 18:30 DC Fentanyl/ Bupivacaine HCl 250 ml @ 4 mls/hr Q24H EPIDURAL 10/20/20 14:40 10/23/20 15:56 DC 10/22/20 17:23 Glucagon (Glucagon) 1 mg ASDIRECTED PRN SC SEE LABEL COMMENTS 10/03/20 17:35 Cancel Glucose (Glucose) 16 GM ASDIRECTED PRN PO SEE LABEL COMMENTS 10/03/20 17:35 Cancel Heparin Sodium (Heparin Lock Flush 10units/ml) 10 units ASDIRECTED PRN IV SEE LABEL COMMENTS 10/15/20 05:10 10/20/20 15:58 DC 10/18/20 08:34 Heparin Sodium (Heparin Lock Flush 10units/ml) 10 units ASDIRECTED PRN IV SEE LABEL COMMENTS 10/25/20 16:30 Heparin Sodium (Heparin Lock Flush 10units/ml) 10 units HLF IV 10/25/20 22:00 10/28/20 13:20 Heparin Sodium (Porcine) (Heparin) 5,000 units Q12H SC 10/20/20 21:00 10/21/20 07:45 DC Heparin Sodium (Porcine) (Heparin) 5,000 units Q12H SC 10/03/20 21:00 10/28/20 09:34 Home Med (Med Rec Complete!) ASDIRECTED XX 10/03/20 16:15 10/03/20 16:15 DC Hydromorphone HCl (Dilaudid) 0.2 mg Q5MP PRN IV PAIN LEVEL 4-7 10/20/20 17:30 10/20/20 18:30 DC Hydroxychloroquine Sulfate (Plaquenil) 200 mg BID PO 10/03/20 21:00 10/28/20 09:35 Insulin Detemir (Levemir Insulin) 6 units BID SC 10/16/20 09:00 10/20/20 08:46 DC 10/19/20 21:57 Insulin Detemir (Levemir Insulin) 6 units QHS SC 10/06/20 21:00 10/07/20 19:23 DC 10/06/20 20:57 Insulin Detemir (Levemir Insulin) 8 units QHS SC 10/23/20 21:00 10/27/20 22:13 Insulin Detemir (Levemir Insulin) 8 units QHS SC 10/07/20 21:00 10/16/20 07:46 DC 10/15/20 21:09 Insulin Detemir (Levemir Insulin) 12 units BID SC 10/20/20 21:00 10/22/20 05:36 DC 10/21/20 22:02 Insulin Detemir (Levemir Insulin) 15 units QHS SC 10/22/20 21:00 10/23/20 10:46 DC 10/22/20 20:42 Insulin Detemir (Levemir Insulin) 18 units QAM SC 10/22/20 09:00 10/25/20 08:01 DC 10/22/20 09:09 Insulin Detemir (Levemir Insulin) 25 units QAM SC 10/25/20 09:00 10/28/20 08:03 DC Insulin Detemir (Levemir Insulin) 35 units QAM SC 10/28/20 09:00 Insulin Human Lispro (HumaLOG INSULIN) SEE PROTOCOL TABLE AC SC 10/04/20 07:30 10/28/20 13:20 Insulin Human Lispro (HumaLOG INSULIN) SEE PROTOCOL TABLE QHS SC 10/03/20 21:00 10/27/20 22:13 Ketorolac Tromethamine (ToRADol) 15 mg Q6H IV 10/03/20 18:00 10/08/20 17:59 DC 10/08/20 12:53 Ketorolac Tromethamine (ToRADol) 30 mg Q6H IV 10/20/20 17:00 10/25/20 16:59 DC 10/25/20 11:33 Levalbuterol HCl (Xopenex Neb) 1.25 mg Q2HP PRN NEB WHEEZING 10/03/20 15:25 Levalbuterol HCl (Xopenex Neb) 1.25 mg RQ6H NEB 10/03/20 20:00 10/28/20 13:23 Lidocaine HCl (LIDOCAINE 1% MDV 20ml) 40 ml STAT STAT SC 10/08/20 12:39 10/08/20 12:41 DC 10/08/20 11:54 Lidocaine HCl (Lmx 4/Anecream) 1 dose Q8HP PRN TOP PAIN 10/08/20 21:50 10/08/20 23:45 Magnesium Hydroxide (Milk Of Magnesia) 30 ml DAILY PO 10/21/20 09:00 Magnesium Hydroxide (Milk Of Magnesia) 30 ml DAILY PO 10/04/20 09:00 10/20/20 15:58 DC 10/08/20 09:04 Metoclopramide HCl (REGLAN INJection) 10 mg Q6HP PRN IV NAUSEA 10/20/20 14:40 Cancel Midazolam HCl (Versed) 6 mg ASDIRECTED STAT IV 10/08/20 12:39 10/08/20 12:41 DC 10/08/20 11:50 Midodrine (Proamatine) 5 mg 08,12,16 PO 10/17/20 13:00 10/28/20 13:20 Miscellaneous (Unresolved Clarification Entry) SEE LABEL COMMENTS DAILY XX 10/09/20 09:00 10/09/20 14:46 DC Naloxone HCl (Narcan) 0.1 mg Q5MP PRN IV SEE LABEL COMMENTS 10/20/20 14:40 Cancel Non-Formulary Medication (Epidural/HOSPICE BEREAVEMENT COORDINATOR Nunez) 1 each ASDIRECTED PRN XX SEE LABEL COMMENTS 10/20/20 14:40 Cancel Non-Formulary Medication (Nunez) ASDIRECTED PRN XX SEE LABEL COMMENTS 10/20/20 14:40 Cancel Ondansetron HCl (ZOFRAN INJection) 4 mg Q4HP PRN IV NAUSEA 10/20/20 16:00 Ondansetron HCl (ZOFRAN INJection) 4 mg Q4HP PRN IV NAUSEA OR VOMITING 10/20/20 17:30 10/20/20 18:30 DC Ondansetron HCl (ZOFRAN INJection) 4 mg Q4HP PRN IV NAUSEA 10/03/20 15:25 Cancel Ondansetron HCl (ZOFRAN INJection) 4 mg Q6HP PRN IV REFRACTORY NAUSEA 10/20/20 14:40 Cancel Oxycodone HCl (Roxicodone, Oxyir) 5 mg ASDIRECTED PRN PO PAIN LEVEL 1-4 10/20/20 17:30 10/20/20 18:30 DC Oxycodone/ Acetaminophen (Percocet 5mg/ 325mg Tablet) 1 tab Q4H PRN PO MODERATE PAIN (PS 5-7) 10/20/20 16:00 10/27/20 22:10 Oxycodone/ Acetaminophen (Percocet 5mg/ 325mg Tablet) 1 tab Q4H PRN PO MODERATE PAIN (PS 5-7) 10/03/20 15:25 10/20/20 15:58 DC 10/17/20 21:59 Oxycodone/ Acetaminophen (Percocet 5mg/ 325mg Tablet) 2 tab Q4H PRN PO SEVERE PAIN (PS 8-10) 10/20/20 16:00 Oxycodone/ Acetaminophen (Percocet 5mg/ 325mg Tablet) 2 tab Q4H PRN PO SEVERE PAIN (PS 8-10) 10/03/20 15:25 10/20/20 15:58 DC 10/10/20 22:59 Pantoprazole Sodium (Protonix) 40 mg DAILY IV 10/21/20 09:00 10/28/20 09:34 Pantoprazole Sodium (Protonix) 40 mg DAILY PO 10/21/20 09:00 10/21/20 07:46 DC Pantoprazole Sodium (Protonix) 40 mg DAILY PO 10/04/20 09:00 10/20/20 15:58 DC 10/20/20 09:18 Phenylephrine HCl 50 mg/Dextrose 500 ml @ 7.2 mls/hr Q24H IV 10/20/20 21:05 10/22/20 17:39 DC 10/20/20 23:24 Phenylephrine HCl 50 mg/Dextrose 500 ml @ 15 mls/hr Q24H IV 10/21/20 18:21 UNV Potassium Chloride/Dextrose/ Sod Cl 1,000 ml @ 75 mls/hr [id number] IV 10/20/20 15:58 10/22/20 09:26 DC 10/21/20 17:59 Potassium Chloride/Dextrose/ Sod Cl 1,000 ml @ 75 mls/hr [id number] IV 10/03/20 15:25 10/03/20 17:11 DC Prednisone (Deltasone) 60 mg DAILY PO 10/04/20 09:00 10/28/20 09:34 Sodium Chloride 1,000 ml @ 100 mls/hr Q10H IV 10/22/20 12:25 10/22/20 17:37 DC 10/22/20 12:35 Sodium Chloride (Saline Lock Flush) 2 ml ASDIRECTED PRN IV SEE LABEL COMMENTS 10/13/20 08:00 Sodium Chloride (Saline Lock Flush) 2 ml SLF IV 10/13/20 14:00 10/28/20 05:55 Sodium Chloride (Saline Lock Flush) 10 ml ASDIRECTED PRN IV SEE LABEL COMMENTS 10/15/20 05:10 10/20/20 15:58 DC 10/18/20 08:35 Sodium Chloride (Saline Lock Flush) 10 ml ASDIRECTED PRN IV SEE LABEL COMMENTS 10/25/20 16:30 Sodium Chloride (Saline Lock Flush) 10 ml SLF IV 10/25/20 22:00 10/28/20 13:21 Allergies Coded Allergies: No Known Drug Allergies (Verified Allergy, Unknown, 10/03/20) Madison Rico MD Oct 28, 2020 14:35
[2020-10-28] MEDS: PERCOCET 5MG/325MG TAB PO PRN ×2 (18:45→23:26)
[2020-10-29] VITALS: BP 108/69
[2020-10-29] MEDS: LEVALBUTEROL 1.25 MG/0.5 ML CONCENTRATE NEB NEB SCH ×5 (02:40→19:36)
[2020-10-29 04:00] VITALS: BP 117/76
[2020-10-29 05:26] LABS: HEMATOCRIT 44.8 % (42.0-52.0); HEMOGLOBIN 13.8 g/dl (13.5-17.5); MEAN CORPUSCULAR HEMOGLOBIN 29.1 pg (27.0-33.0); MEAN CORPUSCULAR HGB CONC 30.8 g/dl (32.0-36.5); MEAN CORPUSCULAR VOLUME 94.5 fl (80.0-96.0); PLATELET COUNT, AUTOMATED 192 10^3/uL (150-450); RED BLOOD COUNT 4.74 10^6/uL (4.30-6.10); WHITE BLOOD COUNT 11.3 10^3/uL (4.0-10.0)
[2020-10-29] MEDS: SLF 3 ML SYR IV SCH ×3 (05:26→22:14)
[2020-10-29] MEDS: SODIUM CHLORIDE 0.9% INJ 10 ML SYR IV SCH ×3 (05:26→22:14)
[2020-10-29 06:09] LABS: ALBUMIN 2.4 GM/DL (3.2-5.2); ALT/SGPT 36 U/L (12-78); BILIRUBIN,TOTAL 0.4 MG/DL (0.2-1.0); BLOOD UREA NITROGEN 24 MG/DL (7-18); CALCIUM LEVEL 8.5 MG/DL (8.8-10.2); CARBON DIOXIDE LEVEL 40 MEQ/L (21-32); CHLORIDE LEVEL 100 MEQ/L (98-107); GLOMERULAR FILTRATION RATE > 60.0 (>49); GLUCOSE, FASTING 169 MG/DL (70-100); POTASSIUM SERUM 4.4 MEQ/L (3.5-5.1); SODIUM LEVEL 140 MEQ/L (136-145); TOTAL PROTEIN 5.2 GM/DL (6.4-8.2)
[2020-10-29] MEDS: HumaLOG INSULIN (NovoLOG) PER UNIT SC SCH ×4 (07:30→22:10)
[2020-10-29 07:45] VITALS: BP 110/67
--- NOTE | 2020-10-29 08:10 | REP ---
INDICATION: pneumothorax COMPARISON: 10/28/2020 TECHNIQUE: PA and lateral. FINDINGS: Two right-sided chest tubes are again identified in stable position with a small residual right apical pneumothorax noted. Lung santoro demonstrate diffuse bilateral chronic appearing pulmonary parenchymal changes similar to multiple prior examinations. Superimposed airspace disease cannot be excluded. No obvious effusion. Mediastinum and cardiac silhouette stable skeletal structures stable. IMPRESSION: 1. No significant change from prior examination with continued small right apical pneumothorax. 2. Lung santoro again demonstrate diffuse chronic parenchymal changes. Superimposed acute process cannot be excluded. <Electronically signed by Krishna Hernandez > 10/29/20 [id number]
[2020-10-29] MEDS: MOM 30ML SUSPENSION UDC PO SCH (09:00)
[2020-10-29] MEDS: PANTOPRAZOLE 40MG VIAL (C9113 PER 1) IV SCH (09:42)
[2020-10-29] MEDS: DOCUSATE SODIUM 100MG CAPSULE PO SCH ×2 (09:43→21:00)
[2020-10-29] MEDS: predniSONE 20 MG TAB PO SCH (09:43)
[2020-10-29] MEDS: MIDODRINE 5 MG TAB PO SCH ×3 (09:43→16:36)
[2020-10-29] MEDS: HEPARIN SOD (PORCINE) 5000UNITS/ML 1ML VIAL/SYRINGE SC SCH ×2 (09:43→22:10)
[2020-10-29] MEDS: HYDROXYCHLOROQUINE 200 MG TAB PO SCH ×2 (09:44→22:10)
[2020-10-29] MEDS: NORCO, ANEXSIA 5/325MG TABLET (HYDROcodone/ACETAMINOPHEN) PO PRN (09:44)
[2020-10-29] MEDS: ATOVAQUONE SUSP 750MG/5ML 210 ML BTL PO SCH (09:44)
[2020-10-29] MEDS: LEVEMIR (INSULIN DETEMIR) 1 UNITS/0.01ML SC SCH ×2 (09:45→22:10)
[2020-10-29 11:56] VITALS: BP 108/69
--- NOTE | 2020-10-29 12:36 | IPN ---
PROGRESS NOTE DATE: 10/29/2020 SUBJECTIVE: Patient is seen and examined at bedside. He notes no acute events overnight. He continues to attempt to walk around but is held back due to his shortness of breath on exertion specifically. This is baseline for him. He denies any fever, chills, chest pain, difficulty breathing, abdominal pain, nausea, vomiting, constipation, diarrhea. OBJECTIVE: Vital signs: Temperature 97.8, pulse 62 and regular, respiratory rate of 22, blood pressure 117/76, saturating 98% on 2 liters nasal cannula. Intake and output: 1230 mL of intake with 890 mL of output, 800 from urine, 90 from chest tube with no air leak. PHYSICAL EXAMINATION: General: Patient is a thin-appearing male sitting upright in bed eating breakfast in no acute distress. HEENT: Head is normocephalic, atraumatic. Extraocular movements intact. No scleral icterus. Mucous membranes are moist. Neck: No jugular venous distension (JVD) or lymphadenopathy. Trachea is midline. Cardiovascular: Regular rate and rhythm, normal S1 and S2. No murmurs, gallops, or rubs. Respiratory: Ongoing Velcro-like crackles bilaterally with more bronchophonous sounds appreciated on the right, otherwise no adventitious breath sounds, no wheezes or rhonchi. Abdomen: Soft, nontender, nondistended. Bowel sounds present. No hepatosplenomegaly. No costovertebral angle (CVA) tenderness. Extremities: No pitting edema in bilateral upper or lower extremities. Skin: Warm and dry without rashes or lesions. Neurologic: Cranial nerves II-XII are intact. Sensation is intact. Gait is stable. Psychiatric: Awake, alert, oriented times three with appropriate mood and affect. LABORATORY DATA: White blood cell count of 11.3, hemoglobin 13.8, hematocrit 44.8, platelet count of 192. Sodium 140, potassium 4.4, chloride 100, bicarbonate 40, BUN 24, creatinine 0.6, glucose 169, calcium 8.5, total bilirubin 0.4, AST of 20, ALT of 36, alkaline phosphatase of 92, total protein of 5.2, albumin 2.4. IMAGIN-D chest x-ray: The right upper lobe small air space that has been documented on prior imaging appears to be gone today. Pleura extends out to the chest wall. No signs of subcutaneous emphysema. Costophrenic angles are sharp bilaterally. Heart borders are regular. Trachea is midline. No signs of acute infiltrate. ASSESSMENT: 1. Postoperative day #9 status post talc pleurodesis, wedge resection, and bullectomy. 2. Spontaneous pneumothorax right-sided and recurrent. 3. Alveolar pleural fistula, now controlled. 4. Advanced interstitial lung disease, clinically idiopathic pulmonary fibrosis. 5. Underlying chronic obstructive pulmonary disease (COPD). 6. Hypoxic polycythemia. 7. Gastroesophageal reflux disease (GERD). 8. Diabetes. PLAN: Turning down chest tube to -20 suction today. We will have it go to water seal tomorrow and then hopefully we will be able to take it off. Patient is comfortable with this plan moving forward and is eager to see the results. My faculty preceptor for this patient encounter was physically present during the encounter and was fully available. All aspects of the patient interview, examination, medical decision making process, and medical care plan development were reviewed and approved by the faculty preceptor. The faculty preceptor is aware and concurs with the plan as stated in the body of this note and will attest to such by his/her co-signature. Attending note: I have asked Dr. Rico of the hospitalist service to decrease his steroids. As noted before, the steroids are inhibiting the inflammatory response and the scarring of the pleura to the chest wall. -- BENSON Reese MD [facility]
--- NOTE | 2020-10-29 14:57 | IPNPDOC ---
Date Seen The patient was seen on 10/29/20. Progress Note SUBJECTIVE: Chest tube to 20 cm suction, decreased steroids today. CXR slightly improved. Remains on 2 L NC. Denies incr chest pain, shortness of breath, n/v/d. OBJECTIVE: PHYSICAL EXAM: VITAL SIGNS: Please see below GENERAL: In NAD, resting in bed LUNGS: Improved breath sounds b/l, crackles mild b/l bases. CVS: S1 and S2, sinus rhythm. No murmurs, rubs or gallops. GI: Soft, nontender and nondistended. Positive bowel sounds. CHEST: Right subclavian line BACK: chest tube right side EXTREMITIES: No cyanosis, clubbing or pitting edema. : Deferred NEURO: CN 2-12 intact, no focal deficits. PSYCH: Mood and affect appropriate LABORATORY DATA: Please see below MICROBIOLOGY: Please see below IMAGING: CXR today: Unchanged from prior CXR 10/23/20: There is no significant interval change. CXR 10/22/20: Findings essentially unchanged. Two right chest tubes remain in place at the apex. CXR 10/21/20: The subcutaneous emphysema along the right lateral chest wall has decreased. Question fracture tip of the right scapular versus superimposition artifact. No other interval change. 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 Admitted for persistent right sided spontaneous pneumothorax , POD 7 talc pleurodesis 10/20/20. PLAN: 1. Spontaneous pneumothorax on the right with recurrence, status post blood patch on 10/15 and 10/17, POD 7 talc pleurodesis on 10/20. 2. COPD 3. Type 2 diabetes 4. History of idiopathic pulmonary fibrosis, SLE on chronic prednisone and Plaquenil. 5. GERD 6. Alveolar pleural fistula. 7. Secondary polycythemia due to chronic hypoxia with IBS. 8. Thrombocytopenia, improving with negative Heparin induced thrombocytopenia panel. DVT px: Heparin SC PLAN: 20 cm suction , decreased steroids further. Thoracic surgery following closely. Other chronic issues stable. Home when medically improved. VS, I&O, 24H, Fishbone Vital Signs/I&O Vital Signs Date Time Temp Pulse Resp B/P (MAP) Pulse Ox O2 Delivery O2 Flow Rate FiO2 10/29/20 11:56 98.0 63 20 108/69 (82) 99 Nasal Cannula 2.0 I&O- Last 24 Hours up to 6 AM 10/29/20 06:00 Intake Total 990 ml Output Total 575 ml Balance 415 ml Laboratory Data 24H LABS Laboratory Tests 2 10/28/20 16:28: Bedside Glucose (Misc Panel) 355H 10/28/20 19:58: Bedside Glucose (Misc Panel) 295H 10/29/20 05:15: Nucleated Red Blood Cells % (auto) 0.0, Anion Gap 0L, Glomerular Filtration Rate > 60.0, Calcium Level 8.5L, Total Bilirubin 0.4, Aspartate Amino Transf (AST/SGOT) 20, Alanine Aminotransferase (ALT/SGPT) 36, Alkaline Phosphatase 92, Total Protein 5.2L, Albumin 2.4L, Albumin/Globulin Ratio 0.9 10/29/20 11:59: Bedside Glucose (Misc Panel) 55L CBC/BMP Laboratory Tests 10/29/20 05:15 Current Medications Current Medications Medications (Trade) Dose Ordered Sig/Ismael Route PRN Reason Start Time Stop Time Status Last Admin Dose Admin Acetaminophen (Tylenol Tab) 650 mg Q6HP PRN PO T > 101.5 or TAY 10/20/20 16:00 Acetaminophen (Tylenol Tab) 650 mg Q6HP PRN PO T > 101.5 or TAY 10/03/20 15:25 Cancel Acetaminophen/ Hydrocodone Bitart ([place], Anexsia 5/325) 1 tab Q3H PRN PO MILD PAIN (PS 1-4) 10/20/20 16:00 10/29/20 09:44 Acetaminophen/ Hydrocodone Bitart ([place], Anexsia 5/325) 1 tab Q3H PRN PO MILD PAIN (PS 1-4) 10/03/20 15:25 10/20/20 15:58 DC 10/13/20 20:26 Atovaquone (Mepron 750mg/ 5ml Suspension) 1,500 mg DAILY PO 10/04/20 09:00 10/29/20 09:44 Bisacodyl (Dulcolax Suppository) 10 mg Q4HP PRN AL CONSTIPATION 10/20/20 16:00 Bisacodyl (Dulcolax Suppository) 10 mg Q4HP PRN AL CONSTIPATION 10/03/20 15:25 Cancel Cefazolin Sodium 1 gm/Dextrose 50 ml @ 100 mls/hr Q8H IV 10/20/20 21:00 10/22/20 13:29 DC 10/22/20 12:38 Dextrose (Dextrose 50%) 25 ml ASDIRECTED PRN IV SEE LABEL COMMENTS 10/03/20 17:35 Cancel Dextrose/Sodium Chloride 1,000 ml @ 75 mls/hr [id number] IV 10/03/20 17:10 10/03/20 20:13 DC 10/03/20 17:32 Diphenhydramine HCl (Benadryl) 12.5 mg Q4HP PRN IV ITCHING 10/20/20 14:40 Cancel Docusate Sodium (Colace) 100 mg BID PO 10/20/20 21:00 10/29/20 09:43 Docusate Sodium (Colace) 100 mg BID PO 10/03/20 21:00 10/20/20 15:58 DC 10/18/20 08:33 Fentanyl Citrate (Sublimaze) 25 mcg Q5MP PRN IV PAIN LEVEL 5-10 10/20/20 17:30 10/20/20 18:30 DC Fentanyl/ Bupivacaine HCl 250 ml @ 4 mls/hr Q24H EPIDURAL 10/20/20 14:40 10/23/20 15:56 DC 10/22/20 17:23 Glucagon (Glucagon) 1 mg ASDIRECTED PRN SC SEE LABEL COMMENTS 10/03/20 17:35 Cancel Glucose (Glucose) 16 GM ASDIRECTED PRN PO SEE LABEL COMMENTS 10/03/20 17:35 Cancel Heparin Sodium (Heparin Lock Flush 10units/ml) 10 units ASDIRECTED PRN IV SEE LABEL COMMENTS 10/15/20 05:10 10/20/20 15:58 DC 10/18/20 08:34 Heparin Sodium (Heparin Lock Flush 10units/ml) 10 units ASDIRECTED PRN IV SEE LABEL COMMENTS 10/25/20 16:30 Heparin Sodium (Heparin Lock Flush 10units/ml) 10 units HLF IV 10/25/20 22:00 10/29/20 12:04 Heparin Sodium (Porcine) (Heparin) 5,000 units Q12H SC 10/20/20 21:00 10/21/20 07:45 DC Heparin Sodium (Porcine) (Heparin) 5,000 units Q12H SC 10/03/20 21:00 10/29/20 09:43 Home Med (Med Rec Complete!) ASDIRECTED XX 10/03/20 16:15 10/03/20 16:15 DC Hydromorphone HCl (Dilaudid) 0.2 mg Q5MP PRN IV PAIN LEVEL 4-7 10/20/20 17:30 10/20/20 18:30 DC Hydroxychloroquine Sulfate (Plaquenil) 200 mg BID PO 10/03/20 21:00 10/29/20 09:44 Insulin Detemir (Levemir Insulin) 6 units BID SC 10/16/20 09:00 10/20/20 08:46 DC 10/19/20 21:57 Insulin Detemir (Levemir Insulin) 6 units QHS SC 10/06/20 21:00 10/07/20 19:23 DC 10/06/20 20:57 Insulin Detemir (Levemir Insulin) 8 units QHS SC 10/23/20 21:00 10/28/20 21:49 Insulin Detemir (Levemir Insulin) 8 units QHS SC 10/07/20 21:00 10/16/20 07:46 DC 10/15/20 21:09 Insulin Detemir (Levemir Insulin) 12 units BID SC 10/20/20 21:00 10/22/20 05:36 DC 10/21/20 22:02 Insulin Detemir (Levemir Insulin) 15 units QHS SC 10/22/20 21:00 10/23/20 10:46 DC 10/22/20 20:42 Insulin Detemir (Levemir Insulin) 18 units QAM SC 10/22/20 09:00 10/25/20 08:01 DC 10/22/20 09:09 Insulin Detemir (Levemir Insulin) 25 units QAM SC 10/25/20 09:00 10/28/20 08:03 DC Insulin Detemir (Levemir Insulin) 35 units QAM SC 10/28/20 09:00 10/29/20 09:45 Insulin Human Lispro (HumaLOG INSULIN) SEE PROTOCOL TABLE AC SC 10/04/20 07:30 10/29/20 07:30 Insulin Human Lispro (HumaLOG INSULIN) SEE PROTOCOL TABLE QHS SC 10/03/20 21:00 10/28/20 21:49 Ketorolac Tromethamine (ToRADol) 15 mg Q6H IV 10/03/20 18:00 10/08/20 17:59 DC 10/08/20 12:53 Ketorolac Tromethamine (ToRADol) 30 mg Q6H IV 10/20/20 17:00 10/25/20 16:59 DC 10/25/20 11:33 Levalbuterol HCl (Xopenex Neb) 1.25 mg Q2HP PRN NEB WHEEZING 10/03/20 15:25 Levalbuterol HCl (Xopenex Neb) 1.25 mg RQ6H NEB 10/03/20 20:00 10/29/20 13:15 Lidocaine HCl (LIDOCAINE 1% MDV 20ml) 40 ml STAT STAT SC 10/08/20 12:39 10/08/20 12:41 DC 10/08/20 11:54 Lidocaine HCl (Lmx 4/Anecream) 1 dose Q8HP PRN TOP PAIN 10/08/20 21:50 10/08/20 23:45 Magnesium Hydroxide (Milk Of Magnesia) 30 ml DAILY PO 10/21/20 09:00 Magnesium Hydroxide (Milk Of Magnesia) 30 ml DAILY PO 10/04/20 09:00 10/20/20 15:58 DC 10/08/20 09:04 Metoclopramide HCl (REGLAN INJection) 10 mg Q6HP PRN IV NAUSEA 10/20/20 14:40 Cancel Midazolam HCl (Versed) 6 mg ASDIRECTED STAT IV 10/08/20 12:39 10/08/20 12:41 DC 10/08/20 11:50 Midodrine (Proamatine) 5 mg 08,12,16 PO 10/17/20 13:00 10/29/20 12:04 Miscellaneous (Unresolved Clarification Entry) SEE LABEL COMMENTS DAILY XX 10/09/20 09:00 10/09/20 14:46 DC Naloxone HCl (Narcan) 0.1 mg Q5MP PRN IV SEE LABEL COMMENTS 10/20/20 14:40 Cancel Non-Formulary Medication (Epidural/S[employer]IVER [place]) 1 each ASDIRECTED PRN XX SEE LABEL COMMENTS 10/20/20 14:40 Cancel Non-Formulary Medication ([place]) ASDIRECTED PRN XX SEE LABEL COMMENTS 10/20/20 14:40 Cancel Ondansetron HCl (ZOFRAN INJection) 4 mg Q4HP PRN IV NAUSEA 10/20/20 16:00 Ondansetron HCl (ZOFRAN INJection) 4 mg Q4HP PRN IV NAUSEA OR VOMITING 10/20/20 17:30 10/20/20 18:30 DC Ondansetron HCl (ZOFRAN INJection) 4 mg Q4HP PRN IV NAUSEA 10/03/20 15:25 Cancel Ondansetron HCl (ZOFRAN INJection) 4 mg Q6HP PRN IV REFRACTORY NAUSEA 10/20/20 14:40 Cancel Oxycodone HCl (Roxicodone, Oxyir) 5 mg ASDIRECTED PRN PO PAIN LEVEL 1-4 10/20/20 17:30 10/20/20 18:30 DC Oxycodone/ Acetaminophen (Percocet 5mg/ 325mg Tablet) 1 tab Q4H PRN PO MODERATE PAIN (PS 5-7) 10/20/20 16:00 10/28/20 23:26 Oxycodone/ Acetaminophen (Percocet 5mg/ 325mg Tablet) 1 tab Q4H PRN PO MODERATE PAIN (PS 5-7) 10/03/20 15:25 10/20/20 15:58 DC 10/17/20 21:59 Oxycodone/ Acetaminophen (Percocet 5mg/ 325mg Tablet) 2 tab Q4H PRN PO SEVERE PAIN (PS 8-10) 10/20/20 16:00 Oxycodone/ Acetaminophen (Percocet 5mg/ 325mg Tablet) 2 tab Q4H PRN PO SEVERE PAIN (PS 8-10) 10/03/20 15:25 10/20/20 15:58 DC 10/10/20 22:59 Pantoprazole Sodium (Protonix) 40 mg DAILY IV 10/21/20 09:00 10/29/20 09:42 Pantoprazole Sodium (Protonix) 40 mg DAILY PO 10/21/20 09:00 10/21/20 07:46 DC Pantoprazole Sodium (Protonix) 40 mg DAILY PO 10/04/20 09:00 10/20/20 15:58 DC 10/20/20 09:18 Phenylephrine HCl 50 mg/Dextrose 500 ml @ 7.2 mls/hr Q24H IV 10/20/20 21:05 10/22/20 17:39 DC 10/20/20 23:24 Phenylephrine HCl 50 mg/Dextrose 500 ml @ 15 mls/hr Q24H IV 10/21/20 18:21 UNV Potassium Chloride/Dextrose/ Sod Cl 1,000 ml @ 75 mls/hr [id number] IV 10/20/20 15:58 10/22/20 09:26 DC 10/21/20 17:59 Potassium Chloride/Dextrose/ Sod Cl 1,000 ml @ 75 mls/hr [id number] IV 10/03/20 15:25 10/03/20 17:11 DC Prednisone (Deltasone) 40 mg DAILY PO 10/30/20 09:00 Prednisone (Deltasone) 60 mg DAILY PO 10/04/20 09:00 10/29/20 09:57 DC 10/29/20 09:43 Sodium Chloride 1,000 ml @ 100 mls/hr Q10H IV 10/22/20 12:25 10/22/20 17:37 DC 10/22/20 12:35 Sodium Chloride (Saline Lock Flush) 2 ml ASDIRECTED PRN IV SEE LABEL COMMENTS 10/13/20 08:00 Sodium Chloride (Saline Lock Flush) 2 ml SLF IV 10/13/20 14:00 10/29/20 12:04 Sodium Chloride (Saline Lock Flush) 10 ml ASDIRECTED PRN IV SEE LABEL COMMENTS 10/15/20 05:10 10/20/20 15:58 DC 10/18/20 08:35 Sodium Chloride (Saline Lock Flush) 10 ml ASDIRECTED PRN IV SEE LABEL COMMENTS 10/25/20 16:30 Sodium Chloride (Saline Lock Flush) 10 ml SLF IV 10/25/20 22:00 10/29/20 12:05 Allergies Coded Allergies: No Known Drug Allergies (Verified Allergy, Unknown, 10/03/20) Madison Rico MD Oct 29, 2020 14:57
[2020-10-29 16:00] VITALS: BP 103/59
[2020-10-29 20:00] VITALS: BP 104/59
[2020-10-29] MEDS: PERCOCET 5MG/325MG TAB PO PRN (22:11)
[2020-10-30] VITALS: BP 121/77
[2020-10-30] MEDS: LEVALBUTEROL 1.25 MG/0.5 ML CONCENTRATE NEB NEB SCH ×4 (02:00→20:02)
[2020-10-30 04:00] VITALS: BP 131/78
[2020-10-30] MEDS: SODIUM CHLORIDE 0.9% INJ 10 ML SYR IV SCH ×3 (05:28→21:24)
[2020-10-30] MEDS: SLF 3 ML SYR IV SCH ×3 (05:28→21:23)
[2020-10-30 05:50] LABS: HEMATOCRIT 42.2 % (42.0-52.0); HEMOGLOBIN 13.1 g/dl (13.5-17.5); MEAN CORPUSCULAR HEMOGLOBIN 29.3 pg (27.0-33.0); MEAN CORPUSCULAR VOLUME 94.4 fl (80.0-96.0); PLATELET COUNT, AUTOMATED 177 10^3/uL (150-450); RED BLOOD COUNT 4.47 10^6/uL (4.30-6.10); WHITE BLOOD COUNT 11.6 10^3/uL (4.0-10.0)
[2020-10-30 06:12] LABS: ALBUMIN 2.3 GM/DL (3.2-5.2); ALT/SGPT 33 U/L (12-78); BILIRUBIN,TOTAL 0.3 MG/DL (0.2-1.0); BLOOD UREA NITROGEN 21 MG/DL (7-18); CALCIUM LEVEL 7.7 MG/DL (8.8-10.2); CARBON DIOXIDE LEVEL 40 MEQ/L (21-32); CHLORIDE LEVEL 101 MEQ/L (98-107); CREATININE FOR GFR 0.45 MG/DL (0.70-1.30); GLOMERULAR FILTRATION RATE > 60.0 (>49); GLUCOSE, FASTING 57 MG/DL (70-100); POTASSIUM SERUM 3.9 MEQ/L (3.5-5.1); SODIUM LEVEL 139 MEQ/L (136-145); TOTAL PROTEIN 4.6 GM/DL (6.4-8.2)
[2020-10-30] MEDS: HumaLOG INSULIN (NovoLOG) PER UNIT SC SCH ×4 (07:30→20:38)
[2020-10-30 07:38] VITALS: BP 113/72
[2020-10-30] MEDS: ATOVAQUONE SUSP 750MG/5ML 210 ML BTL PO SCH (08:32)
[2020-10-30] MEDS: MIDODRINE 5 MG TAB PO SCH ×3 (08:33→16:59)
[2020-10-30] MEDS: DOCUSATE SODIUM 100MG CAPSULE PO SCH ×2 (08:33→21:00)
[2020-10-30] MEDS: MOM 30ML SUSPENSION UDC PO SCH (08:33)
[2020-10-30] MEDS: HYDROXYCHLOROQUINE 200 MG TAB PO SCH ×2 (08:33→20:37)
[2020-10-30] MEDS: HEPARIN SOD (PORCINE) 5000UNITS/ML 1ML VIAL/SYRINGE SC SCH ×2 (08:34→20:37)
[2020-10-30] MEDS: PANTOPRAZOLE 40MG VIAL (C9113 PER 1) IV SCH (08:34)
[2020-10-30] MEDS: LEVEMIR (INSULIN DETEMIR) 1 UNITS/0.01ML SC SCH (08:34)
--- NOTE | 2020-10-30 08:55 | REP ---
INDICATION: R-sided chest tube, PF. COMPARISON: 10/29/2020, 10/28/2020 TECHNIQUE: Two views FINDINGS: There is skin vijay over the right chest about the level of right hilum. There are 2 right chest tubes extending to the mid and upper chest the positions unchanged. Small right apical pneumothorax is larger today although still small there is no tension component or midline shift. There is a right subclavian catheter with tip in the right atrium inferiorly, likely near the IVC junction. Chronic lung field changes are stable. The cardiomediastinal silhouette is unchanged. Small right effusion noted. IMPRESSION: 1. Lines and tubes unchanged. The small right apical pneumothorax has increased since yesterday's study but is still small without tension component or midline shift. At the level where the subclavian catheter crosses the pleural margin radiographically, the gap measures 6 mm today, 3 mm yesterday. No other changes. <Electronically signed by Solis Devries > 10/30/20 [id number]
[2020-10-30] MEDS ORDERED: predniSONE 20 MG TAB PO SCH (09:00)
--- NOTE | 2020-10-30 12:08 | IPN ---
PROGRESS NOTE DATE: 10/30/2020 SUBJECTIVE: Patient is seen and examined this morning at bedside. No acute events overnight. He denies any fevers, chills, chest pain, shortness of breath, abdominal pain, nausea, vomiting, constipation or diarrhea. 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 He tolerated his new chest tube suction setting well overnight. He continues to be weaned on steroids by the primary team. OBJECTIVE: VITAL SIGNS: Afebrile overnight. Temperature is 97.9, pulse is 60 and regular, respiratory rate is 22, blood pressure is 113/72, saturating 99% on 2 liters nasal cannula. INPUT AND OUTPUT: 505 ml of intake with 85 ml of output in the last 24 hours with five voids and 85 ml drained from chest tube. I am going to assume that these voids were not measured. GENERAL: Patient is a thin appearing male sitting upright in bed in no acute distress speaking in complete sentences. HEENT: Head is normocephalic. Atraumatic. EOMI. No scleral icterus. Mucous membranes are moist. NECK: No lymphadenopathy or JVD. Trachea is midline. CARDIOVASCULAR: Regular rate and rhythm. Normal S1 and S2. No murmurs, rubs or gallops. RESPIRATORY: Velcro-like crackles appreciated bilaterally throughout the lungs. No crackles appreciated at the bases of bilateral lungs, bronchophonous breath sounds appreciated on the right. No wheezes or rhonchi. ABDOMEN: Soft, nontender and nondistended. No hepatosplenomegaly. Bowel sounds are present. EXTREMITIES: No edema. SKIN: Warm, dry and perfusing well without rashes or lesions. NEUROLOGIC: Cranial nerves II-XII are intact. Sensation is intact. Gait is stable. PSYCH: Patient is awake, alert and oriented x3 with appropriate mood and affect. LABORATORY DATA: White blood cell count of 11.6, hemoglobin is 13.1, hematocrit is 42.2, platelet count of 177,000. Sodium 139, potassium is 3.9, chloride 101, bicarbonate of 40. BUN 21, creatinine 0.45. Glucose of 57. Calcium of 7.7. IMAGING: Chest x-ray showed minimal separation about 5.78 mm in the right upper lobe from the chest wall. This is still improved from what it was a couple of days ago. The costophrenic angles are sharp. The heart borders were regular. The trachea is midline. No focal infiltrates. Otherwise, unremarkable chest x-ray. ASSESSMENT: 1. Postoperative day #10 status post talc pleurodesis, wedge resection and bullectomy. 2. Spontaneous pneumothorax, right sided and recurrent. 3. Alveolar pleural fistula, now controlled. 4. Advanced intersitial lung disease clinically, idiopathic pulmonary fibrosis. 5. Underlying COPD. 6. Hypoxic polycythemia. 7. GERD. 8. Diabetes. PLAN: We will turn the chest tube to water seal today and will likely plan to clamp it tomorrow assuming the separation between the pleura and the chest wall stays relatively constant, hopefully will anticipate a discharge this upcoming Tuesday. ATTACH E ATTESTATION
[2020-10-30 12:19] VITALS: BP 104/64
--- NOTE | 2020-10-30 15:56 | IPNPDOC ---
Date Seen The patient was seen on 10/30/20. Progress Note SUBJECTIVE: Chest tube to water seal today, decreased steroids 10/31/20. Remains on 2 L NC. Denies incr chest pain, shortness of breath, n/v/d. OBJECTIVE: PHYSICAL EXAM: VITAL SIGNS: Please see below GENERAL: In NAD, resting in bed LUNGS: Improving breath sounds b/l, crackles b/l lungs posterior CVS: S1 and S2, sinus rhythm. No murmurs, rubs or gallops. GI: Soft, nontender and nondistended. Positive bowel sounds. CHEST: Right subclavian line BACK: chest tubes right side EXTREMITIES: No cyanosis, clubbing or pitting edema. : Deferred NEURO: CN 2-12 intact, no focal deficits. PSYCH: Mood and affect appropriate LABORATORY DATA: Please see below MICROBIOLOGY: Please see below IMAGING: CXR today: Lines and tubes unchanged. The small right apical pneumothorax has increased since yesterday's study but is still small without tension component or midline shift. At the level where the subclavian catheter crosses the pleural margin radiographically, the gap measures 6 mm today, 3 mm yesterday. No other changes. CXR 10/23/20: There is no significant interval change. CXR 10/22/20: Findings essentially unchanged. Two right chest tubes remain in place at the apex. CXR 10/21/20: The subcutaneous emphysema along the right lateral chest wall has decreased. Question fracture tip of the right scapular versus superimposition artifact. No other interval change. 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 Admitted for persistent right sided spontaneous pneumothorax , POD 10 talc pleurodesis 10/20/20. PLAN: 1. Spontaneous pneumothorax on the right with recurrence, status post blood patch on 10/15 and 10/17, POD 10 talc pleurodesis on 10/20. 2. COPD 3. Type 2 diabetes 4. History of idiopathic pulmonary fibrosis, SLE on chronic prednisone and Plaquenil. 5. GERD 6. Alveolar pleural fistula. 7. Secondary polycythemia due to chronic hypoxia with IBS. 8. Thrombocytopenia, improving with negative Heparin induced thrombocytopenia panel. DVT px: Heparin SC PLAN: Chest tube to water seal. Will see how he does and f/u CXR in the AM. Can likely decrease steroids further on 10/31/20. Thoracic surgery following closely. Home when medically improved. VS, I&O, 24H, Fishbone Vital Signs/I&O Vital Signs Date Time Temp Pulse Resp B/P (MAP) Pulse Ox O2 Delivery O2 Flow Rate FiO2 10/30/20 12:19 98.3 77 24 104/64 (77) 96 Nasal Cannula 2.0 I&O- Last 24 Hours up to 6 AM 10/30/20 06:00 Intake Total 505 ml Output Total 75 ml Balance 430 ml Laboratory Data 24H LABS Laboratory Tests 2 10/29/20 16:34: Bedside Glucose (Misc Panel) 257H 10/29/20 22:00: Bedside Glucose (Misc Panel) 289H 10/30/20 05:27: Nucleated Red Blood Cells % (auto) 0.0, Anion Gap , Glomerular Filtration Rate > 60.0, Calcium Level 7.7L, Total Bilirubin 0.3, Aspartate Amino Transf (AST/SGOT) 15, Alanine Aminotransferase (ALT/SGPT) 33, Alkaline Phosphatase 75, Total Protein 4.6L, Albumin 2.3L, Albumin/Globulin Ratio 1.0 10/30/20 11:54: Bedside Glucose (Misc Panel) 115 CBC/BMP Laboratory Tests 10/30/20 05:27 Current Medications Current Medications Medications (Trade) Dose Ordered Sig/Ismael Route PRN Reason Start Time Stop Time Status Last Admin Dose Admin Acetaminophen (Tylenol Tab) 650 mg Q6HP PRN PO T > 101.5 or TAY 10/20/20 16:00 Acetaminophen (Tylenol Tab) 650 mg Q6HP PRN PO T > 101.5 or TAY 10/03/20 15:25 Cancel Acetaminophen/ Hydrocodone Bitart ([place], [place] 5/325) 1 tab Q3H PRN PO MILD PAIN (PS 1-4) 10/20/20 16:00 10/29/20 09:44 Acetaminophen/ Hydrocodone Bitart ([place], [place] 5/325) 1 tab Q3H PRN PO MILD PAIN (PS 1-4) 10/03/20 15:25 10/20/20 15:58 DC 10/13/20 20:26 Atovaquone (Mepron 750mg/ 5ml Suspension) 1,500 mg DAILY PO 10/04/20 09:00 10/30/20 08:32 Bisacodyl (Dulcolax Suppository) 10 mg Q4HP PRN OK CONSTIPATION 10/20/20 16:00 Bisacodyl (Dulcolax Suppository) 10 mg Q4HP PRN OK CONSTIPATION 10/03/20 15:25 Cancel Cefazolin Sodium 1 gm/Dextrose 50 ml @ 100 mls/hr Q8H IV 10/20/20 21:00 10/22/20 13:29 DC 10/22/20 12:38 Dextrose (Dextrose 50%) 25 ml ASDIRECTED PRN IV SEE LABEL COMMENTS 10/03/20 17:35 Cancel Dextrose/Sodium Chloride 1,000 ml @ 75 mls/hr [id number] IV 10/03/20 17:10 10/03/20 20:13 DC 10/03/20 17:32 Diphenhydramine HCl (Benadryl) 12.5 mg Q4HP PRN IV ITCHING 10/20/20 14:40 Cancel Docusate Sodium (Colace) 100 mg BID PO 10/20/20 21:00 10/29/20 09:43 Docusate Sodium (Colace) 100 mg BID PO 10/03/20 21:00 10/20/20 15:58 DC 10/18/20 08:33 Fentanyl Citrate (Sublimaze) 25 mcg Q5MP PRN IV PAIN LEVEL 5-10 10/20/20 17:30 10/20/20 18:30 DC Fentanyl/ Bupivacaine HCl 250 ml @ 4 mls/hr Q24H EPIDURAL 10/20/20 14:40 10/23/20 15:56 DC 10/22/20 17:23 Glucagon (Glucagon) 1 mg ASDIRECTED PRN SC SEE LABEL COMMENTS 10/03/20 17:35 Cancel Glucose (Glucose) 16 GM ASDIRECTED PRN PO SEE LABEL COMMENTS 10/03/20 17:35 Cancel Heparin Sodium (Heparin Lock Flush 10units/ml) 10 units ASDIRECTED PRN IV SEE LABEL COMMENTS 10/15/20 05:10 10/20/20 15:58 DC 10/18/20 08:34 Heparin Sodium (Heparin Lock Flush 10units/ml) 10 units ASDIRECTED PRN IV SEE LABEL COMMENTS 10/25/20 16:30 Heparin Sodium (Heparin Lock Flush 10units/ml) 10 units HLF IV 10/25/20 22:00 10/30/20 12:33 Heparin Sodium (Porcine) (Heparin) 5,000 units Q12H SC 10/20/20 21:00 10/21/20 07:45 DC Heparin Sodium (Porcine) (Heparin) 5,000 units Q12H SC 10/03/20 21:00 10/30/20 08:34 Home Med (Med Rec Complete!) ASDIRECTED XX 10/03/20 16:15 10/03/20 16:15 DC Hydromorphone HCl (Dilaudid) 0.2 mg Q5MP PRN IV PAIN LEVEL 4-7 10/20/20 17:30 10/20/20 18:30 DC Hydroxychloroquine Sulfate (Plaquenil) 200 mg BID PO 10/03/20 21:00 10/30/20 08:33 Insulin Detemir (Levemir Insulin) 6 units BID SC 10/16/20 09:00 10/20/20 08:46 DC 10/19/20 21:57 Insulin Detemir (Levemir Insulin) 6 units QHS SC 10/06/20 21:00 10/07/20 19:23 DC 10/06/20 20:57 Insulin Detemir (Levemir Insulin) 8 units QHS SC 10/23/20 21:00 10/30/20 08:32 DC 10/29/20 22:10 Insulin Detemir (Levemir Insulin) 8 units QHS SC 10/07/20 21:00 10/16/20 07:46 DC 10/15/20 21:09 Insulin Detemir (Levemir Insulin) 12 units BID SC 10/20/20 21:00 10/22/20 05:36 DC 10/21/20 22:02 Insulin Detemir (Levemir Insulin) 15 units QHS SC 10/22/20 21:00 10/23/20 10:46 DC 10/22/20 20:42 Insulin Detemir (Levemir Insulin) 18 units QAM SC 10/22/20 09:00 10/25/20 08:01 DC 10/22/20 09:09 Insulin Detemir (Levemir Insulin) 25 units QAM SC 10/25/20 09:00 10/28/20 08:03 DC Insulin Detemir (Levemir Insulin) 35 units QAM SC 10/28/20 09:00 10/30/20 08:34 Insulin Human Lispro (HumaLOG INSULIN) SEE PROTOCOL TABLE AC SC 10/04/20 07:30 10/30/20 12:33 Insulin Human Lispro (HumaLOG INSULIN) SEE PROTOCOL TABLE QHS SC 10/03/20 21:00 10/29/20 22:10 Ketorolac Tromethamine (ToRADol) 15 mg Q6H IV 10/03/20 18:00 10/08/20 17:59 DC 10/08/20 12:53 Ketorolac Tromethamine (ToRADol) 30 mg Q6H IV 10/20/20 17:00 10/25/20 16:59 DC 10/25/20 11:33 Levalbuterol HCl (Xopenex Neb) 1.25 mg Q2HP PRN NEB WHEEZING 10/03/20 15:25 Levalbuterol HCl (Xopenex Neb) 1.25 mg RQ6H NEB 10/03/20 20:00 10/30/20 14:59 Lidocaine HCl (LIDOCAINE 1% MDV 20ml) 40 ml STAT STAT SC 10/08/20 12:39 10/08/20 12:41 DC 10/08/20 11:54 Lidocaine HCl (Lmx 4/Anecream) 1 dose Q8HP PRN TOP PAIN 10/08/20 21:50 10/08/20 23:45 Magnesium Hydroxide (Milk Of Magnesia) 30 ml DAILY PO 10/21/20 09:00 Magnesium Hydroxide (Milk Of Magnesia) 30 ml DAILY PO 10/04/20 09:00 10/20/20 15:58 DC 10/08/20 09:04 Metoclopramide HCl (REGLAN INJection) 10 mg Q6HP PRN IV NAUSEA 10/20/20 14:40 Cancel Midazolam HCl (Versed) 6 mg ASDIRECTED STAT IV 10/08/20 12:39 10/08/20 12:41 DC 10/08/20 11:50 Midodrine (Proamatine) 5 mg 08,12,16 PO 10/17/20 13:00 10/30/20 12:32 Miscellaneous (Unresolved Clarification Entry) SEE LABEL COMMENTS DAILY XX 10/09/20 09:00 10/09/20 14:46 DC Naloxone HCl (Narcan) 0.1 mg Q5MP PRN IV SEE LABEL COMMENTS 10/20/20 14:40 Cancel Non-Formulary Medication (Epidural/CATTLE DRIVER [place]) 1 each ASDIRECTED PRN XX SEE LABEL COMMENTS 10/20/20 14:40 Cancel Non-Formulary Medication ([place]) ASDIRECTED PRN XX SEE LABEL COMMENTS 10/20/20 14:40 Cancel Ondansetron HCl (ZOFRAN INJection) 4 mg Q4HP PRN IV NAUSEA 10/20/20 16:00 Ondansetron HCl (ZOFRAN INJection) 4 mg Q4HP PRN IV NAUSEA OR VOMITING 10/20/20 17:30 10/20/20 18:30 DC Ondansetron HCl (ZOFRAN INJection) 4 mg Q4HP PRN IV NAUSEA 10/03/20 15:25 Cancel Ondansetron HCl (ZOFRAN INJection) 4 mg Q6HP PRN IV REFRACTORY NAUSEA 10/20/20 14:40 Cancel Oxycodone HCl (Roxicodone, Oxyir) 5 mg ASDIRECTED PRN PO PAIN LEVEL 1-4 10/20/20 17:30 10/20/20 18:30 DC Oxycodone/ Acetaminophen (Percocet 5mg/ 325mg Tablet) 1 tab Q4H PRN PO MODERATE PAIN (PS 5-7) 10/20/20 16:00 10/29/20 22:11 Oxycodone/ Acetaminophen (Percocet 5mg/ 325mg Tablet) 1 tab Q4H PRN PO MODERATE PAIN (PS 5-7) 10/03/20 15:25 10/20/20 15:58 DC 10/17/20 21:59 Oxycodone/ Acetaminophen (Percocet 5mg/ 325mg Tablet) 2 tab Q4H PRN PO SEVERE PAIN (PS 8-10) 10/20/20 16:00 Oxycodone/ Acetaminophen (Percocet 5mg/ 325mg Tablet) 2 tab Q4H PRN PO SEVERE PAIN (PS 8-10) 10/03/20 15:25 10/20/20 15:58 DC 10/10/20 22:59 Pantoprazole Sodium (Protonix) 40 mg DAILY IV 10/21/20 09:00 10/30/20 08:34 Pantoprazole Sodium (Protonix) 40 mg DAILY PO 10/21/20 09:00 10/21/20 07:46 DC Pantoprazole Sodium (Protonix) 40 mg DAILY PO 10/04/20 09:00 10/20/20 15:58 DC 10/20/20 09:18 Phenylephrine HCl 50 mg/Dextrose 500 ml @ 7.2 mls/hr Q24H IV 10/20/20 21:05 10/22/20 17:39 DC 10/20/20 23:24 Phenylephrine HCl 50 mg/Dextrose 500 ml @ 15 mls/hr Q24H IV 10/21/20 18:21 UNV Potassium Chloride/Dextrose/ Sod Cl 1,000 ml @ 75 mls/hr [id number] IV 10/20/20 15:58 10/22/20 09:26 DC 10/21/20 17:59 Potassium Chloride/Dextrose/ Sod Cl 1,000 ml @ 75 mls/hr [id number] IV 10/03/20 15:25 10/03/20 17:11 DC Prednisone (Deltasone) 40 mg DAILY PO 10/30/20 09:00 10/30/20 08:32 Prednisone (Deltasone) 60 mg DAILY PO 10/04/20 09:00 10/29/20 09:57 DC 10/29/20 09:43 Sodium Chloride 1,000 ml @ 100 mls/hr Q10H IV 10/22/20 12:25 10/22/20 17:37 DC 10/22/20 12:35 Sodium Chloride (Saline Lock Flush) 2 ml ASDIRECTED PRN IV SEE LABEL COMMENTS 10/13/20 08:00 Sodium Chloride (Saline Lock Flush) 2 ml SLF IV 10/13/20 14:00 10/30/20 12:33 Sodium Chloride (Saline Lock Flush) 10 ml ASDIRECTED PRN IV SEE LABEL COMMENTS 10/15/20 05:10 10/20/20 15:58 DC 10/18/20 08:35 Sodium Chloride (Saline Lock Flush) 10 ml ASDIRECTED PRN IV SEE LABEL COMMENTS 10/25/20 16:30 Sodium Chloride (Saline Lock Flush) 10 ml SLF IV 10/25/20 22:00 10/30/20 12:33 Allergies Coded Allergies: No Known Drug Allergies (Verified Allergy, Unknown, 10/03/20) Madison Rico MD Oct 30, 2020 15:56
[2020-10-30 16:00] VITALS: BP 110/57
[2020-10-30 20:00] VITALS: BP 106/61
[2020-10-31] VITALS (7 sets, daily range): BP systolic 103–114; BP diastolic 56–68; O2SAT 95
[2020-10-31] MEDS: LEVALBUTEROL 1.25 MG/0.5 ML CONCENTRATE NEB NEB SCH ×4 (01:48→20:48)
[2020-10-31 05:01] LABS: HEMATOCRIT 44.4 % (42.0-52.0); HEMOGLOBIN 13.7 g/dl (13.5-17.5); MEAN CORPUSCULAR HEMOGLOBIN 29.5 pg (27.0-33.0); MEAN CORPUSCULAR HGB CONC 30.9 g/dl (32.0-36.5); MEAN CORPUSCULAR VOLUME 95.5 fl (80.0-96.0); PLATELET COUNT, AUTOMATED 169 10^3/uL (150-450); RED BLOOD COUNT 4.65 10^6/uL (4.30-6.10); WHITE BLOOD COUNT 10.9 10^3/uL (4.0-10.0)
[2020-10-31 05:26] LABS: BLOOD UREA NITROGEN 21 MG/DL (7-18); CALCIUM LEVEL 7.7 MG/DL (8.8-10.2); CARBON DIOXIDE LEVEL 41 MEQ/L (21-32); CHLORIDE LEVEL 100 MEQ/L (98-107); CREATININE FOR GFR 0.57 MG/DL (0.70-1.30); GLOMERULAR FILTRATION RATE > 60.0 (>49); GLUCOSE, FASTING 138 MG/DL (70-100); POTASSIUM SERUM 4.1 MEQ/L (3.5-5.1); SODIUM LEVEL 141 MEQ/L (136-145)
[2020-10-31] MEDS: PERCOCET 5MG/325MG TAB PO PRN (05:38)
[2020-10-31] MEDS: SLF 3 ML SYR IV SCH ×3 (06:19→22:00)
[2020-10-31] MEDS: SODIUM CHLORIDE 0.9% INJ 10 ML SYR IV SCH ×3 (06:20→22:59)
--- NOTE | 2020-10-31 07:52 | REP ---
INDICATION: Chest pain new. COMPARISON: Portable chest dated 6:14 a.m., 10/31/2020, earlier this same date. TECHNIQUE: PA and lateral chest, 7:31 a.m.. FINDINGS: The 2 right thoracotomy tubes are unchanged. The right pneumothorax on the comparison study is no longer present. There is diffuse bilateral interstitial coarsening, unchanged. No focal opacities are identified. This is unchanged. Cardiac size is upper normal. There is a right subclavian central venous catheter with the tip in the right atrium, unchanged. There are 3 surgical staple superimposed over the right hemithorax, unchanged. The patient is rotated. IMPRESSION: The previous right pneumothorax is no longer present. There is no other significant interval change. <Electronically signed by Tavo Alex > 10/31/20 [id number]
--- NOTE | 2020-10-31 08:02 | REP ---
INDICATION: R-sided chest tube, PF COMPARISON: 10/30/2020 TECHNIQUE: PA and lateral. FINDINGS: Two right-sided chest tubes are identified and the right pneumothorax has increased from prior examination. Left hemithorax demonstrates chronic stable increased interstitial markings. Subtle superimposed acute process cannot be excluded. No obvious effusion. Visualized mediastinum and cardiac silhouette stable. Skeletal structures intact. Right subclavian catheter with tip in the right atrium. IMPRESSION: Increased right pneumothorax. <Electronically signed by Krishna Hernandez > 10/31/20 [id number]
[2020-10-31] MEDS: DOCUSATE SODIUM 100MG CAPSULE PO SCH ×2 (09:00→20:28)
[2020-10-31] MEDS: MOM 30ML SUSPENSION UDC PO SCH (09:00)
[2020-10-31] MEDS: LEVEMIR (INSULIN DETEMIR) 1 UNITS/0.01ML SC SCH (09:00)
[2020-10-31] MEDS: HumaLOG INSULIN (NovoLOG) PER UNIT SC SCH ×4 (09:36→20:28)
[2020-10-31] MEDS: ATOVAQUONE SUSP 750MG/5ML 210 ML BTL PO SCH (09:36)
[2020-10-31] MEDS: MIDODRINE 5 MG TAB PO SCH ×3 (09:37→17:29)
[2020-10-31] MEDS: HEPARIN SOD (PORCINE) 5000UNITS/ML 1ML VIAL/SYRINGE SC SCH ×2 (09:37→20:30)
[2020-10-31] MEDS: predniSONE 20 MG TAB PO SCH (09:37)
[2020-10-31] MEDS: PANTOPRAZOLE 40MG VIAL (C9113 PER 1) IV SCH (09:37)
[2020-10-31] MEDS: HYDROXYCHLOROQUINE 200 MG TAB PO SCH ×2 (09:37→20:27)
--- NOTE | 2020-10-31 12:33 | IPN ---
THORACIC SURGERY PROGRESS NOTE DATE: 10/31/2020 SUBJECTIVE: At about 0500 this morning the patient was walking back from the bathroom when he developed sudden onset sharp right sided chest pain near the chest tube insertion site. He called the nursing staff who contacted Dr. Reese. The nursing staff noticed some mild crepitus around his chest tube area. A portable chest x-ray was ordered as the x-ray downstairs was nonfunctional that showed an expanded pneumothorax. They replaced the tape around the tubing and the air leak went away. A repeat chest x-ray was done that showed reexpansion of the lung to the chest wall. Dr. Reese advised setting the chest tube to -40 suction and getting the portable chest x-ray. Once the air leak had been resolved, his pain dissipated almost immediately. Presently, the patient states he is in no pain. He is breathing well and he is perfectly fine. The chest tube is exhibiting no air leak as well. OBJECTIVE: VITAL SIGNS: Temperature is 97.0, pulse is 68 and regular, respiratory rate is 16, blood pressure is 114/68, satting 98% on three liters nasal cannula. INPUT AND OUTPUT: 1260 ml of intake, 285 of output with 35 ccs of chest tube drainage and it looks like seven voids that were likely not counted towards the total output. GENERAL: Patient is a thin, well-appearing male sitting upright in bed in no acute distress speaking in complete sentences. HEENT: Normocephalic, atraumatic. EOMI. No scleral icterus. Mucous membranes are moist. NECK: No JVD or lymphadenopathy. Trachea is midline. CARDIOVASCULAR: Regular rate and rhythm. Normal S1 and S2. No murmurs, gallops, rubs. RESPIRATORY: Bilateral Velcro-like crackles appreciated. Bronchophony appreciated in the right lower lobe. No other rhonchi or wheezing appreciated, or additional adventitious breath sounds. ABDOMEN: Soft, nontender and nondistended. Bowel sounds are present. No hepatosplenomegaly. EXTREMITIES: No edema in bilateral upper or lower extremities. NEUROLOGIC: Cranial nerves I-XII grossly intact. Gait is stable. Strength testing is not performed. Sensation is intact. PSYCH: Awake, alert and oriented x3 with appropriate mood and affect. LABORATORY DATA: White blood cell count of 10.9, hemoglobin 13.7, hematocrit 44.4, platelet count of 169,000. Sodium 141, potassium 4.1, chloride 100, bicarbonate 41, BUN 21, creatinine 0.57. Glucose of 138, calcium 7.7. IMAGING: Portable chest x-ray from this morning shows an expanded pneumothorax of the right lower lobe away from the chest wall with no tracheal deviation. A repeat 2-view chest x-ray done at 7:57 demonstrates reexpansion of the pleura to the chest wall with no signs of subcutaneous emphysema and a very minimal airspace in the right upper lobe, otherwise unremarkable chest x-ray with normal heart borders, sharp costophrenic angles and no sign of acute infiltrate. ASSESSMENT: 1. Postop day #11 status post talc pleurodesis, wedge resection and bullectomy. 2. Spontaneous pneumothorax right sided and recurrent. 3. Alveolar pleural fistula now controlled. 4. Advanced interstitial lung disease, clinically idiopathic pulmonary fibrosis. 5. Underlying COPD. 6. Hypoxic polycythemia. 7. GERD. 8. Diabetes. This seems to have been a mechanical failure where the tape had just become dislodged allowing the air leak to occur. The nursing staff replaced the tape, however we also replaced the nursing staff's tape, there are no signs of an air leak. We will continue a water seal for the next 24 hours and provided he does well will other clamp it or discontinue the chest tube entirely tomorrow morning with hopeful anticipated discharge tomorrow as well. Patient is in agreement with the plan. E ATTESTATION Attending note: According to nursing reports, his pain and dyspnea acutely developed about 5AM. Upon receiving a call I asked for a chest x-ray which showed separation from the inferior chest wall. Nursing noted an air leak and maybe loose connections. These were tightened. I have taken down the tape and retightened the chest tube connections. There is no air leak and I will continue him on underwater seal after having placed him on -40 cm H2O earlier this morning. We will follow the chest x-rays. It notable that the cupula of the lung looked to be adherent to the chest wall on the earlier x-ray. -- BENSON Reese MD [facility]
--- NOTE | 2020-10-31 16:41 | RO ---
OPERATIVE NOTE DATE OF OPERATION: 10/20/2020 PREPROCEDURE DIAGNOSIS: Bronchoalveolar pleural fistula. POSTPROCEDURE DIAGNOSIS: Bronchoalveolar pleural fistula. PROCEDURES: Multiple wedge resections x3 of bullae and blebs and talc pleurodesis, bronchoscopy, and five level rib block all with VATS techniques. SURGEON: Shawn Reese M.D. HOME PERFORMANCE LABORER: None. ANESTHESIA: General. FINDINGS: The bronchoscopy revealed a normal branching tracheobronchial tree. It was relatively dry. There were no endobronchial lesions seen. The thoracoscopy revealed a cobblestoned lung. Pictures were taken. There are two large bullae at the bottom of the right lower lobe. I spent a lot of time trying to find a culprit air leak by placing water in the pleural cavity and gently manipulating the lung to look for leaking bubbles; I could see none. There was a small defect in one of the bulla. I therefore, decided to resect both bullae. There was also a small bleb at the edge of the lower lobe and I also resected that. DESCRIPTION OF PROCEDURE: Under satisfactory general anesthesia and single-lumen tube endotracheal intubation, bronchoscope was placed into the tracheobronchial tree. Each segment and subsegment were thoroughly inspected and the above findings were noted without any endobronchial lesions. The patient was then turned to the left lateral decubitus position, sterilely prepped and draped in the usual manner. A thoracostomy incision was made in the approximate sixth intercostal space. The scope was placed and the chest was inspected. Two additional ports were then placed; one 5 mm and one 12 mm. The lung was gently inflated all the while insufflating water over the lung surface in order to look for bubbles. I could find none. Two large bullae were found, one with a defect although it was not bubbling. I was not sure if that might have been the culprit. I therefore, decided to undertake bulla resections. The lateral bulla was ceased with a grasper and through a 12 mm port. A staple was placed. After some manipulation, the staple could surround the bulla and it was then resected cleanly. The next bulla inferiorly on the diaphragmatic surface was then again ceased and manipulated so that the bulla could be resected and wedged with a 4.8 mm stapler. There was an additional small bleb, which was found at the bottom of the right lower lobe, and this was also resected with a small amount of parenchyma. TISSEEL glue was then placed on the staple lines and then the pleural cavity was thoroughly insufflated with talc uniformly. Pictures were taken. Two chest tubes were placed both #24 a curved and a straight posteriorly and anteriorly respectively. These were secured to the chest wall with 0-silk suture. The tubes were placed through two thoracostomy port incisions. The third and fourth incisions were closed with running 0-Vicryl suture for the extrathoracic muscles, running 3-0 Vicryl suture for the subcutaneous tissue, and running 4-0 Monocryl subcuticular suture for the skin. The patient tolerated the procedure well. The patient was turned supine and the anterior chest tube, which was left in placed, was then removed and the wound was stapled so that he would not suck air. This was covered with Vaseline gauze, tape, and was also covered with a Xeroform dressing. The patient tolerated the procedure well and left the operating room in satisfactory condition to the recovery room.
--- NOTE | 2020-10-31 16:47 | IPNPDOC ---
Text Note Date of Service The patient was seen on 10/31/20. NOTE SUBJECTIVE: Apparently the patient had a leak around the chest tube. This morning, cardiothoracic surgery was called and the tape around the chest tube site was readjusted and the leak was sealed. The patient does not have any complaints at this time, he just continues to feel tired and fatigued, otherwise the remainder of his review systems is negative. OBJECTIVE: PHYSICAL EXAM: VITAL SIGNS: Please see below GENERAL: In NAD, sitting upright in chair LUNGS: Mild crackles and gurgling noted on the right side near the chest tube, but otherwise clear lung sounds at the apex of the right lung, and throughout the left side. Chest tube is set to water seal at this time CVS: S1 and S2, sinus rhythm. No murmurs, rubs or gallops. GI: Soft, nontender and nondistended. Positive bowel sounds. CHEST: Right subclavian line BACK: chest tubes right side EXTREMITIES: No cyanosis, clubbing or pitting edema. : Deferred NEURO: CN 2-12 intact, no focal deficits. PSYCH: Mood and affect appropriate ASSESSMENT AND PLAN: This is a 65-year-old male with a history of COPD, idiopathic pulmonary fibrosis, SLE managed by his fiction writer, enrollment management manager as an outpatient with Cytoxan planned for the future and chronic Plaquenil and prednisone, presented to the ER with shortness of breath, found to have spontaneous pneumothorax, status post chest tube on 10/03 to 10/06 with recurrent pneumothorax, reinserted on 10/08, status post blood patch 10/15 and 10/17/2020. Admitted for persistent right sided spontaneous pneumothorax , POD 10 talc pleurodesis 10/20/20. PLAN: 1. Spontaneous pneumothorax on the right with recurrence, status post blood patch on 10/15 and 10/17, POD 10 talc pleurodesis on 10/20. 2. COPD 3. Type 2 diabetes 4. History of idiopathic pulmonary fibrosis, SLE on chronic prednisone and Plaquenil. 5. GERD 6. Alveolar pleural fistula. 7. Secondary polycythemia due to chronic hypoxia with IBS. 8. Thrombocytopenia, improving with negative Heparin induced thrombocytopenia panel. DVT px: Heparin SC PLAN: Prednisone decreased to 20 mg daily. Otherwise will defer to cardiothoracic surgery regarding the appropriate timing of removing the chest tube. The patient will also need to continue working with PT/OT such that he may be safe for going home VS,Nithinbone, I+O VS, Fishbone, I+O Laboratory Tests 10/31/20 04:50 Vital Signs Date Time Temp Pulse Resp B/P (MAP) Pulse Ox O2 Delivery O2 Flow Rate FiO2 10/31/20 16:00 2.0 10/31/20 16:00 96.9 96 22 104/63 (77 94 Nasal Cannula I&O- Last 24 Hours up to 6 AM 10/31/20 06:00 Intake Total 1620 ml Output Total 1095 ml Balance 525 ml CATHY KHAN DO Oct 31, 2020 16:47
[2020-10-31] MEDS: NORCO, ANEXSIA 5/325MG TABLET (HYDROcodone/ACETAMINOPHEN) PO PRN (23:00)
[2020-11-01] VITALS (7 sets, daily range): BP systolic 99–128; BP diastolic 58–78; O2SAT 95
[2020-11-01] MEDS: LEVALBUTEROL 1.25 MG/0.5 ML CONCENTRATE NEB NEB SCH ×4 (02:21→20:49)
[2020-11-01] MEDS: SLF 3 ML SYR IV SCH ×3 (04:35→22:00)
[2020-11-01] MEDS: SODIUM CHLORIDE 0.9% INJ 10 ML SYR IV SCH ×3 (05:48→22:19)
[2020-11-01] MEDS: HumaLOG INSULIN (NovoLOG) PER UNIT SC SCH ×4 (07:30→22:19)
[2020-11-01] MEDS: MIDODRINE 5 MG TAB PO SCH ×3 (08:00→16:13)
--- NOTE | 2020-11-01 08:26 | REP ---
INDICATION: R-sided chest tube, PF. COMPARISON: A PA and lateral chest dated 10/31/2020. TECHNIQUE: Upright PA and lateral chest. FINDINGS: The 2 right thoracotomy tubes are unchanged. There is a small right apical pneumothorax as an interval change. Diffuse bilateral interstitial coarsening is unchanged. Cardiac size is upper normal, unchanged. The right subclavian central venous catheter is unchanged with tip in the right atrium. The 3 surgical vijay are again noted superimposed over the right hemithorax, unchanged. IMPRESSION: New small right apical pneumothorax as an interval change. No other interval change. <Electronically signed by Tavo Alex > 11/01/20 0262
[2020-11-01] MEDS: DOCUSATE SODIUM 100MG CAPSULE PO SCH ×2 (09:00→21:00)
[2020-11-01] MEDS: LEVEMIR (INSULIN DETEMIR) 1 UNITS/0.01ML SC SCH (09:00)
[2020-11-01] MEDS: MOM 30ML SUSPENSION UDC PO SCH (09:00)
[2020-11-01] MEDS: ATOVAQUONE SUSP 750MG/5ML 210 ML BTL PO SCH (09:08)
[2020-11-01] MEDS: PANTOPRAZOLE 40MG VIAL (C9113 PER 1) IV SCH (09:08)
[2020-11-01] MEDS: HYDROXYCHLOROQUINE 200 MG TAB PO SCH ×2 (09:09→22:17)
[2020-11-01] MEDS: HEPARIN SOD (PORCINE) 5000UNITS/ML 1ML VIAL/SYRINGE SC SCH ×2 (09:09→22:19)
[2020-11-01] MEDS: predniSONE 20 MG TAB PO SCH (09:09)
[2020-11-01 09:49] LABS: HEMATOCRIT 47.8 % (42.0-52.0); HEMOGLOBIN 14.7 g/dl (13.5-17.5); MEAN CORPUSCULAR HEMOGLOBIN 29.5 pg (27.0-33.0); MEAN CORPUSCULAR HGB CONC 30.8 g/dl (32.0-36.5); PLATELET COUNT, AUTOMATED 182 10^3/uL (150-450); RED BLOOD COUNT 4.98 10^6/uL (4.30-6.10); WHITE BLOOD COUNT 14.1 10^3/uL (4.0-10.0)
[2020-11-01 10:12] LABS: BLOOD UREA NITROGEN 19 MG/DL (7-18); CALCIUM LEVEL 8.4 MG/DL (8.8-10.2); CARBON DIOXIDE LEVEL 39 MEQ/L (21-32); CHLORIDE LEVEL 98 MEQ/L (98-107); CREATININE FOR GFR 0.63 MG/DL (0.70-1.30); GLOMERULAR FILTRATION RATE > 60.0 (>49); GLUCOSE, FASTING 229 MG/DL (70-100); POTASSIUM SERUM 4.1 MEQ/L (3.5-5.1); SODIUM LEVEL 139 MEQ/L (136-145)
--- NOTE | 2020-11-01 11:48 | IPN ---
PROGRESS NOTE DATE: 11/01/2020 This is now the 12t postoperative day for Mr. Licea. Yesterday he developed acute pain early in the morning with shortness of breath, and a chest x-ray at that time shows that the lower portion of the lung had from the chest wall on the right side. It was also noted that the connections were loose, and the nurse staff redid the connections, and after placing him on 40 cm of suction, a repeat chest x-ray showed the lung fully expanded to the chest wall. I therefore elected to keep him off suction yesterday, and today the chest x-ray just shows a little separation from the chest wall superiorly but with the cupula intact against the chest wall. He is not complaining of any unusual or undue shortness of breath, although he is chronically very short of breath from his pulmonary fibrosis. His vital signs show a maximum temperature of 98.5 with a heart rate that ranges between 70-73 in a sinus rhythm, respiratory rate that is constant at 18 without the use of accessory muscles, who is 98%-100% saturated on 2 liters nasal cannula and whose blood pressure is ranging between 128/78 to 111/72. His intake and output for the past 24 hours has been recorded as 1080 in and 820 out for a positivity of 260 mL. He has put out 20 mL from the chest tube, and there is no air leak. His weight today is 69.3 kg compared to 71.1 kg yesterday. PHYSICAL EXAMINATION: He has equal breath sounds on either side, both sides showing Velcro crackles. I do hear a friction rub on the right side. Percussion notes are full to the diaphragm. Cardiac exam is without murmurs, clicks, gallops, or rubs. I cannot feel his point of maximal impulse (PMI). S1 and S2 are normal. Abdomen is soft and nontender. Bowel sounds are positive. There is no hepatomegaly. No costovertebral angle (CVA) tenderness. Extremities show no pretibial edema, no calf tenderness, no differential swelling of the upper extremities. Skin is warm, dry, and perfused without cyanosis or mottling, including that of the nailbeds and knees. Neck is supple. There is no jugular venous distention. No subcutaneous emphysema. Trachea is midline. Mouth shows the mucous membranes to be pink and moist. Lips and commissures without lesions. No thrush. Eyes show his pupils to be equal and reactive. Extraocular motion intact. Sclerae anicteric. Neurologic shows II-XII intact. Normal gross motor, gross sensation intact. Gait is not tested. Psychiatric shows him to be awake, alert, and oriented times three with appropriate mood and affect and conversational. His white count today is 14.1 with a hemoglobin and hematocrit of 14.7 and 47.8. His platelet count is 182 and stable. Chemistries show an elevated total CO2, which has been consistent throughout his admission secondary to his pulmonary fibrosis and CO2 retention. His BUN and creatinine are 19 and 0.63. Calcium is 8.4 with a glucose of 229. His chest x-ray is described above. As there is no air leak, I am going to pull his chest tube in a sequential fashion. I will remove the posterior chest tube today. I will temporarily place the superior chest tube on suction but will discontinue it in about 4 hours. I have thoroughly sealed the wound where his chest tube has been removed. IMPRESSION: 1. Postoperative day #12 status post talc pleurodesis and bullectomy with wedge resections. 2. Spontaneous pneumothorax on the right side, recurrent. 3. Alveolar pleural fistula, hopefully now resolved. 4. Advanced interstitial lung disease, clinically idiopathic pulmonary fibrosis. 5. Underlying chronic obstructive pulmonary disease (COPD). 6. Hypoxic polycythemia. 7. Gastroesophageal reflux disease. 8. Diabetes. PLAN AND DISCUSSION: See above. I will take out the inferior chest tube today.
--- NOTE | 2020-11-01 16:10 | IPNPDOC ---
Text Note Date of Service The patient was seen on 11/01/20. NOTE SUBJECTIVE: Patient is sitting upright in the chair again today. He is in no acute distress at this time. He does not have any significant complaints at this time, he does feel short of breath with exertion which is likely secondary to deconditioning. no pain at this time. Chest tube still in place to water seal. OBJECTIVE: PHYSICAL EXAM: VITAL SIGNS: Please see below GENERAL: In NAD, sitting upright in chair LUNGS: Mild crackles and gurgling noted on the right side near the chest tube, but otherwise clear lung sounds at the apex of the right lung, and throughout the left side. Chest tube is set to water seal at this time CVS: S1 and S2, sinus rhythm. No murmurs, rubs or gallops. GI: Soft, nontender and nondistended. Positive bowel sounds. CHEST: Right subclavian line BACK: chest tubes right side EXTREMITIES: No cyanosis, clubbing or pitting edema. : Deferred NEURO: CN 2-12 intact, no focal deficits. PSYCH: Mood and affect appropriate ASSESSMENT AND PLAN: This is a 65-year-old male with a history of COPD, idiopathic pulmonary fibrosis, SLE managed by his gluing pressman, chief wheelage clerk as an outpatient with Cytoxan planned for the future and chronic Plaquenil and prednisone, presented to the ER with shortness of breath, found to have spo ntaneous pneumothorax, status post chest tube on 10/03 to 10/06 with recurrent pneumothorax, reinserted on 10/08, status post blood patch 10/15 and 10/17/2020. Admitted for persistent right sided spontaneous pneumothorax , POD 10 talc pleurodesis 10/20/20. PLAN: 1. Spontaneous pneumothorax on the right with recurrence, status post blood patch on 10/15 and 10/17, POD 10 talc pleurodesis on 10/20. 2. COPD 3. Type 2 diabetes 4. History of idiopathic pulmonary fibrosis, 5. SLE on chronic prednisone and Plaquenil. 6. GERD 7. Alveolar pleural fistula. 8. Secondary polycythemia due to chronic hypoxia with IBS. 9. Thrombocytopenia, improving with negative Heparin induced thrombocytopenia panel. DVT px: Heparin SC PLAN: No changes in medical regimen at this time. We will defer to cardiothoracic surgery regarding the management of this chest tubes. He will need to continue to work with physical therapy prior to discharge, he does have quite a few steps into and within the home and is not feeling he will be able to navigate those in his current state. VSSarbjit, I+O VSSarbjit, I+O Laboratory Tests 11/01/20 09:27 Vital Signs Date Time Temp Pulse Resp B/P (MAP) Pulse Ox O2 Delivery O2 Flow Rate FiO2 11/01/20 12:00 2.0 11/01/20 11:55 98.2 67 20 114/61 (78) 98 Nasal Cannula I&O- Last 24 Hours up to 6 AM 11/01/20 06:00 Intake Total 840 ml Output Total 38 ml Balance 802 ml CATHY KHAN DO Nov 01, 2020 16:10
[2020-11-01] MEDS: PERCOCET 5MG/325MG TAB PO PRN (22:18)
[2020-11-02] VITALS (7 sets, daily range): BP systolic 102–126; BP diastolic 62–74; O2SAT 95
[2020-11-02] MEDS: LEVALBUTEROL 1.25 MG/0.5 ML CONCENTRATE NEB NEB SCH ×4 (01:38→20:05)
[2020-11-02] MEDS: SLF 3 ML SYR IV SCH ×3 (05:30→20:59)
[2020-11-02] MEDS: SODIUM CHLORIDE 0.9% INJ 10 ML SYR IV SCH ×3 (05:31→20:47)
[2020-11-02 05:41] LABS: HEMATOCRIT 43.3 % (42.0-52.0); HEMOGLOBIN 13.2 g/dl (13.5-17.5); MEAN CORPUSCULAR HEMOGLOBIN 29.1 pg (27.0-33.0); MEAN CORPUSCULAR HGB CONC 30.5 g/dl (32.0-36.5); MEAN CORPUSCULAR VOLUME 95.6 fl (80.0-96.0); PLATELET COUNT, AUTOMATED 149 10^3/uL (150-450); RED BLOOD COUNT 4.53 10^6/uL (4.30-6.10); WHITE BLOOD COUNT 11.9 10^3/uL (4.0-10.0)
[2020-11-02 06:04] LABS: BLOOD UREA NITROGEN 19 MG/DL (7-18); CALCIUM LEVEL 7.9 MG/DL (8.8-10.2); CARBON DIOXIDE LEVEL 39 MEQ/L (21-32); CHLORIDE LEVEL 99 MEQ/L (98-107); GLOMERULAR FILTRATION RATE > 60.0 (>49); GLUCOSE, FASTING 172 MG/DL (70-100); POTASSIUM SERUM 4.1 MEQ/L (3.5-5.1); SODIUM LEVEL 138 MEQ/L (136-145)
--- NOTE | 2020-11-02 08:02 | REP ---
INDICATION: R-sided chest tube, PF. COMPARISON: 11/01/2020 PA and lateral chest. TECHNIQUE: Upright PA and lateral chest. FINDINGS: There is a single right thoracotomy tube. The 2nd right thoracotomy tube on the comparison study has been removed. The a small right apical pneumothorax is again identified, not significantly changed. Diffuse bilateral interstitial coarsening is unchanged. Cardiac size is upper normal, unchanged. There is a right subclavian central venous catheter with the tip in the right atrium in satisfactory position, unchanged. IMPRESSION: One of the 2 right thoracotomy tubes has been removed. There is a persisting small right apical pneumothorax. There is no other interval change. <Electronically signed by Tavo Alex > 11/02/20 0751
--- NOTE | 2020-11-02 08:18 | IPNPDOC ---
Text Note Date of Service The patient was seen on 11/02/20. NOTE SUBJECTIVE: Patient is sitting upright on the side of the bed. Beside some aching in his right side at the insertion of the chest tube, he doesn't have any additional complaints or requests at this time. OBJECTIVE: PHYSICAL EXAM: VITAL SIGNS: Please see below GENERAL: In NAD, sitting upright in chair LUNGS: Minimal crakles noted at the right lung base, but otherwise clear lung sounds at the apex of the right lung, and throughout the left side. Chest tube is once again set to water seal at this time CVS: S1 and S2, sinus rhythm. No murmurs, rubs or gallops. GI: Soft, nontender and nondistended. Positive bowel sounds. CHEST: Right subclavian line BACK: chest tubes right side EXTREMITIES: No cyanosis, clubbing or pitting edema. : Deferred NEURO: CN 2-12 intact, no focal deficits. PSYCH: Mood and affect appropriate ASSESSMENT AND PLAN: This is a 65-year-old male with a history of COPD, idiopathic pulmonary fibrosis, SLE managed by his news anchor, web programmer as an outpatient with Cytoxan planned for the future and chronic Plaquenil and prednisone, presented to the ER with shortness of breath, found to have spontaneous pneumothorax, status post chest tube on 10/03 to 10/06 with recurrent pneumothorax, reinserted on 10/08, status post blood patch 10/15 and 10/17/2020. Admitted for persistent right sided spontaneous pneumothorax , POD 10 talc pleurodesis 10/20/20. PLAN: 1. Spontaneous pneumothorax on the right with recurrence, status post blood patch on 10/15 and 10/17, POD 10 talc pleurodesis on 10/20. 2. COPD 3. Type 2 diabetes 4. History of idiopathic pulmonary fibrosis, 5. SLE on chronic prednisone and Plaquenil. 6. GERD 7. Alveolar pleural fistula. 8. Secondary polycythemia due to chronic hypoxia with IBS. 9. Thrombocytopenia, improving with negative Heparin induced thrombocytopenia panel. DVT px: Heparin SC PLAN: No changes in medical regimen at this time. We will defer to cardiothora cic surgery regarding the management of this chest tubes. Physical therapy is already aware of his needs regarding home safety and are working toward those goals with him. The patient is motivated to continue working with them VSSarbjit, I+O VS, Sarbjit, I+O Laboratory Tests 11/01/20 09:27 11/02/20 05:25 Vital Signs Date Time Temp Pulse Resp B/P (MAP) Pulse Ox O2 Delivery O2 Flow Rate FiO2 11/02/20 04:00 2.0 11/02/20 04:00 97.1 74 20 126/74 (91) 99 Nasal Cannula I&O- Last 24 Hours up to 6 AM 11/02/20 06:00 Intake Total 1435 ml Output Total 82 ml Balance 1353 ml CATHY KHAN DO Nov 02, 2020 08:18
[2020-11-02] MEDS: LEVEMIR (INSULIN DETEMIR) 1 UNITS/0.01ML SC SCH (09:00)
[2020-11-02] MEDS: DOCUSATE SODIUM 100MG CAPSULE PO SCH ×2 (09:00→19:43)
[2020-11-02] MEDS: MOM 30ML SUSPENSION UDC PO SCH (09:00)
[2020-11-02] MEDS: HumaLOG INSULIN (NovoLOG) PER UNIT SC SCH ×4 (09:52→20:45)
[2020-11-02] MEDS: ATOVAQUONE SUSP 750MG/5ML 210 ML BTL PO SCH (09:53)
[2020-11-02] MEDS: HEPARIN SOD (PORCINE) 5000UNITS/ML 1ML VIAL/SYRINGE SC SCH ×2 (09:53→20:45)
[2020-11-02] MEDS: PANTOPRAZOLE 40MG VIAL (C9113 PER 1) IV SCH (09:53)
[2020-11-02] MEDS: HYDROXYCHLOROQUINE 200 MG TAB PO SCH ×2 (09:54→20:45)
[2020-11-02] MEDS: MIDODRINE 5 MG TAB PO SCH ×3 (09:54→16:23)
[2020-11-02] MEDS: predniSONE 20 MG TAB PO SCH (09:54)
[2020-11-02] MEDS: PERCOCET 5MG/325MG TAB PO PRN (09:56)
[2020-11-03] VITALS: BP 110/69
[2020-11-03] MEDS: LEVALBUTEROL 1.25 MG/0.5 ML CONCENTRATE NEB NEB SCH ×4 (02:00→20:00)
[2020-11-03 04:00] VITALS: BP 119/66
[2020-11-03] MEDS: SODIUM CHLORIDE 0.9% INJ 10 ML SYR IV SCH ×3 (04:21→21:27)
[2020-11-03] MEDS: SLF 3 ML SYR IV SCH ×3 (04:21→21:28)
[2020-11-03 04:36] LABS: HEMATOCRIT 44.2 % (42.0-52.0); HEMOGLOBIN 13.6 g/dl (13.5-17.5); MEAN CORPUSCULAR HEMOGLOBIN 29.6 pg (27.0-33.0); MEAN CORPUSCULAR HGB CONC 30.8 g/dl (32.0-36.5); MEAN CORPUSCULAR VOLUME 96.3 fl (80.0-96.0); PLATELET COUNT, AUTOMATED 166 10^3/uL (150-450); RED BLOOD COUNT 4.59 10^6/uL (4.30-6.10); WHITE BLOOD COUNT 10.5 10^3/uL (4.0-10.0)
[2020-11-03 05:04] LABS: BLOOD UREA NITROGEN 20 MG/DL (7-18); CALCIUM LEVEL 7.9 MG/DL (8.8-10.2); CARBON DIOXIDE LEVEL 38 MEQ/L (21-32); CHLORIDE LEVEL 100 MEQ/L (98-107); CREATININE FOR GFR 0.54 MG/DL (0.70-1.30); GLOMERULAR FILTRATION RATE > 60.0 (>49); GLUCOSE, FASTING 167 MG/DL (70-100); POTASSIUM SERUM 4.5 MEQ/L (3.5-5.1); SODIUM LEVEL 139 MEQ/L (136-145)
[2020-11-03] MEDS: HumaLOG INSULIN (NovoLOG) PER UNIT SC SCH ×4 (07:30→21:28)
[2020-11-03 08:10] VITALS: BP 105/69
[2020-11-03] MEDS: LEVEMIR (INSULIN DETEMIR) 1 UNITS/0.01ML SC SCH (09:00)
[2020-11-03] MEDS: DOCUSATE SODIUM 100MG CAPSULE PO SCH (09:00)
[2020-11-03] MEDS: FIBER-CON 625 MG TAB PO SCH (09:00)
[2020-11-03] MEDS: MOM 30ML SUSPENSION UDC PO SCH (09:00)
[2020-11-03] MEDS: HYDROXYCHLOROQUINE 200 MG TAB PO SCH ×2 (09:34→21:24)
[2020-11-03] MEDS: ATOVAQUONE SUSP 750MG/5ML 210 ML BTL PO SCH (09:34)
[2020-11-03] MEDS: PANTOPRAZOLE 40MG VIAL (C9113 PER 1) IV SCH (09:34)
[2020-11-03] MEDS: HEPARIN SOD (PORCINE) 5000UNITS/ML 1ML VIAL/SYRINGE SC SCH ×2 (09:34→21:27)
[2020-11-03] MEDS: predniSONE 10 MG TAB PO SCH (09:35)
[2020-11-03] MEDS: MIDODRINE 5 MG TAB PO SCH ×3 (09:35→17:02)
--- NOTE | 2020-11-03 10:32 | IPN ---
PROGRESS NOTE DATE: 11/02/2020 SUBJECTIVE: This is now the 13th postoperative day for Mr. Licea. Today is going to be a red letter day for him as I am going to remove his chest tubes as he has no air leak, and his chest x-ray is unchanged from yesterday without subcutaneous emphysema. OBJECTIVE: VITAL SIGNS: Show a T-max of 98.3 with a heart rate that ranges between 74 and 80 in sinus rhythm. Respiratory rate of 20 to 22 without the use of accessory muscles who is 96% to 99% saturated on 2 liters nasal cannula and whose blood pressure is ranging between 110/70 to 126/74. INTAKE AND OUTPUT: Over the past 24 hours has been recorded as 5055 in and 98 out with five voids, which have not been caught. His weight today is 68.1 kg compared to 69.3 kg yesterday. RESPIRATORY: He has the bilateral crackles on either side. Percussion notes are full to the diaphragm. CARDIAC: Without murmurs, clicks, gallops, or rubs. I cannot feel his PMI. S1 and S2 are normal. ABDOMEN: Soft and nontender. Bowel sounds are positive. There is no hepatomegaly. No CVA tenderness. EXTREMITIES: Show no pretibial edema. No calf tenderness. No differential swelling of the upper extremities. SKIN: Warm, dry, and perfused without cyanosis or mottling, including that of the nail beds and knees. NECK: Supple. There is no jugular venous distention. No subcutaneous emphysema. Trachea is midline. MOUTH: Shows the mucous membranes to be pink and moist. Lips and commisures are without lesions and no thrush. EYES: Show his pupils equal and reactive. Extraocular muscles are intact. Sclerae nonicteric. NEUROLOGIC: Shows II through XII intact. Normal gross motor, gross sensation intact. Gait is not tested. PSYCHIATRIC: Shows him to be awake, alert, and oriented x3 with appropriate mood and affect and conversational. LABORATORY DATA: His white count today is 11.9 down from 14.1 yesterday. Hemoglobin and hematocrit are 13.2 and 43.2 respectively with a platelet count of 149,000 and stable. Chemistries show the same elevation of his total CO2 to 39 with the remainder of his electrolytes normal. BUN and creatinine are 19 and 0.5 with a glucose of 172 and a calcium of 7.9. IMAGING DATA: His chest x-ray is unchanged from yesterday in fact maybe improved. There is still a small apical air space at the cubital of the lung. One chest tube is remaining. Costophrenic angles are sharp. He has the reticular pattern of his pulmonary fibrosis. IMPRESSION: 1. Postoperative day #13 status post talc pleurodesis and bullectomy with wedge resections. 2. Spontaneous pneumothorax on the right side recurrent. 3. Alveolopleural fistula resolved. 4. Advanced interstitial lung disease clinically idiopathic pulmonary fibrosis. 5. Underlying chronic obstructive pulmonary disease (COPD). 6. Polycythemia. 7. Gastroesophageal reflux disease. 8. Diabetes. PLAN AND DISCUSSION: I will remove his remaining chest tube today. I removed his suture tags and his vijay in the prior chest tube site. He has a bathroom on the second floor and he can hardly get up his stairs secondary to pulmonary fibrosis. He will need active patient family services involvement to either change his living situation or enroll him in termite treater helper rehab. His problem is basically breathing and extreme dyspnea from his pulmonary fibrosis and not overwhelming muscle weakness. I do not believe that this is really a fixable situation as far as his pulmonary fibrosis is concerned and his shortness of breath.
--- NOTE | 2020-11-03 10:34 | REP ---
INDICATION: R-sided chest tube, PF. COMPARISON: PA and lateral chest dated 11/02/2020. TECHNIQUE: Upright PA and lateral chest. FINDINGS: The right thoracotomy tube is been removed. There is a small right apical pneumothorax, decreased in size. Diffuse bilateral interstitial coarsening is unchanged. Cardiac size is upper normal, unchanged. The right subclavian central venous catheter is unchanged with the tip in the right atrium. IMPRESSION: The right thoracotomy tube has been removed. The small right apical pneumothorax has slightly decreased in size. No other interval change. <Electronically signed by Tavo Alex > 11/03/20 1031
[2020-11-03 11:43] VITALS: BP 94/51
--- NOTE | 2020-11-03 12:23 | IPN ---
PROGRESS NOTE DATE: 11/03/2020 SUBJECTIVE: This is now the 14th postoperative day for Mr. Licea. His remaining chest tube was removed yesterday and his chest x-ray today shows his lung to be expanded to the chest wall; except for a very small unchanging air space in the superolateral aspect on the chest x-ray. OBJECTIVE: VITAL SIGNS: Show a T-max of 98.6 with a heart rate that ranges between 80 and 93 in sinus rhythm. Respiratory rate of 18 to 22 without the use of accessory muscles who is 93% to 98% saturated on 2 liters nasal cannula and whose blood pressure is ranging between 94/51 to 119/66. INTAKE AND OUTPUT: Over the past 24 hours has been recorded as 840 in and 37 out with three voids unmeasured. His weight today is 68.1 kg, which is the same as yesterday. RESPIRATORY: He has the diffuse crackles consistent with his pulmonary fibrosis. I do think I still hear a pleural friction rub on the right. Percussion note is full to the diaphragm. CARDIAC: Without murmurs, clicks, gallops, or rubs. I cannot feel his PMI. S1 and S2 are normal. ABDOMEN: Soft and nontender. Bowel sounds are positive. There is no hepatomegaly. No CVA tenderness. EXTREMITIES: Show no pretibial edema. No calf tenderness. No differential swelling of the upper extremities. SKIN: Warm, dry, and perfused without cyanosis or mottling, including that of the nail beds and knees. NECK: Supple. There is no jugular venous distention. No subcutaneous emphysema. Trachea is midline. MOUTH: Shows the mucous membranes to be pink and moist. Lips and commisures are without lesions and no thrush. EYES: Show his pupils equal and reactive. Extraocular muscles are intact. Sclerae nonicteric. NEUROLOGIC: Shows II through XII intact. Normal gross motor, gross sensation intact. Gait is not tested. PSYCHIATRIC: Shows him to be awake, alert, and oriented x3 with appropriate mood and affect and conversational. LABORATORY DATA: His white count today is 10.5 with hemoglobin and hematocrit of 13.6 and 44.2 respectively. Platelet count is 166,000. His chemistries show normal electrolytes with an elevated total CO2 of 38 consistent with his pulmonary fibrosis. BUN and creatinine are 20 and 0.54 with a glucose of 167 and a potassium of 7.9. IMAGING DATA: His chest x-ray is as described above. Costophrenic angles are sharp and he has the reticular pattern of his pulmonary fibrosis. IMPRESSION: 1. Postoperative day #14 status post bullectomy, wedge resections, and talc pleurodesis. 2. Spontaneous pneumothorax on the right recurrent. 3. Alveolopleural fistula resolved. 4. Advanced interstitial lung disease clinically idiopathic pulmonary fibrosis. 5. Underlying chronic obstructive pulmonary disease (COPD). 6. Hypoxic polycythemia. 7. Gastroesophageal reflux disease. 8. Diabetes. PLAN AND DISCUSSION: From a surgical point of view, I am very gratified that his lung has now remained up. As discussed in prior notes, he has difficulty navigating his house as he has to go up stairs and he cannot climb the stairs because of shortness of breath. He did ask me today how severe his pulmonary fibrosis is and I have indicated that it is very advanced disease. He further asked me how long he has to survive and I told him that I do not have that knowledge. Dr. Cruz has told him between six months and a year. I will keep his dressing on today and remove tomorrow as I want the wound to completely seal, so as he does not suck air into his chest. There are still two sutures that I need to remove, but I will keep them in for the next week or so.
[2020-11-03] MEDS ORDERED: SODIUM CHLORIDE 0.9% 500 ML IV ONE (15:15)
[2020-11-03 16:00] VITALS: BP 94/55
--- NOTE | 2020-11-03 16:22 | IPNPDOC ---
Text Note Date of Service The patient was seen on 11/03/20. NOTE SUBJECTIVE: The patient was just exiting the restroom when I entered. It appears that he is able to move about fairly well with the assistance of a 4 wheeled walker with a seat. Other than some mild aching in the right chest at the previous site of his chest tube, His only complaint today is that of soft stools, he has been refusing his stool softeners for many days now. He does get quite winded with exertion, and he continues working with physical therapy towards a goal of being able to go home. OBJECTIVE: PHYSICAL EXAM: VITAL SIGNS: Please see below GENERAL: Awake, alert, oriented 3. LUNGS: Minimal crackles at the bases, more so on the right. Large dressing noted on the right chest wall, but chest tubes have now been removed. CVS: S1 and S2, sinus rhythm. No murmurs, rubs or gallops. GI: Soft, nontender and nondistended. Positive bowel sounds. CHEST: Right subclavian line BACK: chest tubes right side EXTREMITIES: No cyanosis, clubbing or pitting edema. : Deferred NEURO: CN 2-12 intact, no focal deficits. PSYCH: Mood and affect appropriate ASSESSMENT AND PLAN: This is a 65-year-old male with a history of COPD, idiopathic pulmonary fibrosis, SLE managed by his assembler motor vehicle, seed sales manager as an outpatient with Cytoxan planned for the future and chronic Plaquenil and prednisone, presented to the ER with shortness of breath, found to have spontaneous pneumothorax, status post chest tube on 10/03 to 10/06 with recurrent pneumothorax, reinserted on 10/08, status post blood patch 10/15 and 10/17/2020. Admitted for persistent right sided spontaneous pneumothorax , POD 10 talc pleurodesis 10/20/20. PLAN: 1. Spontaneous pneumothorax on the right with recurrence, status post blood patch on 10/15 and 10/17, POD 10 talc pleurodesis on 10/20. 2. COPD 3. Type 2 diabetes 4. History of idiopathic pulmonary fibrosis, 5. SLE on chronic prednisone and Plaquenil. 6. GERD 7. Alveolar pleural fistula. 8. Secondary polycythemia due to chronic hypoxia with IBS. 9. Thrombocytopenia, improving with negative Heparin induced thrombocytopenia panel. DVT px: Heparin SC PLAN: -Continue prednisone 10 mg daily for now -I will restart his home dose of inhaled corticosteroid and inhaled tiotropium bromide -I will start him on FiberCon fiber supplement to help with soft/loose stools. Stool softeners were discontinued. - Physical therapy has been working with him, it is their recommendation that he should go home with a rolling walker with 4 wheels and a seat due to mobility related deficit that impairs his ADLs. He has demonstrated that he can safely use a walker, and using said style of walker and does sufficiently aid him with his mobility issues VS,Sarbjit, I+O VS, Sarbjit, I+O Laboratory Tests 11/03/20 04:20 Vital Signs Date Time Temp Pulse Resp B/P (MAP) Pulse Ox O2 Delivery O2 Flow Rate FiO2 11/03/20 04:00 97.6 80 18 119/66 (83) 98 Nasal Cannula 2.0 I&O- Last 24 Hours up to 6 AM 11/03/20 06:00 Intake Total 840 ml Output Total 25 ml Balance 815 ml CATHY KHAN DO Nov 03, 2020 07:24
[2020-11-03 20:00] VITALS: BP 103/62
[2020-11-03] MEDS: ADVAIR HFA 115/21MCG INHALER INH SCH (20:52)
[2020-11-03] MEDS: PERCOCET 5MG/325MG TAB PO PRN (21:25)
[2020-11-04] VITALS (39 sets, daily range): BP systolic 103–154; BP diastolic 63–96
[2020-11-04] MEDS: LEVALBUTEROL 1.25 MG/0.5 ML CONCENTRATE NEB NEB SCH ×4 (01:35→20:00)
[2020-11-04] MEDS: SLF 3 ML SYR IV SCH ×3 (06:00→21:18)
[2020-11-04] MEDS: SODIUM CHLORIDE 0.9% INJ 10 ML SYR IV SCH (06:11)
[2020-11-04] MEDS: PERCOCET 5MG/325MG TAB PO PRN ×2 (06:27→16:38)
[2020-11-04 06:36] LABS: HEMATOCRIT 46.7 % (42.0-52.0); HEMOGLOBIN 14.3 g/dl (13.5-17.5); MEAN CORPUSCULAR HEMOGLOBIN 29.4 pg (27.0-33.0); MEAN CORPUSCULAR HGB CONC 30.6 g/dl (32.0-36.5); MEAN CORPUSCULAR VOLUME 96.1 fl (80.0-96.0); PLATELET COUNT, AUTOMATED 176 10^3/uL (150-450); RED BLOOD COUNT 4.86 10^6/uL (4.30-6.10); WHITE BLOOD COUNT 12.4 10^3/uL (4.0-10.0)
[2020-11-04 07:02] LABS: BLOOD UREA NITROGEN 18 MG/DL (7-18); CALCIUM LEVEL 8.4 MG/DL (8.8-10.2); CARBON DIOXIDE LEVEL 36 MEQ/L (21-32); CHLORIDE LEVEL 101 MEQ/L (98-107); CREATININE FOR GFR 0.64 MG/DL (0.70-1.30); GLOMERULAR FILTRATION RATE > 60.0 (>49); GLUCOSE, FASTING 191 MG/DL (70-100); POTASSIUM SERUM 4.4 MEQ/L (3.5-5.1); SODIUM LEVEL 138 MEQ/L (136-145)
[2020-11-04] MEDS: ADVAIR HFA 115/21MCG INHALER INH SCH ×2 (08:00→20:25)
--- NOTE | 2020-11-04 08:36 | REP ---
INDICATION: s/p chest tube removal. COMPARISON: PA and lateral chest dated 11/03/2020. TECHNIQUE: Upright PA and lateral chest. FINDINGS: The right thoracotomy tube has been removed. This is unchanged from the comparison study. There is a small right apical pneumothorax, unchanged in size. Diffuse bilateral interstitial coarsening is again identified, unchanged. Cardiac size is upper normal, unchanged. The right subclavian central venous catheter is unchanged with the tip in the right atrium. IMPRESSION: There is been no interval change. <Electronically signed by Tavo Alex > 11/04/20 0852
[2020-11-04] MEDS: TIOTROPIUM INHALER/CAPSULE (SPIRIVA) INH SCH (09:00)
[2020-11-04] MEDS: FIBER-CON 625 MG TAB PO SCH (09:00)
[2020-11-04] MEDS: LEVEMIR (INSULIN DETEMIR) 1 UNITS/0.01ML SC SCH (09:05)
[2020-11-04] MEDS: HumaLOG INSULIN (NovoLOG) PER UNIT SC SCH ×4 (09:06→20:02)
[2020-11-04] MEDS: ATOVAQUONE SUSP 750MG/5ML 210 ML BTL PO SCH (09:06)
[2020-11-04] MEDS: HEPARIN SOD (PORCINE) 5000UNITS/ML 1ML VIAL/SYRINGE SC SCH (09:06)
[2020-11-04] MEDS: HYDROXYCHLOROQUINE 200 MG TAB PO SCH ×2 (09:06→21:18)
[2020-11-04] MEDS: predniSONE 10 MG TAB PO SCH (09:07)
[2020-11-04] MEDS: MIDODRINE 5 MG TAB PO SCH ×3 (09:07→16:00)
--- NOTE | 2020-11-04 12:32 | IPN ---
PROGRESS NOTE DATE: 11/04/2020 Mr. Licae is sort of down in the dumps today. He just got back from the bathroom, and he is quite short of breath. His vital signs show a maximum temperature of 98.1 with average heart rate that ranges between 82-88 in a sinus rhythm, respiratory rate of 18-20 without the use of accessory muscles, who is 93%-99% saturated on 2 liters nasal cannula and whose blood pressure is ranging between 117/68 to 105/64. His intake and output for the past 24 hours has been recorded as 1020 in and nothing out with three voids not recorded. Weight today is 68.7 kg compared to 68.1 kg yesterday. PHYSICAL EXAMINATION: He has equal breath sounds on either side with bilateral crackles throughout both lungs, more at the bases, however. Percussion note is full to the diaphragm. Cardiac exam is without murmurs, clicks, gallops, or rubs. I cannot feel his point of maximal impulse (PMI). S1 and S2 are normal. Abdomen is soft and nontender. Bowel sounds are positive. There is no hepatomegaly. No costovertebral angle (CVA) tenderness. Extremities show no pretibial edema, no calf tenderness, no differential swelling of the upper extremities. Skin is warm, dry, and perfused without cyanosis or mottling, including that of the nailbeds and knees. Neck is supple. There is no jugular venous distention. No subcutaneous emphysema. Trachea is midline. Mouth shows the mucous membranes to be pink and moist. Lips and commissures without lesions. No thrush. Eyes show his pupils to be equal and reactive. Extraocular motion intact. Sclerae anicteric. Neurologic shows II-XII intact. Normal gross motor, gross sensation intact. Gait is not tested. Psychiatric shows him to be awake, alert, and oriented times three with appropriate mood and affect and conversational. His white count today is 12.4 with a hemoglobin and hematocrit of 14.3 and 46.7, respectively, with a platelet count of 175. There is no differential. Electrolytes are normal except for an elevated total CO2 of 35, consistent with his pulmonary fibrosis and gas exchanges abnormality. Calcium is 8.4 with a glucose of 191. His chest x-ray is unchanged from yesterday. There is still a small separation of the lung from the superolateral chest wall. The lung is stuck to the cupula and fully expanded. He has the same pulmonary fibrotic changes throughout both lungs. IMPRESSION: 1. Postoperative day #15 status post bullectomy, wedge resections, and talc pleurodesis. 2. Spontaneous pneumothorax on the right, recurrent. 3. Alveolar pleural fistula, resolved. 4. Advanced interstitial lung disease, clinically idiopathic pulmonary fibrosis. 5. Underlying chronic obstructive pulmonary disease (COPD). 6. Hypoxic polycythemia. 7. Esophageal reflux disease. 8. Diabetes. PLAN AND DISCUSSION: I am becoming more confident that his lung is now going to stay up and that it is adherent to the chest wall after the pleurodesis. The small airspace is of no concern. I have removed his dressing, and his wounds are sealed, although I will keep his U stitches in for another week. I can remove them as an outpatient if he is discharged at some point in time. His major problem is to where he can go. He gets short of breath just going from the bathroom to his bed, and he certainly cannot go up his stairs at his home where he has his bedroom. Patient and family services is looking for an alternative placement. It would not be unreasonable to broach the conversation of hospice care with him. I will defer that to the hospitalist service.
--- NOTE | 2020-11-04 13:10 | REP ---
INDICATION: Right arm weakness started now. COMPARISON: None. TECHNIQUE: Axial CT images with multiplanar reformations. FINDINGS: No acute bleed or acute large vessel territorial infarct. Ventricles, cisterns and sulci are within normal limits. No mass effect or midline shift. No abnormal fluid collections. Paranasal sinuses and mastoid air cells are clear. IMPRESSION: No acute findings. No acute bleed or large vessel territorial infarct. Age-related volume loss and white matter changes. <Electronically signed by Carlos Villalta > 11/04/20 [id number]
[2020-11-04 13:37] LABS: INR 0.81; PROTHROMBIN TIME 11.4 SECONDS (12.5-14.3)
[2020-11-04 13:38] LABS: PARTIAL THROMBOPLASTIN TIME 31.4 SECONDS (24.2-38.5)
--- NOTE | 2020-11-04 13:38 | REP ---
INDICATION: Dyspnea. COMPARISON: PA and lateral chest at 8:03 a.m. earlier today. FINDINGS: There is no right thoracotomy tube. This is unchanged. There is a small right apical pneumothorax, not significantly changed. There are diffuse bilateral heavy interstitial markings, unchanged. There are no new infiltrates or pleural effusions. Cardiac size is enlarged, unchanged. The previous right subclavian central venous catheter has been removed. IMPRESSION: The right subclavian central venous catheter is been removed in the interim from the comparison study earlier today. There is no other interval change. There are no new infiltrates or pleural effusions. There is a small right apical pneumothorax, unchanged in size. There are diffusely heavy chronic interstitial markings, unchanged. <Electronically signed by Tavo Alex > 11/04/20 [id number]
[2020-11-04] MEDS ORDERED: ISOVUE-370 76% 100ML VIAL As Ordered ONE (14:26)
[2020-11-04] MEDS ORDERED: DEXTROSE 50% 50 ML VIAL IV ONE (14:45)
[2020-11-04] MEDS ORDERED: GLUCAGON INJ 1MG VIAL SC PRN (15:00)
[2020-11-04] MEDS ORDERED: GLUCOSE 4GM CHEW TABLET PO PRN (15:00)
--- NOTE | 2020-11-04 15:15 | REP ---
INDICATION: Recent right sided weakness. COMPARISON: None. TECHNIQUE: CT angiogram of the head FINDINGS: The vertebral arteries are codominant. Basilar artery and per diem registered nurse are unremarkable. Internal carotid arteries, proximal and distal MCA branches appear unremarkable. A1 segments and KELTON branches appear unremarkable. IMPRESSION: Normal examination. No evidence of large vessel stenosis or occlusion. If clinical suspicion for infarct persists, MRI recommended. <Electronically signed by Carlos Villalta > 11/04/20 [id number]
--- NOTE | 2020-11-04 15:24 | REP ---
INDICATION: Neuro symptoms, suspect infarct. COMPARISON: CT of the head performed same day. TECHNIQUE: Contrast-enhanced CT angiogram of the neck with multiplanar reformations. FINDINGS: The vertebral arteries are codominant and present throughout the are cervical course. On the right the common carotid artery and the internal carotid arteries are patent at the bifurcation. At the bifurcation on the right there is calcified plaque without evidence of limiting stenosis. On the left, there is suggestion of a soft plaque at the carotid bifurcation and a small amount of calcification, the common and internal carotid arteries appear patent. Spinal alignment within normal limits. No fracture. Canal and neural foramina appear patent. There are scattered opacifications within the bilateral lungs, with a pleural effusion on the right and a smaller effusion on the left. IMPRESSION: 1. Cervical vasculature without evidence of occlusion or high-grade stenosis. There appears to be mural plaquing at the carotid bifurcations bilaterally, with more extensive soft plaque on the left. This is seen on image 66 series 407 2. Bilateral pleural effusions and patchy opacities may be consistent with pulmonary edema. <Electronically signed by Carlos Villalta > 11/04/20 [id number]
[2020-11-04] MEDS ORDERED: ALTEPLASE RECOMBINANT IV ONE (15:30)
[2020-11-04] MEDS ORDERED: ALTEPLASE 100MG VIAL IV ONE (15:30)
[2020-11-04] MEDS ORDERED: SODIUM CHLORIDE 0.9% 50 ML IV ONE (16:30)
[2020-11-04] MEDS: DEXTROSE 50% 50 ML SYRINGE IV PRN (19:13)
--- NOTE | 2020-11-04 20:03 | REPVR ---
PROCEDURE INFORMATION: Exam: CT Head Without Contrast Exam date and time: 11/04/2020 7:54 PM Age: 65 years old Clinical indication: Other: Post tpa TECHNIQUE: Imaging protocol: Computed tomography of the head without contrast. Radiation optimization: All CT scans at this facility use at least one of these dose optimization techniques: automated exposure control; mA and/or kV adjustment per patient size (includes targeted exams where dose is matched to clinical indication); or iterative reconstruction. COMPARISON: CT Head without contrast 11/04/2020 12:50 PM FINDINGS: Brain: Residual contrast is present. No visible hemorrhage or edema. The brain demonstrates mild generalized volume loss. Cerebral ventricles: The ventricles are mildly enlarged in keeping with volume loss. Bones/joints: Chronic apex right deviation and spurring of the nasal septum. No acute fracture seen. Incidentally noted is a right jugular diverticulum with small osseous dehiscence. Sclerotic lesion in the condylar head of the left mandible, potentially a bone island. Paranasal sinuses: Visualized sinuses are unremarkable. No fluid levels. Mastoid air cells: The mastoids are chronically underpneumatized. Soft tissues: Unremarkable. IMPRESSION: 1. Images are mildly motion degraded. 2. No acute intracranial abnormality seen. Electronically signed by: Laura Cabrera On 11/04/2020 20:04:02 PM
--- NOTE | 2020-11-04 20:23 | IPNPDOC ---
Subjective Date Seen The patient was seen on 11/04/20. Subjective Chief Complaint/HPI Mr. Licea is a 65 year old male with pulmonary interstitial fibrosis here with spontaneous pneumothorax of the right lung. This morning, he denied any worsening dyspnea or chest pain. He was ambulating well. 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 Around 12:20PM, he had become hypoxic and required 5L. He responding to breathing treatments. Then around 12:30PM, he could not move his right arm or right leg. At that time left leg was able to move. After imaging, he was not able to move left leg. He had facial droop on the right, but no change in speech. He was able to lift eyebrows and he was alert. NIH stroke scale of about 15. Ordered for CT head which return negative. PT/INR and PTT were within normal limits. Spoke with Dr. Reese who looked at the repeat CXR and told me from his standpoint, he was okay with TPA. Spoke with neurology (Dr. Diaz) about TPA. Recommended calling [facility] as patient has high risk of intrathoracic hemorrhage. I reached out to [facility] around 2PM. I spoke with the stroke unit, Dr. Lopez around 2:30pm. By the time patient reaches their facility to receive TPA, patient would have missed the window. He did not recommend transfer of patient, but did recommend CT head with angio. If there was large vessel occlusion, patient may be urgently transferred, but if there was not, then we would have to decide on TPA. CT head with angio was negative. I spoke with Dr. Diaz who recommended discussing with the patient. I discuss with patient risks and benefits. Patient may regain function of arm and legs, but it was not guaranteed. There was a risk of intrathoracic hemorrhage due to recent chest tube. Nurse, Bridgette De La Torre was present during his conversation. Patient was agreeable to TPA despite risks. Patient receiving TPA today Objective Physical Examination General Exam: Positive: Cooperative, Other (Fatigued) Eye Exam: Positive: EOMI; Negative: Sclera icteric ENT Exam: Positive: Atraumatic Chest Exam: Positive: Clear to auscultation Heart Exam: Positive: Rate Normal, Regular Rhythm Abdomen Exam: Positive: Normal bowel sounds, Soft; Negative: Tenderness Extremity Exam: Negative: Edema Neuro Exam: Positive: Normal Speech; Negative: Strength at 5/5 X4 ext (Cannot lift right arm, right leg, left leg, against gravitiy. ) Psych Exam: Positive: Mental status NL Assessment /Plan Assessment Mr. Licea is a 65 year old male with pulmonary interstitial fibrosis here with spontaneous pneumothorax of the right lung. Patient had talc pleurodesis on 10/20/2020 and removed chest tubes on 11/02/2020. On 11/04/2020, patient demonstrated stroke like symptoms with right facial droop, right arm and leg weakness, and left leg weakness. Neurology consulted. Discussed with patient about risks and benefits of TPA and patient is agreeable. Will give TPA. Updated nephew and sister about events Plan/VTE VTE Prophylaxis Ordered?: Yes Plan 1. Spontaneous pneumothorax on the right with recurrence, s/p blood patch on 10/15 and 10/17 and talc pleurodesis on 10/20 -Dr. Reese following recommendations appreciated -Chest tubes removed on 11/02/2020 2. CVA -On 11/04/2020, demonstrated right face, arm, and leg weakness along with left leg weakness -Neurology consulted, recommendations appreciated -Risks and benefits discussed with patient, patient was agreeable to TPA -TPA protocol ordered -Will need MRI, echocardiogram, and monitor on Telemetry for arrhythmia 3. Diabetes mellitus -Sliding scale insulin and basal insulin 4. Lupus -Patient was scheduled for Cytoxan on 10/09/2020 per patient's [employer] office in [place], [place] -Dr. Cruz spoke with patient, patient request to defer Cytoxan until he has recovered -Continue with prednisone and Plaquenil Of note, due to patient's chronic and high-dose steroids, he is not a candidate for the COVID vaccination at this time 5. GERD -Continue pantoprazole 6. DVT ppx -No heparin due to TPA Disposition: Pending MRI and echocardiogram VS, I&O, 24H, Fishbone Vital Signs/I&O Vital Signs Date Time Temp Pulse Resp B/P (MAP) Pulse Ox O2 Delivery O2 Flow Rate FiO2 11/04/20 18:30 99.1 104 37 148/87 94 Nasal Cannula 11/04/20 17:50 4.0 11/04/20 16:52 I&O- Last 24 Hours up to 6 AM 11/04/20 06:00 Intake Total 1020 ml Output Total 0 ml Balance 1020 ml Laboratory Data 24H LABS Laboratory Tests 2 11/03/20 21:00: Bedside Glucose (Misc Panel) 322H 11/04/20 06:22: Nucleated Red Blood Cells % (auto) 0.0, Anion Gap 1L, Glomerular Filtration Rate > 60.0, Calcium Level 8.4L 11/04/20 11:36: Bedside Glucose (Misc Panel) 207H 11/04/20 12:38: Bedside Glucose (Misc Panel) 187H 11/04/20 13:14: Prothrombin Time 11.4L, Prothromb Time International Ratio 0.81, Activated Partial Thromboplast Time 31.4 11/04/20 14:28: Bedside Glucose (Misc Panel) 60L 11/04/20 15:05: Bedside Glucose (Misc Panel) 148H 11/04/20 15:41: Bedside Glucose (Misc Panel) 101 11/04/20 19:09: Bedside Glucose (Misc Panel) 42L CBC/BMP Laboratory Tests 11/04/20 06:22 MARY LOU FORMAN DO Nov 04, 2020 20:23
[2020-11-04] MEDS ORDERED: DEXTROSE 10% 1000 ML IV ONE (22:15)
[2020-11-05] VITALS (44 sets, daily range): BP systolic 70–169; BP diastolic 47–95; O2SAT 97
[2020-11-05] MEDS ORDERED: DEXTROSE 10% 1000 ML IV ONE (00:35)
[2020-11-05] MEDS ORDERED: PERCOCET 5MG/325MG TAB As Ordered ONE (00:40)
[2020-11-05] MEDS: PERCOCET 5MG/325MG TAB PO PRN ×2 (00:44→12:38)
[2020-11-05] MEDS: LEVALBUTEROL 1.25 MG/0.5 ML CONCENTRATE NEB NEB SCH ×4 (02:00→19:43)
[2020-11-05 04:57] LABS: MEAN CORPUSCULAR HGB CONC 30.9 g/dl (32.0-36.5); MEAN CORPUSCULAR VOLUME 93.6 fl (80.0-96.0); PLATELET COUNT, AUTOMATED 175 10^3/uL (150-450); RED BLOOD COUNT 5.66 10^6/uL (4.30-6.10); WHITE BLOOD COUNT 17.8 10^3/uL (4.0-10.0)
[2020-11-05 05:05] LABS: HEMOGLOBIN 16.4 g/dl (13.5-17.5)
[2020-11-05 05:11] LABS: HEMOGLOBIN A1c 7.8 %
[2020-11-05 05:42] LABS: BLOOD UREA NITROGEN 18 MG/DL (7-18); CALCIUM LEVEL 8.8 MG/DL (8.8-10.2); CARBON DIOXIDE LEVEL 27 MEQ/L (21-32); CHLORIDE LEVEL 100 MEQ/L (98-107); CHOLESTEROL LEVEL 212 MG/DL (<200); CREATININE FOR GFR 0.57 MG/DL (0.70-1.30); GLOMERULAR FILTRATION RATE > 60.0 (>49); GLUCOSE, FASTING 147 MG/DL (70-100); HDL CHOLESTEROL 106 MG/DL (>40); LDL CHOLESTEROL 84 MG/DL (<100); NON-HDL-C 106 MG/DL; POTASSIUM SERUM 4.8 MEQ/L (3.5-5.1); SODIUM LEVEL 134 MEQ/L (136-145); TRIGLYCERIDES LEVEL 109 MG/DL (<150)
[2020-11-05] MEDS: SLF 3 ML SYR IV SCH ×3 (06:00→22:00)
--- NOTE | 2020-11-05 07:13 | REPVR ---
PROCEDURE INFORMATION: Exam: CT Head Without Contrast Exam date and time: 11/05/2020 6:00 AM Age: 65 years old Clinical indication: Other: S/P tpa; Additional info: Received tpa, repeat imaging TECHNIQUE: Imaging protocol: Computed tomography of the head without contrast. Radiation optimization: All CT scans at this facility use at least one of these dose optimization techniques: automated exposure control; mA and/or kV adjustment per patient size (includes targeted exams where dose is matched to clinical indication); or iterative reconstruction. COMPARISON: CT Head without contrast 11/04/2020 7:49 PM FINDINGS: Brain: There is a small focal area of hypoattenuation in the right parietal lobe on axial image 16. There is some subtle heterogeneous hypoattenuation in the right frontal lobe white matter on axial images 11 through 13. There is age-related cerebral atrophy. Cerebral ventricles: No ventriculomegaly. Bones/joints: Unremarkable. No acute fracture. Paranasal sinuses: Visualized sinuses are unremarkable. No fluid levels. Mastoid air cells: Visualized mastoid air cells are well aerated. Soft tissues: Unremarkable. IMPRESSION: 1. No CT evidence of acute intracranial hemorrhage, mass effect or midline shift. 2. No large acute territorial infarct seen. 3. Faint subtle hypoattenuation in the right frontal and parietal white matter with no associated mass effect could represent areas of mild chronic microangiopathic changes however underlying acute white matter ischemia cannot be completely excluded. If clinically indicated MRI with diffusion-weighted images may be obtained for further evaluation. Electronically signed by: Beto Rivas On 11/05/2020 07:14:29 AM
[2020-11-05] MEDS: ADVAIR HFA 115/21MCG INHALER INH SCH ×2 (07:17→19:43)
[2020-11-05] MEDS: TIOTROPIUM INHALER/CAPSULE (SPIRIVA) INH SCH (07:18)
[2020-11-05] MEDS: HumaLOG INSULIN (NovoLOG) PER UNIT SC SCH ×4 (07:30→21:00)
[2020-11-05] MEDS: MIDODRINE 5 MG TAB PO SCH ×3 (08:00→16:00)
[2020-11-05] MEDS: predniSONE 10 MG TAB PO SCH (08:41)
[2020-11-05] MEDS: HYDROXYCHLOROQUINE 200 MG TAB PO SCH ×2 (08:41→21:17)
[2020-11-05] MEDS: FIBER-CON 625 MG TAB PO SCH (08:41)
[2020-11-05] MEDS: LEVEMIR (INSULIN DETEMIR) 1 UNITS/0.01ML SC SCH (08:42)
[2020-11-05] MEDS: ATOVAQUONE SUSP 750MG/5ML 210 ML BTL PO SCH (08:44)
[2020-11-05] MEDS ORDERED: LEVEMIR (INSULIN DETEMIR) 1 UNITS/0.01ML SC ONE (09:05)
[2020-11-05] MEDS: MORPHINE 2 MG/ML 1ML VIAL (J2270) IV PRN (09:34)
--- NOTE | 2020-11-05 10:25 | CR ---
CONSULTATION DATE: 11/04/2020 REFERRING PROVIDER: Dr. Mcbride. HISTORY OF PRESENT ILLNESS: Roberto Licea is a 65-year-old male with a past medical history significant for interstitial fibrosis presenting with spontaneous pneumothorax of the right lung status post chest tube placement, status post removal of chest tube two days ago. The patient was suspected to have an acute stroke earlier today, he was reported to have symptoms around noontime of sudden right upper extremity weakness, right lower extremity weakness, right facial droop, slurred speech and inability to use the left leg as well. The patient's head CT and lab work were negative. The patient was a TPA candidate. The option of TPA was discussed with the patient by Dr. Mcbride including complications of hemothorax given recent removal of chest tube. We attempted to transfer the patient to [facility] for higher level of care and further management including possibility of intraarterial TPA given that there was a reasonable window of opportunity. The patient agreed for TPA knowing risks of hemorrhage. His INH Stroke Scale was reported by Dr. Mcbride to be 15. Patient's TPA was given around 5 p.m. Around 12:20 p.m. he had became hypoxic and required 5 liters of oxygen. Around 12:30 p.m., the patient was unable to move his right arm and right leg as well as his left leg. The patient did receive the TPA within a 4 1/2 hour window since the onset of the stroke. The patient was examined later that evening and was noted to have an inability to move the right arm at all. He was unable to move his feet or legs. He had positive Babinski signs bilaterally. He had slight right facial droop, slight slurred speech. He was sleepy, lethargic, he had received a Percocet. The patient was cleared by Dr. Reese to receive TPA if needed given lower risk of hemothorax. Head CT completed at 7:38 on 11/04/2020 did not show any acute intracranial process. CT completed 6 a.m. on 11/05/2020 showed possible right frontoparietal hypo-attenuation suggesting possible stroke. The patient was unable to provide answers properly to the MRI screener and has not had an MRI yet. There was no large vessel occlusion on CT angiography. The patient received TPA at the time of 3:30 p.m. which would be exactly three hours after the onset of the neurological symptoms. The patient is able to repeat, he is able to use his left arm voluntarily, he can touch his nose, he can smile with reasonably symmetry, tongue appears midline. He is lethargic and does not cooperate with the rest of the neurological exam. Deep tendon reflexes are absent at the patella's, 2+ at the triceps, 1+ at the biceps. Patient does not make much movement on noxious stimuli to the hands and feet. PAST MEDICAL HISTORY: 1. Pulmonary fibrosis. 2. Diabetes. FAMILY HISTORY: Positive for diabetes. ALLERGIES: No known drug allergies. SOCIAL HISTORY: He is a nonsmoker. Denies use of any alcohol. PHYSICAL EXAMINATION: Blood pressure was 109/66, pulse rate was 94, respiratory rate is 33. Oxygenation is 99% on 4 liters. Temperature is 98.1 degrees Fahrenheit. Patient is able to state his name. He has dysarthria. He does not have his dentures in. The patient has 2.5 mm pupils, minimally reactive. Extraocular movements appear to be intact. Facial symmetry appears to be preserved on activation. Slight asymmetry at rest on the right lower face. Patient is unable to move the right arm at all, has strength of 0 and inability to move bilateral lower extremities, strength of 0. Left arm: He is able to lift it up against gravity, touch his face and perform finger to nose. Romberg testing and gait had to be deferred. Patient is laying down unable to move. ASSESSMENT: 1. A 65-year-old male with interstitial lung disease status post spontaneous pneumothorax status post chest tube and removal two days. He became hypoxic earlier today and suddenly stopped moving his right arm and both legs with right facial droop and slurred speech. INR stroke scale reported to be 15. Patient was deemed a TPA candidate. Patient gave verbal consent to receiving TPA after risks and benefits were provided to the patient. The patient received TPA at the 3 hour roberto into the stroke. We are awaiting MRI to be completed to identify areas of possible stroke, possible multifocal stroke given bilateral leg involvement versus brainstem. Consider cervical spine imaging if the MRI does not show a stroke. Continue supportive care. Precautions post TPA should be taken as ordered. Continue PT/OT assessments. Continue underlying medical management for pneumothorax. Obtain echocardiogram. [facility]
--- NOTE | 2020-11-05 14:22 | REP ---
INDICATION: PNEUMO/hemo thorax. COMPARISON: 11/04/2020. TECHNIQUE: SINGLE PORTABLE AP VIEW OF THE CHEST WAS PERFORMED. FINDINGS: The previously noted very small right apical pneumothorax is not visualized on today's exam. The heart mediastinum are unchanged. Diffuse coarsened interstitial markings are stable. IMPRESSION: The previously noted right apical pneumothorax is not seen on today's exam. Otherwise stable. <Electronically signed by Tavo Kumar > 11/05/20 [id number]
[2020-11-05] MEDS ORDERED: LORazepam 2 MG/ML VIAL IV STA (14:41)
[2020-11-05] MEDS: DEXTROSE 50% 50 ML SYRINGE IV PRN (14:48)
--- NOTE | 2020-11-05 16:50 | REP ---
INDICATION: Right arm weakness, bilateral leg weakness. COMPARISON: None. TECHNIQUE: Axial T1, T2, FLAIR, and diffusion-weighted images obtained. Sagittal T1 weighted images obtained. Gradient images also obtained. FINDINGS: Foci of restricted diffusion is seen in the bilateral hemispheres, occipital lobes left greater than right, and toward the convexities, bilateral motor cortices of the posterior frontal lobes. There is also restricted diffusion through the watershed areas of the bilateral frontal lobes. Gradient sequences are motion degraded. FLAIR sequences are highly motion degraded but no definite gross FLAIR signal abnormality. IMPRESSION: Limited study with the most series severely motion degraded. The diffusion-weighted imaging evidences scattered areas of restricted diffusion suggestive of a systemic rather than a vascular infarct. The appearance could represent the sequelae of hypoxic ischemic encephalopathy, such as from a hypotensive or anoxic episode. No evidence of hemorrhage. The findings were communicated to Yoselin Chapman RN in the ICU at the time of interpretation. <Electronically signed by Carlos Villalta > 11/05/20 [id number]
[2020-11-05] MEDS ORDERED: SODIUM CHLORIDE 0.9% 1000ML IV STA (17:12)
[2020-11-05] MEDS ORDERED: SODIUM CHLORIDE 0.9% 1000ML IV ONE (17:15)
[2020-11-05 17:33] LABS: ABG BASE EXCESS 7.1 (-2.0-2.0); ABG HCO3 31.7 MEQ/L (22.0-26.0); ABG O2 SATURATION 98.4 % (95.0-99.0); ABG PARTIAL PRESSURE CO2 44.5 mmHg (35.0-45.0); ABG PARTIAL PRESSURE O2 105.1 mmHg (75.0-100.0); ABG TOTAL CO2 33.1 MEQ/L (23.0-31.0); ABG pH (ARTERIAL) 7.471 UNITS (7.350-7.450)
[2020-11-05 18:21] LABS: BASO # 0.1 10^3/uL (0.0-0.2); BASO % 0.4 % (0.0-1.0); EOS # 0.1 10^3/uL (0.0-0.5); HEMATOCRIT 45.5 % (42.0-52.0); HEMOGLOBIN 14.7 g/dl (13.5-17.5); LYMPH # 0.9 10^3/uL (1.5-5.0); MEAN CORPUSCULAR HGB CONC 32.3 g/dl (32.0-36.5); MEAN CORPUSCULAR VOLUME 92.9 fl (80.0-96.0); MONO # 1.4 10^3/uL (0.0-0.8); MONO % 9.5 % (2.0-8.0); NEUTROPHILS # 11.5 10^3/uL (1.5-8.5); NEUTROPHILS % 80.8 % (36.0-66.0); PLATELET COUNT, AUTOMATED 158 10^3/uL (150-450); WHITE BLOOD COUNT 14.3 10^3/uL (4.0-10.0)
[2020-11-05] MEDS: PIPERACILLIN/TAZOBACTAM SOD 4.5 GM in D5W MINI-BAG PLUS 50 ML IV SCH (18:22)
--- NOTE | 2020-11-05 18:49 | REP ---
INDICATION: multiple emboli to brain COMPARISON: None. TECHNIQUE: Real time compression and duplex Doppler interrogation of the bilateral lower extremity deep venous system is performed. FINDINGS: Bilaterally, the common femoral, superficial femoral and popliteal veins are fully compressible with transducer pressure and demonstrate normal spontaneous and phasic flow, without evidence of deep venous thrombosis. IMPRESSION: No evidence of deep venous thrombosis of the bilateral lower extremity femoral popliteal venous system. <Electronically signed by Tavo Kumar > 11/05/20 [id number]
[2020-11-05] MEDS ORDERED: HYDROCORTISONE 100 MG/2 ML VIAL (J1720 PER 1) IV ONE (20:15)
[2020-11-05] MEDS ORDERED: VANCOMYCIN HCL 500 MG in D5W MINI-BAG PLUS 100 ML IV ONE (21:00)
[2020-11-05] MEDS ORDERED: NOREPINEPHRINE BITARTRATE 8 MG in D5W 492 ML IV SCH (21:15)
[2020-11-05] MEDS: VANCOMYCIN HCL 1,000 MG, VIAL MATE ADAPTER 1 EACH in NS 250 ML IV SCH (21:16)
--- NOTE | 2020-11-05 22:14 | REPVR ---
PROCEDURE INFORMATION: Exam: XR Chest Exam date and time: 11/05/20 (9:19pm) Age: 65 years old Clinical indication: Possible tension pneumothorax TECHNIQUE: Imaging protocol: Portable CXR Views: 1 view COMPARISON: Portable CXR of 11/05/20 (1:55pm) FINDINGS: Comparison is made with a portable CXR done approx. 7 hours ago. Stable heart size (probably mildly enlarged). Diffuse coarse interstitial disease again seen, bilaterally. No significant pleural effusions. No significant pneumothorax is evident. IMPRESSION: No significant interval change noted over the past 7 hours. No significant pneumothorax is appreciated. Diffuse coarse bilateral interstitial disease persists. Electronically signed by: Raissa Avila On 11/05/2020 22:13:55 PM
[2020-11-05] MEDS: NOREPINEPHRINE BITARTRATE 8 MG in D5W 492 ML IV SCH (22:45)
--- NOTE | 2020-11-05 22:55 | IPNPDOC ---
Subjective Date Seen The patient was seen on 11/05/20. Subjective Chief Complaint/HPI Mr. Licea is a 65 year old male with pulmonary interstitial fibrosis here with spontaneous pneumothorax of the right lung and now has developed CVA. Last night, his mentation worsened and he became agitated and confused. He did not do well with swallowing pills and was made NPO. This morning, he was in pain complaining of right shoulder and neck pain. ST evaluated and recommended pureed diet. He was able to do okay with the pureed diet and Percocet for the pain. MRI was performed. Neurology, Dr. Diaz looked at the images and reports that patient had bilateral multiple ischemic infarcts. Concern for cardiac embolic. Patient had echocardiogram done prior to MRI. Patient required Ativan to go down for MRI. On return, BP was low at 87/56. Unclear cause for hypotension, possibly septic. Started 30mL/kg of IVF bolus and IV vancomycin and Zosyn. Blood pressure was not improving with IVF bolus and reached out to patient's sister. Sister deferred to Gregor (Nephew) to make decisions for patient. Gregor wanted to see patient. After long family discussion about COAL SAMPLER vs treatment, Gregor wanted to continue treatment. Reached out to Dr. Roman who placed central line. Reached out to cardiology, Dr. Del Angel. Although patient had a small troponin of 1, there was no STEMI on EKG. ACS is unlikely cause of shock. Dr. Del Angel read echocardiogram which demonstrated severe pulmonary hypertension and gave a poor prognosis. Relayed information to Gregor who wanted to wait and see what the blood cultures show. Reached out to neurology about family's decision to continue treatment. Patient will need to maintain BP between 140 to 180 and start full dose aspirin today. Objective Physical Examination General Exam: Positive: Cooperative, Other (Fatigued) Eye Exam: Positive: EOMI; Negative: Sclera icteric ENT Exam: Positive: Atraumatic Chest Exam: Positive: Clear to auscultation Heart Exam: Positive: Rate Normal, Regular Rhythm Abdomen Exam: Positive: Normal bowel sounds, Soft; Negative: Tenderness Extremity Exam: Negative: Edema Neuro Exam: Positive: Normal Speech; Negative: Strength at 5/5 X4 ext (Cannot lift right arm, right leg, left leg, against gravitiy. ) Psych Exam: Positive: Mental status NL Assessment /Plan Assessment Mr. Licea is a 65 year old male with pulmonary interstitial fibrosis here with spontaneous pneumothorax of the right lung. Patient had talc pleurodesis on 10/20/2020 and removed chest tubes on 11/02/2020. On 11/04/2020, patient demonstrated stroke like symptoms with right facial droop, right arm and leg weakness, and left leg weakness. Neurology consulted. Discussed with patient about risks and benefits of TPA and patient is agreeable. Gave TPA on 02/03/2021 Patient did not improve after TPA. We were able to obtain MRI afterwards. Demonstrated bilateral multiple infarcts which is concerning for cardioembolic source. Echocardiogram did not demonstrate vegetation, but will have to wait for blood cultures before pursuing ABBEY. Otherwise, on Levophed, IV fluids, and broad spectrum IV antibiotics. Also on Hydrocortisone due to history of long steroid use. I explained the situation to Gregor, who will be making decisions for the patient. He wants to wait for blood cultures to make a decision on COAL SAMPLER or continue treatment. Until then, we will continue treatment. Plan/VTE VTE Prophylaxis Ordered?: Yes Plan 1. Spontaneous pneumothorax on the right with recurrence, s/p blood patch on 10/15 and 10/17 and talc pleurodesis on 10/20 -Dr. Reese following recommendations appreciated -Chest tubes removed on 11/02/2020 2. CVA -On 11/04/2020, demonstrated right face, arm, and leg weakness along with left leg weakness -Neurology consulted, recommendations appreciated -Risks and benefits discussed with patient, patient was agreeable to TPA -TPA protocol ordered -Did not improve with TPA -MRI demonstrated bilateral multiple infarcts, concerning for cardioembolic source -TTE negative. Will wait for blood cultures before pursuing ABBEY -Will need blood pressure between 140 to 180 in the period of acute stroke -Will start full dose aspirin 3. Shock -Unclear etiology, may be secondary to infections vs adrenal insufficiency -Did not respond to 30ml/kg of fluid -Started stress dose steroids and Levophed -Continue vancomycin and Zosyn 4. Severe pulmonary hypertension -Reported by Dr. Del Angel after reading echocardiogram -Per Dr. Del Angel, poor prognosis. Reported this prognosis to Gregor (nephew). 5. Diabetes mellitus -Sliding scale insulin 6. Lupus -Patient was scheduled for Cytoxan on 10/09/2020 per patient's Health Unit Clerk office in [place], [place] -Dr. Cruz spoke with patient, patient request to defer Cytoxan until he has recovered -Continue with hydrocortisone and Plaquenil Of note, due to patient's chronic and high-dose steroids, he is not a candidate for the COVID vaccination at this time 7. GERD -Continue pantoprazole 8. DVT ppx -No heparin due to TPA VS, I&O, 24H, Fishbone Vital Signs/I&O Vital Signs Date Time Temp Pulse Resp B/P (MAP) Pulse Ox O2 Delivery O2 Flow Rate FiO2 11/05/20 21:46 77 85/51 11/05/20 19:44 97 Nasal Cannula 3.0 11/05/20 12:38 28 11/05/20 12:00 98.5 11/04/20 16:52 I&O- Last 24 Hours up to 6 AM 11/05/20 06:00 Intake Total 830 ml Output Total 300 ml Balance 530 ml Laboratory Data 24H LABS Laboratory Tests 2 11/04/20 23:21: Bedside Glucose (Misc Panel) 97 11/05/20 01:44: Bedside Glucose (Misc Panel) 96 11/05/20 03:06: Bedside Glucose (Misc Panel) 128H 11/05/20 04:17: Nucleated Red Blood Cells % (auto) 0.0, Anion Gap 7L, Glomerular Filtration Rate > 60.0, Estimated Mean Plasma Glucose 177H, Hemoglobin A1c 7.8, Calcium Level 8.8, Triglycerides Level 109, Total Cholesterol 212H, LDL Cholesterol 84, Non-HDL Cholesterol (LDL + VLDL) 106, Total HDL Cholesterol 106, Cholesterol/HDL Ratio 2.000 11/05/20 07:51: Bedside Glucose (Misc Panel) 160H 11/05/20 11:22: Bedside Glucose (Misc Panel) 212H 11/05/20 14:46: Bedside Glucose (Misc Panel) 60L 11/05/20 16:17: Bedside Glucose (Misc Panel) 124H 11/05/20 17:15: Bedside Glucose (Misc Panel) 88 11/05/20 17:25: Blood Gas Bicarbonate Standard 31.0H, Arterial Blood pH 7.471H, Arterial Blood Partial Pressure CO2 44.5, Arterial Blood Partial Pressure O2 105.1H, Arterial Blood Total CO2 33.1H, Arterial Blood HCO3 31.7H, Arterial Blood Base Excess 7 .1H, Arterial Blood Oxygen Saturation 98.4 11/05/20 17:45: Methicillin-Resist S.aureus DNA PCR NOT DETECTED 11/05/20 17:58: Bedside Glucose (Misc Panel) 101 11/05/20 17:59: Immature Granulocyte % (Auto) 2.3, Neutrophils (%) (Auto) 80.8H, Lymphocytes (%) (Auto) 6.0L, Monocytes (%) (Auto) 9.5H, Eosinophils (%) (Auto) 1.0, Basophils (%) (Auto) 0.4, Neutrophils # (Auto) 11.5H, Lymphocytes # (Auto) 0.9L, Monocytes # (Auto) 1.4H, Eosinophils # (Auto) 0.1, Basophils # (Auto) 0.1, Nucleated Red Blood Cells % (auto) 0.0, Lactic Acid Level 1.7, Troponin I 1.01H 11/05/20 18:50: Urine Color YELLOW, Urine Appearance CLEAR, Urine pH 5.0, Urine Specific Callahan 1.029, Urine Protein 1+H, Urine Glucose (UA) 1+H, Urine Ketones TRACEH, Urine Blood 2+H, Urine Nitrite NEGATIVE, Urine Bilirubin NEGATIVE, Urine Urobilinogen 2.0H, Urine Leukocyte Esterase NEGATIVE, Urine WBC (Auto) 1, Urine RBC (Auto) 102H, Urine Hyaline Casts (Auto) 4, Urine Bacteria (Auto) NEGATIVE, Urine Squamous Epithelial Cells 0, Urine Mucus (Auto) SMALL, Urine Sperm (Auto) 11/05/20 21:31: Bedside Glucose (Misc Panel) 91 CBC/BMP Laboratory Tests 11/05/20 04:17 11/05/20 17:59 Microbiology Microbiology 11/05/20 Blood Culture, Received Pending 11/05/20 Blood Culture, Received Pending MARY OLU FORMAN DO Nov 05, 2020 22:55
[2020-11-06] VITALS (91 sets, daily range): BP systolic 124–175; BP diastolic 60–94; O2SAT 97
[2020-11-06] MEDS: ASPIRIN 300 MG SUPP PR SCH ×2 (00:25→09:00)
[2020-11-06] MEDS: PIPERACILLIN/TAZOBACTAM SOD 4.5 GM in D5W MINI-BAG PLUS 50 ML IV SCH ×4 (00:26→18:10)
[2020-11-06] MEDS: LEVALBUTEROL 1.25 MG/0.5 ML CONCENTRATE NEB NEB SCH ×4 (01:18→19:44)
[2020-11-06] MEDS: HYDROCORTISONE 100 MG/2 ML VIAL (J1720 PER 1) IV SCH ×4 (01:25→21:32)
[2020-11-06] MEDS: VANCOMYCIN HCL 1,000 MG, VIAL MATE ADAPTER 1 EACH in NS 250 ML IV SCH ×3 (03:38→20:14)
[2020-11-06 05:16] LABS: HEMATOCRIT 49.2 % (42.0-52.0); HEMOGLOBIN 14.9 g/dl (13.5-17.5); MEAN CORPUSCULAR HEMOGLOBIN 29.3 pg (27.0-33.0); MEAN CORPUSCULAR HGB CONC 30.3 g/dl (32.0-36.5); MEAN CORPUSCULAR VOLUME 96.7 fl (80.0-96.0); PLATELET COUNT, AUTOMATED 215 10^3/uL (150-450); RED BLOOD COUNT 5.09 10^6/uL (4.30-6.10); WHITE BLOOD COUNT 21.4 10^3/uL (4.0-10.0)
[2020-11-06] MEDS: SLF 3 ML SYR IV SCH ×3 (05:39→21:32)
[2020-11-06] MEDS: NOREPINEPHRINE BITARTRATE 8 MG in D5W 492 ML IV SCH ×3 (05:39→18:02)
[2020-11-06 05:49] LABS: BLOOD UREA NITROGEN 24 MG/DL (7-18); CALCIUM LEVEL 8.2 MG/DL (8.8-10.2); CARBON DIOXIDE LEVEL 28 MEQ/L (21-32); CHLORIDE LEVEL 104 MEQ/L (98-107); CREATININE FOR GFR 0.69 MG/DL (0.70-1.30); GLOMERULAR FILTRATION RATE > 60.0 (>49); GLUCOSE, FASTING 293 MG/DL (70-100); SODIUM LEVEL 139 MEQ/L (136-145)
[2020-11-06] MEDS: HumaLOG INSULIN (NovoLOG) PER UNIT SC SCH ×4 (07:30→20:14)
[2020-11-06] MEDS: ADVAIR HFA 115/21MCG INHALER INH SCH ×2 (07:31→19:44)
[2020-11-06] MEDS: MIDODRINE 5 MG TAB PO SCH ×3 (08:00→15:14)
[2020-11-06] MEDS: TIOTROPIUM INHALER/CAPSULE (SPIRIVA) INH SCH (08:10)
--- NOTE | 2020-11-06 08:42 | RO ---
OPERATIVE NOTE DATE OF OPERATION: 11/05/2020 PREOPERATIVE DIAGNOSIS: Hypotension. POSTOPERATIVE DIAGNOSIS: Hypotension. PROCEDURE: Insertion of triple lumen central venous catheter. SITE: Right femoral vein. SURGEON: Henry Roman MD BLOW MOLD MACHINE OPERATOR: ANESTHESIA: 1% Xylocaine. DESCRIPTION OF PROCEDURE: Procedure was performed emergently. After the right femoral area was prepped and draped in the usual sterile manner the right femoral vein was cannulated. Modified Seldinger technique, triple lumen central venous catheter was advanced. Good venous return was obtained from all three ports. The line was then sutured in place. There was some oozing from this site. Sandbag was applied. Each port was then flushed and sterile dressing applied.
[2020-11-06] MEDS: HYDROXYCHLOROQUINE 200 MG TAB PO SCH ×2 (09:00→20:13)
[2020-11-06] MEDS: ATOVAQUONE SUSP 750MG/5ML 210 ML BTL PO SCH (09:00)
[2020-11-06] MEDS: FIBER-CON 625 MG TAB PO SCH (09:00)
--- NOTE | 2020-11-06 10:43 | ECGEPIP ---
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 Increased voltages following drainage of pericardial fluid yesterday Electronically Signed on 11-06-2020 10:42:58 EDT by Canelo Del Angel
[2020-11-06] MEDS: LEVEMIR (INSULIN DETEMIR) 1 UNITS/0.01ML SC SCH (11:34)
--- NOTE | 2020-11-06 11:59 | ECHO ---
DATE OF PROCEDURE: 11/05/2020 Age: 65 Gender: Male Height: 72 inches Weight: 152 pounds Body Surface Area: 1.9 m2 PATIENT LOCATION: Inpatient ICU Room 3207. REFERRING PHYSICIAN: Félix Mcbride DO. INDICATION: CVA Cardiac source of embolic material? MEASUREMENTS: 2D Measurements: RV 5.8 cm LV 4.1 cm Septum 1.2 cm Posterior wall 1.2 cm Aortic Root 4.0 cm LA 3.3 cm LVEF 45-50% Doppler Measurements: AV 0.55 m/s LVOT 0.41 m/s LVOT diameter 2.4 cm MV-E 77, A 52, EA ratio 1.5 Early mitral deceleration time 142 msec E prime medial 11, A prime medial 5.9, E prime lateral 12.7 Average E/E prime ratio 6.5/PCWP 10 mmHg PV - 0.45 m/s Pulmonary artery acceleration time 63 msec PASP 53 mmHg IVC Could not be visualized COMMENTS: Sinus tachycardia without intraventricular conduction disturbance. A technically challenging study as the patient following his cerebrovascular accident was somewhat uncooperative, but some diagnostically useful information was still obtained. M-mode and 2-dimensional echocardiography was performed with pulse, continuous wave, color flow, and tissue Doppler studies. Borderline concentric left ventricular hypertrophy with obvious paradoxical septal wall motion abnormality related to right ventricular pressure overload with at least mild impairment of global resting left ventricular systolic function. Normal left atrial size and current Doppler assessment of LV diastolic function and estimated mean left atrial pressure. Prominently dilated right heart chambers with right ventricular free wall hypokinesis and Doppler evidence of at least moderate to moderately severe pulmonary hypertension (an underestimate). For technical reasons could not image his inferior vena cava to further accurately define his central venous pressure, but this is believed to be elevated. Borderline dilated aortic root. Mild aortic valvular sclerosis without functional abnormality but premature valve closure related to reduced forward stroke volume. Myxomatous proliferation of the mitral valve with normal leaflet excursion with posterior systolic buckling of the anterior leaflet with associated mild to moderate mitral insufficiency. Normal appearing tricuspid valve with moderate insufficiency. No apparent intracardiac mass or pericardial effusion. The patient was not cooperative to allow us to perform saline contrast study, but with the observed severe pulmonary hypertension and right heart chamber enlargement, this fellow may well have had a dilated patent foramen ovale and paradoxical embolization that could have caused his cerebrovascular accident. Earlier this evening, the patient became quite hypotensive following his MRI. He received TPA for his cerebrovascular accident yesterday, and this may have liberated a deep venous thrombus that may have further aggravated his pulmonary hypertension and provoked an acute on chronic cor pulmonale. In addition to his end-stage pulmonary fibrosis with the observed pulmonary hypertension and systemic hypotension, his prognosis is extremely guarded. A preliminary report of this study was related to the patient's physician directly. ONDINA
[2020-11-06] MEDS: MORPHINE 2 MG/ML 1ML VIAL (J2270) IV PRN ×2 (17:15)
[2020-11-06 19:17] LABS: BLOOD UREA NITROGEN 16 MG/DL (7-18); CALCIUM LEVEL 8.1 MG/DL (8.8-10.2); CARBON DIOXIDE LEVEL 36 MEQ/L (21-32); CHLORIDE LEVEL 101 MEQ/L (98-107); CREATININE FOR GFR 0.66 MG/DL (0.70-1.30); GLOMERULAR FILTRATION RATE > 60.0 (>49); GLUCOSE, FASTING 250 MG/DL (70-100); POTASSIUM SERUM 4.3 MEQ/L (3.5-5.1); SODIUM LEVEL 140 MEQ/L (136-145); VANCOMYCIN LEVEL TROUGH 13.7 UG/ML (10.0-20.0)
--- NOTE | 2020-11-06 19:43 | IPNPDOC ---
Subjective Date Seen The patient was seen on 11/06/20. Subjective Chief Complaint/HPI Mr. Licea is a 65 year old male with pulmonary interstitial fibrosis here with spontaneous pneumothorax of the right lung and now has developed CVA. Last night, central line was place and Levophed started to maintain SBP >140 due to acute CVA. This morning, he was more awake. He did not want eat or have anymore treatment this morning. He was A&Ox2, he did not know year and thought it may be 1969. Discussed with patient's decision maker Gregor Licea. After seeing the patient today, the patient's decision maker will have family discussion and po ssibly proceed towards PEPPER CUTTER tomorrow. Objective Physical Examination Eye Exam: Negative: Sclera icteric ENT Exam: Positive: Atraumatic Chest Exam: Positive: Clear to auscultation Heart Exam: Positive: Rate Normal, Regular Rhythm Abdomen Exam: Positive: Normal bowel sounds, Soft; Negative: Tenderness Extremity Exam: Negative: Edema Neuro Exam: Negative: Normal Speech (Slightly slurred), Strength at 5/5 X4 ext (Cannot lift right arm, right leg, left leg, against gravitiy. Now able to wiggle toes bilaterally) Psych Exam: Negative: Oriented x 3 Assessment /Plan Assessment Mr. Licea is a 65 year old male with pulmonary interstitial fibrosis here with spontaneous pneumothorax of the right lung. Patient had talc pleurodesis on 10/20/2020 and removed chest tubes on 11/02/2020. On 11/04/2020, patient demonstrated stroke like symptoms with right facial droop, right arm and leg weakness, and left leg weakness. Neurology consulted. Discussed with patient about risks and benefits of TPA and patient is agreeable. Gave TPA on 02/03/2021 Patient did not improve after TPA. We were able to obtain MRI afterwards. Demonstrated bilateral multiple infarcts which is concerning for cardioembolic source. Echocardiogram did not demonstrate vegetation, but will have to wait for blood cultures before pursuing ABBEY. Otherwise, on Levophed, IV fluids, and broad spectrum IV antibiotics. Also on Hydrocortisone due to history of long steroid use. I explained the situation to Gregor, who will be making decisions for the patient. He saw his father awake today. He will have a family meeting and possibly proceed to PEPPER CUTTER tomorrow as patient refuses to eat. Plan/VTE VTE Prophylaxis Ordered?: Yes Plan 1. Spontaneous pneumothorax on the right with recurrence, s/p blood patch on 10/15 and 10/17 and talc pleurodesis on 10/20 -Dr. Reese following recommendations appreciated -Chest tubes removed on 11/02/2020 2. CVA -On 11/04/2020, demonstrated right face, arm, and leg weakness along with left leg weakness -Neurology consulted, recommendations appreciated -Risks and benefits discussed with patient, patient was agreeable to TPA -TPA protocol ordered -Did not improve with TPA. -MRI demonstrated bilateral multiple infarcts, concerning for cardioembolic source -TTE negative. Will wait for blood cultures before pursuing ABBEY -Will need blood pressure between 140 to 180 in the period of acute stroke -On 11/06/2020, he is able to wiggle toes -Continue aspirin 3. Shock -Unclear etiology, may be secondary to infections vs adrenal insufficiency -Did not respond to 30ml/kg of fluid -Started stress dose steroids and Levophed -Continue vancomycin and Zosyn 4. Severe pulmonary hypertension -Reported by Dr. Del Angel after reading echocardiogram -Per Dr. Del Angel, poor prognosis. Reported this prognosis to Gregor amato). 5. Diabetes mellitus -Sliding scale insulin 6. 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 Cruz spoke with patient, patient request to defer Cytoxan until he has recovered -Continue with hydrocortisone and Plaquenil Of note, due to patient's chronic and high-dose steroids, he is not a candidate for the COVID vaccination at this time 7. GERD -Continue pantoprazole 8. DVT ppx -No heparin due to TPA -SCD and TEDs Disposition: Poor prognosis as patient refuses to eat and has severe bilateral multiple CVA. Patient's decision maker to have family meeting this afternoon and decide on possibly PEPPER CUTTER tomorrow morning VS, I&O, 24H, Fishbone Vital Signs/I&O Vital Signs Date Time Temp Pulse Resp B/P (MAP) Pulse Ox O2 Delivery O2 Flow Rate FiO2 11/06/20 18:30 93 158/88 (111) 98 Nasal Cannula 2.0 11/06/20 18:02 18 11/06/20 16:00 99.0 11/06/20 08:00 100 l I&O- Last 24 Hours up to 6 AM 11/06/20 06:00 Intake Total 3561 ml Output Total 300 ml Balance 3261 ml Laboratory Data 24H LABS Laboratory Tests 2 11/05/20 21:31: Bedside Glucose (Misc Panel) 91 11/05/20 23:53: Troponin I 1.08H 11/06/20 05:07: Bedside Glucose (Misc Panel) 294H 11/06/20 05:09: Troponin I 0.77#H, Nucleated Red Blood Cells % (auto) 0.0, Anion Gap 7L, Glomerular Filtration Rate > 60.0, Calcium Level 8.2L 11/06/20 09:52: Bedside Glucose (Misc Panel) 289H 11/06/20 13:11: Bedside Glucose (Misc Panel) 290H 11/06/20 17:03: Bedside Glucose (Misc Panel) 247H 11/06/20 18:32: Anion Gap 3L, Glomerular Filtration Rate > 60.0, Calcium Level 8.1L, Vancomycin Level Trough 13.7 CBC/BMP Laboratory Tests 11/06/20 05:09 11/06/20 18:32 Microbiology Microbiology 11/05/20 Blood Culture - Preliminary, Resulted No growth after 24 hours . All specim... 11/05/20 Blood Culture - Preliminary, Resulted No growth after 24 hours . All specim... MARY LOU FORMAN DO Nov 06, 2020 19:43
[2020-11-06] MEDS: PERCOCET 5MG/325MG TAB PO PRN (20:14)
[2020-11-07] VITALS (42 sets, daily range): BP systolic 135–178; BP diastolic 6–107; O2SAT 97
[2020-11-07] MEDS: PERCOCET 5MG/325MG TAB PO PRN ×2 (00:21→08:02)
[2020-11-07] MEDS: PIPERACILLIN/TAZOBACTAM SOD 4.5 GM in D5W MINI-BAG PLUS 50 ML IV SCH ×3 (00:21→11:39)
[2020-11-07] MEDS: HYDROCORTISONE 100 MG/2 ML VIAL (J1720 PER 1) IV SCH ×2 (01:20→07:36)
[2020-11-07] MEDS: NOREPINEPHRINE BITARTRATE 8 MG in D5W 492 ML IV SCH ×3 (01:20→08:40)
[2020-11-07] MEDS: LEVALBUTEROL 1.25 MG/0.5 ML CONCENTRATE NEB NEB SCH ×2 (01:36→08:00)
[2020-11-07] MEDS: VANCOMYCIN HCL 1,000 MG, VIAL MATE ADAPTER 1 EACH in NS 250 ML IV SCH (04:01)
[2020-11-07 04:10] LABS: HEMOGLOBIN 14.6 g/dl (13.5-17.5); MEAN CORPUSCULAR HEMOGLOBIN 29.6 pg (27.0-33.0); MEAN CORPUSCULAR HGB CONC 31.7 g/dl (32.0-36.5); MEAN CORPUSCULAR VOLUME 93.3 fl (80.0-96.0); PLATELET COUNT, AUTOMATED 201 10^3/uL (150-450); RED BLOOD COUNT 4.93 10^6/uL (4.30-6.10); WHITE BLOOD COUNT 17.7 10^3/uL (4.0-10.0)
[2020-11-07 04:39] LABS: BLOOD UREA NITROGEN 12 MG/DL (7-18); CALCIUM LEVEL 8.3 MG/DL (8.8-10.2); CARBON DIOXIDE LEVEL 35 MEQ/L (21-32); CHLORIDE LEVEL 97 MEQ/L (98-107); CREATININE FOR GFR 0.55 MG/DL (0.70-1.30); GLOMERULAR FILTRATION RATE > 60.0 (>49); GLUCOSE, FASTING 277 MG/DL (70-100); POTASSIUM SERUM 4.3 MEQ/L (3.5-5.1); SODIUM LEVEL 136 MEQ/L (136-145)
[2020-11-07] MEDS: SLF 3 ML SYR IV SCH ×3 (06:00→22:46)
[2020-11-07] MEDS: HumaLOG INSULIN (NovoLOG) PER UNIT SC SCH ×2 (07:35→11:39)
[2020-11-07] MEDS: ATOVAQUONE SUSP 750MG/5ML 210 ML BTL PO SCH (07:36)
[2020-11-07] MEDS: LEVEMIR (INSULIN DETEMIR) 1 UNITS/0.01ML SC SCH (07:36)
[2020-11-07] MEDS: MIDODRINE 5 MG TAB PO SCH ×2 (07:36→11:39)
[2020-11-07] MEDS: HYDROXYCHLOROQUINE 200 MG TAB PO SCH (07:36)
[2020-11-07] MEDS: FIBER-CON 625 MG TAB PO SCH (07:36)
[2020-11-07] MEDS: ASPIRIN 300 MG SUPP PR SCH (07:36)
[2020-11-07] MEDS: ADVAIR HFA 115/21MCG INHALER INH SCH ×2 (08:09→19:38)
[2020-11-07] MEDS: TIOTROPIUM INHALER/CAPSULE (SPIRIVA) INH SCH (08:11)
[2020-11-07] MEDS ORDERED: NOREPINEPHRINE BITARTRATE 8 MG in D5W 492 ML IV SCH (08:47)
[2020-11-07] MEDS ORDERED: SCOPOLAMINE 1MG TRANSDERMAL PATCH TOP PRN (12:25)
[2020-11-07] MEDS ORDERED: ALBUTEROL SULFATE 2.5 MG/0.5 ML INH NEB SOLN NEB PRN (12:25)
[2020-11-07] MEDS ORDERED: ONDANSETRON 4MG/2ML VIAL IV PRN (12:25)
[2020-11-07] MEDS: MORPHINE 2 MG/ML 1ML VIAL (J2270) IV PRN ×3 (13:55→18:24)
[2020-11-07] MEDS ORDERED: LORazepam 2 MG/ML VIAL As Ordered ONE ×3 (14:05→18:21)
[2020-11-07] MEDS: LORazepam 2 MG/ML VIAL IV PRN ×3 (14:07→18:23)
--- NOTE | 2020-11-07 20:35 | IPNPDOC ---
Subjective Date Seen The patient was seen on 11/07/20. Subjective Chief Complaint/HPI Mr. Licea is a 65 year old male with pulmonary interstitial fibrosis here with spontaneous pneumothorax of the right lung and now has developed CVA. This morning, he was more alert. He knew the month, location, and his name. He did not want any further treatments and wanted to be made comfortable. Nephew Gregor and Malinda arrived to the ICU and with the patient had a discussion of goals of care. Everyone was in agreement with MANAGER CORPORATE COMMUNICATIONS and patient was made MANAGER CORPORATE COMMUNICATIONS with the understanding we will withdrawal life sustaining treatment and he will most likely pass away, but he will be made comfortable. We filled out the new MOLST and Walter spent time with Krishna Licea Objective Physical Examination Eye Exam: Negative: Sclera icteric ENT Exam: Positive: Atraumatic Chest Exam: Positive: Clear to auscultation Heart Exam: Positive: Rate Normal, Regular Rhythm Abdomen Exam: Positive: Normal bowel sounds, Soft; Negative: Tenderness Extremity Exam: Negative: Edema Neuro Exam: Positive: Normal Speech (Slightly slurred), Strength at 5/5 X4 ext (Cannot lift right arm, right leg, left leg, against gravitiy. Now able to wiggle toes bilaterally) Psych Exam: Positive: Oriented x 3 Assessment /Plan Assessment Mr. Licea is a 65 year old male with pulmonary interstitial fibrosis here with spontaneous pneumothorax of the right lung. Patient had talc pleurodesis on 10/20/2020 and removed chest tubes on 11/02/2020. On 11/04/2020, patient demonstrated stroke like symptoms with right facial droop, right arm and leg weakness, and left leg weakness. Neurology consulted. Discussed with patient about risks and benefits of TPA and patient is agreeable. Gave TPA on 02/03/2021 Patient did not improve after TPA. We were able to obtain MRI afterwards. Demonstrated bilateral multiple infarcts which is concerning for cardioembolic source. Echocardiogram did not demonstrate vegetation, but will have to wait for blood cultures before pursuing ABBEY. Otherwise, on Levophed, IV fluids, and broad spectrum IV antibiotics. Also on Hydrocortisone due to history of long steroid use. Patient is A&Ox3 on 11/07/2020. He did not want treatment and wanted to be comfortable. We had a family discussion on 11/07/2020. Everyone was in agreement and patient was made comfortable. Plan/VTE VTE Prophylaxis Ordered?: Yes Plan 1. Spontaneous pneumothorax on the right with recurrence, s/p blood patch on 10/15 and 10/17 and talc pleurodesis on 10/20 2. Bilateral multifocal CVA 3. Shock 4. Severe pulmonary hypertension 5. Diabetes mellitus 6. Lupus 7. GERD Disposition: MANAGER CORPORATE COMMUNICATIONS VS, I&O, 24H, Fishbone Vital Signs/I&O Vital Signs Date Time Temp Pulse Resp B/P (MAP) Pulse Ox O2 Delivery O2 Flow Rate FiO2 11/07/20 19:38 97 Nasal Cannula 2.0 11/07/20 18:34 12 11/07/20 13:55 76 11/07/20 12:00 97.0 139/76 (97) 11/06/20 08:00 100 I&O- Last 24 Hours up to 6 AM 11/07/20 06:00 Intake Total 2171 ml Output Total 750 ml Balance 1421 ml Laboratory Data 24H LABS Laboratory Tests 2 11/07/20 04:01: Nucleated Red Blood Cells % (auto) 0.0, Anion Gap 4L, Glomerular Filtration Rate > 60.0, Calcium Level 8.3L 11/07/20 07:31: Bedside Glucose (Misc Panel) 282H 11/07/20 11:31: Bedside Glucose (Misc Panel) 191H CBC/BMP Laboratory Tests 11/07/20 04:01 Microbiology Microbiology 11/05/20 Blood Culture - Preliminary, Resulted No Growth after 48 hours. All Specime... 11/05/20 Blood Culture - Preliminary, Resulted No Growth after 48 hours. All Specime... MARY LOU FORMAN DO Nov 07, 2020 20:34
--- NOTE | 2020-11-08 07:12 | DS.PDOC ---
Discharge Summary General Date of Admission Oct 03, 2020 at 15:29 Date of Discharge Nov 07, 2020 Discharge Summary PROCEDURES PERFORMED DURING STAY: 1. Chest tube insertion 2. Blood patch 3. Talc pleurodesis ADMITTING DIAGNOSES: 1. Spontaneous pneumothorax 2. Diabetes mellitus 3. Systemic lupus erythematosus 4. Chronic pain 2/2 lumbosacral degenerative disc disease and degenerative arthritis 5. End stage pulmonary fibrosis DISCHARGE DIAGNOSES: 1. Spontaneous pneumothorax 2. Diabetes mellitus 3. Systemic lupus erythematosus 4. Chronic pain 2/2 lumbosacral degenerative disc disease and degenerative arthritis 5. End stage pulmonary fibrosis 6. Bilateral multifocal CVA 7. Shock 8. Severe pulmonary hypertension COMPLICATIONS/CHIEF COMPLAINT: Pneumothorax. HISTORY OF PRESENT ILLNESS: Mr. Licea is a 65 year old male with SLE and endstage pulmonary fibrosis who is found to have right pneumothorax. When seen in the ED by admitting physician, he already had a chest tube place. He complains of pleuritic chest pain which had limited history taking. Patient is familiar to [facility]. Please see Dr. Reese's consult note for further information about patient's illness. HOSPITAL COURSE: Chest tube was managed by Dr. Reese. patient had a prolonged course with the chest tube and had leaks. Attempted blood patch, but Dr. Reese had to do Talc pleurodesis. Talc pleurodesis was successful and chest tubes were removed. Otherwise, patient was due for Cytoxin, but opted to delay Cytoxin treatment until healthier per Dr. Cruz. Patient was doing better off of chest tube. He was ambulated and physical therapy suggested he may be able to go home with home physical therapy. On 11/04/2020, patient suddenly developed right arm and leg weakness, left leg weakness, and right facial droop. Spoke with neurology here and neurology at [facility]. Patient was a complex case with risk of hemothorax. Ultimately, discussed with patient about TPA the risks and benefits of TPA. TPA may be able to reverse his weakness, but it was not always successful and carries risks of bleeding. Patient understood and agreed to TPA. After TPA, patient did not improved. He had dysphagia and intermittent confusion. CT head negative. Attempted to obtain MRI, but delayed due to inability to reach patient's decision maker able MRI consent. When we were able to obtain MRI, discussed MRI with neurology, Dr. Diaz. Dr Diaz reviewed the MRI. Patient had bilateral multifocal ischemic infarcts. After the MRI, patient also developed shock. Unclear etiology, but patient was started on antibiotics, IVF, steroids, and pressors. Patient's SBP was maintained above SBP 140. His mentation and clarity greatly improved. Echocardiogram was negative for vegetation or clots, but would need to pursue a ABBEY if blood cultures returned positive. Of note lower extremity US was negative for clots, but this was post TPA. Patient was on heparin for DVT ppx prior to stroke like symptoms. Reached out to neurology. Patient has a poor prognosis. There were bilateral clots in the cerebrum and cerebellum. 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 Discuss these findings with the patient's point of contact and nephew, Gregor Licea (Patient's sister, Carolina Licea, had deferred decision making to Gregor Licea, and reported paper work had been done). Gregor discussed with rest of family and met with patient. On 11/07/2020, Krishna Licea wanted [facility] and rest of family was in agreement. Krishna Licea was made comfortable. On 11/07/2020 at 23:43, patient peacefully and comfortably . Vital Signs/I&Os Vital Signs Date Time Temp Pulse Resp B/P (MAP) Pulse Ox O2 Delivery O2 Flow Rate FiO2 11/07/20 19:38 97 Nasal Cannula 2.0 11/07/20 18:34 12 11/07/20 13:55 76 11/07/20 12:00 97.0 139/76 (97) 11/06/20 08:00 100 I&O- Last 24 Hours up to 6 AM 11/08/20 06:00 Intake Total 280 ml Output Total 400 ml Balance -120 ml Laboratory Data Labs 24H Laboratory Tests 2 11/07/20 07:31: Bedside Glucose (Misc Panel) 282H 11/07/20 11:31: Bedside Glucose (Misc Panel) 191H FSBS Laboratory Tests Test 11/07/20 07:31 11/07/20 11:31 Range/Units Bedside Glucose (Misc Panel) 282 191 80-115 MG/DL Microbiology Microbiology 11/05/20 Blood Culture - Preliminary, Resulted No Growth after 48 hours. All Specime... 11/05/20 Blood Culture - Preliminary, Resulted No Growth after 48 hours. All Specime... Discharge Medications Scheduled Atovaquone (Atovaquone) 750 Mg/5 Ml Oral.susp, 10 ML PO DAILY, (Reported) Calcium Citrate/Vitamin D3 (Citracal + D Maximum Caplet) 1 Each Tablet, 2 TAB PO BID, (Reported) Dexlansoprazole (Dexilant) 60 Mg Cap.dr.bp, 60 MG PO DAILY, (Reported) Empagliflozin/Linagliptin (Glyxambi 25 mg-5 mg Tablet) 1 Each Tablet, 1 TAB PO DAILY, (Reported) Fluticasone/Vilanterol (Breo Ellipta 200-25 Mcg INH) 1 Each Blst.w.dev, 1 PUFF INH DAILY, (Reported) Glimepiride (Glimepiride) 4 Mg Tablet, 8 MG PO DAILY, (Reported) Hydroxychloroquine Sulfate (Hydroxychloroquine Sulfate) 200 Mg Tablet, 200 MG PO BID, (Reported) Pioglitazone HCl (Actos) 45 Mg Tablet, 45 MG PO DAILY, (Reported) Prednisone (Prednisone) 20 Mg Tablet, 60 MG PO DAILY, (Reported) Tiotropium Moroni Monohydrate (Spiriva) 18 Mcg Cap.w.dev, 1 PUFF INH DAILY, (Reported) Scheduled PRN Albuterol Sulf (Albuterol Sulfate) 2.5 Mg/3 Ml Vial.neb, 1 VIAL NEB QID PRN for SHORTNESS OF BREATH, (Reported) Allergies Coded Allergies: No Known Drug Allergies (Verified Allergy, Unknown, 10/03/20) MARY LOU FORMAN DO Nov 08, 2020 07:12
== END 2020-11-08 01:09 | disposition expired | DRG 163 ==
LOC: M ED 13:59 → M PCU 15:29 → ENRESERV 15:34 → M ICU 10-20 17:09 → M PCU 10-23 15:17 → M ICU 11-04 15:35
PROVIDERS: ADMIT Thoracic Surgery (Cardiothoracic Vascular Surgery); ATTEND Internal Medicine
PROC: 0W9930Z Drainage of Right Pleural Cavity with Drainage Device, Percutaneous Approach (ICD-10-PCS; 2020-10-03)
PROC: 0W9930Z Drainage of Right Pleural Cavity with Drainage Device, Percutaneous Approach (ICD-10-PCS; 2020-10-08)
PROC: 05H Upper Veins, Insertion (ICD-10-PCS; 2020-10-13)
PROC: 3E0S3GC Introduction of Other Therapeutic Substance into Epidural Space, Percutaneous Approach (ICD-10-PCS; 2020-10-13)
PROC: 3E0S3GC Introduction of Other Therapeutic Substance into Epidural Space, Percutaneous Approach (ICD-10-PCS; 2020-10-17)
PROC: 0BBF0ZZ Excision of Right Lower Lung Lobe, Open Approach (ICD-10-PCS; principal; 2020-10-21)
PROC: 06HM3DZ Insertion of Intraluminal Device into Right Femoral Vein, Percutaneous Approach (ICD-10-PCS; 2020-11-05)
DX: J93.83 Other pneumothorax (principal); J86.0 Pyothorax with fistula; J96.00 Acute respiratory failure, unspecified whether with hypoxia or hypercapnia; I63.9 Cerebral infarction, unspecified; R57.9 Shock, unspecified; I69.351 Hemiplegia and hemiparesis following cerebral infarction affecting right dominant side; E11.40 Type 2 diabetes mellitus with diabetic neuropathy, unspecified; E87.5 Hyperkalemia; M32.9 Systemic lupus erythematosus, unspecified; J84.10 Pulmonary fibrosis, unspecified; J44.9 Chronic obstructive pulmonary disease, unspecified; T81.82XA Emphysema (subcutaneous) resulting from a procedure, initial encounter; D75.1 Secondary polycythemia; I27.20 Pulmonary hypertension, unspecified; M51.37 Other intervertebral disc degeneration, lumbosacral region; K21.9 Gastro-esophageal reflux disease without esophagitis; Z66 Do not resuscitate; M19.90 Unspecified osteoarthritis, unspecified site; Z79.899 Other long term (current) drug therapy; E11.649 Type 2 diabetes mellitus with hypoglycemia without coma; Z51.5 Encounter for palliative care